=== PATIENT | female | born 1965 | race Caucasian/White ===

== ENCOUNTER 2023-12-14 13:49 | Emergency (ER) | payer MEDICARE, SELFPAY ==
[2023-12-14 14:01] VITALS: BP 150/98; PULSE 95; TEMP 36.7; O2SAT 98; BMI 22.5
--- NOTE | 2023-12-14 15:04 | ED.GENADUL1 ---
HPI HPI - General Adult General Chief complaint: Skin/Abscess/Foreign Body Stated complaint: BOIL IN VAGINAL AREA Time Seen by Provider: 12/14/23 14:06 Source: patient Mode of arrival: walk-in History of Present Illness HPI narrative: Patient is a 58-year-old female presents to the emergency department for 3-day history of right labial swelling and pain. She states yesterday the area opened and began draining. She has no history of diabetes. No fevers or vomiting. She states she was hoping she could be on an antibiotic. No medications taken prior to arrival. Related Data Previous Rx's ?Medication ?Instructions ?Recorded cephalexin 500 mg capsule 500 mg PO Q8H 10 days #30 caps 12/14/23 hydrocodone 5 mg-acetaminophen 325 1 tab PO Q6H PRN pain 3 days #12 12/14/23 mg tablet tabs ondansetron 4 mg disintegrating 4 mg PO Q6H PRN nausea and 12/14/23 tablet vomiting #12 tabs sulfamethoxazole 800 1 tab PO BID 10 days #20 tabs 12/14/23 mg-trimethoprim 160 mg tablet (Bactrim DS) Allergies Allergy/AdvReac Type Severity Reaction Status Date / Time No Known Drug Allergies Allergy Verified 12/14/23 14:06 Opioid HPI Opioid Management Most Recent Opioid Data: No Data to Display Review of Systems ROS Constitutional Denies: fever or chills Ears, nose, mouth, and throat Denies: throat pain or nasal congestion Respiratory Denies: shortness of breath Gastrointestinal Denies: abdominal pain, nausea or vomiting Integumentary/Breast Denies: rash Hematologic/Lymphatic Denies: easy bruising or easy bleeding Exam Narrative Exam Narrative: Gen.: Awake, alert, in no distress Head: Normocephalic, atraumatic ENT: Moist mucous membranes Respiratory: No respiratory distress : Right labia majora is edematous with a 1 cm open area, purulent drainage able to be expressed. No extension to the labia minora. No Bartholin cyst noted. Extremities: Moves extremities equally Psych: Normal mood and affect Neuro: No focal neuro deficit Skin: Warm, dry, intact Constitutional Vital Signs, click to edit/add: Last Vital Signs Temp 98.0 F 12/14/23 14:01 Pulse 95 H 12/14/23 14:01 Resp 18 12/14/23 14:01 BP 150/98 H 12/14/23 14:01 Pulse Ox 98 12/14/23 14:01 O2 Del Method Room Air 12/14/23 14:01 Course Vital Signs Vital signs: Vital Signs Temperature 98.0 F 12/14/23 14:01 Pulse Rate 95 H 12/14/23 14:01 Respiratory Rate 18 12/14/23 14:01 Blood Pressure 150/98 H 12/14/23 14:01 Pulse Oximetry 98 12/14/23 14:01 Oxygen Delivery Method Room Air 12/14/23 14:01 Temperature 98.0 F 12/14/23 14:01 Pulse Rate 95 H 12/14/23 14:01 Respiratory Rate 18 12/14/23 14:01 Blood Pressure 150/98 H 12/14/23 14:01 Pulse Oximetry 98 12/14/23 14:01 Oxygen Delivery Method Room Air 12/14/23 14:01 Medical Decision Making MDM Narrative Medical decision making narrative: Patient treated for labial abscess with Bactrim, Keflex, [place] and Zofran given for symptoms. Follow-up with PCP, gynecology and return to the ER if symptoms change or worsen. Warm compresses encouraged. SUPERVISED APC VISIT, PHYSICIAN ATTESTATION: Based on the medical record the care appears appropriate. ? Medical Records Medical records reviewed: Yes I reviewed the patient's medical records Discharge Plan Discharge Stand Alone Forms: Portal Instructions Chief Complaint: Skin/Abscess/Foreign Body Clinical Impression: Abscess of labia Patient Disposition: Home, Self-Care Time of Disposition Decision: 15:01 Condition: Good Prescriptions / Home Meds: New hydrocodone-acetaminophen 5-325 mg tablet 1 tab PO Q6H PRN (Reason: pain) 3 Days Qty: 12 0RF Rx Instructions: DX: L02.91 sulfamethoxazole-trimethoprim [Bactrim DS] 800-160 mg tablet 1 tab PO BID 10 Days Qty: 20 0RF cephalexin 500 mg capsule 500 mg PO Q8H 10 Days Qty: 30 0RF ondansetron 4 mg tablet,disintegrating 4 mg PO Q6H PRN (Reason: nausea and vomiting) Qty: 12 0RF Print Language: Macanese Instructions: Abscess (ED) Referrals: Physician,Non-Staff, MD [Primary Care Provider] - 1 week
== END 2023-12-14 15:10 | disposition home or self-care (01) ==
PROVIDERS: Emergency Provider Emergency Medicine Emergency Medical Services
DX: N76.4 Abscess of vulva (principal)
CPT/HCPCS: 99283

== ENCOUNTER 2024-01-04 08:59 | Emergency (ER) | payer MEDICARE, SELFPAY ==
[2024-01-04 09:03] VITALS: BP 113/92; PULSE 87; TEMP 36.6; O2SAT 100; BMI 22.7
--- NOTE | 2024-01-04 09:10 | PC.NURSE ---
pt states her anxiety has gotten worse over the last few days. denies any precipitating events leading to this. does not see a counselor and does not take any anti-anxiety meds at this time.
[2024-01-04 09:33] LABS: Basophils Absolute Auto 0.1 10^3/uL (0.0-0.1); Basophils Percent Auto 1.2 % (0.2-2.0); Eosinophils Absolute Auto 0.1 10^3/uL (0.0-0.7); Eosinophils Percent Auto 1.4 % (0.9-7.0); Hematocrit 41.6 % (36.0-48.0); Hemoglobin 13.7 g/dL (12.0-16.0); Immature Granulocytes Abs Auto 0.02 10^3/uL (0.00-0.03); Immature Granulocytes Pct Auto 0.2 % (0.0-0.5); Lymphocytes Absolute Auto 2.3 10^3/uL (1.2-3.8); Lymphocytes Percent Auto 24.8 % (20.5-60.0); Mean Corpuscular HGB Conc 32.9 g/dL (29.9-35.2); Mean Corpuscular Hemoglobin 31.4 pg (26.7-34.0); Mean Corpuscular Volume 95.2 fL (81.0-99.0); Mean Platelet Volume 9.8 fL (9.5-13.5); Monocytes Absolute Auto 0.7 10^3/uL (0.3-0.8); Monocytes Percent Auto 6.9 % (1.7-12.0); Neutrophils Absolute Auto 6.2 10^3/uL (1.4-6.5); Neutrophils Percent Auto 65.5 % (43.0-75.0); Platelet Count 448 10^3/uL (150-450); Red Blood Count 4.37 10^6/uL (4.20-5.40); Red Cell Distribution Width 13.4 % (11.0-15.0); White Blood Count 9.4 10^3/uL (4.0-11.0)
[2024-01-04 09:50] LABS: Alanine Aminotransferase 20 U/L (14-59); Albumin Globulin Ratio 0.9; Albumin Level 3.4 g/dL (3.4-5.0); Alkaline Phosphatase 96 U/L (46-116); Aspartate Amino Transferase 17 U/L (15-37); BUN Creatinine Ratio 13.7; Bilirubin Total 0.4 mg/dL (0.2-1.0); Carbon Dioxide 25.7 mmol/L (21.0-32.0); Chloride 102 mmol/L (98-107); Estimated GFR (African America >60 (>=60); Estimated GFR (Non-African Ame >60 (>=60); Ethanol <3 mg/dL; Globulin 3.8 g/dL; Glucose 84 mg/dL (74-106); Potassium 3.7 mmol/L (3.5-5.1); Sodium 137 mmol/L (136-145); Total Protein 7.2 g/dL (6.4-8.2)
[2024-01-04 10:16] LABS: Amphetamine Screen Urine NEGATIVE (NEGATIVE); Barbiturates Screen Urine NEGATIVE (NEGATIVE); Benzodiazepines Screen Urine NEGATIVE (NEGATIVE); Buprenorphine Screen Urine NEGATIVE (NEGATIVE); Cannabinoid Screen Urine NEGATIVE (NEGATIVE); Cocaine Screen Urine NEGATIVE (NEGATIVE); Methadone Screen Urine NEGATIVE (NEGATIVE); Methamphetamines Screen Urine NEGATIVE (NEGATIVE); Opiate Screen Urine NEGATIVE (NEGATIVE); Oxycodone Screen Urine NEGATIVE (NEGATIVE); Phencyclidine Screen Urine NEGATIVE (NEGATIVE); Tricyclic Antidepressant Urine NEGATIVE (NEGATIVE)
--- NOTE | 2024-01-04 10:23 | ED.ANXIETY1 ---
HPI - Anxiety General Chief Complaint: Anxiety Stated Complaint: ANXIETY COMPLAINTS Time Seen by Provider: 01/04/24 09:14 Source: patient and family Mode of arrival: walk-in Limitations: no limitations History of Present Illness HPI narrative: The patient presenting to us with a symptoms of an anxiety, that she was diagnosed with that more than 10 years ago but she has not been following up with her psychiatrist and she also is not taking any medication for, patient denies being suicidal or homicidal she also denies any organic symptoms of chest pain nausea vomiting or any other concern She has been having normal appetite although she mentioned that her sleeping is adequate but she still feels anxious most of the time when going to sleep Related Data Previous Rx's ?Medication ?Instructions ?Recorded hydroxyzine pamoate 25 mg capsule 25 mg PO Q8H PRN anxiety #20 caps 01/04/24 (Vistaril) Allergies Allergy/AdvReac Type Severity Reaction Status Date / Time No Known Drug Allergies Allergy Verified 01/04/24 09:06 Review of Systems ROS Status of ROS 10 or more systems reviewed and unremarkable except as noted in history and below Exam Narrative Exam Narrative: Nurses notes and vital signs reviewed and patient is not hypoxic. General: Well-appearing and in no apparent distress. Skin: Warm, dry, no pallor noted. No rash. Head: Normocephalic, atraumatic. Neck: Supple, non-tender. Eye: Pupils are equal, round and EOMI. No scleral icterus. Ears, Nose, Mouth, and Throat: TM are clear, no nasal mucosal hypertrophy. Oral mucosa is moist, no posterior oropharynx erythema, uvula is mid-line Cardiovascular: Regular Rate and Rhythm without murmur, gallop or rub. Respiratory: No accessory muscle use or respiratory distress. Lungs are clear to auscultation, no wheezing, rales or rhonchi Chest Wall: no tenderness Back: No midline thoracic or lumbar vertebral tenderness. No CVA tenderness Musculoskeletal: normal ROM, no calf or popliteal tenderness, no lower extremity edema/swelling GI: Abdomen is soft, non-distended. Normal bowel sounds. No masses appreciated. No tenderness to palpation. No rebound, guarding, or rigidity noted. Neurological: A&O x4. No cranial nerve dysfunction observed. No truncal ataxia. Moves all extremities. Sensation intact. Psychiatric: Cooperative and interactive. Normal mood and affect. Constitutional Vital Signs, click to edit/add: Last Vital Signs Temp 97.9 F 01/04/24 09:03 Pulse 87 01/04/24 09:03 Resp 18 01/04/24 09:03 BP 113/92 H 01/04/24 09:03 Pulse Ox 100 01/04/24 09:03 O2 Del Method Room Air 01/04/24 09:03 Course Vital Signs Vital signs: Vital Signs Temperature 97.9 F 01/04/24 09:03 Pulse Rate 87 01/04/24 09:03 Respiratory Rate 18 01/04/24 09:03 Blood Pressure 113/92 H 01/04/24 09:03 Pulse Oximetry 100 01/04/24 09:03 Oxygen Delivery Method Room Air 01/04/24 09:03 Temperature 97.9 F 01/04/24 09:03 Pulse Rate 87 01/04/24 09:03 Respiratory Rate 18 01/04/24 09:03 Blood Pressure 113/92 H 01/04/24 09:03 Pulse Oximetry 100 01/04/24 09:03 Oxygen Delivery Method Room Air 01/04/24 09:03 MDM - Anxiety MDM Narrative Medical decision making narrative: The patient CBC and chemistry chemistry showed no acute pathology Patient was treated in the ER with Temo Discharged home with Jabari after speaking with [facility]'s psychiatry service and providing the patient with outpatient treatment plan Patient referred to the psychiatrist as outpatient and she was instructed about the importance of coming back in case of any new symptoms The patient is to follow up with primary care physician in next 2-3 days or to return to the emergency department should any of the signs or symptoms worsen or new symptoms develop. The patient agrees with the following Diagnosis and Treatment plan and the patient will be discharged home. Lab Data Labs: Lab Results 01/04/24 01/04/24 Range/Units 09:25 09:55 WBC 9.4 (4.0-11.0) 10^3/uL RBC 4.37 (4.20-5.40) 10^6/uL Hgb 13.7 (12.0-16.0) g/dL Hct 41.6 (36.0-48.0) % MCV 95.2 (81.0-99.0) fL MCH 31.4 (26.7-34.0) pg MCHC 32.9 (29.9-35.2) g/dL RDW 13.4 (11.0-15.0) % Plt Count 448 (150-450) 10^3/uL MPV 9.8 (9.5-13.5) fL Neut % (Auto) 65.5 (43.0-75.0) % Lymph % (Auto) 24.8 (20.5-60.0) % [place] % (Auto) 6.9 (1.7-12.0) % Eos % (Auto) 1.4 (0.9-7.0) % Baso % (Auto) 1.2 (0.2-2.0) % Neut # (Auto) 6.2 (1.4-6.5) 10^3/uL Lymph # (Auto) 2.3 (1.2-3.8) 10^3/uL [place] # (Auto) 0.7 (0.3-0.8) 10^3/uL Eos # (Auto) 0.1 (0.0-0.7) 10^3/uL Baso # (Auto) 0.1 (0.0-0.1) 10^3/uL Abs Immat Gran (auto) 0.02 (0.00-0.03) 10^3/uL Imm/Tot Granulo (auto) 0.2 (0.0-0.5) % Sodium 137 (136-145) mmol/L Potassium 3.7 (3.5-5.1) mmol/L Chloride 102 (98-107) mmol/L Carbon Dioxide 25.7 (21.0-32.0) mmol/L Anion Gap 13.0 BUN 10.0 (7.0-18.0) mg/dL Creatinine 0.73 (0.55-1.02) mg/dL Est GFR ( Amer) >60 (>=60) Est GFR (Non-Af Amer) >60 (>=60) BUN/Creatinine Ratio 13.7 Glucose 84 (74-106) mg/dL Calcium 9.0 (8.5-10.1) mg/dL Total Bilirubin 0.4 (0.2-1.0) mg/dL AST 17 (15-37) U/L ALT 20 (14-59) U/L Alkaline Phosphatase 96 (46-116) U/L Total Protein 7.2 (6.4-8.2) g/dL Albumin 3.4 (3.4-5.0) g/dL Globulin 3.8 g/dL Albumin/Globulin Ratio 0.9 Urine Opiates Screen Negative (NEGATIVE) Ur Buprenorphine Scrn Negative (NEGATIVE) Ur Oxycodone Screen Negative (NEGATIVE) Urine Methadone Screen Negative (NEGATIVE) Ur Barbiturates Screen Negative (NEGATIVE) U Tricyclic Antidepress Negative (NEGATIVE) Ur Phencyclidine Scrn Negative (NEGATIVE) Ur Amphetamines Screen Negative (NEGATIVE) U Methamphetamines Scrn Negative (NEGATIVE) U Benzodiazepines Scrn Negative (NEGATIVE) Urine Cocaine Screen Negative (NEGATIVE) U Cannabinoids Screen Negative (NEGATIVE) Ethanol Quant <3 mg/dL Discharge Plan Discharge Stand Alone Forms: Portal Instructions Chief Complaint: Anxiety Clinical Impression: Anxiety Patient Disposition: Home, Self-Care Time of Disposition Decision: 10:22 Condition: Good Mode of Transportation: Private Vehicle Prescriptions / Home Meds: New hydroxyzine pamoate [Vistaril] 25 mg capsule 25 mg PO Q8H PRN (Reason: anxiety ) Qty: 20 0RF Print Language: Tajik Instructions: Anxiety (ED) Referrals: Physician,Non-Staff, MD [Primary Care Provider] - 1 week Discharge Date/Time: 01/04/24 10:36
[2024-01-04] MEDS: ALPRAZOLAM 0.5 MG TABLET PO (10:26)
== END 2024-01-04 10:36 | disposition home or self-care (01) ==
PROVIDERS: Emergency Provider Emergency Medicine
DX: F41.9 Anxiety disorder, unspecified (principal)
CPT/HCPCS: 36415; 80053; 80307; 80320; 85025; 99283

== ENCOUNTER 2024-01-05 09:42 | Emergency (ER) | payer MEDICARE, SELFPAY ==
[2024-01-05 09:45] VITALS: BP 131/80; PULSE 83; TEMP 36.7; O2SAT 99; BMI 22.7
--- NOTE | 2024-01-05 09:46 | ECG_ITS ---
[facility] Test Date: 2024-01-05 Pat Name: JUMA HU Department: Room: - Gender: Female [employer]: : 1965 Requested By: [id number] Order Number: [id number] Reading MD: VITO JIMENEZ Measurements Intervals [place] Rate: 78 P: 58 NE: 146 QRS: 61 QRSD: 74 T: 60 QT: 344 QTc: 378 Interpretive Statements 1100 Sinus rhythm 9110 normal ECG No previous ECG available for comparison Electronically Signed On 01-05-2024 22:50:30 EDT by VITO JIMENEZ
[2024-01-05 09:49] VITALS: PULSE 82; O2SAT 99
--- NOTE | 2024-01-05 09:50 | ED.GENADUL1 ---
HPI HPI - General Adult General Chief complaint: Anxiety Stated complaint: ANXIETY Time Seen by Provider: 01/05/24 09:44 Source: patient Mode of arrival: ambulance Limitations: no limitations History of Present Illness HPI narrative: Patient presents to ED after an overdose. She was seen here yesterday's for severe anxiety and sent home with some Vistaril. She was discharged with 20 tabs and 9 tabs are missing. The patient originally reported that she took these This morning over the course of about an hour. Then later she states she took them yesterday after she got home from [facility]. Her story is very unclear and continues to change. She also uses recreational Xanax she states this is not prescribed to her but she is unaware how she gets it. Xanax milligram is 0.5 mg she reports that she states she uses about 2-3 a day. Patient denies suicidal or homicidal ideation she just reports that she has severe anxiety and that is why she takes the medication. She also admits to marijuana use. No other obvious signs of trauma or self-harm. She does report that she has been to a psychiatric facility before she thinks she was at [facility] in the past. She has a history of bipolar but does not appear to be on any home medications. Related Data Previous Rx's ?Medication ?Instructions ?Recorded hydroxyzine pamoate 25 mg capsule 25 mg PO Q8H PRN anxiety #20 caps 01/04/24 (Vistaril) Allergies Allergy/AdvReac Type Severity Reaction Status Date / Time No Known Drug Allergies Allergy Verified 01/05/24 09:45 Opioid HPI Opioid Management Most Recent Opioid Data: Last Pain Scale 4 12/14/23 14:40 Ur Phencyclidine Scrn Negative (NEGATIVE) 01/05/24 09:50 Review of Systems ROS Status of ROS 10 or more systems reviewed and unremarkable except as noted in history and below Exam Narrative Exam Narrative: Time Seen: [] Vital Signs: [Per nurse's notes.] General: [Alert] Skin: [Warm, dry, no rash.] Head: [Normocephalic, atraumatic.] Neck: [Supple, trachea midline.] Eye: [Pupils are equal, round and reactive to light, extraocular movements are intact, normal conjunctiva.] Ears, nose, mouth and throat: oral mucosa moist. Cardiovascular: [Regular rate and rhythm, no murmur.] Respiratory: [Lungs are clear to auscultation, respirations are non-labored, breath sounds are equal.] Chest wall: [No tenderness, no deformity.] Gastrointestinal: [Soft, nontender, non distended, normal bowel sounds.] MSK: 5 out of 5 muscle strength x 4 extremities no calf pain or edema Lymphatics: [No lymphadenopathy.] Psychiatric: [Cooperative, Flat affect, anxiety Neurological: [Alert and oriented to person, place, time, and situation, no focal neurological deficit observed.] Constitutional Vital Signs, click to edit/add: Last Vital Signs Temp 98.1 F 01/05/24 09:45 Pulse 82 01/05/24 09:49 Resp 17 01/05/24 09:45 BP 113/67 01/05/24 12:39 Pulse Ox 99 01/05/24 09:49 O2 Del Method Room Air 01/05/24 09:45 Course Vital Signs Vital signs: Vital Signs Temperature 98.1 F 01/05/24 09:45 Pulse Rate 83 01/05/24 09:45 Respiratory Rate 17 01/05/24 09:45 Blood Pressure 131/80 01/05/24 09:45 Pulse Oximetry 99 01/05/24 09:45 Oxygen Delivery Method Room Air 01/05/24 09:45 Temperature 98.1 F 01/05/24 09:45 Pulse Rate 82 01/05/24 09:49 Respiratory Rate 17 01/05/24 09:45 Blood Pressure 113/67 01/05/24 12:39 Pulse Oximetry 99 01/05/24 09:49 Oxygen Delivery Method Room Air 01/05/24 09:45 Medical Decision Making MDM Narrative Medical decision making narrative: Poison center was called. They recommend a 4-hour observational period after the ingestion of this medication which is an unknown time. Patient is agreeable to psychiatric admission. Her labs are stable. She has been observed for the 4-hour window and has had no acute changes. Patient was positive for benzos and marijuana in the drug screen. Patient's not intoxicated. She is stable here in ED and is safe for transfer for further psychiatric care. Patient was accepted at [facility]. Differential Diagnosis Differential Diagnosis: Multidrug overdose, anxiety, suicidal ideation, depression Medical Records Medical records reviewed: Yes I reviewed the patient's medical records Lab Data Lab results reviewed: Yes I reviewed the patient's lab results Labs: Lab Results 01/05/24 01/05/24 Range/Units 09:50 10:00 WBC 11.5 H (4.0-11.0) 10^3/uL RBC 4.42 (4.20-5.40) 10^6/uL Hgb 14.1 (12.0-16.0) g/dL Hct 42.1 (36.0-48.0) % MCV 95.2 (81.0-99.0) fL MCH 31.9 (26.7-34.0) pg MCHC 33.5 (29.9-35.2) g/dL RDW 13.4 (11.0-15.0) % Plt Count 436 (150-450) 10^3/uL MPV 10.3 (9.5-13.5) fL Neut % (Auto) 81.3 H (43.0-75.0) % Lymph % (Auto) 11.3 L (20.5-60.0) % [place] % (Auto) 5.4 (1.7-12.0) % Eos % (Auto) 0.7 L (0.9-7.0) % Baso % (Auto) 1.0 (0.2-2.0) % Neut # (Auto) 9.3 H (1.4-6.5) 10^3/uL Lymph # (Auto) 1.3 (1.2-3.8) 10^3/uL [place] # (Auto) 0.6 (0.3-0.8) 10^3/uL Eos # (Auto) 0.1 (0.0-0.7) 10^3/uL Baso # (Auto) 0.1 (0.0-0.1) 10^3/uL Abs Immat Gran (auto) 0.03 (0.00-0.03) 10^3/uL Imm/Tot Granulo (auto) 0.3 (0.0-0.5) % Sodium 142 (136-145) mmol/L Potassium 4.1 (3.5-5.1) mmol/L Chloride 103 (98-107) mmol/L Carbon Dioxide 27.8 (21.0-32.0) mmol/L Anion Gap 15.3 BUN 16.0 (7.0-18.0) mg/dL Creatinine 0.89 (0.55-1.02) mg/dL Est GFR ( Amer) >60 (>=60) Est GFR (Non-Af Amer) >60 (>=60) BUN/Creatinine Ratio 18.0 Glucose 88 (74-106) mg/dL Calcium 9.4 (8.5-10.1) mg/dL Total Bilirubin 0.4 (0.2-1.0) mg/dL AST 16 (15-37) U/L ALT 20 (14-59) U/L Alkaline Phosphatase 96 (46-116) U/L Total Protein 7.7 (6.4-8.2) g/dL Albumin 3.5 (3.4-5.0) g/dL Globulin 4.2 g/dL Albumin/Globulin Ratio 0.8 Urine Color Lt. yellow (YELLOW) Urine Clarity Clear (CLEAR) Urine pH 6.5 (5.0-9.0) Ur Specific [place] 1.020 (1.005-1.025) Urine Protein Negative (NEG/TRACE) mg/dL Urine Glucose (UA) Negative (NEGATIVE) mg/dL Urine Ketones Negative (NEGATIVE) mg/dL Urine Occult Blood Trace-i (NEGATIVE) Urine Nitrite Negative (NEGATIVE) Urine Bilirubin Negative (NEGATIVE) Urine Urobilinogen 0.2 (0.2-1.0) EU/dL Ur Leukocyte Esterase Negative (NEGATIVE) Urine RBC 0-2 (0-2) #/HPF Urine WBC 0-2 A (NONE SEEN) #/HPF Ur Squamous Epith Cells Moderate A (NONE/RARE) #/LPF Urine Crystals None seen (None Seen) #/HPF Urine Bacteria Trace A (NONE SEEN) #/HPF Urine Casts None seen (NONE SEEN) #/LPF Urine Mucus None seen (NONE SEEN) Ur Culture Indicated? No Salicylates 4.8 (<=19.9) mg/dL Urine Opiates Screen Negative (NEGATIVE) Ur Buprenorphine Scrn Negative (NEGATIVE) Ur Oxycodone Screen Negative (NEGATIVE) Urine Methadone Screen Negative (NEGATIVE) Acetaminophen <2.0 L (10.0-30.0) ug/mL Ur Barbiturates Screen Negative (NEGATIVE) U Tricyclic Antidepress Negative (NEGATIVE) Ur Phencyclidine Scrn Negative (NEGATIVE) Ur Amphetamines Screen Negative (NEGATIVE) U Methamphetamines Scrn Negative (NEGATIVE) U Benzodiazepines Scrn Positive A (NEGATIVE) Urine Cocaine Screen Negative (NEGATIVE) U Cannabinoids Screen Positive A (NEGATIVE) Ethanol Quant <3 mg/dL ECG Data Attestation: I personally reviewed and interpreted this ECG as follows: Interpretation: EKG INTERPRETATION Time: []947 Rate: []78 Rhythm: _ []Normal sinus rhythm ST segments: _ []No acute ST elevation or depression T waves: _ [] Ectopy: _ [] P wave/IN interval: _ [] QRS interval: _ []Normal QT interval: _ []Normal Comparison: _ [] Comparison EKG date: [] Performed by: [self] Discharge Plan Discharge Chief Complaint: Anxiety Clinical Impression: Anxiety, Drug overdose Patient Disposition: [facility] Time of Disposition Decision: 12:42 Discharge Location: [facility] Discharge location: PSYCH Condition: Fair Mode of Transportation: EMS
--- NOTE | 2024-01-05 10:05 | PC.NURSE ---
patient arrives via ems for c/o anxiety with possible overdose of hydroxyzine. patient states that the uses recreational xanx and marijuana. patient states that she was prescribed hydroxyzine here yesterday and initially states she took 9 over an hour this morning but then states she took 9 over the course of last night and this morning. patient states last xanax yesterday. patient denies drinking alcohol but endorses smoking cigarettes and marijuana.
--- OUTSIDE RECORDS SUMMARY | 2024-01-05 10:06 | XMS_ITS | CCD ---
Author Organization [facility] Inform ion Partnership [facility] Care Team Providers Care Supervisor Title Name Role Phone DOROTHY Walker Primary Care Provider MD Fermin Renteria Admit Provider [phone] MD Fermin Renteria Attending Provider Farhat Kirby Attending Unavailable Trevin Renteria Admitting Unavailab Korina Garcia Primary Care Unavailable Trevin Renteria Attending Unavailab Trevin William Admitting Unavailab Korina Garcia Primary Care Unavailable Allergies Allergy Classification Reported Allergen(s) Allergy Type Date of Onset Reaction(s) Facility (2 sources) Calcium; Translations: [calcium] Drug Allergy 12-17-[address] [facility] (2 sources) Doxycycline; Translations: [doxycycline] Drug Allergy 12-17-2022 Unknown Reaction [facility] Medications Current Medications Medication Drug Class(es) Dates Sig (Normalized) Sig (Original) ergocalciferol 1.25 mg oral capsule (1 source) Provitamin D2 Compound Start: 12-28-2022 take 1250 ug by mouth every week Ergocalciferol (Vitamin D2) Active 1250 MCG PO every week 10 14December 28, 2022 12:00am escitalopram 20 mg oral tablet (1 source) Serotonin Reuptake Inhibitor Start: 12-28-2022 take 20 mg by mouth once daily in the morning Escitalopram Oxalate Active 20 MG PO Every morning December 28, 2022 12:00am hydrOXYzine pamoate 50 mg oral capsule (2 sources) Antihistamine Start: 12-28-2022 take 50 mg by mouth twice daily Hydroxyzine Pamoate Active 50 MG PO Twice daily 60 December 28, 2022 12:00am Start: 12-17-2022 End: 12-28-2022 take 50 mg by mouth once daily Hydroxyzine Hcl Discont inued 50 MG PO Daily December 17, 2022 12:00am December 28, 2022 10:23am lamoTRIgine 25 mg oral tablet (2 sources) Mood Stabilizer, Anti-epileptic Agent Start: 12-17-2022 End: 12-28-2022 take 25 mg by mouth once daily at bedtime Lamotrigine Active 25 MG PO Daily at bedtime 30 December 28, 2022 10:30am mirtazapine 30 mg oral tablet (1 source) Start: 12-28-2022 take 30 mg by mouth once daily at bedtime Mirtazapine Active 30 MG PO Daily at bedtime 30 December 28, 2022 12:00am 24 hr nicotine 0.875 mg/hr transdermal system (1 source) Cholinergic Nicotinic Agonist Start: 12-28-2022 Nicotine Active 1 EACH TRANSDERML Daily December 28, 2022 12:00am QUEtiapine 50 mg oral tablet (1 source) Atypical Antipsychotic Start: 12-28-2022 take 50 mg by mouth three times daily Quetiapine Active 50 MG PO Three times daily December 28, 2022 12:00am traZODone hydrochloride 100 mg oral tablet (1 source) Serotonin Reuptake Inhibitor Start: 12-28-2022 take 100 mg by mouth once daily at bedtime Trazodone Active 100 MG PO Daily at bedtime 30 December 28, 2022 12:00am Completed/Discontinued Medications Medication Drug Class(es) Dates Sig (Normalized) Sig (Original) risperiDONE 1 mg oral tablet (1 source) Atypical Antipsychotic Start: 12-17-2022 End: 12-28-2022 take 1 mg by mouth at bedtime Risperidone Discontinued 1 MG PO Bedtime December 17, 2022 12:00am December 28, 2022 10:23am sertraline 50 mg oral tablet (1 source) Serotonin Reuptake Inhibitor Start: 12-17-2022 End: 12-28-2022 take 50 mg by mouth once daily Sertraline Discontinued 50 MG PO Daily December 17, 2022 12:00am [place] 13th, 2023 10:23am Problems Problem Classification Problem Date Documented Da te Episodic/Chronic Alcohol-related disorders (3 sources) Alcoholism; Translations: [Alcohol dependence, uncomplicated] Onset: 12-17-2022 12-17-2022 Chronic Mood disorders (5 sources) Bipolar II disorder; Translations: [Bipolar II disorder] Onset: 12-17-2022 12-17-2022 Chronic Results Test Name Value Interpretation Reference Range Facility A1C with Estimated Average G shelby 12-18-2022 Glucose [Mass/Vol] 117 mg/dL Normal [facility] Comment on above: Result Comment: PERF ORMED BY: [place] [address] PATHOLOGIST FILAMENT WELDER JENNIFER GONSALES M.D. Performed By: #### A 1C [facility] eA #### [address] HbA1c (Bld) [Mass fraction] 5.7 % High 4.3-5.[address] [facility] Comment on above: Result Comment: Incr eased risk for diabetes: 5.7 - 6.4 diabetes: >6.4 glycemic control for adults with diabetes: <7.0 Performed By: #### A 1C [facility] eA #### [facility] [address] [place] [address] Alanine aminotransferase [En zymatic activity/volume] in Serum or PlasmaOrdered By: Trevin Renteria on 12-18-2022 ALT [Catalytic activity/Vol] 9 U/L 7-[address] [facility] Albumin [Mass/volume] in Ser um or Plasma by Bromocresol green (BCG) dye binding methoOrdered By: Trevin Renteria on 12-18-2022 Albumin BCG dye [Mass/Vol] 3.9 g/dL 3.5-5.[address] [facility] Alkaline phosphatase [Enzyma tic activity/volume] in Serum or PlasmaOrdered By: Trevin Renteria on 12-18-2022 ALP [Catalytic activity/Vol] 87 U/L 34-[address] [facility] Aspartate aminotransferase [ Enzymatic activity/volume] in Serum or PlasmaOrdered By: Trevin Renteria on 12-18-2022 AST [Catalytic activity/Vol] 12 U/L 13-[address] [facility] Basophils Auto (Bld) [#/Vol] Ordered By: Trevin Renteria on 12-18-2022 Basophils (Bld) [#/Vol] 0.1 10*3/uL 0.0-0.[address] [facility] Basophils/100 WBC Auto (Bld) Ordered By: Trevin Renteria on 12-18-2022 Basophils/100 WBC (Bld) 0.8 % . [facility] Bilirubin.total [Mass/volume ] in Serum or PlasmaOrdered By: Trevin Renteria on 12-18-2022 Bilirubin [Mass/Vol] 0.2 mg/dL 0.3-1.0 [facility] Calcium [Mass/volume] in Ser um or PlasmaOrdered By: Trevin Renteria on 12-18-2022 Calcium [Mass/Vol] 9.3 mg/dL 8.6-10.3 [facility] Carbon dioxide, total [Moles /volume] in Serum or PlasmaOrdered By: Trevin Renteria on 12-18-2022 CO2 [Moles/Vol] 26.8 mmol/L 21.0-31.0 [facility] Chloride [Moles/volume] in S yu or PlasmaOrdered By: Trevin Renteria on 12-18-2022 Chloride [Moles/Vol] 107 mmol/L 98-107 [facility] Complete Blood Count Auto Di ffon 12-18-2022 Basophils (Bld) [#/Vol] 0.1 10*3/uL Normal 0.0-0.[address] [facility] Comment on above: Result Comment: PERF ORMED BY: [facility] [address] [place] [address] PATHOLOGIST FILAMENT WELDER JENNIFER GONSALES M.D. Performed By: #### C BC #### [facility] [address] Basophils/100 WBC (Bld) 0.8 % Normal . [facility] Comment on above: Performed By: #### C BC #### [facility] [address] [place] [address] [place] Eosinophils (Bld) [#/Vol] 0.2 10*3/uL Normal 0.0-0.[address] [facility] Comment on above: Performed By: #### C BC #### [address] Eosinophils/100 WBC (Bld) 1.9 % Normal . [facility] Comment on above: Performed By: #### C BC #### [address] Erythrocyte distribution width (RBC) [Ratio] 14.8 % Normal 11.9-15.[address] [facility] Comment on above: Performed By: #### C BC #### [address] Hematocrit (Bld) [Volume fraction] 39.9 % Normal 34.0-46.[address] [facility] Comment on above: Performed By: #### C BC #### [address] Hemoglobin (Bld) [Mass/Vol] 13.3 g/dL Normal 11.8-15.[address] [facility] Comment on above: Performed By: #### C BC #### [address] Lymphocytes (Bld) [#/Vol] 1.6 10*3/uL Normal 1.00-4.[address] [facility] Comment on above: Performed By: #### C BC #### [address] Lymphocytes/100 WBC (Bld) 15.1 % Normal . [facility] Comment on above: Performed By: #### C BC #### [address] MCH (RBC) [Entitic mass] 31.3 pg Normal 24.7-34.[address] [facility] Comment on above: Performed By: #### C BC #### [place] [address] MCV (RBC) [Entitic vol] 94.4 fL Normal 80-100 [facility] Comment on above: Performed By: #### C BC #### [address] Mean Corpuscular HGB Conc 33.2 g/dL Normal 32.0-35.[address] [facility] Comment on above: Performed By: #### C BC #### [address] Monocytes (Bld) [#/Vol] 0.8 10*3/uL Normal 0.0-0.[address] [facility] Comment on above: Performed By: #### C BC #### [address] Monocytes/100 WBC (Bld) 7.7 % Normal . [facility] Comment on above: Performed By: #### C BC #### [address] Neutrophils (Bld) [#/Vol] 8.0 10*3/uL High 1.8-7.[address] [facility] Comment on above: Performed By: #### C BC #### [address] Neutrophils/100 WBC (Bld) 74.5 % Normal . [facility] Comment on above: Performed By: #### C BC #### [address] NRBC% 0.1 /100{WBC} Normal 0-0.[address] [facility] Comment on above: Performed By: #### C BC #### [address] Platelet mean volume (Bld) [Entitic vol] 8.7 fL Normal 6.3-10.[address] [facility] Comment on above: Performed By: #### C BC #### [address] Platelets (Bld) [#/Vol] 345 10*3/uL Normal 150-[address] [facility] Comment on above: Performed By: #### C BC #### [address] RBC (Bld) [#/Vol] 4.23 10*6/uL Normal 3.60-5.00 [facility] Comment on above: Performed By: #### C BC #### [address] WBC (Bld) [#/Vol] 10.8 10*3/uL Normal 3.8-11.6 [facility] Comment on above: Performed By: #### C BC #### [address] Comprehensive Metabolic Pane delgado 12-18-2022 Albumin [Mass/Vol] 3.9 g/dL Normal 3.5-5.7 [facility] Comment on above: Performed By: #### C MP #### [address] Albumin/Globulin [Mass ratio] 1.3 {ratio} Normal [facility] Comment on above: Performed By: #### C MP #### [address] ALP [Catalytic activity/Vol] 87 U/L Normal 34-[address] [facility] Comment on above: Performed By: #### C MP #### [address] ALT [Catalytic activity/Vol] 9 U/L Normal 7-[address] [facility] Comment on above: Performed By: #### C MP #### [address] Anion gap [Moles/Vol] 9.5 mmol/L Normal 6.0-15.0 [facility] Comment on above: Performed By: #### C MP #### [address] AST [Catalytic activity/Vol] 12 U/L Low 13-[address] [facility] Comment on above: Performed By: #### C MP #### [facility] [address] Bilirubin [Mass/Vol] 0.2 mg/dL Low 0.3-1.0 [facility] Comment on above: Performed By: #### C MP #### [facility] [address] Calcium [Mass/Vol] 9.3 mg/dL Normal 8.6-10.3 [facility] Comment on above: Performed By: #### C MP #### [facility] [address] Chloride [Moles/Vol] 107 mmol/L Normal 98-107 [facility] Comment on above: Performed By: #### C MP #### [address] CO2 [Moles/Vol] 26.8 mmol/L Normal 21.0-31.0 [facility] Comment on above: Performed By: #### C MP #### [address] Creatinine [Mass/Vol] 0.78 mg/dL Normal 0.60-1.20 [facility] Comment on above: Performed By: #### C MP #### [address] Creatinine Clr Calc Pharmacy 68.[address] [facility] Comment on above: Result Comment: PERF ORMED BY: [address] [place] [address] PATHOLOGIST FILAMENT WELDER JENNIFER GONSALES M.D. Performed By: #### C MP #### [place] [address] [place] GFR/1.73 sq M.predicted MDRD (S/P/Bld) [Vol rate/Area] mL/min/{1.73_m2} Normal [facility] Comment on above: Performed By: #### C MP #### [address] Globulin (S) [Mass/Vol] 2.9 g/dL Normal [facility] Comment on above: Performed By: #### C MP #### [facility] [address] Glucose [Mass/Vol] 98 mg/dL Normal 70-100 [facility] Comment on above: Result Comment: [place] Glucose Reference Range is dependent on time and content of last meal. Glucose of more than 200 mg/dL in a nonstressed, ambulatory subject supports the diagnosis of Diabetes Mellitus. ADA recommended reference range Performed By: #### C MP #### [facility] [address] Potassium [Moles/Vol] 4.3 mmol/L Normal 3.5-5.1 [facility] Comment on above: Performed By: #### C MP #### [address] Protein [Mass/Vol] 6.8 g/dL Normal 6.4-8.9 [facility] Comment on above: Performed By: #### C MP #### [address] Sodium [Moles/Vol] 139 mmol/L Normal 136-145 [facility] Comment on above: Performed By: #### C MP #### [address] Urea nitrogen [Mass/Vol] 16 mg/dL Normal 7-[address] [facility] Comment on above: Performed By: #### C MP #### [address] Creatinine [Mass/volume] in Serum or PlasmaOrdered By: Trevin Renteria on 12-18-2022 Creatinine [Mass/Vol] 0.78 mg/dL 0.60-1.20 [facility] Eosinophils Auto (Bld) [#/Vo l]Ordered By: Trevin Renteria on 12-18-2022 Eosinophils (Bld) [#/Vol] 0.2 10*3/uL 0.0-0.[address] [facility] Eosinophils/100 WBC Auto (Bl d)Ordered By: Trevin Renteria on 12-18-2022 Eosinophils/100 WBC (Bld) 1.9 % . [facility] Erythrocyte distribution wid th Auto (RBC) [Ratio]Ordered By: Trevin Renteria on 12-18-2022 Erythrocyte distribution width (RBC) [Ratio] 14.8 % 11.9-15.[address] [facility] Globulin Calc (S) [Mass/Vol] Ordered By: Trevin Renteria on 12-18-2022 Globulin (S) [Mass/Vol] 2.9 g/dL [facility] Glucose [Mass/volume] in Ser um or PlasmaOrdered By: Trevin Renteria on 12-18-2022 Glucose [Mass/Vol] 98 mg/dL 70-100 [facility] Comment on above: ADA recommended refe rence rangeRandom Glucose Reference Range is dependent on time and content of last meal. Glucose of more than 200 mg/dL in a nonstressed, ambulatory subject supports the diagnosis of Diabetes Mellitus. Glucose mean value [Mass/vol ume] in Blood Estimated from glycated hemoglobinOrdered By: Trevin Renteria on 12-18-2022 Average glucose Estimated from glycated hemoglobin (Bld) [Mass/Vol] 117 mg/dL [facility] Hematocrit Auto (Bld) [Volum e fraction]Ordered By: Trevin Renteria on 12-18-2022 Hematocrit (Bld) [Volume fraction] 39.9 % 34.0-46.[address] [facility] Hemoglobin A1c percentageOrd ered By: Trevin Renteria on 12-18-2022 HbA1c (Bld) [Mass fraction] 5.7 % 4.3-5.[address] [facility] Comment on above: Increased risk for d iabetes: 5.7 - 6.4diabetes: >6.4glycemic control for adults with diabetes: <7.0 Hemoglobin [Mass/volume] in BloodOrdered By: Trevin Renteria on 12-18-2022 Hemoglobin (Bld) [Mass/Vol] 13.3 g/dL 11.8-15.[address] [facility] Leukocytes [#/volume] correc shantell for nucleated erythrocytes in Blood by Automated counOrdered By: Trevin Renteria on 12-18-2022 WBC corrected for nucl RBC Auto (Bld) [#/Vol] 10.8 10*3/uL 3.8-11.[address] [facility] Lymphocytes Auto (Bld) [#/Vo l]Ordered By: Trevin Renteria on 12-18-2022 Lymphocytes (Bld) [#/Vol] 1.6 10*3/uL 1.00-4.[address] [facility] Lymphocytes/100 WBC Auto (Bl d)Ordered By: Trevin Renteria on 12-18-2022 Lymphocytes/100 WBC (Bld) 15.1 % . [facility] MCH Auto (RBC) [Entitic mass ]Ordered By: Trevin Renteria on 12-18-2022 MCH (RBC) [Entitic mass] 31.3 pg 24.7-34.[address] [facility] MCHC Auto (RBC) [Mass/Vol]Or dered By: Trevin Renteria on 12-18-2022 MCHC (RBC) [Mass/Vol] 33.2 g/dL 32.0-35.0 [facility] MCV Auto (RBC) [Entitic vol] Ordered By: Trevin Renteria on 12-18-2022 MCV (RBC) [Entitic vol] 94.4 fL 80-100 [facility] Monocytes Auto (Bld) [#/Vol] Ordered By: Trevin Renteria on 12-18-2022 Monocytes (Bld) [#/Vol] 0.8 10*3/uL 0.0-0.[address] [facility] Monocytes/100 WBC Auto (Bld) Ordered By: Trevin Renteria on 12-18-2022 Monocytes/100 WBC (Bld) 7.7 % . [facility] Neutrophils Auto (Bld) [#/Vo l]Ordered By: Trevin Renteria on 12-18-2022 Neutrophils (Bld) [#/Vol] 8.0 10*3/uL 1.8-7.[address] [facility] Neutrophils/100 WBC Auto (Bl d)Ordered By: Trevin Renteria on 12-18-2022 Neutrophils/100 WBC (Bld) 74.5 % . [facility] No Panel InformationOrdered By: Trevin Renteria on 12-18-2022 Estimated GFR (CKD-EPI) > 60.0 mL/Min [facility] Creatinine Clearance (Chem 68.[address] [facility] Nucleated erythrocytes [Pres ence] in Blood by Automated countOrdered By: Trevin Renteria on 12-18-2022 Nucleated RBC Auto Ql (Bld) 0.1 /100{WBC} 0-0.[address] [facility] Platelet mean volume Auto (B ld) [Entitic vol]Ordered By: Trevin Renteria on 12-18-2022 Platelet mean volume (Bld) [Entitic vol] 8.7 fL 6.3-10.[address] [facility] Platelets Auto (Bld) [#/Vol] Ordered By: Trevin Renteria on 12-18-2022 Platelets (Bld) [#/Vol] 345 10*3/uL 150-[address] [facility] Potassium [Moles/volume] in Serum or PlasmaOrdered By: Trevin Renteria on 12-18-2022 Potassium [Moles/Vol] 4.3 mmol/L 3.5-5.1 [facility] Protein [Mass/volume] in Ser um or PlasmaOrdered By: Trevin Renteria on 12-18-2022 Protein [Mass/Vol] 6.8 g/dL 6.4-8.9 [facility] RBC Auto (Bld) [#/Vol]Ordere d By: Trevin Renteria on 12-18-2022 RBC (Bld) [#/Vol] 4.23 10*6/uL 3.60-5.00 [facility] Serum or plasma albumin/glob ulin mass ratioOrdered By: Trevin Renteria on 12-18-2022 Albumin/Globulin [Mass ratio] 1.3 {ratio} [facility] Serum or plasma anion gap de terminationOrdered By: Trevin Renteria on 12-18-2022 Anion gap [Moles/Vol] 9.5 mmol/L 6.0-15.0 [facility] Sodium [Moles/volume] in Ser um or PlasmaOrdered By: Trevin Renteria on 12-18-2022 Sodium [Moles/Vol] 139 mmol/L 136-145 [facility] Urea nitrogen [Mass/volume] in Serum or PlasmaOrdered By: Trevin Renteria on 12-18-2022 Urea nitrogen [Mass/Vol] 16 mg/dL 7-[address] [facility] WBC Auto (Bld) [#/Vol]Ordere d By: Trevin Renteria on 12-18-2022 WBC (Bld) [#/Vol] 10.8 10*3/uL 3.8-11.6 [facility] Cholesterol [Mass/volume] in Serum or PlasmaOrdered By: Trevin Renteria on 12-17-2022 Cholesterol [Mass/Vol] 202 mg/dL 140-200 [facility] Comment on above: Chol less than 200 m g/dl low riskChol 201-239 mg/dl borderline riskChol 240 mg/dl and greater high risk Cholesterol in LDL Calc [Mas s/Vol]Ordered By: Trevin Renteria on 12-17-2022 Cholesterol in LDL [Mass/Vol] 123 mg/dL 0-[address] [facility] Comment on above: LDL ATP III CLASSIFI CATIONLDL less than 100 mg/dL OptimalLDL 100-129 mg/dL Near or above optimalLDL 130-159 mg/dL Borderline highLDL 160-189 mg/dL HighLDL greater than 189 mg/dL Very high Cholesterol in VLDL Calc [Ma ss/Vol]Ordered By: Trevin Renteria on 12-17-2022 Cholesterol in VLDL [Mass/Vol] 18 mg/dL [facility] ECG 12 lead ECGon 12-17-2022 ECG 12 lead ECG [facility] Main [address] [address] Electrocardiograph Report Signed Patient: Bridgette Wang MR#: [id number] 2 : 1965 Acct:[id number] Age/Sex: 57 / F ADM Date: 12/17/22 Loc: Room: [address] [place] [address] Type: ADM IN Attending Dr: Fermin Renteria MD Ordering Provider: Trevin Renteria MD Date of Service: 12/17/2207/10/499 ECG/ECG 12 lead ECG: baseline for psych meds Copies to: Test Reason : Blood Pressure : / mmHG Vent. Rate : 064 BPM Atrial Rate : 064 BPM P-R Int : 140 ms QRS Dur : 080 ms QT Int : 396 ms P-R-T Axes : 032 028 040 degrees QTc Int : 408 ms Normal sinus rhythm Normal ECG No previous ECGs available Confirmed by ELAINE GUZMAN DO ([id number]) on 12/19/2022 6:54:03 AM Referred By: Electronically Signed By:ELAINE GUZMAN DO Transcribed By: MUS Signed By Elaine Guzman DO 12/19 [address] [facility] Lipid Panelon 12-17-2022 Cholesterol [Mass/Vol] 202 mg/dL High 140-200 [facility] Comment on above: Result Comment: Chol less than 200 mg/dl low risk Chol 201-239 mg/dl borderline risk Chol 240 mg/dl and greater high risk Performed By: #### T SH3 wRFLX, LIPID, [id number] #### [facility] [address] [place] [id number] [place] Cholesterol in HDL [Mass/Vol] 61 mg/dL Normal 23-[address] [facility] Comment on above: Result Comment: HDL CHOL ATP-III CLASSIFICATION Cardiovascular Risk HDL > or equal to 60 mg/dL LOW HDL < 40 mg/dL HIGH Performed By: #### T SH3 wRFLX, LIPID, [id number] #### [facility] [address] [place] [address] [facility] Cholesterol.total/Choles terol in HDL [Mass ratio] 3.3 {ratio} Normal <5.[address] [facility] Comment on above: Performed By: #### T SH3 wRFLX, LIPID, [id number] #### [facility] [address] LDL Cholesterol,Calculated 123 mg/dL High 0-[address] [facility] Comment on above: Result Comment: LDL ATP III CLASSIFICATION LDL less than 100 mg/dL Optimal LDL 100-129 mg/dL Near or above optimal LDL 130-159 mg/dL Borderline high LDL 160-189 mg/dL High LDL greater than 189 mg/dL Very high Performed By: #### T SH3 wRFLX, LIPID, [id number] #### [facility] [address] Triglyceride w/Reflex 92 mg/dL Normal 0-149 [facility] Comment on above: Result Comment: TRIG ATP III CLASSIFICATION TRIG less than 150 mg/dL Normal TRIG 150-199 mg/dL Borderline high TRIG 200-500 mg/dL High TRIG greater than 500 mg/dL Very high Standard traceable to the Center for Disease Conrtrol and Prevention (CDC) test method. Performed By: #### T SH3 wRFLX, LIPID, [id number] #### [facility] [address] VLDL CHOLESTEROL 18 mg/dL Normal [facility] Comment on above: Performed By: #### T SH3 wRFLX, LIPID, [id number] #### [facility] [address] Serum or plasma high density lipoprotein (HDL) cholesterol measurementOrdered By: Trevin Renteria on 12-17-2022 Cholesterol in HDL [Mass/Vol] 61 mg/dL 23-[address] [facility] Comment on above: HDL CHOL ATP-III CLA SSIFICATION Cardiovascular RiskHDL > or equal to 60 mg/dL LOWHDL < 40 mg/dL HIGH Serum or plasma total choles terol/high density lipoprotein (HDL) cholesterol mass ratOrdered By: Trevin Renteria on 12-17-2022 Cholesterol.total/Choles terol in HDL [Mass ratio] 3.3 {ratio} <5.[address] [facility] Thyroid Stim Hormone w/Rflxo n 12-17-2022 Thyroid Stim Hormone w/Rflx 2.12 u[iU]/mL Normal 0.45-5.[address] [facility] Comment on above: Performed By: #### T SH3 wRFLX, LIPID, [id number] #### [facility] [address] Thyrotropin [Units/volume] i n Serum or PlasmaOrdered By: Trevin Renteria on 12-17-2022 TSH Qn 2.12 m[IU]/L 0.45-5.[address] [facility] Triglyceride [Mass/volume] i n Serum or PlasmaOrdered By: Trevin Renteria on 12-17-2022 Triglyceride [Mass/Vol] 92 mg/dL 0-149 [facility] Comment on above: TRIG ATP III CLASSIF ICATIONTRIG less than 150 mg/dL NormalTRIG 150-199 mg/dL Borderline highTRIG 200-500 mg/dL High TRIG greater than 500 mg/dL Very highStandard traceable to the Center for Disease Conrtrol and Prevention (CDC) test method. Vitamin D 25 Hydroxy Totalon 12-17-2022 Vitamin D 25 Hydroxy Total 16.5 ng/mL Low 30-[address] [facility] Comment on above: Result Comment: BELEN MIN D STATUS 25(OH)VITAMIN D RANGE (ng/mL) Deficient <20 Insufficient 20 to <30 Sufficient 30 to 100 Reference: [place] MF,Yamil NC, Mckenzie MAE, et al. Evaluation,treatment, and prevention of vitamin D deficiency; an Endocrine Society clinical practice guideline. JCEM. 2010; 96(7):1911-30. PERFORMED BY: [facility] [address] [place] [address] PATHOLOGIST FILAMENT WELDER JENNIFER GONSALES M.D. Performed By: #### T SH3 wRFLX, LIPID, [id number] #### [facility] [address] Vitamin D+Metabolites [Mass/ volume] in Serum or PlasmaOrdered By: Trevin Renteria on 12-17-2022 Vitamin D+Metabolites [Mass/Vol] 16.5 ng/mL 30-[address] [facility] Comment on above: VITAMIN D STATUS 25( [place])VITAMIN D RANGE (ng/mL) Deficient <20 Insufficient 20 to <30Sufficient 30 to 100Reference: [place] MF,Yamil LANGSTON, Mckenzie MAE, et al. Evaluation,treatment, and prevention of vitamin D deficiency; an Endocrine Society clinical practice guideline. JCEM. 2010; 96(7):1911-30. Vital Signs Date Time Vital Sign Value Performing Clinician Marlena rodriguez 12-28-2022 07:30-0400 Body temperature 98.9 [degF] DRUG ABUSE RESISTANCE EDUCATION OFFICER Korina [id number] Work Phone: [facility] 12-28-2022 07:30-0400 Diastolic blood pressure 95 mm[Hg] DRUG ABUSE RESISTANCE EDUCATION OFFICER Korina [id number] Work Phone: [facility] 12-28-2022 07:30-0400 Heart rate 90 /min DRUG ABUSE RESISTANCE EDUCATION OFFICER Korina [id number] Work Phone: [facility] 12-28-2022 07:30-0400 Respiratory rate 17 /min DRUG ABUSE RESISTANCE EDUCATION OFFICER Korina [id number] Work Phone: [facility] 12-28-2022 07:30-0400 SaO2% (BldA) [Mass fraction] 97 % DRUG ABUSE RESISTANCE EDUCATION OFFICERAlma Delia Hui [id number] Work Phone: [facility] 12-28-2022 07:30-0400 Systolic blood pressure 133 mm[Hg] DRUG ABUSE RESISTANCE EDUCATION OFFICER Korina [id number] Work Phone: [facility] 12-24-2022 09:18-0400 Body height 152.4 cm DRUG ABUSE RESISTANCE EDUCATION OFFICER Korina [id number] Work Phone: [facility] 12-22-2022 09:00-0400 Body weight 63.41 kg DRUG ABUSE RESISTANCE EDUCATION OFFICER Korina [id number] Work Phone: [facility] Encounters Encounter Date Encounter Type Care Provider Facility Start: 01-21-2023 ambulatory Trevin Kendrick acility:[facility] Start: 12-17-2022 End: 12-28-2022 Evaluation and management of inpatient Farhat Kofi Facility:[facility] Start: 12-17-2022 End: 12-28-2022 Evaluation and management of inpatient DOROTHY Walker Work Phone: [facility] Work Phone: Plan of Treatment Date Care Activity Detail Author Start: 12-28-[address] [facility] Start: 12-17-2022 Hospital admission [facility] Start: 12-17-[address] [facility] Patient Education Bipolar Disord er (DC) [facility] Behavioral Health DC Instructions [facility] Work Phone: Patient referral [facility] Work Phone: Payers Date Payer Category Payer Medicare [id number] 2022 Private Health Insurance [id number] 2022 Self-pay Unknown [id number] Unknown [id number] Social History Date Type Detail Facility Start: 12-17-2022 Tobacco smoking stat [facility] Current Heavy tobacco smoker [facility] Start: 1965 Sex Assigned At Female F [facility] Goals Date Patient Goal Desired Activity /State Functional Status Date Assessment Result Facility 12-28-2022 Functional status Patient at Baseline [facility] Work Phone: 12-17-2022 Functional status Functional Sta tus Comment Pt stated she feels confused all the time. [facility] Work Phone: Mental Status Date Assessment Result Facility 12-28-2022 Cognitive function Cognitive Sta tus Patient at Baseline [facility] Work Phone: Clinical Notes 12-17-2022 to 12-28-2022 Note Date & Type Note Facility 12-28-2022 Discharge summary Note Date/Time [facility] [address] [place], [place] [id number] Discharge Summary Signed Patient: Bridgette Wang MR#: [id number] : 1965 Acct:[id number] Age/Sex: 57 / F Adm Date: 3 Loc: 1S Room: 0T2625-[address]: Fermin Renteria MD Copies to: MD Farhat Whitten MD Laura Anglim, DRUG ABUSE RESISTANCE EDUCATION OFFICER, TRAVEL COUNSELOR~ Providers Date of Discharge: 12/28/22 Discharging Provider: Farhat Kirby Primary Care Provider: Korina Walker Discharge Diagnosis (1) Alcoholism: (2) Bipolar II disorder: Final Diagnosis Final Discharge Diagnosis: Bipolar 2 disorder Unspecified anxiety disorder Summary Hospital Course Hospital course: According to admission note: This is a 57-year-old female with reported history of bipolar disorder who presents for inpatient admission due to worsening of anxiety, confusion, disorientation, and confusion. Patient was personally seen by me on the day of the encounter.? I reviewed the history and performed the logan elements of the assessment.? I formulated the planof care and confirmed this with the medical student as noted below At the time of the interview Bridgette presented as anxious, depressed and in some distress. She said she feels sluggish and needs help.? She reports a longstanding history of bipolar disorder diagnosed years ago manifested as anxiety and sadness. She reports a? history of Bipolar II disorder and not had medication for a month or so. She has been following up with a FURNITURE DETAILER and is unsure if the meds are effective. She has been distracted and reported poor focusing. She has been in the ER multiple times over the past couple of days due to anxiety. Ex stated via prescreen report that pt has always had trouble with drinking and not caring for self. She reported previous DUIs and problems due to drinking. She does not endorse any current withdrawal symptoms. Last alcohol drink is about 10 days ago. Despite reporting a history of bipolar II, she only endorses some highs and lows associated with irritability. She denied multiple sexual partners or high libido but noted impulsive spending at times. Past psych history: Bipolar disorder diagnosed at an unknown time.? Reports previously following with a FURNITURE DETAILER but was noncompliant with care and therefore she was discontinued from practice Past hospitalizations: Patient denies Past suicide attempts: Patient describes 1 suicide attempt that took place in her 20s surrounding a threat from her who said that he would leave her Family psych history: Patient reports that her father was manic and hallucinated Previous medications: Reports being on a medication (unknown) for treatment of yeast infection Alcohol and drug use: Reports being an alcoholic.? Reports that she has been without alcohol for 5 days, but that when she uses alcohol she consumes it everyday and the amount of 5 tall boys .? She also reports occasionally smoking marijuana Living: Reports feeling uncomfortable with her living situation.? Says that it is not good , and scary for her to be alone. 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 Relationships: Reports living on her own, which has worsened her anxiety. Patient had gradual improvement of her symptoms of depression. Her symptoms of anxiety fluctuated throughout her hospitalization. She was initially on BuSpar to help manage her anxiety but this was later switched to Seroquel which she started to notice some improvement with. She still complained of some anxiety but objectively seems calmer. She was more visible on the unit and attended groups. When not being watched her anxiety seem to be under good control. She did not report any suicidality during the last few days of her hospitalization. She felt that the medications were overall helping her. She did not exhibit anysymptoms concerning for suicidality during her hospital course. She did not have any conflict with peers or staff. As her symptoms improved she attended groups and learn coping skills. On the day of discharge, she reported that she was feeling better. Her depression was under good control and she denied any suicidal thoughts. She did report some anxiety. She stated that she would continue medications and follow-up with outpatient services. We also discussed about day treatment. Time spent discussing smoking cessation with patient: 3 to 10 minutes Condition Condition at Discharge: Stable Status at Discharge Cognitive/behavioral status at discharge: Mental Status Exam: Appearance: grossly normal Mental Status: mental status grossly normal Mood: Anxious mood Affect: Normal affect Speech and Movement: speech and movement normal and speech clear Attitude: cooperative Thought Process: normal Thought Content: Denied hallucinations, no homicidality and no suicidality Insight: Good Judgment: Good Functional status at discharge: independent ambulation Overall status at discharge: patient is back to baseline Time Spent with Patient Time spent providing/coordinating discharge services (# min): 30 Exam Physical Exam Vital Signs: Temp Pulse Resp BP Pulse Ox O2 Del Method 98.9 F 90 17 133/95 97 Room Air 12/28/22 07:30 12/28/22 07:30 12/28/22 07:30 12/28/22 07:30 12/28/22 07:30 12/28/22 07:30 Discharge Plan Discharge Plan Patient Disposition: Home Activity: No Activity Restriction Diet: Regular Additional Instructions: Regular Diet No Activity Restrictions Instructions: Bipolar Disorder (DC), [facility] Behavioral Health DC Instructions Prescriptions: New mirtazapine 30 mg Tablet 30 mg PO QHS 30 Days Qty: 30 0RF nicotine 21 mg/24 hr Patch 24 Hour 1 ea transdermal DAILY Qty: 30 0RF escitalopram oxalate 20 mg Tablet 20 mg PO QAM 30 Days Qty: 30 0RF quetiapine 50 mg Tablet 50 mg PO TID 30 Days Qty: 90 0RF trazodone 100 mg tablet 100 mg PO QHS 30 Days Qty: 30 0RF hydroxyzine pamoate 50 mg capsule 50 mg PO BID PRN (Reason: anxiety) Qty: 60 0RF ergocalciferol (vitamin D2) 1,250 mcg (50,000 unit) capsule 1,250 mcg PO QWEEK 30 Days Qty: 5 0RF Changed lamotrigine 25 mg tablet 25 mg PO QHS 30 Days Qty: 30 0RF Discontinued hydroxyzine HCl 50 mg tablet 50 mg PO DAILY PRN (Reason: Anxiety) Patient Comments: TAKE 1 TABLET BY MOUTH DAILY NEEDED FOR ANXIETY sertraline 50 mg tablet 50 mg PO DAILY Patient Comments: TAKE 1 TABLET BY MOUTH EVERY DAY IN THE MORNING risperidone 1 mg tablet 1 mg PO HS Patient Comments: TAKE 1 TABLET BY MOUTH AT BEDTIME Follow Up: [facility] [Outside] [facility] [Outside] Korina Walker APRN, FURNITURE DETAILER-C [Primary Care Provider] - Documented By: Farhat Kirby MD 12/28/22 1014 Signed By: <Electronically signed by Farhat Kirby MD> 12/28/22 1024 [facility] Work Phone: 1(585) 442-943908-12-2023 Progress note Author Farhat Kirby [facility] [place] 12th, 2023 11:09am Note Date/Time December 27, 2022 11 :09am [facility] [address] [place] [address] Psychiatry Progress Note Signed Patient: Bridgette Wang MR#: [id number] : 1965 Acct:[id number] Age/Sex: 57 / F Adm Date: 3 Loc: Room: [address] [place] [address] Type : ADM IN Attending Dr: Fermin Renteria MD Copies to: ~ Date of Service: 12/27/2022 Subjective Subjective Narrative: Ms. Wang reported that she is having Superman anxiety. She reported that her heart is pounding. She stated that the Seroquel has been helping a little bit more than the BuSpar. She reported that she slept better and appetite has been stable. Appearance: dressed casually Mental Status: mental status grossly normal Mood: Anxious and dysphoric mood Affect: Anxious affect Speech and Movement: speech and movement normal and speech clear Attitude: cooperative Thought Process: normal Thought Content: Denied hallucinations, no homicidality and no suicidality Insight: fair Judgment: fair Impulse control: fair Exam Physical Exam Vital Signs: Temp Pulse Resp BP Pulse Ox O2 Del Method 97.6 F 81 17 152/76 H 96 Room Air 12/27/22 07:30 12/27/22 07:30 12/27/22 07:30 12/27/22 07:30 12/27/22 07:30 12/27/22 07:30 Assessment/Plan Assessment/Plan (1) Alcoholism: Code(s): F10.20 - Alcohol dependence, uncomplicated Status: Acute (2) Bipolar II disorder: Code(s): F31.81 - Bipolar II disorder Status: Acute Plan Patient primarily reporting anxiety. Will monitor overnight and anticipate discharge tomorrow Continue Lamictal 25 mg PO QHS for mood stabilization, trazodone to 100 mg PO QHS Continue Lexapro to 20 mg for depression and anxiety, increase Remeron 30 mg at bedtime to help with sleep and anxiety Continue Seroquel 50 mg 3 times a day for anxiety Continue to monitor mental status Encourage group participation and medication compliance Risk benefits alternatives explained Documented By: Farhat Kirby MD 12/27/22 1101 Signed By: <Electronically signed by Farhat Kirby MD> 12/27/[address] [facility] Work Phone: 1(799) 920-450308-11-2023 Progress note Author Farhat Kirby [facility] December 26, 2022 9:33am Note Date/Time December 26, 2022 9: 33am [facility] [address] [place] [address] Psychiatry Progress Note Signed Patient: Bridgette Wang MR#: [id number] : 1965 Acct:[id number] Age/Sex: 57 / F Adm Date: 3 Loc: Room: [address] [place] [address] Type : ADM IN Attending Dr: Fermin Renteria MD Copies to: ~ Date of Service: 12/26/2022 Subjective Subjective Narrative: Ms. Wang reported that she is not sure how she is doing. She reported that shefeels really nervous. She stated that the Seroquel has been more helpful than the BuSpar. She reported that the current dose does not make her feel sedated. She reported that she is still having some racing thoughts and feels like she does not feel normal. She slept roughly 6 hours last night. Appearance: dressed casually Mental Status: mental status grossly normal Mood: Anxious and dysphoric mood Affect: Anxious affect Speech and Movement: speech and movement normal and speech clear Attitude: cooperative Thought Process: normal Thought Content: Denied hallucinations, no homicidality and no suicidality Insight: fair Judgment: fair Impulse control: fair Exam Physical Exam Vital Signs: Temp Pulse Resp BP Pulse Ox O2 Del Method 98.2 F 82 17 132/84 94 L Room Air 12/26/22 07:30 12/26/22 07:30 12/26/22 07:30 12/26/22 07:30 12/26/22 07:30 12/26/22 09:00 Assessment/Plan Assessment/Plan (1) Alcoholism: Code(s): F10.20 - Alcohol dependence, uncomplicated Status: Acute (2) Bipolar II disorder: Code(s): F31.81 - Bipolar II disorder Status: Acute Plan Patient is reporting some depression and suicidal ideation Continue Lamictal 25 mg PO QHS for mood stabilization, trazodone to 100 mg PO QHS Continue Lexapro to 20 mg for depression and anxiety, Remeron 15 mg at bedtime to help with sleep and anxiety Increase Seroquel 50 mg 3 times a day for anxiety Continue to monitor mental status Encourage group participation and medication compliance Risk benefits alternatives explained Documented By: Farhat Kirby MD 12/26/22932 Signed By: <Electronically signed by Farhat Kirby MD> 12/26/22932 [facility] Work Phone: 1(736) 158-816808-10-2023 Progress note Author Farhat Kirby [facility] December 25, 2022 1:22pm Note Date/Time December 25, 2022 1: 21pm [facility] [address] [place] [address] Psychiatry Progress Note Signed Patient: Bridgette Wang MR#: [id number] : 1965 Acct:[id number] Age/Sex: 57 / F Adm Date: 3 Loc: Room: [address] [place] [address] Type : ADM IN Attending Dr: Fermin Renteria MD Copies to: ~ Date of Service: 12/25/2022 Subjective Subjective Narrative: Ms. Wang reported that she is not so good. She rates her anxiety and depression is 9 out of 10. She reported that she denied any current suicidalityat this time. She stated that in the past she had taken Seroquel and Klonopin which were more helpful for managing her anxiety. She reported that the BuSpar has only been helping minimally. Appearance: dressed casually Mental Status: mental status grossly normal Mood: Anxious and dysphoric mood Affect: Anxious affect Speech and Movement: speech and movement normal and speech clear Attitude: cooperative Thought Process: normal Thought Content: Denied hallucinations, no homicidality and no suicidality Insight: fair Judgment: fair Impulse control: fair Exam Physical Exam Vital Signs: Temp Pulse Resp BP Pulse Ox O2 Del Method 97.6 F 78 18 163/70 H 99 Room Air 12/25/22 07:30 12/25/22 07:30 12/25/22 07:30 12/25/22 07:30 12/25/22 07:30 12/25/22 09:00 Assessment/Plan Assessment/Plan (1) Alcoholism: Code(s): F10.20 - Alcohol dependence, uncomplicated Status: Acute (2) Bipolar II disorder: Code(s): F31.81 - Bipolar II disorder Status: Acute Plan Patient is reporting some depression and suicidal ideation Continue Lamictal 25 mg PO QHS for mood stabilization, trazodone to 100 mg PO QHS Continue Lexapro to 20 mg for depression and anxiety, Remeron 15 mg at bedtime to help with sleep and anxiety We will discontinue BuSpar use Seroquel 25 mg 3 times a day for anxiety Continue to monitor mental status Encourage group participation and medication compliance Risk benefits alternatives explained Documented By: Farhat Kirby MD 12/25/221319 Signed By: <Electronically signed by Farhat Kirby MD> 12/25/222 [facility] Work Phone: 1(812) 286-133008-09-2023 Progress note Author Farhat Kirby [facility] December 24, 2022 12:35pm Note Date/Time December 24, 2022 12: 35pm [facility] [address] [place] [address] Psychiatry Progress Note Signed Patient: Bridgette Wang MR#: [id number] : 1965 Acct:[id number] Age/Sex: 57 / F Adm Date: 3 Loc: Room: [address] [place] [address] Type : ADM IN Attending Dr: Fermin Renteria MD Copies to: ~ Date of Service: 12/24/2022 Subjective Subjective Narrative: Ms. Wang reported that she is feeling anxious. She reported that she toss and turn a lot overnight. She reported that her depression has been high and she has been worrying a lot. She stated that she does like her medications but feels like they are not strong enough. We discussed about increasing the medications at this time. Appearance: dressed casually Mental Status: mental status grossly normal Mood: Anxious and dysphoric mood Affect: Anxious affect Speech and Movement: speech and movement normal and speech clear Attitude: cooperative Thought Process: normal Thought Content: Denied hallucinations, no homicidality and no suicidality Insight: fair Judgment: fair Impulse control: fair Exam Physical Exam Vital Signs: Temp Pulse Resp BP Pulse Ox O2 Del Method 97.6 F 80 18 113/83 97 Room Air 12/24/22 07:30 12/24/22 07:30 12/24/22 07:30 12/24/22 07:30 12/24/22 07:30 12/24/22 07:30 Assessment/Plan Assessment/Plan (1) Alcoholism: Code(s): F10.20 - Alcohol dependence, uncomplicated Status: Acute (2) Bipolar II disorder: Code(s): F31.81 - Bipolar II disorder Status: Acute Plan Patient is reporting some depression and suicidal ideation Continue Lamictal 25 mg PO QHS for mood stabilization, trazodone to 100 mg PO QHS Continue Lexapro to 20 mg for depression and anxiety, BuSpar 15 mg 3 times a dayto help with anxiety as well Increase Remeron 15 mg at bedtime to help with sleep and anxiety Continue to monitor mental status Encourage group participation and medication compliance Risk benefits alternatives explained Documented By: Farhat Kirby MD 12/24/221232 Signed By: <Electronically signed by Farhat Kirby MD> 12/24/22 1235 [facility] Work Phone: 1(338) 373-532408-08-2023 Progress note Author Farhat Kirby [facility] December 23, 2022 1:51pm Note Date/Time December 23, 2022 1:5 1pm [facility] [address] [place] [address] Psychiatry Progress Note Signed Patient: Bridgette Wang MR#: [id number] : 1965 Acct:[id number] Age/Sex: 57 / F Adm Date: 3 Loc: Room: [address] [place] [address] Type : ADM IN Attending Dr: Fermin Renteria MD Copies to: ~ Date of Service: 12/23/2022 Subjective Subjective Narrative: Ms. Wang reported that she is not so good. She reported that her anxiety has been very problematic for her. She reported that she only got a few hours of sleep overnight and is concerned about it. She reported that her depression hasalso been worrisome for her. She did complain of some concern for some sweatingand shaking which she thinks may be due to the medication. Appearance: dressed casually Mental Status: mental status grossly normal Mood: Anxious mood Affect: Anxious affect Speech and Movement: speech and movement normal and speech clear Attitude: cooperative Thought Process: normal Thought Content: Denied hallucinations, no homicidality and no suicidality Insight: fair Judgment: fair Impulse control: fair Exam Physical Exam Vital Signs: Temp Pulse Resp BP Pulse Ox O2 Del Method 98.5 F 87 18 126/82 96 Room Air 12/23/22 06:59 12/23/22 06:59 12/23/22 06:59 12/23/22 06:59 12/23/22 06:59 12/23/22 06:59 Assessment/Plan Assessment/Plan (1) Alcoholism: Code(s): F10.20 - Alcohol dependence, uncomplicated Status: Acute (2) Bipolar II disorder: Code(s): F31.81 - Bipolar II disorder Status: Acute Plan Patient still reporting some increased anxiety Continue Lamictal 25 mg PO QHS for mood stabilization, trazodone to 100 mg PO QHS Continue Lexapro to 20 mg for depression and anxiety, BuSpar 15 mg 3 times a dayto help with anxiety as well continue Remeron 7.5 mg at bedtime to help with sleep and anxiety Continue to monitor mental status Encourage group participation and medication compliance Risk benefits alternatives explained Documented By: Farhat Kirby MD 12/23/228 Signed By: <Electronically signed by Farhat Kirby MD> 12/23/22 1351 [facility] Work Phone: 1(782) 938-889908-07-2023 Progress note Author Farhat Kirby [facility] December 22, 2022 1:06pm Note Date/Time December 22, 2022 1:0 5pm [facility] [address] [place] [address] Psychiatry Progress Note Signed Patient: Bridgette Wang MR#: [id number] : 1965 Acct:[id number] Age/Sex: 57 / F Adm Date: 3 Loc: Room: [address] [place] [address] Type : ADM IN Attending Dr: Fermin Renteria MD Copies to: ~ Date of Service: 12/22/2022 Subjective Subjective Narrative: Ms. Wang reported that she is not doing good. She reported that her anxiety has been out of control and she feels sick to her stomach. She reported that she has not been sleeping well. She stated that the BuSpar has not been helpingand feels like her anxiety has been increasing. She reported that she does not feel safe going home Appearance: dressed casually Mental Status: mental status grossly normal Mood: Anxious mood Affect: Anxious affect Speech and Movement: speech and movement normal and speech clear Attitude: cooperative Thought Process: normal Thought Content: Denied hallucinations, no homicidality and no suicidality Insight: fair Judgment: fair Impulse control: fair Exam Physical Exam Vital Signs: Temp Pulse Resp BP Pulse Ox O2 Del Method 97.9 F 69 16 121/69 96 Room Air 12/22/22 08:00 12/22/22 08:00 12/21/22 19:35 12/22/22 08:00 12/22/22 08:00 12/22/22 08:00 Assessment/Plan Assessment/Plan (1) Alcoholism: Code(s): F10.20 - Alcohol dependence, uncomplicated Status: Acute (2) Bipolar II disorder: Code(s): F31.81 - Bipolar II disorder Status: Acute Plan Patient still reporting some increased anxiety Continue Lamictal 25 mg PO QHS for mood stabilization, increase trazodone to 100mg PO QHS Continue Lexapro to 20 mg for depression and anxiety, will increase BuSpar 15 mg3 times a day to help with anxiety as well We will add Remeron 7.5 mg at bedtime to help with sleep and anxiety Continue to monitor mental status Encourage group participation and medication compliance Risk benefits alternatives explained Documented By: Farhat Kirby MD 12/22/22 1304 Signed By: <Electronically signed by Farhat Kirby MD> 12/22/[address] [facility] Work Phone: 1(737) 952-450808-06-2023 Progress note Author Farhat Kirby [facility] December 21, 2022 10:32am Note Date/Time December 21, 2022 10: 32am [facility] [address] [place] [address] Psychiatry Progress Note Signed Patient: Bridgette Wang MR#: [id number] : 1965 Acct:[id number] Age/Sex: 57 / F Adm Date: 3 Loc: 1S Room: [address] [place] [address] Type : ADM IN Attending Dr: Fermin Renteria MD Copies to: ~ Date of Service: 12/21/2022 Subjective Subjective Narrative: Ms. Wang reported that she is not feeling good today. She reported that she ishaving a lot of anxiety. She stated that it is hard to tolerate how she is feeling currently at this time. We discussed about past medication additions toadd with how she is feeling. She does report that her abdominal pain is improving. Nursing staff did report patient had a panic attack and needed to betalked down. Appearance: dressed casually Mental Status: mental status grossly normal Mood: Anxious mood Affect: Anxious affect Speech and Movement: speech and movement normal and speech clear Attitude: cooperative Thought Process: normal Thought Content: Denied hallucinations, no homicidality and no suicidality Insight: fair Judgment: fair Impulse control: fair Exam Physical Exam Vital Signs: Temp Pulse Resp BP Pulse Ox O2 Del Method 97.7 F 69 16 131/70 97 Room Air 12/21/22 07:30 12/21/22 07:30 12/21/22 07:30 12/21/22 07:30 12/21/22 07:30 12/21/22 09:00 Assessment/Plan Assessment/Plan (1) Alcoholism: Code(s): F10.20 - Alcohol dependence, uncomplicated Status: Acute (2) Bipolar II disorder: Code(s): F31.81 - Bipolar II disorder Status: Acute Plan Patient reported significant anxiety and had a panic attack. Feels like how sheis feeling is not tolerable Continue Lamictal 25 mg PO QHS for mood stabilization, Trazodone to 75 mg PO QHS Increase Lexapro to 20 mg for depression and anxiety, will add BuSpar 10 mg 3 times a day to help with anxiety as well Continue to monitor mental status Encourage group participation and medication compliance Risk benefits alternatives explained Documented By: Farhat Kirby MD 12/21/221030 Signed By: <Electronically signed by Farhat Kirby MD> 12/21/221031 [facility] Work Phone: 1(746) 969-450308-05-2023 Progress note Author Farhat Kirby [facility] December 20, 2022 11:34am Note Date/Time December 20, 2022 11: 34am [facility] [address] [place] [address] Psychiatry Progress Note Signed Patient: Bridgette Wang MR#: [id number] : 1965 Acct:[id number] Age/Sex: 57 / F Adm Date: 3 Loc: 1S Room: 5V3312-2 Type : ADM IN Attending Dr: Fermin Renteria MD Copies to: ~ Date of Service: 12/20/2022 Subjective Subjective Narrative: Ms. Wang reported that she does not feel good physically. She reported some abdominal pain but did take some nausea medication which helped a little bit. She reported that she is tolerating her current medication and denied any side effects at this time. She reported that she does not have any suicidal thoughtsat this time. Appearance: dressed casually Mental Status: mental status grossly normal Mood: Improving mood Affect: Normal affect Speech and Movement: speech and movement normal and speech clear Attitude: cooperative Thought Process: normal Thought Content: Denied hallucinations, no homicidality and no suicidality Insight: fair Judgment: fair Impulse control: fair Exam Physical Exam Vital Signs: Temp Pulse Resp BP Pulse Ox O2 Del Method 97.4 F L 72 18 133/69 97 Room Air 12/20/22 07:21 12/20/22 07:21 12/20/22 07:21 12/20/22 07:21 12/20/22 07:21 12/20/22 07:21 Assessment/Plan Assessment/Plan (1) Alcoholism: Code(s): F10.20 - Alcohol dependence, uncomplicated Status: Acute (2) Bipolar II disorder: Code(s): F31.81 - Bipolar II disorder Status: Acute Plan Patient did report some improvement with how she is feeling. Does have some abdominal pain. Will monitor overnight anticipate discharge tomorrow Continue Lamictal 25 mg PO QHS for mood stabilization, Lexapro to 10 mg for anxiety and depression and Trazodone to 75 mg PO QHS Continue to monitor mental status Encourage group participation and medication compliance Risk benefits alternatives explained Documented By: Farhat Kirby MD 12/20/221131 Signed By: <Electronically signed by Farhat Kirby MD> 12/20/22 1133 [facility] Work Phone: 1(951) 811-816008-04-2023 Progress note Author Trevin rodriguez [facility] December 19, 2022 7:10am Note Date/Time December 19, 2022 7:1 0am [facility] [address] [place] [address] Psychiatry Progress Note Signed Patient: Bridgette Wang MR#: [id number] : 1965 Acct:[id number] Age/Sex: 57 / F Adm Date: 3 Loc: Room: [address] [place] [address] Type : ADM IN Attending Dr: Fermin Renteria MD Copies to: ~ Date of Service: 12/19/2022 Subjective Subjective Narrative: Ms. Wang reports she is feeling anxious and depression has been high. Sleep has been interrupted. She feels that her medications might need to be adjusted. She denies SI/HI and verbalized the intent to notify staff if she has such thoughts. She continues to be compliant with prescribed medications and is visible within the unit milieu. She has been talking to her ex but admits to feeling lonely. She has limited social support. We have agreed to continue the current medications regimen and increase Lexapro to 10 mg PO Q daily.. Risks, benefits, and indications of medications were discussed. Appearance: dressed casually Mental Status: mental status grossly normal Mood: Anxious mood Affect: Normal affect Speech and Movement: speech and movement normal and speech clear Attitude: cooperative Thought Process: normal Thought Content: Denied hallucinations, no homicidality and no suicidality Insight: fair Judgment: fair Impulse control: fair Exam Physical Exam Vital Signs: Temp Pulse Resp BP Pulse Ox O2 Del Method 97.8 F 72 16 126/70 98 Room Air 12/18/22 22:00 12/18/22 22:00 12/18/22 22:00 12/18/22 22:00 12/18/22 22:00 12/18/22 22:00 Objective Labs Labs: Abnormal Labs 12/18/22 12/18/22 12/18/22 06:41 06:41 06:41 Neut # (Auto) 8.0 H Hemoglobin A1c 5.7 H Total Bilirubin 0.2 L AST 12 L Assessment/Plan Assessment/Plan (1) Alcoholism: Code(s): F10.20 - Alcohol dependence, uncomplicated Status: Acute (2) Bipolar II disorder: Code(s): F31.81 - Bipolar II disorder Status: Acute Plan Patient reports feeling anxious and depressed but denied SI/HI. Continue Lamictal 25 mg PO QHS for mood stabilization Increase Lexapro to 10 mg for anxiety and depression and Trazodone to 75 mg PO QHS Monitor suicidal behaviors for safety of self (15-minute face check). Recommend attending groups and psychoeducation for building coping skills. Risks, benefits and indications of medications were discussed with the patient. The patient verbalized understanding. No abnormal movements noted on exam. AIMS is Zero. Involve friends/family members to coordinate care and ensure appropriate outpatient appointments are scheduled prior to discharge. Documented By: Trevin Renteria MD [id number] Signed By: <Electronically signed by Trevin Renteria MD> 12/19/[address] [facility] Work Phone: 1([phone]) 751-527408-03-2023 Progress note Author Trevin rodriguez [facility] December 18, 2022 8:50am Note Date/Time December 18, 2022 8:5 0am [facility] [address] [place] [address] Psychiatry Progress Note Signed Patient: Bridgette Wang MR#: [id number] : 1965 Acct:[id number] Age/Sex: 57 / F Adm Date: 3 Loc: Room: [address] [place] [address] Type : ADM IN Attending Dr: Fermin Renteria MD Copies to: ~ Date of Service: 12/18/2022 Subjective Subjective Narrative: This is a 57-year-old female with reported history of bipolar disorder who presents for inpatient admission due to worsening of anxiety, confusion, disorientation, and confusion. Today, patient reports she is feeling better. Depression and anxiety are stabilizing gradually on the current medication regimen. Anxiety is mild in intensity with attempted utilization of coping skills. She requested PRN medication to help with anxiety. She said she is less distracted compared to yesterday. She denies SI/HI and verbalized the intent to notify staff if she hassuch thoughts. She continues to be compliant with prescribed medications and is visible within the unit milieu. She is working on placement options with case manager. We have agreed to continue the current medications regimen. Risks, benefits, and indications of medications were discussed. She denies recent hx of recent suicide attempts, and while admitted they were future oriented, participated in group activities, articulated needs appropriately, and displayed no self-harm behaviors. Imminent risk is low given factors noted above. Appearance: dressed casually Mental Status: mental status grossly normal Mood: Anxious mood Affect: Normal affect Speech and Movement: speech and movement normal and speech clear Attitude: cooperative Thought Process: normal Thought Content: Denied hallucinations, no homicidality and no suicidality Insight: fair Judgment: fair Impulse control: fair Exam Physical Exam Vital Signs: Temp Pulse Resp BP Pulse Ox O2 Del Method 97.3 F L 80 16 119/49 L 98 Room Air 12/17/22 20:30 12/17/22 20:30 12/17/22 20:30 12/17/22 20:30 12/17/22 20:30 12/17/22 20:30 Objective Labs Labs: Abnormal Labs 12/18/22 12/18/22 06:41 06:41 Neut # (Auto) 8.0 H Total Bilirubin 0.2 L AST 12 L Assessment/Plan Assessment/Plan (1) Alcoholism: Code(s): F10.20 - Alcohol dependence, uncomplicated Status: Acute (2) Bipolar II disorder: Code(s): F31.81 - Bipolar II disorder Status: Acute Plan Patient reports feeling better and denied SI/HI. Continue Lamictal 25 mg PO QHS for mood stabilization Continue Lexapro 5 mg for anxiety and depression Monitor suicidal behaviors for safety of self (15-minute face check). Recommend attending groups and psychoeducation for building coping skills. Risks, benefits and indications of medications were discussed with the patient. The patient verbalized understanding. No abnormal movements noted on exam. AIMS is Zero. Involve friends/family members to coordinate care and ensure appropriate outpatient appointments are scheduled prior to discharge. Documented By: Trevin Renteria MD 3 [id number] Signed By: <Electronically signed by Trevin Renteria MD> 12/18/22 0850 [facility] Work Phone: 1(833) 692-304008-02-2023 History and physical note Author Trevin rodriguez [facility] December 17, 2022 11:36am Note Date/Time December 17, 2022 11: 36am [facility] [address] [place] [address] Psychiatry H&P Signed Patient: Bridgette Wang MR#: [id number] : 1965 Acct:[id number] Age/Sex: 57 / F Adm Date: 3 Loc: 1S Room: [address] [place] [address] Type: ADM IN Attending Dr: Fermin Renteria MD Copies to: MD Korina Whitten, DRUG ABUSE RESISTANCE EDUCATION OFFICER, TRAVEL COUNSELOR~ Date of Service: 12/17/2022 HPI History of Present Illness History of present illness: This is a 57-year-old female with reported history of bipolar disorder who presents for inpatient admission due to worsening of anxiety, confusion, disorientation, and confusion. Patient was personally seen by me on the day of the encounter. I reviewed the history and performed the logan elements of the assessment. I formulated the planof care and confirmed this with the medical student as noted below At the time of the interview Bridgette presented as anxious, depressed and in some distress. She said she feels sluggish and needs help. She reports a longstanding history of bipolar disorder diagnosed years ago manifested as anxiety and sadness. She reports a history of Bipolar II disorder and not had medication for a month or so. She has been following up with a FURNITURE DETAILER and is unsure if the meds are effective. She has been distracted and reported poor focusing. She has been in the ER multiple times over the past couple of days due to anxiety. Ex stated via prescreen report that pt has always had trouble with drinking and not caring for self. She reported previous DUIs and problems due to drinking. She does not endorse any current withdrawal symptoms. Last alcohol drink is about 10 days ago. Despite reporting a history of bipolar II, she only endorses some highs and lows associated with irritability. She denid multiple sexual partners or high libido but noted impulsive spending at times. Past psych history: Bipolar disorder diagnosed at an unknown time. Reports previously following with a FURNITURE DETAILER but was noncompliant with care and therefore she was discontinued from practice Past hospitalizations: Patient denies Past suicide attempts: Patient describes 1 suicide attempt that took place in her 20s surrounding a threat from her who said that he would leave her Family psych history: Patient reports that her father was manic and hallucinated Previous medications: Reports being on a medication (unknown) for treatment of yeast infection Alcohol and drug use: Reports being an alcoholic. Reports that she has been without alcohol for 5 days, but that when she uses alcohol she consumes it everyday and the amount of 5 tall boys . She also reports occasionally smoking marijuana Living: Reports feeling uncomfortable with her living situation. Says that it is not good , and scary for her to be alone. 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 Relationships: Reports living on her own, which has worsened her anxiety. Mental status: Abnormal Mood: Anxious, upset Affect: Anxious Speech and movement: Speech clear, movements normal Attitude: Cooperative Thought process: Impoverished Thought content: Endorses SI but denied AVH or paranoid thoughts. Denied HI Insight: Fair Judgment: Fair Review of systems Constitutional: Denies fatigue, malaise. Neuro: Denies numbness/tingling in extremities HEENT: Denies vision/hearing changes. Pulmonary: Denies SOB, dyspnea, cough, wheezing. Cardiac: Admits chest pain/pressure and tightness. GI: Denies abdominal pain, heartburn, N/V, constipation and diarrhea : Denies dysuria, hematuria, polyuria. Physical exam General: Not in any acute distress Skin: Intact HEENT: Head atraumatic, face symmetrical. Pulm: Breathing normally without excessive effort Cardio: Regular rate and rhythm Neuro: Patient alert, oriented x3. CN III, IV, : EOM intact, no nystagmus. CN V: sensation intact to light touch. CN VII: raises eyebrows, smile/frown, puff out cheeks symmetrically. CN VIII: hearing intact bilaterally. CN IX, X: Voice normal, soft palate elevation normal, symmetrical. CN XI: Shoulder shrug strong, equal bilaterally. CN XII: Tongue protrusion midline Review of Systems Constitutional Constitutional: Denies fever(s), Denies malaise and Denies weight loss Eyes Eyes: Denies change in vision ENT Ears, Nose, Mouth, and Throat: Denies ear discharge and Denies otalgia Cardiovascular Cardiovascular: Reports chest pain Respiratory Respiratory: Denies cough, Denies dyspnea and Denies wheezing Gastrointestinal Gastrointestinal: Denies abdominal pain, Denies constipation and Denies vomiting Genitourinary Genitourinary: Denies urinary incontinence and Denies urinary hesitancy Musculoskeletal Musculoskeletal: Denies arthralgias, Denies muscle cramps and Denies myalgias Neurologic Neurologic: Denies paresthesias Psychiatric Psychiatric: Reports anxiety and Reports depression PMFSH Vaccinated for COVID-19?: No Medical History (Updated 12/17/22 @ 11:35 by Fermin Renteria MD) Alcoholism Bipolar 1 disorder Depression Hernia 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 Family History (Updated 12/17/22 @ 04:29 by Bita Toure RN) Other No significant family history Social History Smoking Status: Heavy tobacco smoker Tobacco Type: cigarettes Substance Use Type: Alcohol Substance Abuse Comment: used 10 days ago Social History Comments: Feels alone Meds Medications and Allergies Allergies calcium Allergy (Verified 12/17/22 03:55) Unknown Reaction doxycycline Allergy (Verified 12/17/22 03:55) Unknown Reaction Home Medications hydroxyzine HCl 50 mg tablet 50 mg PO DAILY PRN Anxiety 12/17/22 [History Confirmed 12/17/22] lamotrigine 25 mg tablet 25 mg PO DAILY 12/17/22 [History Confirmed 12/17/22] risperidone 1 mg tablet 1 mg PO HS 12/17/22 [History Confirmed 12/17/22] sertraline 50 mg tablet 50 mg PO DAILY 12/17/22 [History Confirmed 12/17/22] Exam Physical Exam Vital Signs: Temp Pulse Resp BP Pulse Ox O2 Del Method 97.6 F 66 16 115/62 98 Room Air 12/17/22 03:00 12/17/22 07:30 12/17/22 07:30 12/17/22 07:30 12/17/22 07:30 12/17/22 07:30 Const General: cooperative and anxious HEENT Head: normal to inspection Ears: hearing grossly normal bilaterally Resp Effort & Inspection: normal respiratory effort Auscultation: clear to auscultation bilaterally Cardio Rate: regular rate Rhythm: regular rhythm Skin General: no rashes or lesions noted Neuro General: patient alert, patient awake and patient oriented x3 Psych Appearance: disheveled Mood: anxious mood Affect: anxious affect Speech and Movement: speech and movement normal Attitude: cooperative Thought Process: normal Thought Content: normal Insight: fair Judgment: fair Assessment/Plan (1) Alcoholism: Code(s): F10.20 - Alcohol dependence, uncomplicated Status: Acute (2) Bipolar II disorder: Code(s): F31.81 - Bipolar II disorder Status: Acute Plan Admit to for management of depression and to ensure safety of self due to SI. Restart Lamictal 25 mg PO QHS for mood stabilization Start Lexapro 5 mg for anxiety and depression Monitor suicidal behaviors for safety of self (15-minute face check). Recommend attending groups and psychoeducation for building coping skills. Risks, benefits and indications of medications were discussed with the patient. The patient verbalized understanding. No abnormal movements noted on exam. AIMS is Zero. Involve friends/family members to coordinate care and ensure appropriate outpatient appointments are scheduled prior to discharge. Documented By: Trevin Renteria MD 3 [id number] Signed By: <Electronically signed by Trevin Renterai MD> 12/17/22 1136 [facility] Work Phone: Evaluation note* Diagnosis Onset Date Resolution Status Alcoholism acute Bipolar II disorder acute [facility] Work Phone: Hospital Discharge instructions Additional Instructions Regular Diet [facility] Work Phone: Chief Complaint and Reason for Visit Chief Complaint Bipolar Reason for Visit Alcoholism Bipolar II disorder Advance Directives No Advanced Directives Records Found Advance Directive Response Recorded Date/ Time Advance Directives No December 16 023 7:46pm Summary Purpose Family History No Family History Records Found Additional Source Comments Care Teams (unrecognized sec tion and content) Team Status: Active Member Role Status Dates Korina Walker APRN FURNITURE DETAILER-C Primary Care Provider Active Team Status: Inactive Member Role Status Dates Korina Walker APRN FURNITURE DETAILER-C Primary Care Provider Active Fermin Renteria MD Admit Provider, Attending Pr thor Active INFORMATION SOURCE (unrecogn ized section and content) DATE CREATED AUTHOR 05/23/2023 [facility] FOR RECORDS PERTAINING TO PATIENTS WHO ARE OR HAVE BEEN ENROLLED IN A CHEMICAL DEPENDENCY/SUBSTANCEABUSE PROGRAM, SOME INFORMATION MAY BE OMITTED. This clinical summary was aggregated from multiple sources. Caution should be exercised in using it in the provision of clinical care. This summary normalizes information from multiple sources, and as a consequence, information in this document may materially change the coding, format and clinical context of patient data. In addition, data may be omitted in some cases. CLINICAL DECISIONS SHOULD BE BASED ON THE PRIMARY CLINICAL RECORDS. [facility]. provides no warranty or guarantee of the accuracy or completeness of information in this document.
--- NOTE | 2024-01-05 10:13 | PC.NURSE ---
spoke with Ros[facility] regarding patient. fax sheet sent over
[2024-01-05 10:18] LABS: Basophils Absolute Auto 0.1 10^3/uL (0.0-0.1); Eosinophils Absolute Auto 0.1 10^3/uL (0.0-0.7); Eosinophils Percent Auto 0.7 % (0.9-7.0); Hematocrit 42.1 % (36.0-48.0); Hemoglobin 14.1 g/dL (12.0-16.0); Immature Granulocytes Abs Auto 0.03 10^3/uL (0.00-0.03); Immature Granulocytes Pct Auto 0.3 % (0.0-0.5); Lymphocytes Absolute Auto 1.3 10^3/uL (1.2-3.8); Lymphocytes Percent Auto 11.3 % (20.5-60.0); Mean Corpuscular HGB Conc 33.5 g/dL (29.9-35.2); Mean Corpuscular Hemoglobin 31.9 pg (26.7-34.0); Mean Corpuscular Volume 95.2 fL (81.0-99.0); Mean Platelet Volume 10.3 fL (9.5-13.5); Monocytes Absolute Auto 0.6 10^3/uL (0.3-0.8); Monocytes Percent Auto 5.4 % (1.7-12.0); Neutrophils Absolute Auto 9.3 10^3/uL (1.4-6.5); Neutrophils Percent Auto 81.3 % (43.0-75.0); Platelet Count 436 10^3/uL (150-450); Red Blood Count 4.42 10^6/uL (4.20-5.40); Red Cell Distribution Width 13.4 % (11.0-15.0); White Blood Count 11.5 10^3/uL (4.0-11.0)
[2024-01-05 10:20] LABS: Bilirubin Urine NEGATIVE (NEGATIVE); Blood Urine TRACE-I (NEGATIVE); Clarity Urine CLEAR (CLEAR); Color Urine LT. YELLOW (YELLOW); Glucose Urine UA NEGATIVE (NEGATIVE); Ketones Urine NEGATIVE (NEGATIVE); Leukocyte Esterase Urine NEGATIVE (NEGATIVE); Nitrite Urine NEGATIVE (NEGATIVE); Protein Urine NEGATIVE (NEG/TRACE); Urobilinogen Urine 0.2 EU/dL (0.2-1.0); pH Urine 6.5 (5.0-9.0)
[2024-01-05 10:21] LABS: Urine Microscopic Indicated YES
[2024-01-05 10:30] LABS: Amphetamine Screen Urine NEGATIVE (NEGATIVE); Bacteria Urine TRACE #/HPF (NONE SEEN); Barbiturates Screen Urine NEGATIVE (NEGATIVE); Benzodiazepines Screen Urine POSITIVE (NEGATIVE); Buprenorphine Screen Urine NEGATIVE (NEGATIVE); Cannabinoid Screen Urine POSITIVE (NEGATIVE); Cast Seen? NONE SEEN #/LPF (NONE SEEN); Cocaine Screen Urine NEGATIVE (NEGATIVE); Crystals Seen? None Seen #/HPF (None Seen); Methadone Screen Urine NEGATIVE (NEGATIVE); Methamphetamines Screen Urine NEGATIVE (NEGATIVE); Mucus Urine NONE SEEN (NONE SEEN); Opiate Screen Urine NEGATIVE (NEGATIVE); Oxycodone Screen Urine NEGATIVE (NEGATIVE); Phencyclidine Screen Urine NEGATIVE (NEGATIVE); RBC Urine 0-2 #/HPF (0-2); Squamous Epithelial Cell Urine MODERATE #/LPF (NONE/RARE); Tricyclic Antidepressant Urine NEGATIVE (NEGATIVE); Urine Culture Indicated NO; WBC Urine 0-2 #/HPF (NONE SEEN)
--- NOTE | 2024-01-05 10:43 | PC.NURSE ---
patient speaking with Riana from [facility] on ipad at this time. patient constant observer in place at bedside
[2024-01-05 11:30] LABS: Alanine Aminotransferase 20 U/L (14-59); Albumin Globulin Ratio 0.8; Albumin Level 3.5 g/dL (3.4-5.0); Alkaline Phosphatase 96 U/L (46-116); Anion Gap 15.3; Aspartate Amino Transferase 16 U/L (15-37); Bilirubin Total 0.4 mg/dL (0.2-1.0); Calcium 9.4 mg/dL (8.5-10.1); Carbon Dioxide 27.8 mmol/L (21.0-32.0); Chloride 103 mmol/L (98-107); Estimated GFR (African America >60 (>=60); Estimated GFR (Non-African Ame >60 (>=60); Ethanol <3 mg/dL; Globulin 4.2 g/dL; Glucose 88 mg/dL (74-106); Potassium 4.1 mmol/L (3.5-5.1); Salicylate 4.8 mg/dL (<=19.9); Sodium 142 mmol/L (136-145); Total Protein 7.7 g/dL (6.4-8.2)
--- NOTE | 2024-01-05 11:42 | PC.NURSE ---
Spoke to Riana from [facility]. patients story to Riana different from what patient told this nurse and physician. patient now stating that she is withdrawing from Klonopin. patient exhibiting no withdrawl symptoms but tells Riana she is shaky and sweating. No observations of such symptoms noted by this nurse. patient agreeing with Riana that she needs to be admitted, but Riana states if patient attempts to leave she needs to be pink slipped.
[2024-01-05 11:48] LABS: Acetaminophen <2.0 ug/mL (10.0-30.0)
--- NOTE | 2024-01-05 12:31 | PC.NURSE ---
patient accepted at [address] Kirby. Riana to set up transport for around 2pm when patient is medically cleared. Riana to call with room number and phone number to call for report
[2024-01-05 12:39] VITALS: BP 113/67
--- NOTE | 2024-01-05 12:41 | PC.NURSE ---
spoke to poison control and gave update and lab results on patient.
--- NOTE | 2024-01-05 14:55 | PC.NURSE ---
report given to [facility] staff.
--- NOTE | 2024-01-05 15:01 | PC.NURSE ---
report given to Saeed Boone at [address] [place] [address]
== END 2024-01-05 14:40 ==
PROVIDERS: Emergency Provider Emergency Medicine
DX: F31.9 Bipolar disorder, unspecified (principal); F41.9 Anxiety disorder, unspecified; T43.592A Poisoning by other antipsychotics and neuroleptics, intentional self-harm, initial encounter
CPT/HCPCS: 36415; 80053; 80179; 80307; 80320; 80329; 81001; 85025; 93005; 99285

== ENCOUNTER 2024-01-29 08:34 | Emergency (ER) | payer MEDICARE, SELFPAY ==
[2024-01-29 08:36] VITALS: BP 184/95; PULSE 80; TEMP 36.8; O2SAT 97; BMI 18.9
--- NOTE | 2024-01-29 08:47 | ECG_ITS ---
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
[2024-01-29] MEDS: 0.9 % SODIUM CHLORIDE 1,000 ML 500 ML IV (09:02)
[2024-01-29] MEDS: DIPHENHYDRAMINE HCL 50 MG/ML VIAL IV (09:02)
--- OUTSIDE RECORDS SUMMARY | 2024-01-29 09:07 | XMS_ITS | CCD ---
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 in her dad Previous medications: Remeron, Lexapro, Seroquel, lamotrigine The course of treatment: The patient was familiar with the mental health therapy services available whileon the unit and was encouraged to participate. Patient has been feeling anxious and said her meds needed to be adjusted. Psychotropic medications targeting mood and anxiety were started, and she was provided supportive and reality-oriented therapy. She has been feeling less anxious on current med regimen. Cymbalta was increased and Doxepin was titrated up. Remeron was added to help with sleep. She felt that her symptoms have improved on the current medication regimen, and she has been compliant with treatment and reported no side effects. Anxiety has been moderate and therefore Gabapentin was added. She wanted to add Benzos and we discussed middle or intermediate school principal for Benzos. Her sleep and appetite were okay. She has been attending groups and described them as helpful in building coping skills. The patient has denied any access to firearms or lethal weapons. She felt better than before coming to the hospital and feels hopeful regarding her future. She understands the importance of outpatient follow-up to ensure the stability of her symptoms. She denied suicidal or homicidal ideation and verbalized the intent to notify the staff if she has such thoughts. No suicidal or self-injurious behaviors occurred during inpatient treatment. She denied any symptoms that may pose a threat to herself or others. She described the unit as an excellent place to recover as she did not feel stigmatized. She expresses understanding and says she is better after learning coping skills and the medications prescribed in the inpatient unit. She said she will utilize outpatient resources if she has any SI/HI. The patient described her thoughts as positive and denied hopelessness. She is in good spirits and is at her baseline. She did not meet the criteria for involuntary psychiatric hospitalization. The patient benefited from attending inpatient treatment and was suitable for outpatient follow-up. I explained to the patient that her hospital discharge does not mean her medical care ends here. She needs consistent outpatient follow-up and cognitive behavioral therapyand should communicate from this point on with her outpatient team. Patient's illness, medication side effects, benefits and risks were reviewed with her prior to discharge. The patient voiced understanding of their diagnosis, the medications recommended along with the importance of medication compliance. The patient was counseled not to stop medications without the supervision of a psychiatrist. The patient was counseled that if there was an increase in mental health issues, depression, anxiety, medication side effects, self harm or thoughts of harm to others, the patient was not to harm them self or stop treatment, but to call [facility], 911 or come to the nearest emergency room. The patient also received information regarding advanced mental and medical health directives during this hospitalization to discuss with their outpatient provider. The plan was discussed with the patient, the nurses and thecase management department. The patient voiced agreement with the plan. Discharge disposition: Home with daughter. Coordinated via case management. Safe discharge Planning: With the cessation of all suicidal ideation, improvements in mood, and absence of any psychotic symptoms at the time of discharge, aftercare plans were solidified. She was able to formulate a believable Safety Plan. Discharge plans were discussed with the patient, her family, and the treatment team. All agreed with the discharge plan. On the day of discharge, she was evaluated and had no complaints. She denied any SI/HI. She agreed to follow up with outpatient treatment as arranged by case management. She had no complications during her stay. Factors to be considered are the chronicity and severity of the symptoms and signs, associated comorbidity, and differential diagnosis-motivation to get in treatment, response to treatment, adherence to treatment recommendations, and using skills. The patient's verbal consent was provided. Suicide risk assessment: A thorough review of risk and protective factors was conducted. I discussed with the patient the following recommendations that wouldhelp reduce suicide, which include limiting the number of medications to a 15-day supply with one refill at the time of discharge to avoid potential overdose,consistent outpatient follow-up, preferably within seven days of release, involving supportive family/friends in her care, and her desire to live. We also discussed the availability of outpatient DBT groups, which can be lifesaving. She reports good therapeutic alliance, good response to medication management and therapy, availability of local mental health services and willingness to follow up, lack of suicidal ideation, intent or plan, lack of impulsivity, agitation, or psychotic behavior. The patient is future-oriented and understands the importance of outpatient follow-up. Psychiatric experts agree that predicting suicide is impossible, but considering positive factors like family and get, lack of access to firearms, and desire to continue treatment makes her current suicide risk minimal. Given the chronicity of suicidality, we discussed measures to help her with long-term safety. The patient is not suicidal or psychotic now. To help decreaseher suicide risk, as best I can, I am referring her for outpatient treatment andCBT for long-term follow-up to have somewhere to go and someone to manage her assymptoms and stressors develop. This is the best way to keep her alive. So, we discussed a crisis plan for future suicidality: at the first sign of distress, she will call the hotline; if this is not sufficient, she will 911, then call family members or friends; ultimately, she will come to the ER. Violence Risk Assessment: Chronic: Gender: lower than males Modifiable: good response to treatment, good therapeutic alliance, availability of local mental health services and willingness to follow up, lack of homicidal ideation (intent or plan) on the day of discharge and during hospitalization, lack of substance abuse, future oriented. No history of recent violence reported. Furthermore, No access to lethal means as currently have no weapons. No aggressive behavior during hospitalization. She has been social with peers on the unit and has been attending groups. Current Violence Risk Assessment: Low acute risk given known chronic and modifiable risk factors. Patient did not meet criteria for probate and his behavior has been overall appropriate on the unit. She has denied homicidal thoughts and has not exhibitedany aggressive behavior. She is not an acute risk to himself or others evidenced by subjective and objective data during his hospitalization. She is compliant with meds which can improve impulse control and mood. Safety: The patient is not acutely psychotic and is safe to continue treatment on an outpatient basis. The patient was made aware of the 08/12 emergency services of the crisis center. She was advised to call 911 or go to the nearest ER in case of a crisis ( (including having thoughts of harming herself or others). Typical short- and long-term side effects of the proposed medication regimen, including contraindications and clinically significant interactions, were discussed with the patient. Side effects include but not limited to sedation, overdose, rash, movement disorders (TD, EPS), weight gain, and appetite changesand advised the patient not to drive or drink while taking these meds. Patient should reach out to medical provider if any of these side effects occur. Using drugs can increase risk of . We also discussed risk of overdose with this current med regimen. Patient understands that it is impossible to gurantee an outcome with medications. Patient indicates an understanding that benefits outweigh the risks. Continue supportive therapy with some CBT techniques. Psycho-education and compliance counseling were provided. She denies current and is aware to notify her psychiatrist if she becomes due to the risk of harm to the fetus. Avoid taking psychiatric medications with driving. MSE: Orientation: Alert and oriented to person, place, and time. Appearance/Behavior: Fair grooming and hygiene, calm, cooperative, engaged in the interview. Good eye contact. Normal psychomotor activity. Speech: normal rate, rhythm, volume, and tone. Non pressured. Knowledge: Appropriate for age and level of education Mood: okay Affect: reactive, mood-congruent Thought process: linear, logical, and goal-oriented Thought content: No SI/HI. No AVH. No delusions. Does not appear to be responding to internal stimuli. Concentration: Grossly intact based on track during the interview Associations: No loosening of associations Memory: Able to recall recent and remote historical information Insight: Fair, able to appreciate current symptoms and need for outpatient treatment Judgment: fair, agreed to follow treatment recommendations, socially appropriate with interviewer and staff. Time spent discussing smoking cessation with patient: more than 10 minutes Condition Condition at Discharge: Stable Status at Discharge Functional status at discharge: independent ambulation Time Spent with Patient Time spent providing/coordinating discharge services (# min): 82 Discharge Plan Discharge Plan Patient Disposition: Home Activity: No Activity Restriction Diet: Regular Additional Instructions: Important Contact Information You can call [facility] Inpatient [facility]al Health at [phone] any time day or night if you have emergent questions or question regarding discharge instructions. If at any time you are feeling an increase inyour psychiatric symptoms, call your physician or behavioral healthcare provider. If any time you have thoughts of harming yourself or others contact one of the following: Call (available 08/12) Crisis Text Line (available 08/12) text 4HOPE to [phone] [facility] Hope Line (available 8 a.m. Midnight) call [phone] ([phone]) Regular Diet No Activity Restrictions Instructions: Alcohol Use Disorder (DC), Bipolar Disorder (DC), [facility] [place] Instructions, Know your Meds Prescriptions: New cholecalciferol (vitamin D3) 25 mcg (1,000 unit) Tablet 50 mcg PO DAILY 30 Days Qty: 60 1RF doxepin 25 mg Capsule 25 mg PO QHS 15 Days Qty: 15 1RF olanzapine 5 mg Tablet 5 mg PO Q6H PRN (Reason: Agitation) 15 Days Qty: 30 2RF doxepin 10 mg Capsule 10 mg PO BID.9A.2P 15 Days Qty: 30 2RF mirtazapine 15 mg Tablet 15 mg PO QHS 15 Days Qty: 15 2RF gabapentin 100 mg Capsule 200 mg PO TID 15 Days Qty: 90 1RF duloxetine 30 mg Capsule,Delayed Release(Dr/Ec) 30 mg PO DAILY 15 Days Qty: 15 2RF duloxetine 60 mg Capsule,Delayed Release(Dr/Ec) 60 mg PO QHS 15 Days Qty: 15 1RF No Action hydroxyzine pamoate 25 mg capsule 25 mg PO Q8HR PRN (Reason: anxiety) Follow Up: [facility] [Outside] (Make IOP referral. ) Korina Walker, DOROTHY, [facility]ENGER-[facility] [Referring] - (Contact your PCP with medical needs. ) Exam Physical Exam Vital Signs: Temp Pulse Resp BP Pulse Ox O2 Del Method 97.6 F 94 16 117/79 98 Room Air 01/14/24 20:00 01/14/24 20:00 01/14/24 20:00 01/14/24 20:00 01/14/24 20:00 01/14/24 21:00 Documented By: Trevin Renteria MD [id number] Signed By: <Electronically signed by Trevin Renteria MD> 01/15/24 0739 [facility] Work Phone: 1(757) 835-318908-29-2024 Progress note Author Trevin rodriguez [facility] January 14, 2024 7:51am Note Date/Time January 14, 2024 7: 51am [facility] [address] [place] [address] Psychiatry Progress Note Signed Patient: Bridgette Wang MR#: [id number] : 1965 Acct:[id number] Age/Sex: 58 / F Adm Date: 4 Loc: Room: [address] [place] [address] Type : ADM IN Attending Dr: Farhat Kirby MD Copies to: ~ Date of Service: 01/14/2024 Subjective Subjective Narrative: Bridgette Wang reports her anxiety is moderate and is tolerating Gabapentin. She finds the hospital enviornment comfortable. She is open to increasing it to 200 mg PO TID. She said she lives with her BF. She is tolerating her medications without difficulty. She denied current SI/HI and verbalized the intent to notify staff if she has such thoughts. She denied any suicidal or self-injurious behaviors. I did talk with her about the importance of medication compliance as she believes that medications made a gooddifference. Sleep and appetite are ok. She is anxious about leaving the hospital but is open to attending outpatinet treatment. Recommend IOP. Patient has continued to attend individual and group therapy and found them useful to understand their clinical symptoms well and also developed coping skills that were individualized for them and patient feels comfortable applying them when they return home. Appearance: dressed casually Mental Status: mental status grossly normal Mood: Anxious mood Affect: Normal affect Speech and Movement: speech and movement normal and speech clear Attitude: cooperative Thought Process: normal Thought Content: Denied hallucinations, no homicidality and no suicidality Insight: fair Judgment: fair Impulse control: fair Exam Physical Exam Vital Signs: Temp Pulse Resp BP Pulse Ox O2 Del Method 97.8 F 71 18 104/62 97 Room Air 01/13/24 19:30 01/13/24 19:30 01/13/24 19:30 01/13/24 19:30 01/13/24 19:30 01/13/24 19:30 Assessment/Plan Assessment/Plan (1) MDD (major depressive disorder): Qualifiers: Major depression recurrence: unspecified whether recurrent Active/Remission status: currently active Major depression episode severity: severe Psychotic features: without psychotic features Qualified Code(s): F32.2- Major depressive disorder, single episode, severe without psychotic features Plan Patient reports anxiety is less after starting Gabapentin but is worried about her home environement. Currently on Cymbalta 30 mg PO Q daily and 60 mg PO HS Remeron was recently increased to 15 mg at bedtime Continue doxepin 10 mg twice daily and 25 mg nightly Increase Gabapentin to 200 mg PO TID. Monitor suicidal behaviors for safety of self (15-minute face check). Encourage group participation. Psychoeducation was provided. Typical short- and long-term side effects of the proposed medication regimen, including contraindications and clinically significant interactions, were discussed with the patient. I gave examples of side effects such as but not limited to sedation, QTC prolongation and arrhythmias, movement disorders (TD, EPS), weight gain, and appetite changes and advised the patient not to drive or drink while taking psychiatric meds. Patient is advised to take meds as prescribed. Targeted symptoms and signs, possible therapeutic benefit, side effect and risksdiscussed. No abnormal movements noted on exam. AIMS is Zero. Involve friends/family members if applicable to coordinate care and ensure appropriate outpatient appointments are scheduled prior to discharge. I have reviewed evaluations by other providers (ER notes, nurses and staff). Documented By: Trevin Renteria MD [id number] Signed By: <Electronically signed by Trevin Renteria MD> 01/14/24 0751 [facility] Work Phone: 1(983) 573-654608-28-2024 Progress note Author Trevin rodriguez [facility] January 13, 2024 8:21am Note Date/Time January 13, 2024 8: 14am [facility] [address] [place] [address] Psychiatry Progress Note Signed Patient: Bridgette Wang MR#: [id number] : 1965 Acct:[id number] Age/Sex: 58 / F Adm Date: 08/20/2 4 Loc: 1S Room: 0V0975-0 Type : ADM IN Attending Dr: Farhat Kirby MD Copies to: ~ Date of Service: 01/13/2024 Subjective Subjective Narrative: Bridgette Wang reports her anxiety remains intense and does not fel that current med regimen is working. She used to take Benzos and we discussed risks of Benzos. She denies any suicidal thoughts on today's examination. She reported ongoing depression and feels hopeless at times. She is still endorsing intermittent SI. She is open to adding Gabapentin to help with anxiety,. MSE Appearance: Disheveled, unkempt. Mental Status: Appears cognizant of circumstances Mood: Depressed and anxious Affect: mood-congruent affect Speech and Movement: Pressured speech with increased rate. Irregular quick movements. Attitude: cooperative Thought Process: Impoverished Thought Content: Thoughts which are provoking anxiety and depression. Intermittent suicidal ideation. Insight: Limited Judgment: Limited Exam Physical Exam Vital Signs: Temp Pulse Resp BP Pulse Ox O2 Del Method 98 F 91 18 119/57 L 98 Room Air 01/13/24 07:30 01/13/24 07:30 01/12/24 14:50 01/13/24 07:30 01/13/24 07:30 01/13/24 07:30 Assessment/Plan Assessment/Plan (1) MDD (major depressive disorder): Qualifiers: Active/Remission status: currently active Major depression episode severity: severe Major depression recurrence: unspecified whether recurrent Psychotic features: without psychotic features Qualified Code(s): F32.2 - Majordepressive disorder, single episode, severe without psychotic features Plan Patient ist still incredibly anxious and depressed. She endorses SI. Currently on Cymbalta 30 mg PO Q daily and 60 mg PO HS Remeron was recently increased to 15 mg at bedtime Continue doxepin 10 mg twice daily and 25 mg nightly Add Gapaentin 100 mg PO TID. Monitor suicidal behaviors for safety of self (15-minute face check). Encourage group participation. Psychoeducation was provided. Typical short- and long-term side effects of the proposed medication regimen, including contraindications and clinically significant interactions, were discussed with the patient. I gave examples of side effects such as but not limited to sedation, QTC prolongation and arrhythmias, movement disorders (TD, EPS), weight gain, and appetite changes and advised the patient not to drive or drink while taking psychiatric meds. Patient is advised to take meds as prescribed. Targeted symptoms and signs, possible therapeutic benefit, side effect and risksdiscussed. No abnormal movements noted on exam. AIMS is Zero. Involve friends/family members if applicable to coordinate care and ensure appropriate outpatient appointments are scheduled prior to discharge. I have reviewed evaluations by other providers (ER notes, nurses and staff). Documented By: Trevin Renteria MD 4 [id number] Signed By: <Electronically signed by Trevin Renteria MD> 01/13/24 0821 [facility] Work Phone: 1(658) 437-888108-27-2024 Progress note Author Trevin rodriguez [facility] January 12, 2024 9:25am Note Date/Time January 12, 2024 9: 24am [facility] [address] [place] [address] Psychiatry Progress Note Signed Patient: Bridgette Wang MR#: [id number] : 1965 Acct:[id number] Age/Sex: 58 / F Adm Date: 4 Loc: Room: [address] [place] [address] Type : ADM IN Attending Dr: Farhat Kirby MD Copies to: ~ Date of Service: 01/12/2024 Subjective Subjective Narrative: Bridgette Wang reports her anxiety remains moderate. She doesn't want to adjust themedications today because Remeron was just adjusted. I provided her information about increasing Cymbalta if we need to do. She denies any suicidal thoughts ontoday's examination. She reproted ongoing depression and feels hopeless at times. She is still endorsing intermittent SI. MSE Appearance: Disheveled, unkempt. Mental Status: Appears cognizant of circumstances Mood: Depressed and anxious Affect: mood-congruent affect Speech and Movement: Pressured speech with increased rate. Irregular quick movements. Attitude: Uncooperative Thought Process: Impovrished Thought Content: Thoughts which are provoking anxiety and depression. Intermittent suicidal ideation. Insight: Limited Judgment: Limited Exam Physical Exam Vital Signs: Temp Pulse Resp BP Pulse Ox O2 Del Method 98 F 79 18 117/66 98 Room Air 01/12/24 07:30 01/12/24 07:30 01/12/24 07:30 01/12/24 07:30 01/12/24 07:30 01/12/24 07:30 Assessment/Plan Assessment/Plan (1) MDD (major depressive disorder): Qualifiers: Major depression recurrence: unspecified whether recurrent Active/Remission status: currently active Major depression episode severity: severe Psychotic features: without psychotic features Qualified Code(s): F32.2- Major depressive disorder, single episode, severe without psychotic features Plan Patient is admitting improvement in suicidal ideation but still incredibly anxious and depressed. Currently on Cymbalta 30 mg PO Q daily and 60 mg PO HS Remeron was recently increased to 15 mg at bedtime Continue doxepin 10 mg twice daily and 25 mg nightly Monitor suicidal behaviors for safety of self (15-minute face check). Encourage group participation. Psychoeducation was provided. Typical short- and long-term side effects of the proposed medication regimen, including contraindications and clinically significant interactions, were discussed with the patient. I gave examples of side effects such as but not limited to sedation, QTC prolongation and arrhythmias, movement disorders (TD, EPS), weight gain, and appetite changes and advised the patient not to drive or drink while taking psychiatric meds. Patient is advised to take meds as prescribed. Targeted symptoms and signs, possible therapeutic benefit, side effect and risksdiscussed. No abnormal movements noted on exam. AIMS is Zero. Involve friends/family members if applicable to coordinate care and ensure appropriate outpatient appointments are scheduled prior to discharge. I have reviewed evaluations by other providers (ER notes, nurses and staff). Documented By: Trevin Renteria MD 4 05 Signed By: <Electronically signed by Trevin Renteria MD> 01/12/24924 [facility] Work Phone: 1(297) 628-880608-26-2024 Progress note Author Trevin rodriguez [facility] January 11, 2024 12:45pm Note Date/Time January 11, 2024 11 :29am [facility] [address] [place] [address] Psychiatry Progress Note Signed Patient: Bridgette Wang MR#: [id number] : 1965 Acct:[id number] Age/Sex: 58 / F Adm Date: 4 Loc: 1S Room: [address] [place] [address] Type : ADM IN Attending Dr: Farhat Kirby MD Copies to: ~ Date of Service: 01/11/2024 Subjective Subjective Narrative: Bridgette Wang is a 58-year-old female who presented on 01/05 with concerns for anxiety, depression, suicidal thoughts. Today she says she is not feeling too good, but overall she is feeling better than she was on admission. She denies any suicidal thoughts on today's examination. She reproted ongoing depression and feels hopeless at times. She is still endorsing intermittent SI. Patient was personally seen by me on the day of the encounter. I reviewed the history and performed the logan elements of the assessment. I formulated the planof care and confirmed this with the resident as noted below MSE Appearance: Disheveled, unkempt. Mental Status: Appears cognizant of circumstances Mood: Depressed and anxious Affect: mood-congruent affect Speech and Movement: Pressured speech with increased rate. Irregular quick movements. Attitude: Uncooperative Thought Process: Impovrished Thought Content: Thoughts which are provoking anxiety and depression. Intermittent suicidal ideation. Insight: Limited Judgment: Limited Exam Physical Exam Vital Signs: Temp Pulse Resp BP Pulse Ox O2 Del Method 98.2 F 81 18 129/84 98 Room Air 01/11/24 07:30 01/11/24 07:30 01/11/24 07:30 01/11/24 07:30 01/11/24 07:30 01/11/24 09:00 Assessment/Plan Assessment/Plan (1) MDD (major depressive disorder): Qualifiers: Active/Remission status: currently active Major depression episode severity: severe Major depression recurrence: unspecified whether recurrent Psychotic features: without psychotic features Qualified Code(s): F32.2 - Majordepressive disorder, single episode, severe without psychotic features Plan Patient is admitting improvement in suicidal ideation but still incredibly anxious and depressed. Currently on Cymbalta with a cumulative dose of 120 mg daily, will consider bringing this down to 60 mg. Continue Remeron 7.5 mg at bedtime Continue doxepin 10 mg twice daily and 25 mg nightly Will continue to reassess daily Documented By: Trevin Renteria MD 4 1122 Signed By: <Electronically signed by Trevin Renteria MD> 01/11/24 1245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
[2024-01-29 09:09] LABS: Basophils Absolute Auto 0.1 10^3/uL (0.0-0.1); Basophils Percent Auto 0.8 % (0.2-2.0); Eosinophils Absolute Auto 0.1 10^3/uL (0.0-0.7); Eosinophils Percent Auto 0.6 % (0.9-7.0); Hematocrit 41.3 % (36.0-48.0); Hemoglobin 13.3 g/dL (12.0-16.0); Immature Granulocytes Abs Auto 0.08 10^3/uL (0.00-0.03); Immature Granulocytes Pct Auto 0.7 % (0.0-0.5); Lymphocytes Absolute Auto 1.9 10^3/uL (1.2-3.8); Lymphocytes Percent Auto 15.4 % (20.5-60.0); Mean Corpuscular HGB Conc 32.2 g/dL (29.9-35.2); Mean Corpuscular Hemoglobin 31.5 pg (26.7-34.0); Mean Corpuscular Volume 97.9 fL (81.0-99.0); Mean Platelet Volume 9.7 fL (9.5-13.5); Monocytes Absolute Auto 0.8 10^3/uL (0.3-0.8); Monocytes Percent Auto 6.4 % (1.7-12.0); Neutrophils Absolute Auto 9.4 10^3/uL (1.4-6.5); Neutrophils Percent Auto 76.1 % (43.0-75.0); Platelet Count 475 10^3/uL (150-450); Red Blood Count 4.22 10^6/uL (4.20-5.40); Red Cell Distribution Width 13.9 % (11.0-15.0); White Blood Count 12.3 10^3/uL (4.0-11.0)
[2024-01-29 09:28] LABS: Alanine Aminotransferase 32 U/L (14-59); Albumin Globulin Ratio 0.9; Albumin Level 3.8 g/dL (3.4-5.0); Alkaline Phosphatase 164 U/L (46-116); Anion Gap 11.2; Aspartate Amino Transferase 17 U/L (15-37); BUN Creatinine Ratio 27.4; Bilirubin Total 0.2 mg/dL (0.2-1.0); Calcium 11.5 mg/dL (8.5-10.1); Carbon Dioxide 30.9 mmol/L (21.0-32.0); Chloride 101 mmol/L (98-107); Estimated GFR (African America >60 (>=60); Estimated GFR (Non-African Ame >60 (>=60); Glucose 105 mg/dL (74-106); Potassium 4.1 mmol/L (3.5-5.1); Sodium 139 mmol/L (136-145); Total Protein 7.8 g/dL (6.4-8.2)
[2024-01-29 09:31] LABS: Amphetamine Screen Urine NEGATIVE (NEGATIVE); Barbiturates Screen Urine NEGATIVE (NEGATIVE); Benzodiazepines Screen Urine POSITIVE (NEGATIVE); Buprenorphine Screen Urine NEGATIVE (NEGATIVE); Cannabinoid Screen Urine POSITIVE (NEGATIVE); Cocaine Screen Urine NEGATIVE (NEGATIVE); Methadone Screen Urine NEGATIVE (NEGATIVE); Methamphetamines Screen Urine NEGATIVE (NEGATIVE); Opiate Screen Urine NEGATIVE (NEGATIVE); Oxycodone Screen Urine NEGATIVE (NEGATIVE); Phencyclidine Screen Urine NEGATIVE (NEGATIVE); Tricyclic Antidepressant Urine NEGATIVE (NEGATIVE)
[2024-01-29 09:40] VITALS: PULSE 74
[2024-01-29 09:43] LABS: Ethanol <3 mg/dL
--- NOTE | 2024-01-29 09:43 | ED_ITS ---
HPI - Anxiety General Chief Complaint: Anxiety Stated Complaint: ANXIOUS Time Seen by Provider: 01/29/24 08:43 Source: patient Mode of arrival: ambulance Limitations: no limitations History of Present Illness HPI narrative: The patient have history of anxiety, she is coming to us by the EMS with concern of anxiety, she mentioned that she have no specific pain although she thinks she might have a urinary infection because she had frequency The patient was discharged from another facility almost 2 weeks ago when she was transferred from here to be admitted as inpatient. The patient mentioned that her medication are not working, although initially she mentioned that she is not taking the medication but after more clarification she mentioned that she does not think the medication are helping Related Data Previous Rx's ?Medication ?Instructions ?Recorded hydroxyzine pamoate 25 mg capsule 25 mg PO Q8H PRN anxiety #20 caps 01/04/24 (Vistaril) Allergies Allergy/AdvReac Type Severity Reaction Status Date / Time No Known Drug Allergies Allergy Verified 01/29/24 08:35 Review of Systems ROS Status of ROS 10 or more systems reviewed and unremark able except as noted in history and below PFSH PFS Social History Little interest or pleasure in doing things: not at all Feeling down, depressed, or hopeless: not at all Exam Narrative Exam Narrative: Nurses notes and vital signs reviewed and patient is not hypoxic. General: Well-appearing and in no apparent distress. Skin: Warm, dry, no pallor noted. No rash. Head: Normocephalic, atraumatic. Neck: Supple, non-tender. Eye: Pupils are equal, round and EOMI. No scleral icterus. Ears, Nose, Mouth, and Throat: TM are clear, no nasal mucosal hypertrophy. Oral mucosa is moist, no posterior oropharynx erythema, uvula is mid-line Cardiovascular: Regular Rate and Rhythm without murmur, gallop or rub. Respiratory: No accessory muscle use or respiratory distress. Lungs are clear to auscultation, no wheezing, rales or rhonchi Chest Wall: no tenderness Back: No midline thoracic or lumbar vertebral tenderness. No CVA tenderness Musculoskeletal: normal ROM, no calf or popliteal tenderness, no lower extremity edema/swelling GI: Abdomen is soft, non-distended. Normal bowel sounds. No masses appreciated. No tenderness to palpation. No rebound, guarding, or rigidity noted. Neurological: A&O x4. No cranial nerve dysfunction observed. No truncal ataxia. Moves all extremities. Sensation intact. Psychiatric: Anxious and impulsive keep moving in the bed and easily distracted Constitutional Vital Signs, click to edit/add: Last Vital Signs Temp 98.2 F 01/29/24 08:36 Pulse 79 01/29/24 12:33 Resp 18 01/29/24 12:33 BP 146/92 H 01/29/24 12:33 Pulse Ox 100 01/29/24 12:33 O2 Del Method Room Air 01/29/24 08:36 Course Vital Signs Vital signs: Vital Signs Temperature 98.2 F 01/29/24 08:36 Pulse Rate 80 01/29/24 08:36 Respiratory Rate 20 01/29/24 08:36 Blood Pressure 184/95 H 01/29/24 08:36 Pulse Oximetry 97 01/29/24 08:36 Oxygen Delivery Method Room Air 01/29/24 08:36 Temperature 98.2 F 01/29/24 08:36 Pulse Rate 79 01/29/24 12:33 Respiratory Rate 18 01/29/24 12:33 Blood Pressure 146/92 H 01/29/24 12:33 Pulse Oximetry 100 01/29/24 12:33 Oxygen Delivery Method Room Air 01/29/24 08:36 MDM - Anxiety MDM Narrative Medical decision making narrative: The patient CBC and chemistry showed no acute significant pathology as well as her urinalysis She have a talk screen positive for benzodiazepine although she is not having any prescription of benzo refilled The patient has no specific symptoms when I asked her although initially she mentioned that she is not taking her medication I called the pharmacy and she have her medication ready to be picked up, including olanzapine which is a benzodiazepine The patient was evaluated by [facility] psychiatry service and she was accepted by Dr. Hernandez in [address] facility Lab Data Labs: Lab Results 01/29/24 01/29/24 Range/Units 08:56 08:58 WBC 12.3 H (4.0-11.0) 10^3/uL RBC 4.22 (4.20-5.40) 10^6/uL Hgb 13.3 (12.0-16.0) g/dL Hct 41.3 (36.0-48.0) % MCV 97.9 (81.0-99.0) fL MCH 31.5 (26.7-34.0) pg MCHC 32.2 (29.9-35.2) g/dL RDW 13.9 (11.0-15.0) % Plt Count 475 H (150-450) 10^3/uL MPV 9.7 (9.5-13.5) fL Neut % (Auto) 76.1 H (43.0-75.0) % Lymph % (Auto) 15.4 L (20.5-60.0) % [place] % (Auto) 6.4 (1.7-12.0) % Eos % (Auto) 0.6 L (0.9-7.0) % Baso % (Auto) 0.8 (0.2-2.0) % Neut # (Auto) 9.4 H (1.4-6.5) 10^3/uL Lymph # (Auto) 1.9 (1.2-3.8) 10^3/uL [place] # (Auto) 0.8 (0.3-0.8) 10^3/uL Eos # (Auto) 0.1 (0.0-0.7) 10^3/uL Baso # (Auto) 0.1 (0.0-0.1) 10^3/uL Abs Immat Gran (auto) 0.08 H (0.00-0.03) 10^3/uL Imm/Tot Granulo (auto) 0.7 H (0.0-0.5) % Sodium 139 (136-145) mmol/L Potassium 4.1 (3.5-5.1) mmol/L Chloride 101 (98-107) mmol/L Carbon Dioxide 30.9 (21.0-32.0) mmol/L Anion Gap 11.2 BUN 20.0 H (7.0-18.0) mg/dL Creatinine 0.73 (0.55-1.02) mg/dL Est GFR ( Amer) >60 (>=60) Est GFR (Non-Af Amer) >60 (>=60) BUN/Creatinine Ratio 27.4 Glucose 105 (74-106) mg/dL Calcium 11.5 H (8.5-10.1) mg/dL Total Bilirubin 0.2 (0.2-1.0) mg/dL AST 17 (15-37) U/L ALT 32 (14-59) U/L Alkaline Phosphatase 164 H (46-116) U/L Total Protein 7.8 (6.4-8.2) g/dL Albumin 3.8 (3.4-5.0) g/dL Globulin 4.0 g/dL Albumin/Globulin Ratio 0.9 Urine Color Lt. yellow (YELLOW) Urine Clarity Cloudy A (CLEAR) Urine pH 8.5 (5.0-9.0) Ur Specific [place] 1.025 (1.005-1.025) Urine Protein Negative (NEG/TRACE) mg/dL Urine Glucose (UA) Negative (NEGATIVE) mg/dL Urine Ketones Negative (NEGATIVE) mg/dL Urine Occult Blood Negative (NEGATIVE) Urine Nitrite Negative (NEGATIVE) Urine Bilirubin Negative (NEGATIVE) Urine Urobilinogen 0.2 (0.2-1.0) EU/dL Ur Leukocyte Esterase Negative (NEGATIVE) Urine Opiates Screen Negative (NEGATIVE) Ur Buprenorphine Scrn Negative (NEGATIVE) Ur Oxycodone Screen Negative (NEGATIVE) Urine Methadone Screen Negative (NEGATIVE) Ur Barbiturates Screen Negative (NEGATIVE) U Tricyclic Antidepress Negative (NEGATIVE) Ur Phencyclidine Scrn Negative (NEGATIVE) Ur Amphetamines Screen Negative (NEGATIVE) U Methamphetamines Scrn Negative (NEGATIVE) U Benzodiazepines Scrn Positive A (NEGATIVE) Urine Cocaine Screen Negative (NEGATIVE) U Cannabinoids Screen Positive A (NEGATIVE) Ethanol Quant <3 mg/dL Discharge Plan Discharge Chief Complaint: Anxiety Clinical Impression: Acute anxiety, Bipolar 1 disorder Patient Disposition: [facility] Time of Disposition Decision: 12:33 Discharge location: [facility]
[2024-01-29 09:52] LABS: Bilirubin Urine NEGATIVE (NEGATIVE); Blood Urine NEGATIVE (NEGATIVE); Clarity Urine CLOUDY (CLEAR); Color Urine LT. YELLOW (YELLOW); Glucose Urine UA NEGATIVE (NEGATIVE); Ketones Urine NEGATIVE (NEGATIVE); Leukocyte Esterase Urine NEGATIVE (NEGATIVE); Nitrite Urine NEGATIVE (NEGATIVE); Protein Urine NEGATIVE (NEG/TRACE); Specific Gravity Urine 1.025 (1.005-1.025); Urobilinogen Urine 0.2 EU/dL (0.2-1.0); pH Urine 8.5 (5.0-9.0)
[2024-01-29 09:54] LABS: Urine Microscopic Indicated NO
[2024-01-29 12:33] VITALS: BP 146/92; PULSE 79; O2SAT 100
[2024-01-29 15:21] VITALS: BP 154/78; PULSE 74; O2SAT 100
== END 2024-01-29 15:22 ==
PROVIDERS: Emergency Provider Emergency Medicine
DX: F41.9 Anxiety disorder, unspecified (principal); F31.9 Bipolar disorder, unspecified; Z79.899 Other long term (current) drug therapy
CPT/HCPCS: 36415; 80053; 80307; 80320; 81003; 85025; 93005; 96374; 99285; J1200

== ENCOUNTER 2024-08-23 07:37 | Emergency (ER) | payer MEDICARE, SELFPAY ==
[2024-08-23 07:43] VITALS: BP 112/68; PULSE 96; TEMP 36.3; O2SAT 97; BMI 19.5
--- OUTSIDE RECORDS SUMMARY | 2024-08-23 07:55 | XMS_ITS | CCD ---
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 Role Phone DOROTHY Walker Primary Care Provider MD Fermin Renteria Admit Provider [phone] MD Fermin Renteria Attending Provider DOROTHY Walker Primary Care Provider MD Trevin Renteria Attending Provider MD Farhat Kirby Admit Provider [phone] MD Farhat Kirby Attending Provider [phone] NO FAMILY, PHYSICIAN Primary Care Provider Unava ilable MD Trevin Renteria Attending Provider DOROTHY Walker Primary Care Provider MD Trevin Renteria Admit Provider Tee GAYTAN, Juli Barillas Attending Unavailable Marianne Her Referring Unavailable Meghann Jacome PA-C Attending Unavailab Marianne Lockett Attending Unavailable NO FAMILY, PHYSICIAN Primary Care Unavailable Farhat Kirby Admitting Unavailable Trevin Renteria Attending Unavailab le NO FAMILY, PHYSICIAN Primary Care Unavailable Trevin Renteria Admitting Unavailab le Trevin Renteria Attending Unavailab le Korina Walker Primary Care Unavailable Trevin Renteria Admitting UnavailTrevin Lange Attending Shea hinson Allergies Allergy Classification Reported Allergen(s) Allergy Type Date of Onset Reaction(s) Facility (4 sources) Calcium; Translations: [calcium] Drug Allergy 12-17-2022 Unknown Reaction [facility] (4 sources) Doxycycline; Translations: [doxycycline] Drug Allergy 12-17-2022 Unknown Reaction [facility] Medications Current Medications Medication Drug Class(es) Dates Sig (Normalized) Sig (Original) busPIRone hydrochloride 15 mg oral tablet (1 source) Start: 02-08-2024 take 15 mg by mouth three times daily Buspirone Active 15 MG PO Three times daily February 08, 2024 12:00am cholecalciferol 0.025 mg oral tablet (3 sources) Vitamin D Start: 01-15-2024 End: 02-05-2024 take 50 ug by mouth once daily Cholecalciferol (Vitamin D3) Active 50 MCG PO Daily 60 February 05, 2024 2:01pm doxepin hydrochloride 50 mg oral capsule (6 sources) Tricyclic Antidepressant Start: 02-05-2024 take 50 mg by mouth once daily at bedtime Doxepin Active 50 MG PO Daily at bedtime February 05, 2024 12:00am Start: 01-15-2024 End: 02-05-2024 take 10 mg by mouth twice daily Doxepin Active 10 MG P O Twice Daily at 0900 and 1400 60 February 05, 2024 12:00am Start: 01-15-2024 End: 02-05-2024 take 25 mg by mouth once daily at bedtime Doxepin Discontinued 25 MG PO Daily at bedtime January 15, 2024 12:00am February 05, 2024 2:03pm gabapentin 400 mg oral capsule (3 sources) Anti-epileptic Agent Start: 02-05-2024 take 400 mg by mouth three times daily Gabapentin Active 400 MG PO Three times daily February 05, 2024 12:00am Start: 01-15-2024 End: 02-05-2024 take 200 mg by mouth three times daily Gabapentin Discontinued 200 MG PO Three times daily January 15, 2024 12:00am February 05, 2024 2:03pm hydrOXYzine pamoate 25 mg oral capsule (9 sources) Antihistamine Start: 01-05-2024 End: 02-05-2024 take 25 mg by mouth every eight hours Hydroxyzine Pamoate Active 25 MG PO Every 8 hours 60 February 05, 2024 2:01pm Start: 12-28-2022 End: 01-05-2024 take 50 mg by mouth twice daily Hydroxyzine Pamoate Discontinued 50 MG PO Twice daily 60 December 28, 2022 12:00am January 05, 2024 3:27pm Start: 12-17-2022 End: 12-28-2022 take 50 mg by mouth once daily Hydroxyzine Hcl Discont inued 50 MG PO Daily December 17, 2022 12:00am December 28, 2022 10:23am nicotine 2 mg chewing gum (4 sources) Cholinergic Nicotinic Agonist Start: 02-05-2024 Nicotine (Polacrilex ) Active 2 MG BUCCAL Q2H February 05, 2024 12:00am Start: 12-28-2022 End: 01-05-2024 Nicotine Discontinued 1 EACH TRANSDERML Daily December 28, 2022 12:00am January 05, 2024 3:28pm QUEtiapine 25 mg oral tablet (5 sources) Atypical Antipsychotic Start: 02-05-2024 take 25 mg by mouth once daily Quetiapine Active 25 MG PO Daily February 05, 2024 12:00am Start: 02-05-2024 take 50 mg by mouth at bedtime Quetiapine Active 50 MG PO Bedtime February 05, 2024 12:00am Start: 12-28-2022 End: 01-05-2024 take 50 mg by mouth three times daily Quetiapine Discontinued 50 MG PO Three times daily December 28, 2022 12:00am January 05, 2024 3:28pm traZODone hydrochloride 50 mg oral tablet (4 sources) Serotonin Reuptake Inhibitor Start: 02-05-2024 take 50 mg by mouth once daily at bedtime Trazodone Active 50 MG PO Daily at bedtime February 05, 2024 12:00am Start: 12-28-2022 End: 01-05-2024 take 100 mg by mouth once daily at bedtime Trazodone Discontinued 100 MG PO Daily at bedtime December 28, 2022 12:00am January 05, 2024 3:28pm 24 hr venlafaxine 150 mg extended release oral capsule (1 source) Serotonin and Norepinephrine Reuptake Inhibitor Start: 02-05-2024 take 150 mg by mouth once daily Venlafaxine Active 150 MG PO Daily February 05, 2024 12:00am Completed/Discontinued Medications Medication Drug Class(es) Dates Sig (Normalized) Sig (Original) DULoxetine 60 mg delayed release oral capsule (4 sources) Serotonin and Norepinephrine Reuptake Inhibitor Start: 01-15-2024 End: 02-05-2024 take 30 mg by mouth once daily Duloxetine Discontinued 30 MG PO Daily January 15, 2024 12:00am February 05, 2024 2:03pm Start: 01-15-2024 End: 02-05-2024 take 60 mg by mouth once daily at bedtime Duloxetine Discontinued 60 MG PO Daily at bedtime January 15, 2024 12:00am February 05, 2024 2:03pm ergocalciferol 1.25 mg oral capsule (3 sources) Provitamin D2 Compound Start: 12-28-2022 End: 01-05-2024 take 1250 ug by mouth every week Ergocalciferol (Vitamin D2) Discontinued 1250 MCG PO every week 10 14December 28, 2022 12:00am January 05, 2024 3:27pm escitalopram 20 mg oral tablet (3 sources) Serotonin Reuptake Inhibitor Start: 12-28-2022 End: 01-05-2024 take 20 mg by mouth once daily in the morning Escitalopram Oxalate Discontinued 20 MG PO Every morning December 28, 2022 12:00am January 05, 2024 3:27pm lamoTRIgine 25 mg oral tablet (6 sources) Mood Stabilizer, Anti-epileptic Agent Start: 12-17-2022 End: 01-05-2024 take 25 mg by mouth once daily at bedtime Lamotrigine Discontinued 25 MG PO Daily at bedtime December 28, 2022 10:30am January 05, 2024 3:28pm mirtazapine 15 mg oral tablet (5 sources) Start: 01-15-2024 End: 02-05-2024 take 15 mg by mouth once daily at bedtime Mirtazapine Discontinued 15 MG PO Daily at bedtime January 15, 2024 12:00am February 05, 2024 2:03pm Start: 12-28-2022 End: 01-05-2024 take 30 mg by mouth once daily at bedtime Mirtazapine Discontinued 30 MG PO Daily at bedtime December 28, 2022 12:00am January 05, 2024 3:28pm OLANZapine 5 mg oral tablet (2 sources) Atypical Antipsychotic Start: 01-15-2024 End: 02-05-2024 take 5 mg by mouth every six hours Olanzapine Discontinued 5 MG PO Q6H 30 January 15, 2024 12:00am February 05, 2024 2:03pm risperiDONE 1 mg oral tablet (3 sources) Atypical Antipsychotic Start: 12-17-2022 End: 12-28-2022 take 1 mg by mouth at bedtime Risperidone Discontinued 1 MG PO Bedtime December 17, 2022 12:00am December 28, 2022 10:23am sertraline 50 mg oral tablet (3 sources) Serotonin Reuptake Inhibitor Start: 12-17-2022 End: 12-28-2022 take 50 mg by mouth once daily Sertraline Discontinued 50 MG PO Daily December 17, 2022 12:00am December 28, 2022 10:23am Problems Problem Classification Problem Date Documented Da te Episodic/Chronic Alcohol-related disorders (4 sources) Alcoholism; Translations: [Alcohol dependence, uncomplicated] 12-17-2022 Chronic Anxiety disorders (3 sources) Anxiety; Translations: [Anxiety disorder, unspecified] Onset: 01-29-2024 01-30-2024 Chronic Mood disorders (15 sources) Bipolar II disorder; Translations: [Bipolar II disorder] Onset: 01-05-2024 12-17-2022 Chronic Results Test Name Value Interpretation Reference Range Facility ED Clinical Summaryon 2023 ED Clinical Summary [address] [address] ED Clinical Summary Person Information Name: Bridgette Wang Myah Jeniffer/[facility] Age: 59 Years : 1965 Sex: Female PCP: Marital Status: Single Phone: Race: White Ethnicity: Not or Language: Austrian Visit Reason: Weakness; covid Acuity: 4 Enc Type: Emergency Med Service: Emergency Medicine Arrival: 2024 21:19:34 Discharge: 02/14/2024 00:18:00 LOS: 000 02:59 Checkin: 2024 21:19:34 Checkout: 02/14/2024 00:18:00 Dispo Type: Home or Self Care Address: [address] [place] [address] [phone] Provider Notes: Diagnosis: 1:COVID Problems No Problems Documented Smoking Status: Smoking Status 5-9 cigarettes (between 1/4 to 1/2 pack)/day in last 30 days Functional Status: Sensory Deficits: History of Falls: Mobility Assistance Prior to Admission: ADLs: Current Level of Assistance for Self-Care/Mobility: Cognitive Status: Allergies No Known Allergies Laboratory or Other Results This Visit (last charted value for your 2024 visit) Hematology 2024 10:24 PM WBC: 6.4 x10 RBC: 3.32 x10 Neutro Auto: 76.1 % -- Normal range between ( 47.2 and 70.8 ) Lymph Auto: 11.0 % -- Normal range between ( 27.2 and 40.8 ) [place] Auto: 11.0 % -- Normal range between ( 3.7 and 11.9 ) Eos Auto: 1.0 % -- Normal range between ( 0.0 and 5.4 ) Basophil Auto: 0.9 % -- Normal range between ( 0.0 and 1.5 ) Baso Absolute: 0.1 x10 MCV: 96.4 fL -- Normal range between ( 80.0 and 100.0 ) MCHC: 34.3 % -- Normal range between ( 31.0 and 37.0 ) Lymph Absolute: 0.7 x10 Hct: 32.0 % -- Normal range between ( 36.0 and 46.0 ) [place] Absolute: 0.7 x10 MCH: 33.1 pg -- Normal range between ( 27.0 and 35.0 ) Neutro Absolute: 4.9 x10 Hgb: 11.0 g/dL -- Normal range between ( 12.0 and 16.0 ) Mean Platelet Volume: 8.2 fL -- Normal range between ( 6.7 and 10.6 ) Platelet: 257 x10 Eos Absolute: 0.1 x10 RDW: 14.2 % -- Normal range between ( 11.6 and 14.8 ) Urinalysis 2024 10:43 PM UA Color: Colorless UA Urobilinogen: Normal mg/dL UA Bili: Negative UA Ketones: Negative mg/dL UA Leukocyte Esterase: Negative UA Nitrite: Negative UA Glucose: Normal mg/dL UA Protein: Negative mg/dL UA Blood: Trace UA Spec Grav: 1.005 -- Normal range between ( 1.003 and 1.035 ) UA pH: 6.0 UA Clarity: Clear UA Source: Clean Catch UA WBC Quant: 0 /HPF -- Normal range between ( 0 and 5 ) UA RBC Quant: 0 /HPF -- Normal range between ( 0 and 5 ) UA Squepi Cells Quant: 2 /HPF -- Normal range between ( 0 and 29 ) Chemistry 2024 10:24 PM Creatinine Lvl: 0.76 mg/dL -- Normal range between ( 0.44 and 1.03 ) BUN: 18 mg/dL -- Normal range between ( 8 and 26 ) Glucose Lvl: 87 mg/dL -- Normal range between ( 70 and 99 ) Potassium Lvl: 3.9 mmol/L -- Normal range between ( 3.4 and 4.8 ) Troponin-I: <0.03 ng/mL -- Normal range between ( 0.00 and 0.03 ) Sodium Lvl: 133 mmol/L -- Normal range between ( 133 and 142 ) Calcium Lvl: 8.3 mg/dL -- Normal range between ( 8.5 and 10.3 ) Myoglobin: 33.4 Chloride: 103 mmol/L -- Normal range between ( 98 and 110 ) CO2: 22 mmol/L -- Normal range between ( 22 and 32 ) Anion Gap: 8 -- Normal range between ( 4 and 12 ) Estimated GFR: >60 mL/min/1.73m? BUN Crea Ratio: 23.7 -- Normal range between ( 10.0 and 20.0 ) Molecular 2024 10:24 PM SARS-CoV-2 RNA Detection: Positive Diagnostic Radiology 2024 10:06 PM XR Chest 1 View: XR Chest 1 View Measurements: Height: Weight: 55 kg Blood Pressure: /58 mmHg BMI: Procedures No Procedures Documented Immunizations No Immunizations Documented This Visit Final Med List: New Medications Printed Prescriptions benzonatate (Tessalon Perles 100 mg oral capsule) 1 Capsules Oral (given by mouth) 3 times a day as needed as needed for cough for 10 Days. Refills: 0. Last Dose: ____ Medications that have not changed Other Medications naproxen (naproxen 375 mg oral tablet) 1 Tabs Oral (given by mouth) 2 times a day for 7 Days. Refills: 0. Last Dose: ____ Printed Prescriptions benzonatate (Tessalon Perles 100 mg oral capsule) 1 Capsules Oral (given by mouth) 3 times a day as needed as needed for cough for 10 Days. Refills: 0. Other Medications naproxen (naproxen 375 mg oral tablet) 1 Tabs Oral (given by mouth) 2 times a day for 7 Days. Refills: 0. Care Team Members: Attending Physician: Marianne Her Consulting Physician: Referring Physician: Provider Role Assigned Unassigned Marianne Her ED MidLevel 2024 21:43:38 Shmuel Britt ED Nurse 2024 21:47:59 Follow up: With: Address: When: Primary care provider Comments: Follow-up with your primary care provider in 3 to 5 days for reevaluation of symptoms. You can take Ty (more content not included)... Normal [facility] .UA Microscp Aon 2024 UA RBC Quant 0 /HPF Normal 0-5 [facility] Comment on above: Performed By: #### . Urinalysis Microscopic Auto #### [address] [address] UA Squepi Cells Quant 2 /HPF Normal 0-29 [facility] Comment on above: Performed By: #### . Urinalysis Microscopic Auto #### [id number] [place] [address] UA WBC Quant 0 /HPF Normal 0-5 [facility] Comment on above: Performed By: #### . Urinalysis Microscopic Auto #### [address] [address] .eGFRon 2024 GFR/1.73 sq M.predicted MDRD (S/P/Bld) [Vol rate/Area] mL/min/{1.73_m2} Normal >=60 [facility] Comment on above: Result Comment: [facility] have implemented the eGFR calculation approach that does not have a coefficient for race and that conforms to the NKF-ASN Task Force Recommendations. Stages of Chronic Kidney Disease GFR Stage 3a Mild to moderate loss of kidney function 59 to 45 Stage 3b Moderate to severe loss of kidney function 44 to 33 Stage 4 Severe loss of kidney function 29 to 15 Stage 5 Kidney failure Less than 15 GFR calculated using the CKD-Epi Creatinine Equation (2020): eGFR = 142 X min(SCr/?, 1)? X max(SCr /?, 1)-1.200 X 0.9938Age X 1.012 [if female] Abbreviations/Units: eGFR (estimated glomerular filtration rate) = mL/min/1.73 m2 SCr (standardized serum creatinine) = mg/dL ? = 0.7 (females) or 0.9 (males) ? = -0.241 (females) or -0.302 (males) min = indicates the minimum of SCr/? or 1 max = indicates the maximum of SCr/? or 1 Age = years Performed By: #### E GFR #### [address] [address] Basic Metabolic Profileon Creatinine [Mass/Vol] 0.76 mg/dL Normal 0.44-1.03 [facility] Comment on above: Performed By: #### E GFR #### [address] [address] Urea nitrogen [Mass/Vol] 18 mg/dL Normal 8-26 [facility] Comment on above: Performed By: #### E GFR #### [address] [address] Urea nitrogen/Creatinine [Mass ratio] 23.7 mg/mg High 10.0-20.0 [facility] Comment on above: Performed By: #### E GFR #### [address] [address] Anion gap [Moles/Vol] 8 mmol/L Normal 4-12 [facility] Comment on above: Performed By: #### E GFR #### [address] [address] Calcium [Mass/Vol] 8.3 mg/dL Low 8.5-10.3 [facility] Comment on above: Performed By: #### E GFR #### [address] [address] Chloride [Moles/Vol] 103 mmol/L Normal 98-110 [facility] Comment on above: Performed By: #### E GFR #### [address] [address] CO2 [Moles/Vol] 22 mmol/L Normal 22-32 [facility] Comment on above: Performed By: #### E GFR #### [address] [address] Glucose [Mass/Vol] 87 mg/dL Normal 70-99 [facility] Comment on above: Performed By: #### E GFR #### [address] [address] Potassium [Moles/Vol] 3.9 mmol/L Normal 3.4-4.8 [facility] Comment on above: Performed By: #### E GFR #### [address] [address] Sodium [Moles/Vol] 133 mmol/L Normal 133-142 [facility] Comment on above: Performed By: #### E GFR #### [address] [address] CBC w/ Diffon 2024 Erythrocyte distribution width (RBC) [Ratio] 14.2 % Normal 11.6-14.8 [facility] Comment on above: Performed By: #### C BC #### [address] [address] Hematocrit (Bld) [Volume fraction] 32.0 % Low 36.0-46.0 [facility] Comment on above: Performed By: #### C BC #### [address] [address] Hemoglobin (Bld) [Mass/Vol] 11.0 g/dL Low 12.0-16.0 [facility] Comment on above: Performed By: #### C BC #### [address] [address] MCH (RBC) [Entitic mass] 33.1 pg Normal 27.0-35.0 [facility] Comment on above: Performed By: #### C BC #### [address] [address] MCHC 34.3 % Normal 31.0-37.0 [facility] Comment on above: Performed By: #### C BC #### [address] [address] MCV (RBC) [Entitic vol] 96.4 fL Normal 80.0-100.0 [facility] Comment on above: Performed By: #### C BC #### [address] [address] Platelet 257 x10*3/mcL Normal 150-450 [facility] Comment on above: Performed By: #### C BC #### [address] [address] Platelet mean volume (Bld) [Entitic vol] 8.2 fL Normal 6.7-10.6 [facility] Comment on above: Performed By: #### C BC #### [address] [address] RBC 3.32 x10*6/mcL Low 3.80-5.20 [facility] Comment on above: Performed By: #### C BC #### [address] [address] WBC 6.4 x10*3/mcL Normal 4.5-11.0 [facility] Comment on above: Performed By: #### C BC #### [address] [address] COV19 Rapidon 2024 LAB ONLY Result Called? Yes Critical ly abnormal [facility] Comment on above: Result Comment: Test completion time: 2024 22:34:02 EDT Called date and time: 2024 22:34:50 EDT Result called to and read back by: [facility] (First, Last, Title, Location) Performed By: #### C [id number] #### [place] [id number] Reason for Rapid Test COVID Exposure Normal [facility] Comment on above: Performed By: #### C [id number] #### [place] [address] SARS-CoV-2 (COVID-19) RNA VESNA+probe Ql (Unsp spec) Positive Abnormal Negative [facility] Comment on above: Result Comment: The 2019 novel coronavirus SARS-CoV-2 target nucleic acids are detected. This test is for the detection of SARS-CoV-2 RNA. Positive results are indicative of active infection with SARS-CoV-2. Positive results do not rule out bacterial infection or co-infection with other viruses. Negative results should be treated as presumptive and, if inconsistent with clinical signs and symptoms or necessary for patient management, should be tested with an alternative molecular assay.Negative results do not preclude SARS-CoV-2 infection and should not be used as the sole basis for treatment or other patient management decisions. Clinical correlation with patient history and other diagnostic information is necessary to determine patient infection status. ID NOW COVID-19 2.0 assay performed on the ID NOW Instrument is a rapid molecular in vitro diagnostic test utilizing an isothermal nucleic acid amplification technology (NAAT) intended for the qualitative detection of nucleic acid from SARS-CoV-2 in direct anterior nasal (nasal) or nasopharyngeal swab specimens from individuals with signs and symptoms of respiratory tract infection. Performed By: #### C [id number] #### [place] [id number] Diff Autoon 2024 Baso Absolute 0.1 x10*3/mcL Normal 0.0-0.2 [facility] Comment on above: Performed By: #### . Automated Diff #### [place] [id number] Basophils/100 WBC (Bld) 0.9 % Normal 0.0-1.5 [facility] Comment on above: Performed By: #### . Automated Diff #### [address] [address] Eos Absolute 0.1 x10*3/mcL Normal 0.0-0.4 [facility] Comment on above: Performed By: #### . Automated Diff #### [address] [address] Eosinophils/100 WBC (Bld) 1.0 % Normal 0.0-5.4 [facility] Comment on above: Performed By: #### . Automated Diff #### [address] [address] Lymph Absolute 0.7 x10*3/mcL Low 1.0-4.8 [facility] Comment on above: Performed By: #### . Automated Diff #### [address] [address] Lymphocytes/100 WBC (Bld) 11.0 % Low 27.2-40.8 [facility] Comment on above: Performed By: #### . Automated Diff #### [address] [address] [place] Absolute 0.7 x10*3/mcL Normal 0.1-1.1 [facility] Comment on above: Performed By: #### . Automated Diff #### [address] [address] Monocytes/100 WBC (Bld) 11.0 % Normal 3.7-11.9 [facility] Comment on above: Performed By: #### . Automated Diff #### [address] [address] Neutro Absolute 4.9 x10*3/mcL Normal 1.8-7.7 [facility] Comment on above: Performed By: #### . Automated Diff #### [address] [address] Neutro Auto 76.1 % High 47.2-70.8 [facility] Comment on above: Performed By: #### . Automated Diff #### [facility] [address] [place] [address] ED Clinical Summaryon 2023 ED Clinical Summary [facility] [address] [place] [address] [id number] ED Clinical Summary Person Information Name: Bridgette Wang/[facility] Age: 58 Years : 1965 Sex: Female PCP: Marital Status: Single Phone: Race: White Ethnicity: Not or Language: Austrian Visit Reason: Fall; Ankle pain-swelling; Ankle Pain Acuity: 4 Enc Type: Emergency Med Service: Emergency Medicine Arrival: 02/12/2024 22:43:15 Discharge: 2024 00:34:00 LOS: 000 01:51 Checkin: 02/12/2024 22:43:15 Checkout: 2024 00:34:00 Dispo Type: Home or Self Care Address: [address] [place] [phone] Provider Notes: History of Present Illness 88-year-old female presenting for concerns of an ankle injury. ?She slipped on ice earlier today and twisted her right ankle. Review of Systems As reviewed in the HPI. All other systems reviewed are negative or normal. Physical Exam CONSTITUTIONAL: [well appearing in no acute distress] SKIN: [Warm, dry, and intact without rash] EYES: [extraocular movements are grossly intact, clear conjunctiva] HENT: [Normocephalic, atraumatic, moist mucus membranes] NECK: [no obvious swelling, normal range of motion] PULMONARY: [normal chest rise and fall, no respiratory distress or stridor CARDIOVASCULAR: [regular rate, distal extremities are warm and well perfused] GASTROINSTESTINAL: [nondistended, non-tender] GENITOURINARY: [deferred] NEUROLOGIC: [normal speech, moves all extremities] MUSCULOSKELETAL: [Swelling and ecchymosis to?right lateral ankle?with tenderness, neurovasc intact] PSYCHIATRIC: [normal mood and affect] Reexamination/Reevalu ation Resting comfortably, vitals stable, neurovascularly intact, nontoxic Diagnosis: 1:Ankle sprain Problems No Problems Documented Smoking Status: Smoking Status 5-9 cigarettes (between 1/4 to 1/2 pack)/day in last 30 days Functional Status: Sensory Deficits: History of Falls: Mobility Assistance Prior to Admission: ADLs: Current Level of Assistance for Self-Care/Mobility: Cognitive Status: Allergies No Known Allergies Laboratory or Other Results This Visit (last charted value for your 02/12/2024 visit) Diagnostic Radiology 02/12/2024 11:04 PM XR Ankle 3 Views Right: XR Ankle 3 Views Right Measurements: Height: Weight: 50 kg Blood Pressure: /64 mmHg BMI: Procedures No Procedures Documented Immunizations No Immunizations Documented This Visit Final Med List: New Medications Printed Prescriptions naproxen (naproxen 375 mg oral tablet) 1 Tabs Oral (given by mouth) 2 times a day for 7 Days. Refills: 0. Last Dose: ____ Printed Prescriptions naproxen (naproxen 375 mg oral tablet) 1 Tabs Oral (given by mouth) 2 times a day for 7 Days. Refills: 0. Care Team Members: Attending Physician: Meghann Jacome PA-C Consulting Physician: Referring Physician: Provider Role Assigned Unassigned Meghann Jacome PA-C ED MidLevel 02/12/2024 22:47:19 Hayde Kiser ED Nurse 02/12/2024 22:55:31 Follow up: With: Address: When: Physician Referral Line Comments: Call [phone] to establish PCP. With: Address: When: Emergency Department Comments: Return to emergency department immediately for any new or worsening symptoms or if symptoms last longer than discussed. Discharge Orders: Discharge Patient 02/12/24 23:48:00 EDT, Discharge to Home, Self, Ankle sprain Patient Education Information: ANKLE SPRAIN (Adult) [facility] Poison Help line: . [facility] Hotline: [place] Tobacco Quit Line: [place], [place]) [address]: [phone] [place], [place]) [address]: [phone] [facility] [address] [place], [place]: [phone] [facility] ED Note-Nursingon 2024 ED Note-Nursing This RN spoke with Courtney from [facility] and informed facility that patient would be returning via cab. Electronically signed by Hayde Kiser 02/13/24 00:[address] [facility] ED Note-Physicianon 02-13-20 ED Note-Physician Chief Complaint tested positive for covid. having weakness, congestion, and body aches History of Present Illness Patient is an alert, oriented 59-year-old female presenting to the emergency department for evaluation of just generalized weakness, congestion, body aches. Patient is a resident at [facility]. She did test positive for COVID. With patient's complaints of weakness this and even some intermittent chest pain I do feel we need to deal a workup including labs, EKG, and chest x-ray. I also ordered for a urinalysis. Physical assessment reveals S1-S2 heart sounds. Lung sounds are clear throughout. Chest rise and fall is symmetrical. There is no increased work of breathing. Patient was initially refusing some of the labs and refusing urinalysis stating that she knows that is not why she is feeling this way, she states it is all because of the COVID. I did explain to her that I do need to rule these things out just to ensure that it is simply the COVID that is causing her symptoms. Patient did finally agree to have the workup completed. Review of Systems As reviewed in the HPI. All other systems reviewed are negative or normal. Physical Exam As dictated in HPI. Vitals & Measurements T: 36.7 ?C (Oral) HR: 110 (Peripheral) RR: 16 BP: 94/58 SpO2: 95% HT: 154 cm WT: 55 kg (Dosing) Additional Vitals No qualifying data available. Procedure No qualifying data available. ASA Documentation Medical Decision Making MEDICAL DECISION MAKING Number and Complexity of Problems Differential Diagnosis: _Including but not limited to COVID, weakness, AMI, UTI Treatment and Disposition ED Course: _ Patient is an alert, oriented 59-year-old female presenting to the emergency department for evaluation of just generalized weakness, congestion, body aches. Patient is a resident at [facility]. She did test positive for COVID. With patient's complaints of weakness this and even some intermittent chest pain I do feel we need to deal a workup including labs, EKG, and chest x-ray. I also ordered for a urinalysis. Physical assessment reveals S1-S2 heart sounds. Lung sounds are clear throughout. Chest rise and fall is symmetrical. There is no increased work of breathing. Patient was initially refusing some of the labs and refusing urinalysis stating that she knows that is not why she is feeling this way, she states it is all because of the COVID. I did explain to her that I do need to rule these things out just to ensure that it is simply the COVID that is causing her symptoms. Patient did finally agree to have the workup completed. Lab results were negative for acute findings with the exception of the COVID swab that did test positive. I did discuss all this with patient along with plan for discharge. Plan to discharge home with the following discharge instructions: Follow-up with your primary care provider in 3 to 5 days for reevaluation of symptoms. You can take Tylenol and/or ibuprofen as needed for any pain or discomfort. Take Tessalon Perles up to 3 times a day as needed for cough. You can take [id number] Mucinex for any wet cough as needed. Please return to the emergency department for any new or worsening symptoms. Patient verbalized understanding had no further questions or concerns. All were agreeable with this plan of care. Shared decision making: _The results of pertinent diagnostic studies and exam findings were discussed. The patient's provisional diagnosis and plan of care were discussed with the patient and present family. The patient and/or present family expressed understanding of the diagnosis and plan. The nurse was instructed to provide written instructions and appropriate follow-up information. The patient understands their need and responsibility to obtain additional follow-up as instructed. The risks of medications administered and prescribed were discussed with the patient and family present. Code status: _Full code Assessment/Plan 1. COVID Refresh vitals and sections below: Problem List/Past Medical History Ongoing No qualifying data Historical No qualifying data Medications Inpatient No active inpatient medications Home naproxen 375 mg oral tablet, 375 mg= 1 tabs, Oral, BID Allergies No Known Allergies Social History Tobacco 5-9 cigarettes (between 1/4 to 1/2 pack)/day in last 30 days Use:. Cigarettes Lab Results Automated Hematology LATEST RESULTS WBC 02/13/24 22:24 6.4 RBC 02/13/24 22:24 3.32 Low Hgb 02/13/24 22:24 11.0 Low Hct 02/13/24 22:24 32.0 Low MCV 02/13/24 22:24 96.4 MCH 02/13/24 22:24 33.1 MCHC 02/13/24 22:24 34.3 RDW 02/13/24 22:24 14.2 Platelet 02/13/24 22:24 257 Mean Platelet Volume 02/13/24 22:24 8.2 Neutro Auto 02/13/24 22:24 76.1 High Lymph Auto 02/13/24 22:24 11.0 Low [place] Auto 02/13/24 22:24 11.0 Eos Auto 02/13/24 22:24 1.0 Basophil Auto 02/13/24 22:24 0.9 Neutro Absolute 02/13/24 22:24 4.9 (more content not included)... Normal [facility] Myoglobinon 2024 Myoglobin [Mass/Vol] 33.4 ng/mL Normal [facility] Comment on above: Performed By: #### M YO #### [facility] [address] [place] [id number] Troponin-Ion 2024 Troponin I.cardiac [Mass/Vol] ng/mL Normal 0.00-0.03 [facility] Comment on above: Result Comment: An i ncreased Troponin-I value, in the absence of myocardial ischemia, may indicate other etiologies of cardiac damage. 99th Percentile Cutoff for Negative/Positive: Negative <= 0.03 Positive >= 0.04 Performed By: #### E GFR #### [facility] [address] [place] [id number] UA w Culture if Indon 2023 Color (U) Colorless Normal Yellow [facility] Comment on above: Performed By: #### U CI #### [facility] [address] [place] [address] Ketones Ql (U) Negative Normal Negative [facility] Comment on above: Performed By: #### U CI #### [facility] [address] [place] [address] UA Blood Trace Abnormal Negative [facility] Comment on above: Performed By: #### U CI #### [facility] [address] [place] [address], [place] [address] UA Clarity Clear Normal Clear [facility] Comment on above: Performed By: #### U CI #### [facility] [address] [place] [address], [place] [address] UA Glucose Normal Normal Negative [facility] Comment on above: Performed By: #### U CI #### [facility] [address] [place] [address], [place] [address] UA Leukocyte Esterase Negative Normal Negative [facility] Comment on above: Performed By: #### U CI #### [facility] [address] [place] [address], [place] [address] UA Nitrite Negative Normal Negative [facility] Comment on above: Performed By: #### U CI #### [facility] [address] [place] [address], [place] [address] UA pH 6.0 Normal 4.5 - 7.8 [facility] Comment on above: Performed By: #### U CI #### [facility] [address] [place] [address], [place] [address] UA Protein Negative Normal Negative [facility] Comment on above: Performed By: #### U CI #### [facility] [address] [place] [address], [place] [address] UA Source Clean Catch Normal [facility] Comment on above: Performed By: #### U CI #### [facility] [address] [place] [address], [place] [address] UA Spec Grav 1.005 Normal 1.003-1.035 [facility] Comment on above: Performed By: #### U CI #### [address] [place] [address] UA Urobilinogen Normal Normal 0.2 - 1.0 [facility] Comment on above: Performed By: #### U CI #### [facility] [address] [place] [address] Urobilinogen (U) [Mass/Vol] Negative Normal Negative [facility] Comment on above: Performed By: #### U CI #### [facility] [address] [place] [address] XR Chest 1 Viewon 2024 XR Chest 1 View EXAM: XR CHEST 1 VIE W HISTORY: Cough. COMPARISON: None. TECHNIQUE: A single AP portable upright view of the chest. FINDINGS: The lungs are clear of consolidations and no effusions are identified. The heart size is at the upper limits of normal. Mild to moderate degenerative changes of the spine, with mild curvature of the lower thoracic spine to the right. IMPRESSION: No acute pulmonary findings with plain film evaluation. Final Dictated by: Itz Kelley MD Dictated DT/TM: 2024 11:42 pm Signed by: Itz Kelley MD Signed (Electronic Signature): 2024 11:45 pm Transcribed DT/TM: 2024 11:45 (If Report Is Signed, Electronically Signed in Other Vendor System) Normal [facility] ED Note-Physicianon 02-12-20 ED Note-Physician Chief Complaint Patient reports she slipped on wet grass earlier this evening causing her to fall and strike R side of body. Patient reports R ankle pain. Patient from [facility] for psych. History of Present Illness 88-year-old female presenting for concerns of an ankle injury. She slipped on ice earlier today and twisted her right ankle. Review of Systems As reviewed in the HPI. All other systems reviewed are negative or normal. Physical Exam CONSTITUTIONAL: [well appearing in no acute distress] SKIN: [Warm, dry, and intact without rash] EYES: [extraocular movements are grossly intact, clear conjunctiva] HENT: [Normocephalic, atraumatic, moist mucus membranes] NECK: [no obvious swelling, normal range of motion] PULMONARY: [normal chest rise and fall, no respiratory distress or stridor CARDIOVASCULAR: [regular rate, distal extremities are warm and well perfused] GASTROINSTESTINAL: [nondistended, non-tender] GENITOURINARY: [deferred] NEUROLOGIC: [normal speech, moves all extremities] MUSCULOSKELETAL: [Swelling and ecchymosis to right lateral ankle with tenderness, neurovasc intact] PSYCHIATRIC: [normal mood and affect] Vitals & Measurements T: 36.9 ?C (Oral) HR: 94 (Peripheral) RR: 18 BP: 106/64 SpO2: 98% HT: 160 cm WT: 50 kg (Dosing) Additional Vitals No qualifying data available. Procedure No qualifying data available. ASA Documentation Medical Decision Making This report has been created using voice recognition software. It may contain minor errors which are inherent in voice recognition technology. 88-year-old female presenting for concerns of an ankle injury. She slipped on ice earlier today and twisted her right ankle. Swelling and ecchymosis to right lateral ankle with tenderness, neurovasc intact. X-rays negative for acute fracture or dislocation. Patient given crutches and Yuval wrap and educated on RICE protocols. Instructed to follow up with PCP. Strict return precautions discussed. Discharged home in stable condition and neurovascularly intact. Differential Diagnosis (including but not limited to): Sprain, fracture, dislocation Data and analysis: ? Patients chart reviewed historically as needed ED Course / Patient Re-evaluation: ? Time: Resting comfortably, vitals stable, neurovascularly intact, nontoxic ? Social determinants of health that impacts treatment or disposition Disposition ? Shared decision making The results of pertinent diagnostic studies and exam findings were discussed. The patient?s provisional diagnosis and plan of care were discussed with the patient and present family. The patient and/or present family expressed understanding of the diagnosis and plan. The nurse was instructed to provide written instructions and appropriate follow-up information. The patient understands their need and responsibility to obtain additional follow-up as instructed. The risks of medications administered and prescribed were discussed with the patient and family present. Reexamination/Reevalu ation Resting comfortably, vitals stable, neurovascularly intact, nontoxic Assessment/Plan 1. Ankle sprain Ordered: ibuprofen, 600 mg, Oral, Tab, Once, First Dose: 02/12/24 23:47:00 EDT, Stop Date: 02/12/24 23:47:00 EDT, STAT, Dispense From Location: [facility], 02/12/24 23:47:00 EDT naproxen, 1 tabs, Oral, BID, X 7 days, # 14 tabs, 0 Refill(s), 02/19/24 23:47:00 EDT Yuval Wrap Application Crutches Discharge Patient Refresh vitals and sections below: Problem List/Past Medical History Ongoing No qualifying data Historical No qualifying data Medications Inpatient ibuprofen, 600 mg, Oral, Once Home naproxen 375 mg oral tablet, 375 mg= 1 tabs, Oral, BID Allergies No Known Allergies Social History Tobacco 5-9 cigarettes (between 1/4 to 1/2 pack)/day in last 30 days Use:. Cigarettes Diagnostic Results XRay XR Ankle 3 Views Right 02/12/24 23:29:56 IMPRESSION: 1. There is no evidence of acute fracture or dislocation of the right ankle. Signed By: Lisa Sanches MD Electronically signed by Naa PAZ, Meghann Mcintosh 02/12/24 23:[address] [facility] XR Ankle 3 Views Righton XR Ankle 3 Views Right EXAMINATION: XR A nkle 3 Views Right, , 02/12/2024 10:50 PM EDT INDICATION: Injury, COMPARISON: None available. TECHNIQUE: 3 views of the right ankle were performed and are available for review. FINDINGS: There is no definite fracture or dislocation of the right ankle. The talar dome is intact. The right ankle mortise is symmetric and normally aligned. Bone mineralization is normal. There is a plantar calcaneal enthesophyte. There is a calcaneal enthesophyte at the Achilles insertion. The articular surfaces and joint spaces are well preserved. There are no osseous lesions. There are no soft tissue abnormalities of the right ankle. IMPRESSION: 1. There is no evidence of acute fracture or dislocation of the right ankle. Final Dictated by: Lisa Sanches MD Dictated DT/TM: 02/12/2024 11:28 pm Signed by: Lisa Sanches MD Signed (Electronic Signature): 02/12/2024 11:29 pm (If Report Is Signed, Electronically Signed in Other Vendor System) Normal [facility] ECG 12 lead ECGon 01-30-2024 ECG 12 lead ECG [facility] [address] [place] [address] Electrocardiograph Report Signed Patient: Bridgette Wang MR#: [id number] 2 : 1965 Acct:[id number] Age/Sex: 58 / F ADM Date: 01/29/24 Loc: Room: [address] [place] [address] Type: ADM IN Attending Dr: Trevin Renteria MD Ordering Provider: Trevin Renteria MD Date of Service: 01/30/24 ECG/ECG 12 lead ECG: baseline Copies to: Test Reason : Blood Pressure : */* mmHG Vent. Rate : 78 BPM Atrial Rate : 78 BPM P-R Int : 136 ms QRS Dur : 72 ms QT Int : 384 ms P-R-T Axes : 63 40 61 degrees QTcB Int : 437 ms Normal sinus rhythm Normal ECG Confirmed by Rosario Baker ([id number]) on 01/30/2024 11:10:30 PM Referred By: Electronically Signed By: Rosario Baker Transcribed By: MUS Signed By Rosario Baker MD 4 [id number] Normal [facility] Cholesterol [Mass/volume] in Serum or PlasmaOrdered By: Farhat Kirby on 01-06-2024 Cholesterol [Mass/Vol] 188 mg/dL Normal 140-200 [facility] Comment on above: Chol less than 200 m g/dl low riskChol 201-239 mg/dl borderline riskChol 240 mg/dl and greater high risk Result Comment: Chol less than 200 mg/dl low risk Chol 201-239 mg/dl borderline risk Chol 240 mg/dl and greater high risk Performed By: #### L IPID, [id number], TSH3 [id number] #### [facility] [address] Cholesterol in LDL Calc [Mas s/Vol]Ordered By: Farhat Kirby on 01-06-2024 Cholesterol in LDL [Mass/Vol] 121 mg/dL High 0-100 [facility] Comment on above: LDL ATP III CLASSIFI CATIONLDL less than 100 mg/dL OptimalLDL 100-129 mg/dL Near or above optimalLDL 130-159 mg/dL Borderline highLDL 160-189 mg/dL HighLDL greater than 189 mg/dL Very high Cholesterol in VLDL Calc [Ma ss/Vol]Ordered By: Farhat Kirby on 01-06-2024 Cholesterol in VLDL [Mass/Vol] 16 mg/dL [facility] Lipid Panelon 01-06-2024 LDL Cholesterol,Calculated 121 mg/dL High 0-100 [facility] Comment on above: Result Comment: LDL ATP III CLASSIFICATION LDL less than 100 mg/dL Optimal LDL 100-129 mg/dL Near or above optimal LDL 130-159 mg/dL Borderline high LDL 160-189 mg/dL High LDL greater than 189 mg/dL Very high Performed By: #### L IPID, [id number], TSH3 [id number] #### [facility] [address] Triglyceride w/Reflex 81 mg/dL Normal 0-149 [facility] Comment on above: Result Comment: TRIG ATP III CLASSIFICATION TRIG less than 150 mg/dL Normal TRIG 150-199 mg/dL Borderline high TRIG 200-500 mg/dL High TRIG greater than 500 mg/dL Very high Standard traceable to the Center for Disease Conrtrol and Prevention (CDC) test method. Performed By: #### L IPID, [id number], TSH3 wRFLX #### [facility] [address] VLDL CHOLESTEROL 16 mg/dL Normal [facility] Comment on above: Performed By: #### L IPID, [id number], TSH3 wRFLX #### [facility] [address] [place] [id number] [facility] Serum or plasma high density lipoprotein (HDL) cholesterol measurementOrdered By: Farhat Kirby on 01-06-2024 Cholesterol in HDL [Mass/Vol] 51 mg/dL Normal 23-92 [facility] Comment on above: HDL CHOL ATP-III CLA SSIFICATION Cardiovascular RiskHDL > or equal to 60 mg/dL LOWHDL < 40 mg/dL HIGH Result Comment: HDL CHOL ATP-III CLASSIFICATION Cardiovascular Risk HDL > or equal to 60 mg/dL LOW HDL < 40 mg/dL HIGH Performed By: #### L IPID, [id number], TSH3 wRFLX #### [facility] [address] [place] [address] Serum or plasma total choles terol/high density lipoprotein (HDL) cholesterol mass ratOrdered By: Farhat Kirby on 01-06-2024 Cholesterol.total/Melissa sterol in HDL [Mass ratio] 3.7 {ratio} Normal <5.0 [facility] Comment on above: Performed By: #### L IPID, [id number], TSH3 wRFLX #### [facility] [address] [place] [address] Thyroid Stim Hormone w/Rflxo n 01-06-2024 Thyroid Stim Hormone w/Rflx 1.55 u[iU]/mL Normal 0.45-5.33 [facility] Comment on above: Performed By: #### L IPID, [id number], TSH3 wRFLX #### [facility] [address] [place] [address] Thyrotropin [Units/volume] i n Serum or PlasmaOrdered By: Farhat Kirby on 01-06-2024 TSH Qn 1.55 m[IU]/L 0.45-5.33 [facility] Triglyceride [Mass/volume] i n Serum or PlasmaOrdered By: Farhat Kirby on 01-06-2024 Triglyceride [Mass/Vol] 81 mg/dL 0-149 [facility] Comment on above: TRIG ATP III CLASSIF ICATIONTRIG less than 150 mg/dL NormalTRIG 150-199 mg/dL Borderline highTRIG 200-500 mg/dL High TRIG greater than 500 mg/dL Very highStandard traceable to the Center for Disease Conrtrol and Prevention (CDC) test method. Vitamin D 25 Hydroxy Totalon 01-06-2024 Vitamin D 25 Hydroxy Total 26.3 ng/mL Low 30-100 [facility] Comment on above: Result Comment: BELEN MIN D STATUS 25(OH)VITAMIN D RANGE (ng/mL) Deficient <20 Insufficient 20 to <30 Sufficient 30 to 100 Reference: Yamil Garcias, Mckenzie MAE, et al. Evaluation,treatment, and prevention of vitamin D deficiency; an Endocrine Society clinical practice guideline. JCEM. 2010; 96(7):1911-30. PERFORMED BY: [facility] [address] [place] [address] PATHOLOGIST MEASUREMENT SPECIALIST JENNIFER GONSALES M.D. Performed By: #### L IPID, [id number], TSH3 wRFLX #### [address] Vitamin D+Metabolites [Mass/ volume] in Serum or PlasmaOrdered By: Farhat Kirby on 01-06-2024 Vitamin D+Metabolites [Mass/Vol] 26.3 ng/mL Low 30-100 [facility] Comment on above: VITAMIN D STATUS 25( [place])VITAMIN D RANGE (ng/mL) Deficient <20 Insufficient 20 to <30Sufficient 30 to 100Reference: Yamil Garcias, Mckenzie MAE, et al. Evaluation,treatment, and prevention of vitamin D deficiency; an Endocrine Society clinical practice guideline. JCEM. 2010; 96(7):1911-30. Alanine aminotransferase [En zymatic activity/volume] in Serum or PlasmaOrdered By: Trevin Renteria on 12-18-2022 ALT [Catalytic activity/Vol] 9 U/L 7-52 [facility] Albumin [Mass/volume] in Ser um or Plasma by Bromocresol green (BCG) dye binding methoOrdered By: Trevin Renteria on 12-18-2022 Albumin BCG dye [Mass/Vol] 3.9 g/dL 3.5-5.7 [facility] Alkaline phosphatase [Enzyma tic activity/volume] in Serum or PlasmaOrdered By: Trevin Renteria on 12-18-2022 ALP [Catalytic activity/Vol] 87 U/L 34-104 [facility] Aspartate aminotransferase [ Enzymatic activity/volume] in Serum or PlasmaOrdered By: Trevin Renteria on 12-18-2022 AST [Catalytic activity/Vol] 12 U/L 13-39 [facility] Basophils Auto (Bld) [#/Vol] Ordered By: Trevin Renteria on 12-18-2022 Basophils (Bld) [#/Vol] 0.1 10*3/uL 0.0-0.2 [facility] Basophils/100 WBC Auto (Bld) Ordered By: Trevin Renteria on 12-18-2022 Basophils/100 WBC (Bld) 0.8 % . [facility] Bilirubin.total [Mass/volume ] in Serum or PlasmaOrdered By: Trevin Renteria on 12-18-2022 Bilirubin [Mass/Vol] 0.2 mg/dL 0.3-1.0 [facility] Calcium [Mass/volume] in Ser um or PlasmaOrdered By: Trevin Renteria on 12-18-2022 Calcium [Mass/Vol] 9.3 mg/dL 8.6-10.3 [facility] Carbon dioxide, total [Moles /volume] in Serum or PlasmaOrdered By: Trevin Renteria on 12-18-2022 CO2 [Moles/Vol] 26.8 mmol/L 21.0-31.0 [facility] Chloride [Moles/volume] in S yu or PlasmaOrdered By: Trevin Renteria on 12-18-2022 Chloride [Moles/Vol] 107 mmol/L 98-107 [facility] Creatinine [Mass/volume] in Serum or PlasmaOrdered By: Trevin Renteria on 12-18-2022 Creatinine [Mass/Vol] 0.78 mg/dL 0.60-1.[address] [facility] Eosinophils Auto (Bld) [#/Vo l]Ordered By: Trevin Renteria on 12-18-2022 Eosinophils (Bld) [#/Vol] 0.2 10*3/uL 0.0-0.45 [facility] Eosinophils/100 WBC Auto (Bl d)Ordered By: Trevin Renteria on 12-18-2022 Eosinophils/100 WBC (Bld) 1.9 % . [facility] Erythrocyte distribution wid th Auto (RBC) [Ratio]Ordered By: Trevin Renteria on 12-18-2022 Erythrocyte distribution width (RBC) [Ratio] 14.8 % 11.9-15.3 [facility] Globulin Calc (S) [Mass/Vol] Ordered By: Trevin Renteria on 12-18-2022 Globulin (S) [Mass/Vol] 2.9 g/dL [facility] Glucose [Mass/volume] in Ser um or PlasmaOrdered By: Trevin Renteria on 12-18-2022 Glucose [Mass/Vol] 98 mg/dL 70-100 [facility] Comment on above: ADA recommended refe rence rangeRandom Glucose Reference Range is dependent on time and content of last meal. Glucose of more than 200 mg/dL in a nonstressed, ambulatory subject supports the diagnosis of Diabetes Mellitus. Glucose mean value [Mass/vol ume] in Blood Estimated from glycated hemoglobinOrdered By: Trevin Renteria on 12-18-2022 Average glucose Estimated from glycated hemoglobin (Bld) [Mass/Vol] 117 mg/dL [facility] Hematocrit Auto (Bld) [Volum e fraction]Ordered By: Trevin Renteria on 12-18-2022 Hematocrit (Bld) [Volume fraction] 39.9 % 34.0-46.4 [facility] Hemoglobin A1c percentageOrd ered By: Trevin Renteria on 12-18-2022 HbA1c (Bld) [Mass fraction] 5.7 % 4.3-5.6 [facility] Comment on above: Increased risk for d iabetes: 5.7 - 6.4diabetes: >6.4glycemic control for adults with diabetes: <7.0 Hemoglobin [Mass/volume] in BloodOrdered By: Trevin Renteira on 12-18-2022 Hemoglobin (Bld) [Mass/Vol] 13.3 g/dL 11.8-15.4 [facility] Leukocytes [#/volume] correc shantell for nucleated erythrocytes in Blood by Automated counOrdered By: Trevin Renteria on 12-18-2022 WBC corrected for nucl RBC Auto (Bld) [#/Vol] 10.8 10*3/uL 3.8-11.6 [facility] Lymphocytes Auto (Bld) [#/Vo l]Ordered By: Trevin Renteria on 12-18-2022 Lymphocytes (Bld) [#/Vol] 1.6 10*3/uL 1.00-4.8 [facility] Lymphocytes/100 WBC Auto (Bl d)Ordered By: Trevin Renteria on 12-18-2022 Lymphocytes/100 WBC (Bld) 15.1 % . [facility] MCH Auto (RBC) [Entitic mass ]Ordered By: Trevin Renteria on 12-18-2022 MCH (RBC) [Entitic mass] 31.3 pg 24.7-34.3 [facility] MCHC Auto (RBC) [Mass/Vol]Or dered By: Trevin Renteria on 12-18-2022 MCHC (RBC) [Mass/Vol] 33.2 g/dL 32.0-35.[address] [facility] MCV Auto (RBC) [Entitic vol] Ordered By: Trevin Renteria on 12-18-2022 MCV (RBC) [Entitic vol] 94.4 fL 80-100 [facility] Monocytes Auto (Bld) [#/Vol] Ordered By: Trevin Renteria on 12-18-2022 Monocytes (Bld) [#/Vol] 0.8 10*3/uL 0.0-0.8 [facility] Monocytes/100 WBC Auto (Bld) Ordered By: Trevin Renteria on 12-18-2022 Monocytes/100 WBC (Bld) 7.7 % . [facility] Neutrophils Auto (Bld) [#/Vo l]Ordered By: Trevin Renteria on 12-18-2022 Neutrophils (Bld) [#/Vol] 8.0 10*3/uL 1.8-7.7 [facility] Neutrophils/100 WBC Auto (Bl d)Ordered By: Trevin Renteria on 12-18-2022 Neutrophils/100 WBC (Bld) 74.5 % . [facility] No Panel InformationOrdered By: Trevin Renteria on 12-18-2022 Estimated GFR (CKD-EPI) > 60.0 mL/Min [facility] Creatinine Clearance (Chem 68.13 [facility] Nucleated erythrocytes [Pres ence] in Blood by Automated countOrdered By: Trevin Renteria on 12-18-2022 Nucleated RBC Auto Ql (Bld) 0.1 /100{WBC} 0-0.5 [facility] Platelet mean volume Auto (B ld) [Entitic vol]Ordered By: Trevin Renteria on 12-18-2022 Platelet mean volume (Bld) [Entitic vol] 8.7 fL 6.3-10.7 [facility] Platelets Auto (Bld) [#/Vol] Ordered By: Trevin Renteria on 12-18-2022 Platelets (Bld) [#/Vol] 345 10*3/uL 150-450 [facility] Potassium [Moles/volume] in Serum or PlasmaOrdered By: Trevin Renteria on 12-18-2022 Potassium [Moles/Vol] 4.3 mmol/L 3.5-5.[address] [facility] Protein [Mass/volume] in Ser um or PlasmaOrdered By: Trevin Renteria on 12-18-2022 Protein [Mass/Vol] 6.8 g/dL 6.4-8.9 [facility] RBC Auto (Bld) [#/Vol]Ordere d By: Trevin Renteria on 12-18-2022 RBC (Bld) [#/Vol] 4.23 10*6/uL 3.60-5.00 [facility] Serum or plasma albumin/glob ulin mass ratioOrdered By: Trevin Renteria on 12-18-2022 Albumin/Globulin [Mass ratio] 1.3 {ratio} [facility] Serum or plasma anion gap de terminationOrdered By: Trevin Renteria on 12-18-2022 Anion gap [Moles/Vol] 9.5 mmol/L 6.0-15.[address] [facility] Sodium [Moles/volume] in Ser um or PlasmaOrdered By: Trevin Renteria on 12-18-2022 Sodium [Moles/Vol] 139 mmol/L 136-145 [facility] Urea nitrogen [Mass/volume] in Serum or PlasmaOrdered By: Trevin Renteria on 12-18-2022 Urea nitrogen [Mass/Vol] 16 mg/dL 7- [facility] WBC Auto (Bld) [#/Vol]Ordere d By: Trevin Renteria on 12-18-2022 WBC (Bld) [#/Vol] 10.8 10*3/uL 3.8-11.6 [facility] Cholesterol [Mass/volume] in Serum or PlasmaOrdered By: Trevin Renteria on 12-17-2022 Cholesterol [Mass/Vol] 202 mg/dL 140-200 [facility] Comment on above: Chol less than 200 m g/dl low riskChol 201-239 mg/dl borderline riskChol 240 mg/dl and greater high risk Cholesterol in LDL Calc [Mas s/Vol]Ordered By: Trevin Renteria on 12-17-2022 Cholesterol in LDL [Mass/Vol] 123 mg/dL 0-100 [facility] Comment on above: LDL ATP III CLASSIFI CATIONLDL less than 100 mg/dL OptimalLDL 100-129 mg/dL Near or above optimalLDL 130-159 mg/dL Borderline highLDL 160-189 mg/dL HighLDL greater than 189 mg/dL Very high Cholesterol in VLDL Calc [Ma ss/Vol]Ordered By: Trevin Renteria on 12-17-2022 Cholesterol in VLDL [Mass/Vol] 18 mg/dL [facility] Serum or plasma high density lipoprotein (HDL) cholesterol measurementOrdered By: Trevin Renteria on 12-17-2022 Cholesterol in HDL [Mass/Vol] 61 mg/dL 23- [facility] Comment on above: HDL CHOL ATP-III CLA SSIFICATION Cardiovascular RiskHDL > or equal to 60 mg/dL LOWHDL < 40 mg/dL HIGH Serum or plasma total choles terol/high density lipoprotein (HDL) cholesterol mass ratOrdered By: Trevin Renteria on 12-17-2022 Cholesterol.total/Melissa sterol in HDL [Mass ratio] 3.3 {ratio} <5.0 [facility] Thyrotropin [Units/volume] i n Serum or PlasmaOrdered By: Trevin Renteria on 12-17-2022 TSH Qn 2.12 m[IU]/L 0.45-5.33 [facility] Triglyceride [Mass/volume] i n Serum or PlasmaOrdered By: Trevin Renteria on 12-17-2022 Triglyceride [Mass/Vol] 92 mg/dL 0-149 [facility] Comment on above: TRIG ATP III CLASSIF ICATIONTRIG less than 150 mg/dL NormalTRIG 150-199 mg/dL Borderline highTRIG 200-500 mg/dL High TRIG greater than 500 mg/dL Very highStandard traceable to the Center for Disease Conrtrol and Prevention (CDC) test method. Vitamin D+Metabolites [Mass/ volume] in Serum or PlasmaOrdered By: Trevin Renteria on 12-17-2022 Vitamin D+Metabolites [Mass/Vol] 16.5 ng/mL 30-100 [facility] Comment on above: VITAMIN D STATUS 25( [place])VITAMIN D RANGE (ng/mL) Deficient <20 Insufficient 20 to <30Sufficient 30 to 100Reference: America MF,Yamil NC, Mckenzie MAE, et al. Evaluation,treatment, and prevention of vitamin D deficiency; an Endocrine Society clinical practice guideline. JCEM. 2010; 96(7):1911-30. Vital Signs Date Time Vital Sign Value Performing Clinician Marlena rodriguez 02-08-2024 07:30-0400 Body temperature 98 [degF] MD Fahrat Kirby Work Phone: [facility] 02-08-2024 07:30-0400 Diastolic blood pressure 63 mm[Hg] MD Farhat Kirby Work Phone: [facility] 02-08-2024 07:30-0400 Heart rate 76 /min MD Farhat Kirby Work Phone: [facility] 02-08-2024 07:30-0400 Respiratory rate 14 /min MD Farhat Kirby Work Phone: [facility] 02-08-2024 07:30-0400 SaO2% (BldA) [Mass fraction] 98 % MD Farhat Kirby Work Phone: [facility] 02-08-2024 07:30-0400 Systolic blood pressure 115 mm[Hg] MD Farhat Kirby Work Phone: [facility] 02-04-2024 14:40-0400 Body height 157.48 cm MD Farhat Kirby Work Phone: [facility] 02-01-2024 07:27-0400 Body weight 52.2 kg MD Farhat Kirby Work Phone: [facility] 01-15-2024 15:30-0400 Body temperature 98.2 [degF] ODROTHY Mitchelllim Work Phone: [facility] 01-15-2024 15:30-0400 Diastolic blood pressure 81 mm[Hg] DOROTHY Brewera Anglim Work Phone: [facility] 01-15-2024 15:30-0400 Heart rate 85 /min SUBSTANCE ABUSE NURSEAlma Delia Brewera Anglim Work Phone: [facility] 01-15-2024 15:30-0400 Respiratory rate 18 /min SUBSTANCE ABUSE NURSEAlma Delia Brewera Anglim Work Phone: [facility] 01-15-2024 15:30-0400 SaO2% (BldA) [Mass fraction] 99 % DOROTHY Brewera Anglim Work Phone: [facility] 01-15-2024 15:30-0400 Systolic blood pressure 137 mm[Hg] SUBSTANCE ABUSE NURSEAlma Delia Brewera Anglim Work Phone: [facility] 01-13-2024 14:16-0400 Body height 152.4 cm SUBSTANCE ABUSE NURSEAlma Delia Walker Work Phone: [facility] 01-11-2024 09:00-0400 Body weight 46.62 kg SUBSTANCE ABUSE NURSEAlma Delia Walker Work Phone: [facility] 12-28-2022 07:30-0400 Body temperature 98.9 [degF] SUBSTANCE ABUSE NURSE Korina Walker Work Phone: [facility] 12-28-2022 07:30-0400 Diastolic blood pressure 95 mm[Hg] SUBSTANCE ABUSE NURSE Korina Walker Work Phone: [facility] 12-28-2022 07:30-0400 Heart rate 90 /min SUBSTANCE ABUSE NURSEAlma Delia Walker Work Phone: [facility] 12-28-2022 07:30-0400 Respiratory rate 17 /min SUBSTANCE ABUSE NURSEAlma Delia Walker Work Phone: [facility] 12-28-2022 07:30-0400 SaO2% (BldA) [Mass fraction] 97 % SUBSTANCE ABUSE NURSEAlma Delia Walker Work Phone: [facility] 12-28-2022 07:30-0400 Systolic blood pressure 133 mm[Hg] SUBSTANCE ABUSE NURSEAlma Delia Walker Work Phone: [facility] 12-24-2022 09:18-0400 Body height 152.4 cm SUBSTANCE ABUSE NURSE Korina Walker Work Phone: [facility] 12-22-2022 09:00-0400 Body weight 63.41 kg SUBSTANCE ABUSE NURSEAlma Delia Walker Work Phone: [facility] Encounters Encounter Date Encounter Type Care Provider Facility Start: 02-15-2024 End: 02-15-2024 ambulatory Juli Oliveira MD Facility:[facility] Start: 2024 End: 02-14-2024 Emergency department patient visit Marianne Llanes SUBSTANCE ABUSE NURSE-SPRAYER LEATHER Facility:[facility] Start: 02-12-2024 End: 2024 Emergency department patient visit Meghann Jacome PA-C Facility:[facility] Start: 02-06-2024 Non-patient / Non-visit MD Stacy Kirby Work Phone: [facility] Work Phone: Start: 01-30-2024 Non-patient / Non-visit MD Stacy Kirby Work Phone: [facility] Work Phone: Start: 01-29-2024 End: 02-08-2024 Evaluation and management of inpatient MD Farhat Kirby Work Phone: [facility] [place] [address] Work Phone: Start: 01-29-2024 ambulatory Korina Walker Facility:[facility] Start: 01-29-2024 Registered Recurring MD Aby Kirby Work Phone: [facility] Start: 01-13-2024 Non-patient / Non-visit DOROTHY Mitchelllim Work Phone: [facility] Work Phone: Start: 01-06-2024 Non-patient / Non-visit DOROTHY Walker Work Phone: [facility] Work Phone: Start: 01-05-2024 Non-patient / Non-visit MD Stacy Kirby Work Phone: [facility] Work Phone: Start: 01-05-2024 End: 01-15-2024 Evaluation and management of inpatient DOROTHY Walker Work Phone: [facility] [place] [address] Work Phone: Start: 01-05-2024 Registered Recurring DOROTHY Walker Work Phone: [facility] Start: 12-17-2022 End: 12-28-2022 Evaluation and management of inpatient DOROTHY Walker Work Phone: [facility] Work Phone: Plan of Treatment Date Care Activity Detail Author Start: 02-08-2024 [facility] Start: 01-30-2024 [facility] Start: 01-29-2024 Referral to Production Recovery Operator [facility] Start: 01-29-2024 Hospital admission [facility] Start: 01-15-2024 [facility] Start: 01-05-2024 Hospital admission [facility] Start: 12-28-2022 [facility] Start: 12-17-2022 Hospital admission [facility] Start: 12-17-2022 [facility] Calculated LDL melissa sterol level [facility] Cholesterol.total/Ch olesterol in HDL [Mass Ratio] in Serum or Plasma [facility] Patient Education [facility] Work Phone: Patient referral [facility] Work Phone: VLDL cholesterol measurement [facility] Payers Date Payer Category Payer Medicare [id number] 2024 Private Health Insurance [id number] 2023 Private Health Insurance 2022 Self-pay 1965 Unknown [id number] 1965 Unknown [id number] 1965 Unknown [id number] Private Health Insurance [employer] [facility] PFFS 1 [id number] Unknown [id number] Unknown [id number] Unknown [id number] Social History Date Type Detail Facility Start: 12-17-2022 End: 01-06-2024 Tobacco smoking status [facility] Current Heavy tobacco smoker [facility] Start: 1965 Sex Assigned At Female [facility] Start: 01-30-2024 Tobacco smoking stat us COIS Smoker (finding) [facility] Goals Date Patient Goal Desired Activity /State Functional Status Date Assessment Result Facility 02-08-2024 Functional status Patient at [facility] Work Phone: 01-15-2024 Functional status Patient at Baseline [facility] Work Phone: 12-28-2022 Functional status Patient at Baseline [facility] Work Phone: 12-17-2022 Functional status Functional Sta tus Comment Pt stated she feels confused all the time. [facility] Work Phone: Mental Status Date Assessment Result Facility 02-08-2024 Cognitive function Cognitive Sta tus Patient at Baseline [facility] Work Phone: 01-15-2024 Cognitive function Cognitive Sta tus Patient at Baseline [facility] Work Phone: 12-28-2022 Cognitive function Cognitive Sta tus Patient at Baseline [facility] Work Phone: Clinical Notes 12-17-2022 to 02-08-2024 Note Date & Type Note Facility 02-08-2024 Progress note Note Date/Time February 08, 2024 6:39am [facility] [address] [place] [id number] Psychiatry Progress Note Signed Patient: Bridgette Wang MR#: [id number] : 1965 Acct:[id number] Age/Sex: 58 / F Adm Date: 4 Loc: 1S Room: [address] [place] [address] Type : ADM IN Attending Dr: Trevin Renteria MD Copies to: ~ Date of Service: 02/08/2024 Subjective Subjective Narrative: Ms. Wang reported that she is feeling anxious and inquired about increasing Buspar to help further She feels like the BuSpar has been helping manage her anxiety little bit. Sleep has been interrupted. She wants to [facility]. Mental Status Exam: Appearance: grossly normal Mental Status: mental status grossly normal Mood: Anxious Affect: Mood congruent affect Speech and Movement: speech normal, movement normal Attitude: cooperative Thought Process: Linear and logical Thought Content: Denied hallucinations, no homicidality, improving suicidality Insight: fair Judgment: fair Exam Physical Exam Vital Signs: Temp Pulse Resp BP Pulse Ox O2 Del Method 98 F 82 16 128/72 97 Room Air 02/07/24 20:04 02/07/24 20:04 02/07/24 20:04 02/07/24 20:04 02/07/24 20:04 02/07/24 20:04 Assessment/Plan Assessment/Plan (1) Bipolar 1 disorder: (2) Anxiety: Plan Patient reported that anxiety is slightly improved but wants to increase her anxiety Awaiting acceptance with [facility] Continue Doxepin 10 mg p.o. twice daily at 9 AM and 2 PM and 25 mg nightly Continue Effexor 150 mg daily, Remeron 30 mg at bedtime Continue gabapentin 400 mg p.o. 3 times daily, 25 mg in the morning and 50 mg atbedtime Seroquel 25 mg p.o. in the morning and 50 mg at bedtime We will increase BuSpar to 15 mg 3 times a day for anxiety This patient should be encouraged to participate in group and individual therapeutic activities Risks, benefits, indications of medication have been discussed with the patient Documented By: Trevin Renteria MD 4 0638 Signed By: <Electronically signed by Trevin Renteria MD> 02/08/24 0639 [facility] Work Phone: 1(338) 790-983509-22-2024 Progress note Author Farhat Kirby [facility] February 07, 2024 10:26am Note Date/Time February 07, 2024 10:26am [facility] [address] [place], [place] [id number] Psychiatry Progress Note Signed Patient: Bridgette Wang MR#: [id number] : 1965 Acct:[id number] Age/Sex: 58 / F Adm Date: 4 Loc: Room: [address] [place] [address] Type : ADM IN Attending Dr: Trevin Renteria MD Copies to: ~ Date of Service: 02/07/2024 Subjective Subjective Narrative: Ms. Wang reported that she is feeling anxious. She complained of some sweatingovernight which she thinks may be due to some medication. She feels like the BuSpar has been helping manage her anxiety little bit. Mental Status Exam: Appearance: grossly normal Mental Status: mental status grossly normal Mood: Anxious Affect: Mood congruent affect Speech and Movement: speech normal, movement normal Attitude: cooperative Thought Process: Linear and logical Thought Content: Denied hallucinations, no homicidality, improving suicidality Insight: fair Judgment: fair Exam Physical Exam Vital Signs: Temp Pulse Resp BP Pulse Ox O2 Del Method 98.2 F 86 19 119/88 99 Room Air 02/07/24 07:30 02/07/24 07:30 02/07/24 07:30 02/07/24 07:30 02/07/24 07:30 02/07/24 07:30 Assessment/Plan Assessment/Plan (1) Bipolar 1 disorder: (2) Anxiety: Plan Patient reported that anxiety is slightly improved Awaiting acceptance with [facility] Continue Doxepin 10 mg p.o. twice daily at 9 AM and 2 PM and 25 mg nightly Continue Effexor 150 mg daily, Remeron 30 mg at bedtime Continue gabapentin 400 mg p.o. 3 times daily, 25 mg in the morning and 50 mg atbedtime Seroquel 25 mg p.o. in the morning and 50 mg at bedtime We will add BuSpar 10 mg 3 times a day for anxiety This patient should be encouraged to participate in group and individual therapeutic activities Risks, benefits, indications of medication have been discussed with the patient Documented By: Farhat Kirby MD 02/07/24 1025 Signed By: <Electronically signed by Farhat Kirby MD> 02/07/24 1026 [facility] Work Phone: 1(724) 614-930609-21-2024 Progress note Author Farhat Kirby [facility] February 06, 2024 11:00am Note Date/Time February 06, 2024 11:00am [facility] [address] [place] [address] Psychiatry Progress Note Signed Patient: Bridgette Wang MR#: [id number] : 1965 Acct:[id number] Age/Sex: 58 / F Adm Date: 4 Loc: Room: [address] [place] [address] Type : ADM IN Attending Dr: Trevin Renteria MD Copies to: ~ Date of Service: 02/06/2024 Subjective Subjective Narrative: Ms. Wang reported that she is feeling very anxious. She stated that she is having hot flashes all over her body. She stated that she does not feel well and stated that she wants to go to bed and not wake up. Mental Status Exam: Appearance: grossly normal Mental Status: mental status grossly normal Mood: Anxious Affect: Mood congruent affect Speech and Movement: speech normal, movement normal Attitude: cooperative Thought Process: Linear and logical Thought Content: Denied hallucinations, no homicidality, reported passive suicidality Insight: fair Judgment: fair Exam Physical Exam Vital Signs: Temp Pulse Resp BP Pulse Ox O2 Del Method 97.9 F 78 16 125/67 97 Room Air 02/06/24 07:30 02/06/24 07:30 02/06/24 07:30 02/06/24 07:30 02/06/24 07:30 02/06/24 09:00 Assessment/Plan Assessment/Plan (1) Bipolar 1 disorder: (2) Anxiety: Plan Reported passive suicidality today [facility]waiting acceptance with [facility] Continue Doxepin 10 mg p.o. twice daily at 9 AM and 2 PM and 25 mg nightly Continue Effexor 150 mg daily, Remeron 30 mg at bedtime Continue gabapentin 400 mg p.o. 3 times daily, 25 mg in the morning and 50 mg atbedtime Seroquel 25 mg p.o. in the morning and 50 mg at bedtime We will add BuSpar 10 mg 3 times a day for anxiety This patient should be encouraged to participate in group and individual therapeutic activities Risks, benefits, indications of medication have been discussed with the patient Documented By: Farhat Kirby MD 02/06/24 1058 Signed By: <Electronically signed by Farhat Kirby MD> 02/06/24 1100 [facility] Work Phone: 1(676) 504-107209-20-2024 Progress note Author Farhat Kirby [facility] February 05, 2024 12:16pm Note Date/Time February 05, 2024 12:15pm [facility] [address] [place] [address] Psychiatry Progress Note Signed Patient: Bridgette Wang MR#: [id number] : 1965 Acct:[id number] Age/Sex: 58 / F Adm Date: 4 Loc: Room: [address] [place] [address] Type : ADM IN Attending Dr: Trevin Renteria MD Copies to: ~ Date of Service: 02/05/2024 Subjective Subjective Narrative: Ms. Wang reported that she is doing okay. She stated that she had some anxietyovernight and she woke up in sweats. She stated that that has never happened toher before and is concerned about it. Mental Status Exam: Appearance: grossly normal Mental Status: mental status grossly normal Mood: Anxious Affect: Mood congruent affect Speech and Movement: speech normal, movement normal Attitude: cooperative Thought Process: Linear and logical Thought Content: Denied hallucinations, no homicidality, denies current suicidality. Insight: fair Judgment: fair Exam Physical Exam Vital Signs: Temp Pulse Resp BP Pulse Ox O2 Del Method 98.0 F 70 18 124/77 96 Room Air 02/05/24 07:30 02/05/24 07:30 02/05/24 07:30 02/05/24 07:30 02/05/24 07:30 02/05/24 07:30 Assessment/Plan Assessment/Plan (1) Bipolar 1 disorder: (2) Anxiety: Plan Patient continues to report anxiety Awaiting interview with [facility] Continue Doxepin 10 mg p.o. twice daily at 9 AM and 2 PM and 25 mg nightly Continue Effexor 150 mg daily, Remeron 30 mg at bedtime Continue gabapentin 400 mg p.o. 3 times daily, 25 mg in the morning and 50 mg atbedtime Seroquel 25 mg p.o. in the morning and 50 mg at bedtime This patient should be encouraged to participate in group and individual therapeutic activities Risks, benefits, indications of medication have been discussed with the patient Documented By: Farhat Kirby MD 02/05/241213 Signed By: <Electronically signed by Farhat Kirby MD> 02/05/24 1216 [facility] Work Phone: 1(552) 985-967809-19-2024 Progress note Author Farhat Kirby [facility] February 04, 2024 2:51pm Note Date/Time February 02, 2024 2:19pm [facility] [address] [place] [address] Psychiatry Progress Note Signed with Rick Patient: Bridgette Wang MR#: [id number] : 1965 Acct:[id number] Age/Sex: 58 / F Adm Date: 4 Loc: Room: [address] [place] [address] Type : ADM IN Attending Dr: Trevin Renteria MD Copies to: ~ ADDENDUM1 note in error Addendum Documented By: Farhat Kirby MD 02/04/24 145 Addendum Signed By: <Electronically signed by Farhat Kirby MD> 02/04/24 145 Date of Service: 02/02/2024 Subjective Subjective Narrative: Ms. Wang reported that she still feels very anxious. She reported that she didnot sleep well last night. She stated that the Cymbalta does not seem to be working effectively for her. She denied any suicidal thoughts but rated her depression as 8 or 9 out of 10. Mental Status Exam: Appearance: grossly normal Mental Status: mental status grossly normal Mood: Anxious Affect: Mood congruent affect Speech and Movement: speech normal, movement normal Attitude: cooperative Thought Process: Linear and logical Thought Content: Denied hallucinations, no homicidality, denies current suicidality. Fixated on being relieved of her anxiety. Insight: fair Judgment: fair Exam Physical Exam Vital Signs: Temp Pulse Resp BP Pulse Ox O2 Del Method 98.3 F 79 16 106/67 99 Room Air 02/02/24 07:30 02/02/24 07:30 02/02/24 07:30 02/02/24 07:30 02/02/24 07:30 02/02/24 09:00 Assessment/Plan Assessment/Plan (1) Bipolar 1 disorder: (2) Anxiety: Plan Patient continues to report anxiety and depression Continue Doxepin 10 mg p.o. twice daily at 9 AM and 2 PM and 25 mg nightly Will taper Cymbalta and start Effexor 75 mg daily tomorrow Continue gabapentin 400 mg p.o. 3 times daily, 25 mg in the morning and 50 mg atbedtime Seroquel 25 mg p.o. twice daily Increase remeron to 30 QHS This patient should be encouraged to participate in group and individual therapeutic activities Risks, benefits, indications of medication have been discussed with the patient Documented By: Farhat Kirby MD 02/02/24 1104 Signed By: <Electronically signed by Farhat Kirby MD> 02/04/24 1450 <Electronically signed by DO BEATRIZ Manning> 02/02/24 1419 [facility] Work Phone: 1(256) 973-702409-19-2024 Progress note Author Farhat Kirby [facility] February 04, 2024 2:10pm Note Date/Time February 04, 2024 11:02am [facility] [address] [place] [address] Psychiatry Progress Note Signed Patient: Bridgette Wang MR#: [id number] : 1965 Acct:[id number] Age/Sex: 58 / F Adm Date: 4 Loc: Room: 7E4147-5 Type : ADM IN Attending Dr: Trevin Renteria MD Copies to: ~ Date of Service: 02/04/2024 Subjective Subjective Narrative: Ms. Wang is a 58 year old female who presents for persistence of severe anxiety. Today, Bridgette states that her anxiety is still significantly high. She rates her anxiety as a 9/10 with 10 being the worst today, which is a slight subjective improvement over past examinations. Today I asked her if there was anything that happened this past year to make her anxiety significantly worse than it used to be. She proceeds to ask me if our discussion is confidential anddivulges that she had been using methamphetamine daily for about six months thisyear and stopped cold turkey about two months ago. Since stopping usage of methamphetamine her anxiety has been severe. She has been afraid to share this information until now due to a fear of potential legal repercussions that might occur to her. Mental Status Exam: Appearance: grossly normal Mental Status: mental status grossly normal Mood: Anxious Affect: Mood congruent affect Speech and Movement: speech normal, movement normal Attitude: cooperative Thought Process: Linear and logical Thought Content: Denied hallucinations, no homicidality, denies current suicidality. Fixated on being relieved of her anxiety. Insight: fair Judgment: fair Patient was personally seen by me on the day of the encounter. I reviewed the history and performed the logan elements of the physical examination. I formulated the plan of care and confirmed this with the resident as noted below. Exam Physical Exam Vital Signs: Temp Pulse Resp BP Pulse Ox O2 Del Method 97.9 F 72 18 114/68 97 Room Air 02/04/24 07:30 02/04/24 07:30 02/04/24 07:30 02/04/24 07:30 02/04/24 07:30 02/04/24 07:30 Assessment/Plan Assessment/Plan (1) Bipolar 1 disorder: (2) Anxiety: Plan This patient presents due to persistent anxiety. The patient believes that the cymbalta has not been working for her and the decision to taper off and begin effexor was made. Referral for stepdown unit steady path Discontinue Cymbalta and increase Effexor 150 mg daily Doxepin 10 mg p.o. twice daily at 9 AM and 2 PM and 50 mg nightly Gabapentin 400 mg p.o. 3 times daily Seroquel 50 mg po hs and 25 mg po QD This patient should be encouraged to participate in group and individual therapeutic activities Risks, benefits, indications of medication have been discussed with the patient Documented By: Farhat Kirby MD 02/04/24 1056 Signed By: <Electronically signed by Farhat Kirby MD> 02/04/24 1410 <Electronically signed by DO BEATRIZ Manning> 02/04/24 1109 [facility] Work Phone: 1(903) 152-747209-18-2024 Progress note Author Farhat Kirby [facility] February 03, 2024 1:05pm Note Date/Time February 03, 2024 1:05pm [facility] [address] [place] [address] Psychiatry Progress Note Signed Patient: Bridgette Wang MR#: [id number] : 1965 Acct:[id number] Age/Sex: 58 / F Adm Date: 4 Loc: Room: [address] [place] [address] Type : ADM IN Attending Dr: Trevin Renteria MD Copies to: ~ Date of Service: 02/03/2024 Subjective Subjective Narrative: Ms. Wang reported that she still feels very anxious. She reported that she didnot sleep well last night. She stated that the Cymbalta does not seem to be working effectively for her. She denied any suicidal thoughts but rated her depression as 8 or 9 out of 10. Mental Status Exam: Appearance: grossly normal Mental Status: mental status grossly normal Mood: Anxious Affect: Mood congruent affect Speech and Movement: speech normal, movement normal Attitude: cooperative Thought Process: Linear and logical Thought Content: Denied hallucinations, no homicidality, denies current suicidality. Fixated on being relieved of her anxiety. Insight: fair Judgment: fair Exam Physical Exam Vital Signs: Temp Pulse Resp BP Pulse Ox O2 Del Method 98.2 F 76 20 102/68 97 Room Air 02/03/24 07:30 02/03/24 07:30 02/03/24 07:30 02/03/24 07:30 02/03/24 07:30 02/03/24 07:30 Assessment/Plan Assessment/Plan (1) Bipolar 1 disorder: (2) Anxiety: Plan Patient continues to report anxiety and depression Will taper off Cymbalta and start Effexor 75 mg daily Continue gabapentin 400 mg p.o. 3 times daily, Seroquel 25 mg daily and 50 mg atbedtime doxepin 10 mg twice a day and 50 mg at bedtime We will taper off Remeron to decrease polypharmacy Continue to monitor mental status Encourage group participation and medication compliance Risk benefits alternatives explained Documented By: Farhat Kirby MD 02/03/24 1304 Signed By: <Electronically signed by Farhat Kirby MD> 02/03/24 1305 [facility] Work Phone: 1(576) 583-276609-17-2024 Progress note Author Farhat Kirby [facility] February 02, 2024 1:54pm Note Date/Time February 02, 2024 1:53pm [facility] [address] [place], [place] [id number] Psychiatry Progress Note Signed Patient: Bridgette Wang MR#: [id number] : 1965 Acct:[id number] Age/Sex: 58 / F Adm Date: 4 Loc: Room: [address] [place] [address] Type : ADM IN Attending Dr: Trevin Renteria MD Copies to: ~ Date of Service: 02/02/2024 Subjective Subjective Narrative: Ms. Wang reported that she still feels anxious. She feels like she had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 2024 End: January 15, 2024 PHYSICIAN NO FAMILY Primary Care Provider Active Start: January 05, 2024 End: January 15, 2024 Trevin Renteria MD Attending Provider Active Start: January 05, 2024 End: January 15, 2024 Team Status: Active Member Role Status Dates PHYSICIAN NO FAMILY Primary Care Provider Active Start: January 05, 2024 Bebeto Almazan DO Attending Provider Active Sta rt: January 05, 2024 Team Status: Active Member Role Status [...] Attending Provider Active Start: January 13, 2024 Team Status: Active Member Role Status Dates Korina Walker APRN MORTGAGE ADVISOR-C Primary Care Provider Active Start: January 29, 2024 Trevin Renteria MD Attending Provider Active Start: January 29, 2024 Team Status: Inactive Member Role Status Dates PHYSICIAN NO FAMILY Primary Care Provider Active Start: January 29, 2024 End: February 08, 2024 Trevin Renteria MD Admit Provide r, Attending Provider Active Start: January 29, 2024 End: February 08, 2024 Team Status: Active Member Role Status Dates PHYSICIAN NO FAMILY Primary Care Provider Active Start: January 30, 2024 Trevin Renteria MD Admit Provide r, Attending Provider, Other Provider Active Start: January 30, 2024 Team Status: Active Member Role Status Dates PHYSICIAN NO FAMILY Primary Care Provider Active Start: February 06, 2024 Trevin Renteria MD Admit Provide r, Other Provider Active Start: February 06, 2024 Farhat Kirby MD Attending Provider Active St art: February 06, 2024 Team Status: Active Member Role Status Dates Korina Walker APRN MORTGAGE ADVISOR-C Primary Care Provider Active Team Status: Inactive Member Role Status Dates Korina Walker APRN MORTGAGE ADVISOR-C Primary Care Provider Active Fermin Renteria MD Admit Provider, Attending Pr ovider Active Team Status: Active Member Role Status Dates Korina Walker APRN MORTGAGE ADVISOR-C Primary Care Provider Active Start: January 05, 2024 Trevin Renteria MD Attending Provider Active Start: January 05, 2024 Team Status: Inactive Member Role Status Dates Farhat Kirby MD Admit Provider, Jak saldana Provider Active Start: January 05, 2024 End: January 15, 2024 PHYSICIAN NO FAMILY Primary Care Provider Active Start: January 05, 2024 End: January 15, 2024 INFORMATION SOURCE (unrecogn ized section and content) DATE CREATED AUTHOR 02/21/2024 [facility] DATE CREATED AUTHOR AUTHOR'S ORGANIZ ATION 05/09/2024 [facility] FOR RECORDS PERTAINING TO PATIENTS [...] BE BASED ON THE PRIMARY CLINICAL RECORDS. [facility] [employer] provides no warranty or guarantee of the accuracy or completeness of information in this document.
--- NOTE | 2024-08-23 08:04 | ECG_ITS ---
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 Measurements Intervals [place] Rate: 93 P: 70 NH: 142 QRS: 72 QRSD: 76 T: 59 QT: 336 QTc: 387 Interpretive Statements 1100 Sinus rhythm 9110 normal ECG Compared to ECG 01/29/2024 09:30:02 Sinus arrhythmia no longer present Electronically Signed On 08-23-2024 19:59:16 EDT by LOUIS RODGERS M.D.
--- NOTE | 2024-08-23 08:15 | ED.GENADUL1 ---
HPI HPI - General Adult General Chief complaint: Anxiety Stated complaint: DEPRESSION Time Seen by Provider: 08/23/24 07:41 Source: patient and family Mode of arrival: walk-in History of Present Illness HPI narrative: 59-year-old female presents for anxiety. She states she has been feeling this way for the last week. She is not suicidal. She states she was on some medicine for it and names BuSpar and Klonopin. She states she ran out 2 weeks ago and she does not know who prescribed it. Her prescription history reveals no prescribed Klonopin in the last 6 to 8 months. She has no physical complaints. Related Data Allergies Allergy/AdvReac Type Severity Reaction Status Date / Time No Known Drug Allergies Allergy Verified 01/29/24 08:35 Opioid HPI Opioid Management Most Recent Opioid Data: Last Pain Scale 4 12/14/23 14:40 12/14/23 Ur Phencyclidine Scrn Negative (NEGATIVE) 08/23/24 08:22 08/23/24 Review of Systems ROS Narrative A ten point review of systems is negative except as noted above. PFSH PFSH Social History Little interest or pleasure in doing things: more than half the days Feeling down, depressed, or hopeless: more than half the days Exam Narrative Exam Narrative: Nurses note and vital signs reviewed and patient is not hypoxic. General: The patient appears well and in no apparent distress. Patient is resting comfortably on cart. Skin: Warm, dry, no pallor noted. There is no rash noted. Head: Normocephalic, atraumatic Eye: Normal conjunctiva, no drainage Ears, Nose, Mouth, and Throat: oral mucosa is moist. Nares patent. Cardiovascular: Regular Rate and Rhythm Respiratory: Patient is in no distress, no accessory muscle use, lungs are clear to auscultation, no wheezing, rales or rhonchi Back: non-tender GI: Soft and nontender Musculoskeletal: The patient has no evidence of calf tenderness, no pitting edema, symmetrical pulses noted bilaterally Neurological: A&O x4, normal speech Psychiatric: Cooperative Constitutional Vital Signs, click to edit/add: Last Vital Signs Temp 97.4 F L 08/23/24 07:43 Pulse 96 H 08/23/24 07:43 Resp 16 08/23/24 07:43 BP 112/68 08/23/24 07:43 Pulse Ox 97 08/23/24 07:43 O2 Del Method Room Air 08/23/24 07:43 Course Vital Signs Vital signs: Vital Signs Temperature 97.4 F L 08/23/24 07:43 Pulse Rate 96 H 08/23/24 07:43 Respiratory Rate 16 08/23/24 07:43 Blood Pressure 112/68 08/23/24 07:43 Pulse Oximetry 97 08/23/24 07:43 Oxygen Delivery Method Room Air 08/23/24 07:43 Temperature 97.4 F L 08/23/24 07:43 Pulse Rate 96 H 08/23/24 07:43 Respiratory Rate 16 08/23/24 07:43 Blood Pressure 112/68 08/23/24 07:43 Pulse Oximetry 97 08/23/24 07:43 Oxygen Delivery Method Room Air 08/23/24 07:43 Medical Decision Making MDM Narrative Medical decision making narrative: The patient has been interviewed by mental health services and she is going to be admitted at [address] at [facility]. She is medically cleared for transfer and is agreeable for transfer. Differential Diagnosis Differential Diagnosis: Depression, anxiety Lab Data Lab results reviewed: Yes I reviewed the patient's lab results Labs: Lab Results 08/23/24 08/23/24 Range/Units 08:20 08:22 WBC 11.3 H (4.0-11.0) 10^3/uL RBC 4.43 (4.20-5.40) 10^6/uL Hgb 14.1 (12.0-16.0) g/dL Hct 41.7 (36.0-48.0) % MCV 94.1 (81.0-99.0) fL MCH 31.8 (26.7-34.0) pg MCHC 33.8 (29.9-35.2) g/dL RDW 14.2 (11.0-15.0) % Plt Count 433 (150-450) 10^3/uL MPV 10.2 (9.5-13.5) fL Neut % (Auto) 78.2 H (43.0-75.0) % Lymph % (Auto) 15.1 L (20.5-60.0) % [place] % (Auto) 4.9 (1.7-12.0) % Eos % (Auto) 0.6 L (0.9-7.0) % Baso % (Auto) 0.8 (0.2-2.0) % Neut # (Auto) 8.9 H (1.4-6.5) 10^3/uL Lymph # (Auto) 1.7 (1.2-3.8) 10^3/uL [place] # (Auto) 0.6 (0.3-0.8) 10^3/uL Eos # (Auto) 0.1 (0.0-0.7) 10^3/uL Baso # (Auto) 0.1 (0.0-0.1) 10^3/uL Abs Immat Gran (auto) 0.04 H (0.00-0.03) 10^3/uL Imm/Tot Granulo (auto) 0.4 (0.0-0.5) % Sodium 135 L (136-145) mmol/L Potassium 4.1 (3.5-5.1) mmol/L Chloride 101 (98-107) mmol/L Carbon Dioxide 25.3 (21.0-32.0) mmol/L Anion Gap 12.8 BUN 13.0 (7.0-18.0) mg/dL Creatinine 0.74 (0.55-1.02) mg/dL Est GFR ( Amer) >60 (>=60 mL/min/1.73m^2) Est GFR (Non-Af Amer) >60 (>=60 mL/min/1.73m^2) BUN/Creatinine Ratio 17.6 Glucose 105 (74-106) mg/dL Calcium 9.4 (8.5-10.1) mg/dL Urine Color Lt. yellow (YELLOW) Urine Clarity Clear (CLEAR) Urine pH 6.0 (5.0-9.0) Ur Specific [place] <=1.005 A (1.005-1.025) Urine Protein Negative (NEG/TRACE) mg/dL Urine Glucose (UA) Negative (NEGATIVE) mg/dL Urine Ketones Negative (NEGATIVE) mg/dL Urine Occult Blood Small A (NEGATIVE) Urine Nitrite Negative (NEGATIVE) Urine Bilirubin Negative (NEGATIVE) Urine Urobilinogen 0.2 (0.2-1.0) EU/dL Ur Leukocyte Esterase Negative (NEGATIVE) Urine RBC 0-2 (0-2) #/HPF Urine WBC 0-2 A (NONE SEEN) #/HPF Ur Squamous Epith Cells Rare (NONE/RARE) #/LPF Urine Crystals None seen (None Seen) #/HPF Urine Bacteria Trace A (NONE SEEN) #/HPF Urine Casts None seen (NONE SEEN) #/LPF Urine Mucus None seen (NONE SEEN) Ur Culture Indicated? No Salicylates 5.8 (<=19.9) mg/dL Urine Opiates Screen Negative (NEGATIVE) Ur Buprenorphine Scrn Negative (NEGATIVE) Ur Oxycodone Screen Negative (NEGATIVE) Urine Methadone Screen Negative (NEGATIVE) Acetaminophen <2.0 L (10.0-30.0) ug/mL Ur Barbiturates Screen Negative (NEGATIVE) U Tricyclic Antidepress Negative (NEGATIVE) Ur Phencyclidine Scrn Negative (NEGATIVE) Ur Amphetamines Screen Negative (NEGATIVE) U Methamphetamines Scrn Negative (NEGATIVE) U Benzodiazepines Scrn Negative (NEGATIVE) Urine Cocaine Screen Negative (NEGATIVE) U Cannabinoids Screen Negative (NEGATIVE) Ethanol Quant <3 mg/dL ECG Data Attestation: I personally reviewed and interpreted this ECG as follows: (EKG on my interpretation shows sinus rhythm with a rate of 93 and no acute) Discharge Plan Discharge Chief Complaint: Anxiety Clinical Impression: Anxiety Patient Disposition: [facility] Time of Disposition Decision: 13:03 Discharge Location: [facility] Condition: Fair Mode of Transportation: EMS
[2024-08-23 08:35] LABS: Basophils Absolute Auto 0.1 10^3/uL (0.0-0.1); Basophils Percent Auto 0.8 % (0.2-2.0); Eosinophils Absolute Auto 0.1 10^3/uL (0.0-0.7); Eosinophils Percent Auto 0.6 % (0.9-7.0); Hematocrit 41.7 % (36.0-48.0); Hemoglobin 14.1 g/dL (12.0-16.0); Immature Granulocytes Abs Auto 0.04 10^3/uL (0.00-0.03); Immature Granulocytes Pct Auto 0.4 % (0.0-0.5); Lymphocytes Absolute Auto 1.7 10^3/uL (1.2-3.8); Lymphocytes Percent Auto 15.1 % (20.5-60.0); Mean Corpuscular HGB Conc 33.8 g/dL (29.9-35.2); Mean Corpuscular Hemoglobin 31.8 pg (26.7-34.0); Mean Corpuscular Volume 94.1 fL (81.0-99.0); Mean Platelet Volume 10.2 fL (9.5-13.5); Monocytes Absolute Auto 0.6 10^3/uL (0.3-0.8); Monocytes Percent Auto 4.9 % (1.7-12.0); Neutrophils Absolute Auto 8.9 10^3/uL (1.4-6.5); Neutrophils Percent Auto 78.2 % (43.0-75.0); Platelet Count 433 10^3/uL (150-450); Red Blood Count 4.43 10^6/uL (4.20-5.40); Red Cell Distribution Width 14.2 % (11.0-15.0); White Blood Count 11.3 10^3/uL (4.0-11.0)
[2024-08-23 08:37] LABS: Bilirubin Urine NEGATIVE (NEGATIVE); Blood Urine SMALL (NEGATIVE); Clarity Urine CLEAR (CLEAR); Color Urine LT. YELLOW (YELLOW); Glucose Urine UA NEGATIVE (NEGATIVE); Ketones Urine NEGATIVE (NEGATIVE); Leukocyte Esterase Urine NEGATIVE (NEGATIVE); Nitrite Urine NEGATIVE (NEGATIVE); Protein Urine NEGATIVE (NEG/TRACE); Specific Gravity Urine <=1.005 (1.005-1.025); Urobilinogen Urine 0.2 EU/dL (0.2-1.0)
[2024-08-23 08:48] LABS: Bacteria Urine TRACE #/HPF (NONE SEEN); Cast Seen? NONE SEEN #/LPF (NONE SEEN); Crystals Seen? None Seen #/HPF (None Seen); Mucus Urine NONE SEEN (NONE SEEN); RBC Urine 0-2 #/HPF (0-2); Squamous Epithelial Cell Urine RARE #/LPF (NONE/RARE); WBC Urine 0-2 #/HPF (NONE SEEN)
[2024-08-23 08:49] LABS: Urine Culture Indicated NO
[2024-08-23 08:50] LABS: Amphetamine Screen Urine NEGATIVE (NEGATIVE); Barbiturates Screen Urine NEGATIVE (NEGATIVE); Benzodiazepines Screen Urine NEGATIVE (NEGATIVE); Buprenorphine Screen Urine NEGATIVE (NEGATIVE); Cannabinoid Screen Urine NEGATIVE (NEGATIVE); Cocaine Screen Urine NEGATIVE (NEGATIVE); Methadone Screen Urine NEGATIVE (NEGATIVE); Methamphetamines Screen Urine NEGATIVE (NEGATIVE); Opiate Screen Urine NEGATIVE (NEGATIVE); Oxycodone Screen Urine NEGATIVE (NEGATIVE); Phencyclidine Screen Urine NEGATIVE (NEGATIVE); Tricyclic Antidepressant Urine NEGATIVE (NEGATIVE)
[2024-08-23 09:06] LABS: Anion Gap 12.8; BUN Creatinine Ratio 17.6; Calcium 9.4 mg/dL (8.5-10.1); Carbon Dioxide 25.3 mmol/L (21.0-32.0); Chloride 101 mmol/L (98-107); Estimated GFR (African America >60 (>=60 mL/min/1.73m^2); Estimated GFR (Non-African Ame >60 (>=60 mL/min/1.73m^2); Glucose 105 mg/dL (74-106); Potassium 4.1 mmol/L (3.5-5.1); Sodium 135 mmol/L (136-145)
[2024-08-23 09:25] LABS: Salicylate 5.8 mg/dL (<=19.9)
[2024-08-23 09:26] LABS: Acetaminophen <2.0 ug/mL (10.0-30.0)
[2024-08-23 09:27] LABS: Ethanol <3 mg/dL
[2024-08-23] MEDS: LORAZEPAM 1 MG TABLET PO (13:07)
== END 2024-08-23 13:39 ==
PROVIDERS: Emergency Provider Emergency Medicine
DX: F41.9 Anxiety disorder, unspecified (principal)
CPT/HCPCS: 36415; 80048; 80179; 80307; 80320; 80329; 81001; 85025; 93005; 99285

== ENCOUNTER 2024-10-10 09:15 | Emergency (ER) | payer MEDICARE, SELFPAY ==
--- OUTSIDE RECORDS SUMMARY | 2024-08-23 14:29 | XMS_ITS ---
Author Name Auto Generated Organization OHIP Care Team Providers [employer] Handicapper Name Role Phone NO FAMILY, PHYSICIAN Primary Care Unavailable Trevin Renteria Attending Unavailab le Erlinda Kirbymi Admitting Unavailable Myra Trevin Admitting Unavailab le Myra, Trevin Attending Unavailab le NO FAMILY, PHYSICIAN Primary Care Unavailable Aaron, Korina Primary Care Unavailable Myra, Trevin Admitting Unavailab le MyraSherlyTrevin Attending Unavailab le Kofi Farhat Attending Unavailable Myra, Trevin Admitting Unavailab le NO FAMILY, PHYSICIAN Primary Care Unavailable Juli Oliveira MD Attending Unavailable Mario Alberto MCGRAW, Marianne Corral Referring Unavailable Meghann Jacome PA-C Attending Unavailab joya MCGRAW, Marianne Corral Attending Unavailable PROBLEMS DATE TYPE CONDITION / CODE ATTENDING STATUS [facility] 01/29/2024 Unknown Bipolar disorder , unspecified / F31.9(ICD-10) Trevin Renteria [facility] 01/29/2024 Unknown Anxiety disorder , unspecified / F41.9(ICD-10) [facility] 01/05/2024 Unknown Major depressive disorder, single episode, unspecified / F32.9(ICD-10) [facility] 01/05/2024 Unknown Major depressive disorder, single episode, severe without psychotic features / F32.2(ICD-10) [facility] PROCEDURES No Procedure Records Found RESULTS ED CLINICAL SUMMARY Observed: 02/14/2024 12:52 AM Status: CANCELED Source: [facility] (Inserted Image. Unable to d isplay) [address] [address] ED Clinical Summary Person Information Name: Bridgette Wang Jeniffer/[facility] Age: 59 Years : 1965 Sex: Female PCP: Marital Status: Single Phone: Race: White Ethnicity: Not or Language: Welsh Visit Reason: Weakness; covid Acuity: 4 Enc Type: Emergency Med Service: Emergency Medicine Arrival: 2024 21:19:34 Discharge: 02/14/2024 00:18:00 LOS: 000 02:59 Checkin: 2024 21:19:34 Checkout: 02/14/2024 00:18:00 Dispo Type: Home or Self Care Address: [address] [place] [phone] Provider Notes: Diagnosis: 1:COVID Problems No Problems [...] range between ( 27.2 and 40.8 ) [place] Auto: 11.0 % -- Normal range between [...] range between ( 36.0 and 46.0 ) [place] Absolute: 0.7 x10 MCH: 33.1 pg -- [...] for 10 Days. Refills: 0. Last Dose: Medications that have not changed Other Medications naproxen (naproxen 375 mg oral tablet) 1 Tabs Oral (given by mouth) 2 times a day for 7 Days. Refills: 0. Last Dose: Printed Prescriptions benzonatate (Tessalon Perles 100 mg [...] as needed for cough. You can take tljz-uzn-tusukjr Mucinex for any wet cough as needed. Please return to the emergency department for any new or worsening symptoms. Discharge Orders: Discharge Patient 02/14/24 0:00:00 EDT, Discharge to Home, Self Patient Education Information: Coronavirus Disease 2019 (COVID-19): Prevention; Coronavirus Disease 2019 (COVID-19) - Overview [facility] Poison Help line: . [facility] Hotline: [place] Tobacco Quit Line: [place], [place]) [address]: [phone] [place], [place]) [address]: [phone] [facility] [address] [place], [place]: [phone] UA W CULTURE IF IND Collected: 2024 10:43 PM S tatus: F Source: [facility] TYPE CODE TESTS RESULT OUT OF RANGE REFERENCE UNITS LAB Z08818(LOINC) UA Source Clean Catch LAB F83307(LOINC) UA Color Colorless Yellow LAB B51710(LOINC) UA Clarity Clear Clear LAB Z92290(LOINC) UA Spec Grav 1.005 1.003-1.035 LAB B70543(LOINC) UA pH 6.0 4.5 - 7.8 LAB V90136(LOINC) UA Protein Negative Negative mg/dL LAB B32695(LOINC) UA Glucose Normal Negative mg/dL LAB X50386(LOINC) UA Bili Negative Negative LAB M98069(LOINC) UA Urobilinogen Normal 0.2 - 1.0 mg/dL LAB J18350(LOINC) UA Nitrite Negative Negative LAB I88867(LOINC) UA Leukocyte Esterase Negative Negative LAB N14305(LOINC) UA Ketones Negative Negative mg/dL LAB P94579(LOINC) UA Blood Trace Abnormal Negative Performed By: #### UCI #### [address] [address] .UA MICROSCP A Collected: 4 10:43 PM Status: F Source: [facility] TYPE CODE TESTS RESULT OUT OF RANGE REFERENCE UNITS LAB C40104(LOINC) UA WBC Quant 0 0-5 /HPF LAB E65322(LOINC) UA RBC Quant 0 0-5 /HPF LAB M57422(LOINC) UA Squepi Cells Quant 2 0-29 /HPF Performed By: #### .Urinalys is Microscopic Auto #### [address] [address] COV19 RAPID Collected: 4 10:24 PM Status: F Source: [facility] TYPE CODE TESTS RESULT OUT OF RANGE REFERENCE UNITS LAB CD:[id number]( [facility]) SARS-CoV-2 RNA Detection Positive Abnormal Negative Result Comment: The 2018 coronavirus SARS-CoV-2 target nucleic acids are detected. [...] signs and symptoms of respiratory tract infection. LAB CD:[id number]( [facility]) LAB ONLY Result Called? Yes Abnormal Alert Result Comment: Test complet ion time: 2024 22:34:02 EDT Called date and time: 2024 22:34:50 EDT Result called to and read back by: [facility] (First, Last, Title, Location) LAB CD:[id number]( LOINC) Reason for Rapid Test COVID Exposure Performed By: #### CD:[id number] 189 #### [address] [address] .EGFR Collected: 4 10:24 PM Status: F Source: [facility] TYPE CODE TESTS RESULT OUT OF RANGE REFERENCE UNITS LAB U53665(LOINC) Estimated GFR >60 >=60 mL/m in/1. 73m? Result Comment: [facility] the [facility]GFR calculation approach that [...] 1 Age = years Performed By: #### EGFR #### [address] [address] CBC W/ DIFF Collected: 4 10:24 PM Status: F Source: [facility] TYPE CODE TESTS RESULT OUT OF RANGE REFERENCE UNITS LAB N36414(LOINC) WBC 6.4 4.5-11.0 x10*3/mcL LAB B13632(LOINC) RBC 3.32 Low 3.80-5.20 x10*6/mc L LAB G84410([facility]) Hgb 11.0 Low 12.0-16.0 g/dL LAB U04212(LOINC) Hct 32.0 Low 36.0-46.0 % LAB C95597(LOINC) MCV 96.4 80.0-100.0 fL LAB R72612([facility]) MCH 33.1 27.0-35.0 pg LAB J14462([facility]) MCHC 34.3 31.0-37.0 % LAB Y18983([facility]) Platelet 257 150-450 x10*3/mcL LAB C01139([facility]) RDW 14.2 11.6-14.8 % LAB U75302([facility]) Mean Platelet Volume 8.2 6.7-10.6 fL Performed By: #### CBC #### [place] [id number] MYOGLOBIN Collected: 4 10:24 PM Status: F Source: [facility] TYPE CODE TESTS RESULT OUT OF RANGE REFERENCE UNITS LAB TABITHA([facility]) Myoglobin 33.4 Performed By: #### TABITHA #### [place] [address] DIFF AUTO Collected: 4 10:24 PM Status: F Source: [facility] TYPE CODE TESTS RESULT OUT OF RANGE REFERENCE UNITS LAB D64651([facility]) Neutro Auto 76.1 High 47.2-70.8 % LAB M04253([facility]) Lymph Auto 11.0 Low 27.2-40.8 % LAB A66219([facility]) [place] Auto 11.0 3.7-11.9 % LAB H65011([facility]) Eos Auto 1.0 0.0-5.4 % LAB R09962([facility]) Basophil Auto 0.9 0.0-1.5 % LAB X28722(LOINC) Neutro Absolute 4.9 1.8-7.7 x10*3/mcL LAB K03820(LOINC) Lymph Absolute 0.7 Low 1.0-4.8 x10*3/mcL LAB L20340(LOINC) [place] Absolute 0.7 0.1-1.1 x10* 3/mcL LAB W21037(LOINC) Eos Absolute 0.1 0.0-0.4 x10*3 /mcL LAB V23760(LOINC) Baso Absolute 0.1 0.0-0.2 x10* 3/mcL Performed By: #### .Automate d Diff #### [address] [address] TROPONIN-I Collected: 10:24 PM Status: F Source: [facility] TYPE CODE TESTS RESULT OUT OF RANGE REFERENCE UNITS LAB TROP([facility]) Troponin-I <0.03 0.00-0.03 ng/mL Result Comment: An increased Troponin-I value, in the absence of myocardial ischemia, may indicate other etiologies of cardiac damage. 99th Percentile Cutoff for Negative/Positive: Negative <= 0.03 Positive >= 0.04 Performed By: #### TROP #### [address] [address] BASIC METABOLIC PROFILE Collected: 2024 10:24 P M Status: F Source: [facility] TYPE CODE TESTS RESULT OUT OF RANGE REFERENCE UNITS LAB Z94959(LOINC) Sodium Lvl 133 133-142 mmol/L LAB D74428(LOINC) Potassium Lvl 3.9 3.4-4.8 mmol /L LAB O00436(LOINC) Chloride 103 98-110 mmol/L LAB B37623(LOINC) CO2 22 22-32 mmol/L LAB U65339(LOINC) Anion Gap 8 4-12 LAB V52262(LOINC) Glucose Lvl 87 70-99 mg/dL LAB BUN(LOINC) BUN 18 8-26 mg/dL LAB A560(LOINC) Creatinine Lvl 0.76 0.44-1.03 mg/ dL LAB P98006(LOINC) BUN Crea Ratio 23.7 High 10.0-20.0 LAB Z54230(LOINC) Calcium Lvl 8.3 Low 8.5-10.3 mg/dL Performed By: #### CD:[id number] 347 #### [address] [address] XR CHEST 1 VIEW Observed: 2024 9:57 PM Status: F Source: [facility] EXAM: XR CHEST 1 VIEW HISTORY: Cough. COMPARISON: None. TECHNIQUE: A single [...] Signed, Electronically Signed in Other Vendor System) ED NOTE-PHYSICIAN Observed: 2024 9:56 PM Status: F Source: [facility] Chief Complaint tested positive for covid. having weakness, congestion, and body aches History of Present Illness Patient is an alert, oriented 59-year-old female presenting to the emergency department for evaluation of just generalized weakness, congestion, body aches. Patient is a resident at [facility]. She did test positive for COVID. With [...] body aches. Patient is a resident at [facility]. She did test positive for COVID. With [...] as needed for cough. You can take zwbr-lzt-hyiwxnc Mucinex for any wet cough as needed. [...] discussed with the patient and family present. [place] status: _Full code Assessment/Plan 1. COVID Refresh [...] High Lymph Auto 02/13/24 22:24 11.0 Low [place] Auto 02/13/24 22:24 11.0 Eos Auto 02/13/24 22:24 1.0 Basophil Auto 02/13/24 22:24 0.9 Neutro Absolute 02/13/24 22:24 4.9 Lymph Absolute 02/13/24 22:24 0.7 Low [place] Absolute 02/13/24 22:24 0.7 Eos Absolute 02/13/24 22:24 0.1 Baso Absolute 02/13/24 22:24 0.1 Routine Chemistry LATEST RESULTS Sodium Lvl 02/13/24 22:24 133 Potassium Lvl 02/13/24 22:24 3.9 Chloride 02/13/24 22:24 103 CO2 02/13/24 22:24 22 Anion Gap 02/13/24 22:24 8 Glucose Lvl 02/13/24 22:24 87 BUN 02/13/24 22:24 18 Creatinine Lvl 02/13/24 22:24 0.76 Estimated GFR 02/13/24 22:24 >60 BUN Crea Ratio 02/13/24 22:24 23.7 High Calcium Lvl 02/13/24 22:24 8.3 Low Cardiac Isoenzymes LATEST RESULTS Myoglobin 02/13/24 22:24 33.4 Troponin-I 02/13/24 22:24 <0.03 UA Macroscopic LATEST RESULTS UA Source 02/13/24 22:43 Clean Catch UA Color 02/13/24 22:43 Colorless UA Clarity 02/13/24 22:43 Clear UA Spec Grav 02/13/24 22:43 1.005 UA pH 02/13/24 22:43 6.0 UA Protein 02/13/24 22:43 Negative UA Glucose 02/13/24 22:43 Normal UA Bili 02/13/24 22:43 Negative UA Urobilinogen 02/13/24 22:43 Normal UA Leukocyte Esterase 02/13/24 22:43 Negative UA Nitrite 02/13/24 22:43 Negative UA Ketones 02/13/24 22:43 Negative UA Blood 02/13/24 22:43 Trace Abnormal UA Microscopic LATEST RESULTS UA RBC Quant 02/13/24 22:43 0 UA WBC Quant 02/13/24 22:43 0 UA Squepi Cells Quant 02/13/24 22:43 2 Molecular LATEST RESULTS SARS-CoV-2 RNA Detection 02/13/24 22:24 Positive Abnormal Diagnostic Results Electronically signed by Mario Alberto MCGRAW Marianne Shayna 02/19/24 03:19 EDT ED CLINICAL SUMMARY Observed: 2024 12:35 AM Status: CANCELED Source: [facility] (Inserted Image. Unable to d isplay) [address] [address] ED Clinical Summary Person Information Name: Bridgette Wang Myah [facility] Age: 58 Years : 1965 Sex: Female PCP: Marital Status: Single Phone: Race: White Ethnicity: Not or Language: Welsh Visit Reason: Fall; Ankle pain-swelling; Ankle Pain Acuity: 4 Enc Type: Emergency Med Service: Emergency Medicine Arrival: 02/12/2024 22:43:15 Discharge: 2024 00:34:00 LOS: 000 01:51 Checkin: 02/12/2024 22:43:15 Checkout: 2024 00:34:00 Dispo Type: Home or Self Care Address: [address] [place] [phone] Provider Notes: History of Present Illness 88-year-old [...] neurovasc intact] PSYCHIATRIC: [normal mood and affect] Reexamination/Reevaluation Resting comfortably, vitals stable, neurovascularly intact, nontoxic [...] for 7 Days. Refills: 0. Last Dose: Printed Prescriptions naproxen (naproxen 375 mg oral tablet) 1 Tabs Oral (given by mouth) 2 times a day for 7 Days. Refills: 0. Care Team Members: Attending Physician: Meghann Jacome PA-C Consulting Physician: Referring Physician: Provider Role Assigned Unassigned Meghann Jacome PA-C ED MidLevel 02/12/2024 22:47:19 Hayde Kiser ED Nurse 02/12/2024 22:55:31 Follow up: With: Address: When: Physician Referral Line Comments: Call [phone] to establish PCP. With: Address: When: Emergency Department Comments: Return to emergency department immediately for any new or worsening symptoms or if symptoms last longer than discussed. Discharge Orders: Discharge Patient 02/12/24 23:48:00 EDT, Discharge to Home, Self, Ankle sprain Patient Education Information: ANKLE SPRAIN (Adult) [facility] Poison Help line: . [facility] Hotline: [place] Tobacco Quit Line: [place], [place]) [address]: [phone] [place], [place]) [address]: [phone] [facility] [address], [place]: [phone] ED NOTE-NURSING Observed: 2024 12:18 AM Status: F Source: [facility] This RN spoke with Courtney Downs and informed facility that patient would be returning via cab. Electronically signed by Hayde Kiser 02/13/24 00:20 EDT ED NOTE-PHYSICIAN Observed: 02/12/2024 11:51 PM Status: F Source: [facility] Chief Complaint Patient reports she slipped on wet grass earlier this evening causing her to fall and strike R side of body. Patient reports R ankle pain. Patient from [facility] for psych. History of Present Illness 88-year-old [...] discussed with the patient and family present. Reexamination/Reevaluation Resting comfortably, vitals stable, neurovascularly intact, nontoxic Assessment/Plan 1. Ankle sprain Ordered: ibuprofen, 600 mg, Oral, Tab, Once, First Dose: 02/12/24 23:47:00 EDT, Stop Date: 02/12/24 23:47:00 EDT, STAT, Dispense From Location: [facility], 02/12/24 23:47:00 EDT naproxen, 1 tabs, Oral, [...] dislocation of the right ankle. Signed By: Verónica GAYTAN, Lisa Gonzalez Electronically signed by Meghann Jacome PA-C 02/12/24 23:56 EDT XR ANKLE 3 VIEWS RIGHT Observed: 024 10:50 PM Status: F Source: [facility] EXAMINATION: XR Ankle 3 View s Right, , 02/12/2024 10:50 PM EDT INDICATION: [...] Signed, Electronically Signed in Other Vendor System) ECG 12 LEAD ECG Observed: 01/30/2024 3:09 PM Status: COMPLETED Source: [facility] [place] [address] Electrocardiograph Report Signed Patient: Bridgette Wang MR#: [id number] 2 : 1965 Acct:[id number] Age/Sex: 58 / F ADM Date: 01/29/24 Loc: Room: [address] [place] [address] Type: ADM IN Attending Dr: Trevin Renteria [...] rhythm Normal ECG Confirmed by Rosario Baker ([id number]) on 01/30/2024 11:10:30 PM Referred By: Electronically Signed By: Rosario Baker Transcribed By: MUS Signed By Rosario Baker MD 4 0600 LIPID PANEL Collected: 01/06/2024 6:15 AM Status: F Source: [facility] TYPE CODE TESTS RESULT OUT OF RANGE REFERENCE UNITS LAB CHOL Cholesterol 188 Normal 140-200 mg/dL Result Comment: Chol less th an 200 mg/dl low risk Chol 201-239 mg/dl borderline risk Chol 240 mg/dl and greater high risk LAB HDL HDL Cholesterol 51 Normal 23-92 mg/dL Result Comment: HDL CHOL ATP -III CLASSIFICATION Cardiovascular Risk HDL > or equal to 60 mg/dL LOW HDL < 40 mg/dL HIGH LAB TRIG W REF Triglyceride w/Reflex 81 Normal 0-149 mg/dL Result Comment: TRIG ATP III CLASSIFICATION TRIG less than 150 mg/dL Normal TRIG 150-199 mg/dL Borderline high TRIG 200-500 mg/dL High TRIG greater than 500 mg/dL Very high Standard traceable to the Center for Disease Conrtrol and Prevention (CDC) test method. LAB LDLC LDL Cholesterol,Calc ulated 121 High 0-100 mg/dL Result Comment: LDL ATP III CLASSIFICATION LDL less than 100 mg/dL Optimal LDL 100-129 mg/dL Near or above optimal LDL 130-159 mg/dL Borderline high LDL 160-189 mg/dL High LDL greater than 189 mg/dL Very high LAB VLDL VLDL CHOLESTEROL 16 mg/dL LAB CHLHDL Chol/HDL Ratio 3.7 <5.0 Performed By: #### LIPID, TD25OH, TSH3 wRFLX #### [facility] [address] THYROID STIM HORMONE W/RFLX Collected: 01/06/2024 6:15 AM Status: F Source: [facility] TYPE CODE TESTS RESULT OUT OF RANGE REFERENCE UNITS LAB TSH3 wRFLX Thyroid Stim Hormone w/Rflx 1.55 Normal 0.45-5.33 u[iU]/mL Performed By: #### LIPID, TD25OH, TSH3 wRFLX #### [facility] [address] VITAMIN D 25 HYDROXY TOTAL Collected: 01/06/2024 6:15 AM Status: F Source: [facility] TYPE CODE TESTS RESULT OUT OF RANGE REFERENCE UNITS LAB [id number] Vitamin D 25 Hydroxy Total 26.3 Low 30-100 ng/mL Result Comment: VITAMIN D ST ATUS 25(OH)VITAMIN D RANGE (ng/mL) Deficient <20 Insufficient 20 to <30 Sufficient 30 to 100 Reference: America MF,Yamil NC, Mckenzie MAE, et al. Evaluation,treatment, and prevention of vitamin D deficiency; an Endocrine Society clinical practice guideline. JCEM. 2010; 96(7):1911-30. PERFORMED BY: [facility] [address] [place] [address] PATHOLOGIST DIGITAL PRINTER OPERATOR JENNIFER GONSALES M.D. Performed By: #### LIPID, TD25OH, TSH3 wRFLX #### [facility] [address] [place] [id number] [facility] ALLERGIES DATE TYPE / CODE NAME / CODE REACTION SEVERITY SOURCE 12/17/2022 Drug Allergy/09449 8002(SNOMED CT) calcium/[id number] (RXNORM) Unknown Reaction Unknown [facility] 12/17/2022 Drug Allergy/50213 8002(SNOMED CT) doxycycline/S56652 2748(RXNORM) Unknown Reaction Unknown [facility] DRUG/30967435 3(SNOMED CT) No Known Allergies [facility] ENCOUNTERS ADMIT/DISCHARGE ACCOUNT NUMBER ADMITTING ENCOUNTER CLASS LOCATION SOURCE 08/23/2024/08/31/19 [id number] Trevin Rent[facility]: [id number]: [address] [facility] 08/23/2024 [id number] Trevin Rent[facility] 02/15/2024/02/15/20 24 [id number] [facility] 02/13/2024/02/14/20 24 [id number] [facility] EDRoom: [id number]: [facility] 02/12/2024/02/13/20 24 [id number] [facility] EDRoom: [id number]: [facility] 01/29/2024/02/08/20 24 [id number] Trevin Renteria [facility]: [id number]: [address] [facility] 01/05/2024/01/15/20 [id number] Farhat Kirby [facility]: [id number]: [address] [facility] PAYERS ENCOUNTER GUARANTOR PAYER SUBSCRIBER SOURCE 08/23/2024 Bridgette Cosby [address] [address]Qpj: () Primary Insurance:Humana MCR PFFSPolicy Number: [id number] Date:7976-96-30MZ [address] [place] [phone]: Bridgettesonja CarreraB: [id number] [address] [address]Fzv: () [facility] 08/23/2024 Secondary Insurance:MedicareP olicy Number: [id number] e Date:2024-08-23 Bridgette Harjeet CarreraB: [id number] [address] [address]Vmn: () [facility] 08/23/2024 Tertiary Insurance:Self PayPolicy Number: Effective Date:2024-08-23 [facility]24 Bridgette Harjeet [place] [phone]: () Primary Insurance:Self PayPolicy Number: Effective Date:2022-09-01 [facility]/15/2024 Bridgettesonja CarreraB: [address] [address] Primary Insurance:HumanaPol icy Number: Effective Date:9827-01-65Qvid Name:COMP O Mely [address] [place] [address]DN: Bridgette WangDOB: [id number] [place] [phone] [facility] 2024 Bridgette WangDOB: [id number] [place] [address] Primary Insurance:HumanaPol icy Number: Effective Date:1016-95-62Umyq Name:[address] [address]JK: Bridgette WangDOB: [id number] [address] [address] [facility] 02/12/2024 Bridgette WangDOB: [id number] [place], [place] [address] Primary Insurance:HumanaPol icy Number: Effective Date:5414-62-64Rdqp Name:[address] [address]PC: Bridgette WangDOB: [id number] [place], [place] [address] [place] [address] 01/29/2024 Bridgette Cosby [place] [phone]: () Primary Insurance:Humana MCR PFFSPolicy Number: [id number] Date:9831-79-12[address] [address]QE: Bridgette CarreraB: [id number] [phone]: () [facility] 01/29/2024 Secondary Insurance:MedicareP olicy Number: [id number] e Date:2024-01-29 Bridgette CarreraB: [id number] [place] [address]Tai: () [facility] 01/29/2024 Tertiary Insurance:Self PayPolicy Number: Effective Date:2024-01-29 NOT GIVENUNK [facility] 01/05/2024 Bridgette Cosby [address] [address]Jrk: () Primary Insurance:Humana MCR PFFSPolicy Number: [id number] Date:4478-85-96AA [address] [place] [address]OQ: Bridgette CarreraB: [id number] [address]Xry: () [facility] 01/05/2024 Secondary Insurance:MedicareP olicy Number: [id number] e Date:2024-01-05 Bridgette CarreraB: [id number] [address]Ctg: () [facility] 01/05/2024 Tertiary Insurance:Self PayPolicy Number: Effective Date:2024-01-05 [facility]
[2024-10-10 09:24] VITALS: BP 148/93; PULSE 103; O2SAT 100; BMI 17.6
--- NOTE | 2024-10-10 09:27 | ED.GENADUL1 ---
HPI HPI - General Adult General Chief complaint: Anxiety Stated complaint: BIPOLAR, ANXIETY, DEPRESSION Time Seen by Provider: 10/10/24 09:20 History of Present Illness HPI narrative: 59-year-old female presents because she is feeling depressed. She is not suicidal and has not had any thoughts of harming herself and has not done anything to harm herself. She stopped taking her medications for bipolar disorder a few weeks ago because she did not think she needed them. She has no physical complaints. Related Data Home Medications ?Medication ?Instructions ?Recorded ?Confirmed buspirone 10 mg tablet 10 mg PO TID 10/10/24 10/10/24 doxepin 50 mg capsule 50 mg PO .QHS 10/10/24 10/10/24 gabapentin 100 mg capsule 200 mg PO TID 10/10/24 10/10/24 hydroxyzine pamoate 50 mg capsule 50 mg PO BID PRN anxiety 10/10/24 10/10/24 lamotrigine 25 mg tablet 50 mg PO DAILY 10/10/24 10/10/24 quetiapine 25 mg tablet 25 mg PO TID 10/10/24 10/10/24 trazodone 50 mg tablet 50 mg PO DAILY 10/10/24 10/10/24 venlafaxine 75 mg capsule,extended 75 mg PO DAILY 10/10/24 10/10/24 release 24 hr Allergies Allergy/AdvReac Type Severity Reaction Status Date / Time fibramycin Allergy Unknown Unknown Uncoded 10/10/24 09:18 Opioid HPI Opioid Management Most Recent Opioid Data: Last Pain Scale 4 12/14/23, 14:40 Ur Phencyclidine Scrn, (NEGATIVE) Negative Today, 09:40 Review of Systems ROS Narrative A ten point review of systems is negative except as noted above. PFSH PFSH Social History Little interest or pleasure in doing things: nearly every day Feeling down, depressed, or hopeless: nearly every day Exam Narrative Exam Narrative: Nurses note and vital signs reviewed and patient is not hypoxic. General: The patient appears well and in no apparent distress. Patient is resting comfortably on cart. Skin: Warm, dry, no pallor noted. There is no rash noted. Head: Normocephalic, atraumatic Eye: Normal conjunctiva, no drainage Ears, Nose, Mouth, and Throat: oral mucosa is moist. Nares patent. Cardiovascular: Regular Rate and Rhythm Respiratory: Patient is in no distress, no accessory muscle use, lungs are clear to auscultation, no wheezing, rales or rhonchi Back: non-tender GI: Soft and nontender Musculoskeletal: The patient has no evidence of calf tenderness, no pitting edema, symmetrical pulses noted bilaterally Neurological: A&O, normal speech Psychiatric: Cooperative Constitutional Vital Signs, click to edit/add: Last Vital Signs Pulse 103 H 10/10/24 09:24 Resp 20 10/10/24 09:24 BP 148/93 H 10/10/24 09:24 Pulse Ox 100 10/10/24 09:24 O2 Del Method Room Air 10/10/24 09:24 Course Vital Signs Vital signs: Vital Signs Pulse Rate 103 H 10/10/24 09:24 Respiratory Rate 20 10/10/24 09:24 Blood Pressure 148/93 H 10/10/24 09:24 Pulse Oximetry 100 10/10/24 09:24 Oxygen Delivery Method Room Air 10/10/24 09:24 Pulse Rate 103 H 10/10/24 09:24 Respiratory Rate 20 10/10/24 09:24 Blood Pressure 148/93 H 10/10/24 09:24 Pulse Oximetry 100 10/10/24 09:24 Oxygen Delivery Method Room Air 10/10/24 09:24 Medical Decision Making MDM Narrative Medical decision making narrative: The patient is medically cleared. She has been interviewed by mental health services and she is voluntarily being admitted to 1 S. at [facility]. She is agreeable and stable for transfer. Differential Diagnosis Differential Diagnosis: Depression, bipolar disorder, noncompliant Lab Data Lab results reviewed: Yes I reviewed the patient's lab results Labs: Lab Results 10/10/24 10/10/24 Range/Units 09:40 09:44 WBC 11.8 H (4.0-11.0) 10^3/uL RBC 4.91 (4.20-5.40) 10^6/uL Hgb 15.7 (12.0-16.0) g/dL Hct 45.3 (36.0-48.0) % MCV 92.3 (81.0-99.0) fL MCH 32.0 (26.7-34.0) pg MCHC 34.7 (29.9-35.2) g/dL RDW 13.3 (11.0-15.0) % Plt Count 575 H (150-450) 10^3/uL MPV 9.6 (9.5-13.5) fL Neut % (Auto) 73.4 (43.0-75.0) % Lymph % (Auto) 19.2 L (20.5-60.0) % [place] % (Auto) 6.0 (1.7-12.0) % Eos % (Auto) 0.4 L (0.9-7.0) % Baso % (Auto) 0.7 (0.2-2.0) % Neut # (Auto) 8.7 H (1.4-6.5) 10^3/uL Lymph # (Auto) 2.3 (1.2-3.8) 10^3/uL [place] # (Auto) 0.7 (0.3-0.8) 10^3/uL Eos # (Auto) 0.1 (0.0-0.7) 10^3/uL Baso # (Auto) 0.1 (0.0-0.1) 10^3/uL Abs Immat Gran (auto) 0.04 H (0.00-0.03) 10^3/uL Imm/Tot Granulo (auto) 0.3 (0.0-0.5) % Sodium 134 L (136-145) mmol/L Potassium 4.5 (3.5-5.1) mmol/L Chloride 97 L (98-107) mmol/L Carbon Dioxide 27.7 (21.0-32.0) mmol/L Anion Gap 13.8 BUN 10.0 (7.0-18.0) mg/dL Creatinine 0.59 (0.55-1.02) mg/dL Est GFR ( Amer) >60 (>=60 mL/min/1.73m^2) Est GFR (Non-Af Amer) >60 (>=60 mL/min/1.73m^2) BUN/Creatinine Ratio 16.9 Glucose 109 H (74-106) mg/dL Calcium 9.7 (8.5-10.1) mg/dL Urine Color Lt. yellow (YELLOW) Urine Clarity Clear (CLEAR) Urine pH 6.0 (5.0-9.0) Ur Specific [place] <=1.005 A (1.005-1.025) Urine Protein Negative (NEG/TRACE) mg/dL Urine Glucose (UA) Negative (NEGATIVE) mg/dL Urine Ketones Negative (NEGATIVE) mg/dL Urine Occult Blood Small A (NEGATIVE) Urine Nitrite Negative (NEGATIVE) Urine Bilirubin Negative (NEGATIVE) Urine Urobilinogen 0.2 (0.2-1.0) EU/dL Ur Leukocyte Esterase Negative (NEGATIVE) Urine RBC 2-5 A (0-2) #/HPF Urine WBC 0-2 A (NONE SEEN) #/HPF Ur Squamous Epith Cells None seen (NONE/RARE) #/LPF Urine Crystals None seen (None Seen) #/HPF Urine Bacteria None seen (NONE SEEN) #/HPF Urine Casts None seen (NONE SEEN) #/LPF Urine Mucus None seen (NONE SEEN) Salicylates 3.3 (<=19.9) mg/dL Urine Opiates Screen Negative (NEGATIVE) Ur Buprenorphine Scrn Negative (NEGATIVE) Ur Oxycodone Screen Negative (NEGATIVE) Urine Methadone Screen Negative (NEGATIVE) Acetaminophen <2.0 L (10.0-30.0) ug/mL Ur Barbiturates Screen Negative (NEGATIVE) U Tricyclic Antidepress Positive A (NEGATIVE) Ur Phencyclidine Scrn Negative (NEGATIVE) Ur Amphetamines Screen Negative (NEGATIVE) U Methamphetamines Scrn Negative (NEGATIVE) U Benzodiazepines Scrn Negative (NEGATIVE) Urine Cocaine Screen Negative (NEGATIVE) U Cannabinoids Screen Positive A (NEGATIVE) Ethanol Quant <3 mg/dL Discharge Plan Discharge Chief Complaint: Anxiety Clinical Impression: Bipolar disorder, Noncompliance with medication regimen Patient Disposition: [facility] Time of Disposition Decision: 11:43 Discharge Location: [facility] Condition: Fair Mode of Transportation: EMS
[2024-10-10 09:55] LABS: Basophils Absolute Auto 0.1 10^3/uL (0.0-0.1); Basophils Percent Auto 0.7 % (0.2-2.0); Eosinophils Absolute Auto 0.1 10^3/uL (0.0-0.7); Eosinophils Percent Auto 0.4 % (0.9-7.0); Hematocrit 45.3 % (36.0-48.0); Hemoglobin 15.7 g/dL (12.0-16.0); Immature Granulocytes Abs Auto 0.04 10^3/uL (0.00-0.03); Immature Granulocytes Pct Auto 0.3 % (0.0-0.5); Lymphocytes Absolute Auto 2.3 10^3/uL (1.2-3.8); Lymphocytes Percent Auto 19.2 % (20.5-60.0); Mean Corpuscular HGB Conc 34.7 g/dL (29.9-35.2); Mean Corpuscular Volume 92.3 fL (81.0-99.0); Mean Platelet Volume 9.6 fL (9.5-13.5); Monocytes Absolute Auto 0.7 10^3/uL (0.3-0.8); Neutrophils Absolute Auto 8.7 10^3/uL (1.4-6.5); Neutrophils Percent Auto 73.4 % (43.0-75.0); Platelet Count 575 10^3/uL (150-450); Red Blood Count 4.91 10^6/uL (4.20-5.40); Red Cell Distribution Width 13.3 % (11.0-15.0); White Blood Count 11.8 10^3/uL (4.0-11.0)
[2024-10-10 10:00] LABS: Bilirubin Urine NEGATIVE (NEGATIVE); Blood Urine SMALL (NEGATIVE); Clarity Urine CLEAR (CLEAR); Color Urine LT. YELLOW (YELLOW); Glucose Urine UA NEGATIVE (NEGATIVE); Ketones Urine NEGATIVE (NEGATIVE); Leukocyte Esterase Urine NEGATIVE (NEGATIVE); Nitrite Urine NEGATIVE (NEGATIVE); Protein Urine NEGATIVE (NEG/TRACE); Specific Gravity Urine <=1.005 (1.005-1.025); Urobilinogen Urine 0.2 EU/dL (0.2-1.0)
[2024-10-10 10:07] LABS: Bacteria Urine NONE SEEN #/HPF (NONE SEEN); Crystals Seen? None Seen #/HPF (None Seen); Mucus Urine NONE SEEN (NONE SEEN); Squamous Epithelial Cell Urine NONE SEEN #/LPF (NONE/RARE); WBC Urine 0-2 #/HPF (NONE SEEN)
[2024-10-10 10:08] LABS: Cast Seen? NONE SEEN #/LPF (NONE SEEN)
[2024-10-10 10:12] LABS: Amphetamine Screen Urine NEGATIVE (NEGATIVE); Barbiturates Screen Urine NEGATIVE (NEGATIVE); Benzodiazepines Screen Urine NEGATIVE (NEGATIVE); Buprenorphine Screen Urine NEGATIVE (NEGATIVE); Cannabinoid Screen Urine POSITIVE (NEGATIVE); Cocaine Screen Urine NEGATIVE (NEGATIVE); Methadone Screen Urine NEGATIVE (NEGATIVE); Methamphetamines Screen Urine NEGATIVE (NEGATIVE); Opiate Screen Urine NEGATIVE (NEGATIVE); Oxycodone Screen Urine NEGATIVE (NEGATIVE); Phencyclidine Screen Urine NEGATIVE (NEGATIVE); Tricyclic Antidepressant Urine POSITIVE (NEGATIVE)
[2024-10-10 10:13] LABS: Anion Gap 13.8; BUN Creatinine Ratio 16.9; Calcium 9.7 mg/dL (8.5-10.1); Carbon Dioxide 27.7 mmol/L (21.0-32.0); Chloride 97 mmol/L (98-107); Estimated GFR (African America >60 (>=60 mL/min/1.73m^2); Estimated GFR (Non-African Ame >60 (>=60 mL/min/1.73m^2); Glucose 109 mg/dL (74-106); Potassium 4.5 mmol/L (3.5-5.1); Salicylate 3.3 mg/dL (<=19.9); Sodium 134 mmol/L (136-145)
[2024-10-10 10:24] LABS: Acetaminophen <2.0 ug/mL (10.0-30.0); Ethanol <3 mg/dL
[2024-10-10 12:06] VITALS: BP 131/105; PULSE 98; TEMP 36.4; O2SAT 100
[2024-10-10] MEDS: LORAZEPAM 1 MG TABLET PO (12:12)
== END 2024-10-10 12:26 ==
PROVIDERS: Emergency Provider Emergency Medicine
DX: F31.9 Bipolar disorder, unspecified (principal); T50.996A Underdosing of other drugs, medicaments and biological substances, initial encounter; Z91.128 Patient's intentional underdosing of medication regimen for other reason; Z79.899 Other long term (current) drug therapy
CPT/HCPCS: 36415; 80048; 80179; 80307; 80320; 80329; 81001; 85025; 99285

== ENCOUNTER 2025-01-26 11:38 | Emergency (ER) | payer MEDICARE, SELFPAY ==
[2025-01-26 11:42] VITALS: BP 171/95; PULSE 102; TEMP 36.3; O2SAT 100; BMI 19.5
--- NOTE | 2025-01-26 12:04 | ECG_ITS ---
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
--- NOTE | 2025-01-26 12:09 | ED.ANXIETY1 ---
HPI - Anxiety General Chief Complaint: Anxiety Stated Complaint: ANXIETY Time Seen by Provider: 01/26/25 11:57 Source: patient and family Mode of arrival: walk-in History of Present Illness HPI narrative: The patient is a 59-year-old female who has been evaluated here in our ER multiple times for psychiatric illness and anxiety, the patient presented to us today brought to us by the significant other after he has not been able to control his symptoms at home, according to her the patient stopped taking her medication almost 3 weeks ago after she was feeling better, patient at the bedside is restless moving from 1 side to another saying that she is not able to breathe and she is not feeling right. Patient admits that she did not take her medication and mentioned that she was feeling better although she ended up denying that as well The patient is anxious looking and not providing any history but just keep repeating that she is not feeling right Related Data Home Medications ?Medication ?Instructions ?Recorded ?Confirmed buspirone 10 mg tablet 10 mg PO TID 10/10/24 10/10/24 doxepin 50 mg capsule 50 mg PO .QHS 10/10/24 10/10/24 gabapentin 100 mg capsule 200 mg PO TID 10/10/24 10/10/24 hydroxyzine pamoate 50 mg capsule 50 mg PO BID PRN anxiety 10/10/24 10/10/24 lamotrigine 25 mg tablet 50 mg PO DAILY 10/10/24 10/10/24 quetiapine 25 mg tablet 25 mg PO TID 10/10/24 10/10/24 trazodone 50 mg tablet 50 mg PO DAILY 10/10/24 10/10/24 venlafaxine 75 mg capsule,extended 75 mg PO DAILY 10/10/24 10/10/24 release 24 hr Allergies Allergy/AdvReac Type Severity Reaction Status Date / Time fibramycin Allergy Unknown Unknown Uncoded 01/26/25 11:41 Review of Systems ROS Status of ROS 10 or more systems reviewed and unremarkable except as noted in history and below PFSH PFS Social History Little interest or pleasure in doing things: not at all Feeling down, depressed, or hopeless: more than half the days Exam Narrative Exam Narrative: Nurses notes and vital signs reviewed and patient is not hypoxic. General: Restless and moving in the bed Skin: Warm, dry, no pallor noted. No rash. Head: Normocephalic, atraumatic. Neck: Supple, non-tender. Eye: Pupils are equal, round and EOMI. No scleral icterus. Ears, Nose, Mouth, and Throat: Oral mucosa is moist, no posterior oropharynx erythema, uvula is mid-line Cardiovascular: Regular Rate and Rhythm without murmur, gallop or rub. Respiratory: No accessory muscle use or respiratory distress. Lungs are clear to auscultation, no wheezing, rales or rhonchi Chest Wall: no tenderness Back: No midline thoracic or lumbar vertebral tenderness. No CVA tenderness Musculoskeletal: normal ROM, no calf or popliteal tenderness, no lower extremity edema/swelling GI: Abdomen is soft, non-distended. Normal bowel sounds. No masses appreciated. No tenderness to palpation. No rebound, guarding, or rigidity noted. Neurological: A&O x4. No cranial nerve dysfunction observed. No truncal ataxia. Moves all extremities. Sensation intact. Psychiatric: Patient is restless and anxious looking, keep repeating the same sentence(I am not feeling right) Constitutional Vital Signs, click to edit/add: Last Vital Signs Temp 97.4 F L 01/26/25 11:42 Pulse 102 H 01/26/25 11:42 Resp 18 01/26/25 11:42 BP 171/95 H 01/26/25 11:42 Pulse Ox 100 01/26/25 11:42 O2 Del Method Room Air 01/26/25 11:42 Course Vital Signs Vital signs: Vital Signs Temperature 97.4 F L 01/26/25 11:42 Pulse Rate 102 H 01/26/25 11:42 Respiratory Rate 01/26/25 11:42 Blood Pressure 171/95 H 01/26/25 11:42 Pulse Oximetry 100 01/26/25 11:42 Oxygen Delivery Method Room Air 01/26/25 11:42 Temperature 97.4 F L 01/26/25 11:42 Pulse Rate 102 H 01/26/25 11:42 Respiratory Rate 18 01/26/25 11:42 Blood Pressure 171/95 H 01/26/25 11:42 Pulse Oximetry 100 01/26/25 11:42 Oxygen Delivery Method Room Air 01/26/25 11:42 MDM - Anxiety MDM Narrative Medical decision making narrative: The patient presented to us with a panic like attack a possible anxiety attack as well Right now she was initially provided with the diazepam 5 mg IM CBC and chemistry showed some hypoglycemia of her blood sugar of 68 Patient is not diabetic and she was provided with a meal here in the ER as well as she was eating her own chocolate The patient was evaluated by [facility] psychiatry intake and the patient will be admitted under Dr. Hernandez for bipolar disorder management of inpatient Patient will be admitted to [facility] Lab Data Labs: Lab Results 01/26/25 01/26/25 Range/Units 12:15 12:30 WBC 9.6 (4.0-11.0) 10^3/uL RBC 4.73 (4.20-5.40) 10^6/uL Hgb 15.0 (12.0-16.0) g/dL Hct 43.5 (36.0-48.0) % MCV 92.0 (81.0-99.0) fL MCH 31.7 (26.7-34.0) pg MCHC 34.5 (29.9-35.2) g/dL RDW 12.7 (11.0-15.0) % Plt Count 472 H (150-450) 10^3/uL MPV 10.1 (9.5-13.5) fL Neut % (Auto) 69.0 (43.0-75.0) % Lymph % (Auto) 22.9 (20.5-60.0) % [place] % (Auto) 6.3 (1.7-12.0) % Eos % (Auto) 0.6 L (0.9-7.0) % Baso % (Auto) 0.8 (0.2-2.0) % Neut # (Auto) 6.6 H (1.4-6.5) 10^3/uL Lymph # (Auto) 2.2 (1.2-3.8) 10^3/uL [place] # (Auto) 0.6 (0.3-0.8) 10^3/uL Eos # (Auto) 0.1 (0.0-0.7) 10^3/uL Baso # (Auto) 0.1 (0.0-0.1) 10^3/uL Abs Immat Gran (auto) 0.04 H (0.00-0.03) 10^3/uL Imm/Tot Granulo (auto) 0.4 (0.0-0.5) % Sodium 138 (136-145) mmol/L Potassium 3.9 (3.5-5.1) mmol/L Chloride 103 (98-107) mmol/L Carbon Dioxide 25.7 (21.0-32.0) mmol/L Anion Gap 13.2 BUN 14.0 (7.0-18.0) mg/dL Creatinine 0.76 (0.55-1.02) mg/dL Est GFR ( Amer) >60 (>=60 mL/min/1.73m^2) Est GFR (Non-Af Amer) >60 (>=60 mL/min/1.73m^2) BUN/Creatinine Ratio 18.4 Glucose 68 L (74-106) mg/dL Calcium 9.7 (8.5-10.1) mg/dL Total Bilirubin 0.3 (0.2-1.0) mg/dL AST 20 (15-37) U/L ALT 22 (14-59) U/L Alkaline Phosphatase 109 (46-116) U/L Total Protein 8.9 H (6.4-8.2) g/dL Albumin 3.9 (3.4-5.0) g/dL Globulin 5.0 g/dL Albumin/Globulin Ratio 0.8 Urine Opiates Screen Negative (NEGATIVE) Ur Buprenorphine Scrn Negative (NEGATIVE) Ur Oxycodone Screen Negative (NEGATIVE) Urine Methadone Screen Negative (NEGATIVE) Ur Barbiturates Screen Negative (NEGATIVE) U Tricyclic Antidepress Negative (NEGATIVE) Ur Phencyclidine Scrn Negative (NEGATIVE) Ur Amphetamines Screen Negative (NEGATIVE) U Methamphetamines Scrn Negative (NEGATIVE) U Benzodiazepines Scrn Positive A (NEGATIVE) Urine Cocaine Screen Negative (NEGATIVE) U Cannabinoids Screen Negative (NEGATIVE) Ethanol Quant <3 mg/dL Discharge Plan Discharge Chief Complaint: Anxiety Clinical Impression: Bipolar 1 disorder, Anxiety Patient Disposition: [facility] Time of Disposition Decision: 15:43 Discharge location: [facility] ( Dr Hernandez
[2025-01-26] MEDS: DIAZEPAM 10 MG/2 ML SYRINGE 5 MG IM (12:22)
[2025-01-26 12:35] LABS: Cannabinoid Screen Urine NEGATIVE (NEGATIVE); Methamphetamines Screen Urine NEGATIVE (NEGATIVE); Tricyclic Antidepressant Urine NEGATIVE (NEGATIVE)
[2025-01-26 12:40] LABS: Hematocrit 43.5 % (36.0-48.0); Hemoglobin 15.0 g/dL (12.0-16.0); Immature Granulocytes Abs Auto 0.04 10^3/uL (0.00-0.03); Immature Granulocytes Pct Auto 0.4 % (0.0-0.5); Lymphocytes Absolute Auto 2.2 10^3/uL (1.2-3.8); Mean Corpuscular HGB Conc 34.5 g/dL (29.9-35.2); Mean Corpuscular Hemoglobin 31.7 pg (26.7-34.0); Mean Corpuscular Volume 92.0 fL (81.0-99.0); Platelet Count 472 10^3/uL (150-450); Red Blood Count 4.73 10^6/uL (4.20-5.40); White Blood Count 9.6 10^3/uL (4.0-11.0)
[2025-01-26 12:52] LABS: Alanine Aminotransferase 22 U/L (14-59); Albumin Globulin Ratio 0.8; Albumin Level 3.9 g/dL (3.4-5.0); Alkaline Phosphatase 109 U/L (46-116); Anion Gap 13.2; Aspartate Amino Transferase 20 U/L (15-37); Blood Urea Nitrogen 14.0 mg/dL (7.0-18.0); Calcium 9.7 mg/dL (8.5-10.1); Carbon Dioxide 25.7 mmol/L (21.0-32.0); Chloride 103 mmol/L (98-107); Estimated GFR (African America >60 (>=60 mL/min/1.73m^2); Estimated GFR (Non-African Ame >60 (>=60 mL/min/1.73m^2); Globulin 5.0 g/dL; Glucose 68 mg/dL (74-106); Potassium 3.9 mmol/L (3.5-5.1); Sodium 138 mmol/L (136-145); Total Protein 8.9 g/dL (6.4-8.2)
[2025-01-26] MEDS: HYDROXYZINE HCL 25 MG TABLET 50 MG PO (15:40)
== END 2025-01-26 17:30 ==
PROVIDERS: Emergency Provider Emergency Medicine
DX: F31.9 Bipolar disorder, unspecified (principal); F41.9 Anxiety disorder, unspecified; Z79.899 Other long term (current) drug therapy
CPT/HCPCS: 36415; 80053; 80307; 80320; 85025; 93005; 96372; 99285; J3360

== ENCOUNTER 2025-04-16 09:45 | Emergency (ER) | payer MEDICARE, SELFPAY ==
--- OUTSIDE RECORDS SUMMARY | 2024-04-20 04:45 | XMS_ITS ---
Author Organization [facility] vices Address [address] [place] [id number] Care Team Providers Care Field Consultant Name Role Phone Shreya Yeimy Unavailable [phone] REASON FOR VISIT Establish Care, Wellness/Chronic Pain Social History Sex Assigned At : Social History Observation Description Sex Assigned At Female Encounters Encounter Location Date Provider Diagnosis Main [address] [place] [id number] 04/20/2024 Yeimy Cash Plan Of Treatment No Information Progress Notes * Bridgette WANGDOB:1965 ( 60 yo F)Acc No.[id number]:04/20/2024 Medical Note Patient: Bridgette Oden :?Yeimy CashDOB:1965???Age:59 Y???Sex: FemaleDate:4Phone:[phone]:[address] [place] [address], [address], [place], [id number] Subjective: * Chief Complaints: * E stablish Care, Wellness/Chronic Pain Billing Information: * Procedure Codes: * Electronic signature of MARIO Zimmer on 04/16/2025 at 10:42 AM ESTSign off status: Pending * Provider: Harjeet Cash Date: 1 06/21/2023 Generated for Printing/Faxing/eTransmitting on:?04/16/2025 10:42 AM EST
[2025-04-16 09:46] VITALS: BP 164/98; PULSE 114; TEMP 37.1; O2SAT 98; BMI 24.6
--- NOTE | 2025-04-16 10:01 | ECG_ITS ---
[facility] Test Date: 2025-04-16 Pat Name: JUMA HU Department: Room: - Gender: Female Open Claims Representative: : 1965 Requested By: 1030 Order Number: [id number] Reading MD: LOUIS RODGERS M.D. Measurements Intervals [place] Rate: 100 P: 54 VT: 140 QRS: 47 QRSD: 68 T: 57 QT: 302 QTc: 359 Interpretive Statements 1120 Sinus tachycardia 8305 Short QTc interval 9150 abnormal ECG Compared to ECG 01/26/2025 12:10:31 No significant changes Electronically Signed On 04-16-2025 10:44:25 EST by LOUIS RODGERS M.D.
--- NOTE | 2025-04-16 10:01 | ED.GENADUL1 ---
HPI HPI - General Adult General Chief complaint: Anxiety Stated complaint: ANXIETY Time Seen by Provider: 04/16/25 09:52 Source: patient Mode of arrival: ambulance History of Present Illness HPI narrative: 60-year-old female presents for anxiety. She has a history of bipolar disorder and stopped taking her medications a few weeks ago. She is not suicidal and has not done anything to harm herself. Other than feeling anxious she does not seem to have any physical complaints. She does not know why she stopped taking her medications. Related Data Home Medications ?Medication ?Instructions ?Recorded ?Confirmed buspirone 10 mg tablet 10 mg PO TID 10/10/24 10/10/24 doxepin 50 mg capsule 50 mg PO .QHS 10/10/24 10/10/24 gabapentin 100 mg capsule 200 mg PO TID 10/10/24 10/10/24 hydroxyzine pamoate 50 mg capsule 50 mg PO BID PRN anxiety 10/10/24 10/10/24 lamotrigine 25 mg tablet 50 mg PO DAILY 10/10/24 10/10/24 quetiapine 25 mg tablet 25 mg PO TID 10/10/24 10/10/24 trazodone 50 mg tablet 50 mg PO DAILY 10/10/24 10/10/24 venlafaxine 75 mg capsule,extended 75 mg PO DAILY 10/10/24 10/10/24 release 24 hr paroxetine HCl 20 mg tablet mg PO 04/16/25 Allergies Allergy/AdvReac Type Severity Reaction Status Date / Time fibramycin Allergy Unknown Unknown Uncoded 01/26/25 11:41 Opioid HPI Opioid Management Most Recent Opioid Data: Last Pain Scale 4 12/14/23, 14:40 Ur Phencyclidine Scrn, (NEGATIVE) Negative Today, 09:55 Review of Systems ROS Narrative A ten point review of systems is negative except as noted above. PFSH PFSH Social History Little interest or pleasure in doing things: several days Feeling down, depressed, or hopeless: several days Exam Narrative Exam Narrative: Nurses note and vital signs reviewed General:The patient appears anxious and is pacing around the room. Skin:Warm, dry, no pallor noted.There is no rash noted. Head:Normocephalic, atraumatic Eye: Normal conjunctiva, no drainage Ears, Nose, Mouth, and Throat: oral mucosa is moist. Nares patent. Mouth without vesicles. Ear canals patent. Tm?s without Erythema Cardiovascular:Regular Rate and Rhythm Respiratory:Patient is in no distress, no accessory muscle use, lungs are clear to auscultation, no wheezing, rales or rhonchi Back:non-tender GI: Soft and nontender Musculoskeletal: The patient has no evidence of calf tenderness, no pitting edema, symmetrical pulses noted bilaterally Neurological:A&O x4, normal speech, mildly tremorous Psychiatric:Cooperative Constitutional Vital Signs, click to edit/add: Last Vital Signs Temp 98.7 F 04/16/25 09:46 Pulse 114 H 04/16/25 09:46 Resp 20 04/16/25 09:46 BP 164/98 H 04/16/25 09:46 Pulse Ox 98 04/16/25 09:46 O2 Del Method Room Air 04/16/25 09:46 Course Vital Signs Vital signs: Vital Signs Temperature 98.7 F 04/16/25 09:46 Pulse Rate 114 H 04/16/25 09:46 Respiratory Rate 20 04/16/25 09:46 Blood Pressure 164/98 H 04/16/25 09:46 Pulse Oximetry 98 04/16/25 09:46 Oxygen Delivery Method Room Air 04/16/25 09:46 Temperature 98.7 F 04/16/25 09:46 Pulse Rate 114 H 04/16/25 09:46 Respiratory Rate 20 04/16/25 09:46 Blood Pressure 164/98 H 04/16/25 09:46 Pulse Oximetry 98 04/16/25 09:46 Oxygen Delivery Method Room Air 04/16/25 09:46 Medical Decision Making MDM Narrative Medical decision making narrative: The patient was evaluated by mental health services and they have ultimately decided that the patient will be admitted at [address]. at [facility]. She is agreeable and stable for transfer. The patient is medically cleared. Differential Diagnosis Differential Diagnosis: Bipolar disorder, anxiety Lab Data Lab results reviewed: Yes I reviewed the patient's lab results Labs: Lab Results 04/16/25 04/16/25 Range/Units 09:55 10:13 WBC 10.8 (4.0-11.0) 10^3/uL RBC 4.81 (4.20-5.40) 10^6/uL Hgb 15.0 (12.0-16.0) g/dL Hct 45.2 (36.0-48.0) % MCV 94.0 (81.0-99.0) fL MCH 31.2 (26.7-34.0) pg MCHC 33.2 (29.9-35.2) g/dL RDW 13.5 (11.0-15.0) % Plt Count 493 H (150-450) 10^3/uL MPV 10.2 (9.5-13.5) fL Neut % (Auto) 65.9 (43.0-75.0) % Lymph % (Auto) 20.6 (20.5-60.0) % [place] % (Auto) 10.7 (1.7-12.0) % Eos % (Auto) 1.1 (0.9-7.0) % Baso % (Auto) 1.1 (0.2-2.0) % Neut # (Auto) 7.2 H (1.4-6.5) 10^3/uL Lymph # (Auto) 2.2 (1.2-3.8) 10^3/uL [place] # (Auto) 1.2 H (0.3-0.8) 10^3/uL Eos # (Auto) 0.1 (0.0-0.7) 10^3/uL Baso # (Auto) 0.1 (0.0-0.1) 10^3/uL Abs Immat Gran (auto) 0.06 H (0.00-0.03) 10^3/uL Imm/Tot Granulo (auto) 0.6 H (0.0-0.5) % Sodium 140 (136-145) mmol/L Potassium 3.9 (3.5-5.1) mmol/L Chloride 101 (98-107) mmol/L Carbon Dioxide 28.2 (21.0-32.0) mmol/L Anion Gap 14.7 BUN 24.0 H (7.0-18.0) mg/dL Creatinine 0.69 (0.55-1.02) mg/dL Est GFR ( Amer) >60 (>=60 mL/min/1.73m^2) Est GFR (Non-Af Amer) >60 (>=60 mL/min/1.73m^2) BUN/Creatinine Ratio 34.8 Glucose 69 L (74-106) mg/dL Calcium 10.1 (8.5-10.1) mg/dL Urine Color Lt. yellow (YELLOW) Urine Clarity Clear (CLEAR) Urine pH 6.0 (5.0-9.0) Ur Specific [place] 1.020 (1.005-1.025) Urine Protein Negative (NEG/TRACE) mg/dL Urine Glucose (UA) Negative (NEGATIVE) mg/dL Urine Ketones Negative (NEGATIVE) mg/dL Urine Occult Blood Small A (NEGATIVE) Urine Nitrite Negative (NEGATIVE) Urine Bilirubin Negative (NEGATIVE) Urine Urobilinogen 0.2 (0.2-1.0) EU/dL Ur Leukocyte Esterase Negative (NEGATIVE) Urine RBC 0-2 (0-2) #/HPF Urine WBC None seen (NONE SEEN) #/HPF Ur Squamous Epith Cells Rare (NONE/RARE) #/LPF Urine Crystals None seen (None Seen) #/HPF Urine Bacteria Trace A (NONE SEEN) #/HPF Urine Casts None seen (NONE SEEN) #/LPF Urine Mucus None seen (NONE SEEN) Salicylates 5.0 (<=19.9) mg/dL Urine Opiates Screen Negative (NEGATIVE) Ur Buprenorphine Scrn Negative (NEGATIVE) Ur Oxycodone Screen Negative (NEGATIVE) Urine Methadone Screen Negative (NEGATIVE) Acetaminophen <2.0 L (10.0-30.0) ug/mL Ur Barbiturates Screen Negative (NEGATIVE) U Tricyclic Antidepress Negative (NEGATIVE) Ur Phencyclidine Scrn Negative (NEGATIVE) Ur Amphetamines Screen Negative (NEGATIVE) U Methamphetamines Scrn Negative (NEGATIVE) U Benzodiazepines Scrn Negative (NEGATIVE) Urine Cocaine Screen Negative (NEGATIVE) U Cannabinoids Screen Positive A (NEGATIVE) Ethanol Quant <3 mg/dL ECG Data Attestation: I personally reviewed and interpreted this ECG as follows: (EKG on my interpretation shows sinus rhythm with a rate of 100.) Discharge Plan Discharge Chief Complaint: Anxiety Clinical Impression: Bipolar disorder Patient Disposition: [facility] Time of Disposition Decision: 14:38 Discharge Location: [facility] Condition: Fair Mode of Transportation: EMS
[2025-04-16] MEDS: DIAZEPAM 10 MG/2 ML SYRINGE 5 MG IM (10:31)
--- OUTSIDE RECORDS SUMMARY | 2025-04-16 10:44 | XMS_ITS | CCD ---
Author Organization [facility] Informat ion [facility] Care Team Providers Care Director Of Community Services Name Role Phone DOROTHY Walker Primary Care Provider MD Fermin Renteria Admit Provider [phone] MD Fermin Renteria Attending Provider [phone] DOROTHY Walker Primary Care Provider MD Trevin Renteria Attending Provider MD Farhat Kirby Admit Provider [phone] MD Farhat Kirby Attending Provider NO FAMILY, PHYSICIAN Primary Care Provider Unava ilable MD Trevin Renteria Attending Provider DOROTHY Walker Primary Care Provider MD Tervin Renteria Admit Provider Juli Oliveira MD Attending Unavailable Mario Alberto MCGRAW, Marianne Corral Referring Unavailable Meghann Jacome PA-C Attending Unavailab joya MCGRAW, Marianne Corral Attending Unavailable Korina Walker APRN Primary Care Provider Trevin Renteria MD Attending Provider NO FAMILY, PHYSICIAN Primary Care Provider Unava ilTrevin Luis MD Admit Provider Farhat Kirby MD Attending Provider Korina Walker APRN Primary Care Provider Myra GAYTAN, Trevin Attending Provider Kofi GAYTAN, Farhat Admit Provider Korina Walker APRN Primary Care Provider Myra GAYTAN, Trevin Attending Provider NO FAMILY, PHYSICIAN Primary Care Provider Unava ilable Myra GAYTAN, Trevin Admit Provider Trevin Renteria MD Other Provider Farhat Kirby MD Attending Provider Farhat Kirby Attending Unavailable Farhat Kirby Admitting Unavailable NO FAMILY, PHYSICIAN Primary Care Unavailable Farhat Kirby Attending Unavailable Trevin Renteria Admitting Unavailab le NO FAMILY, PHYSICIAN Primary Care Unavailable Korina Walker Primary Care Unavailable Trevin Renteria Attending Unavailab le Homero Renteriahman Admitting Unavailab le Trevin Renteria Attending Unavailab le Rhys Renteriarahman Admitting Unavailab le NO FAMILY, PHYSICIAN Primary Care Unavailable Allergies Allergy ClassificationReported Allergen(s)Allergy TypeDate of OnsetReaction(s) Facility (7 sources)Calcium; Translations: [calcium]Drug Nlzmbar05-65-1086Aevspxr ReactionOhiohealth Arthur G.[facility]. Bing, Md, Cancer Center (7 sources)Doxycycline; Translations: [doxycycline]Drug Khmoggr19-97-8008RmhkftqGalion [facility] Medications Current Medications MedicationDrug Class(es)DatesSig (Normalized)Sig (Original)doxepin hydrochloride 50 mg oral capsule (12 sources)Tricyclic AntidepressantStart: 98-16-4879vfma 50 mg by mouth once daily at bedtimeDoxepin Active 50 MG PO Daily at bedtime February 05, 2024 12:00amStart: 01-15-2024 End: 69-21-7055lxna 1 capsule by mouth twice dailyDoxepin 10 mg Capsule Discontinued 10 MG PO Twice Daily at 0900 and 1400 30 January 15, 2024 12: 00am February 05, 2024 2:03pmStart: 01-15-2024 End: 11-96-0312lbwk 1 capsule by mouth once daily at bedtimeDoxepin 25 mg Capsule Discontinued 25 MG PO Daily at bedtime January 15, 2024 12:00am February 05, 2024 2:03pmgabapentin 300 mg oral capsule (12 sources)Anti-epileptic AgentStart: 60-13-2855nfnq 1 capsule by mouth three times dailyStart: 10-26-2024 End: 66-71-4537xgbo 1 capsule by mouth three times dailyGabapentin 400 mg Capsule Discontinued 400 MG PO Three times daily October 26, 2024 12:00am February 07, 2025 12:47pmStart: 08-30-2024 End: 41-22-7332cxhe 2 capsules by mouth three times dailyGabapentin 100 mg Capsule Discontinued 200 MG PO Three times daily August 30, 2024 12:00am October 26, 2024 12:34pmStart: 60-54-3947wgqj 400 mg by mouth three times daily Gabapentin Active 400 MG PO Three times daily February 05, 2024 12:00am Start: 01-15-2024 End: 87-74-5082kdhq 2 capsules by mouth three times dailyGabapentin 100 mg Capsule Discontinued 200 MG PO Three times daily January 15, 2024 12:00am February 05, 2024 2:03pmStart: 01-15-2024 End: 76-64-9281qhln 200 mg by mouth three times dailyGabapentin Discontinued 200 MG PO Three times daily January 15, 2024 12:00am January 2:03pm24 hr nicotine 0.875 mg/hr transdermal system (11 sources)Cholinergic Nicotinic AgonistStart: 59-88-7365imcbt 1 dose transdermal route every twenty-four hoursStart: 08-30-2024 End: 80-18-0139hrqoh 1 dose transdermal route every twenty-four hoursNicotine 21 mg/24 hr Patch 24 Hour Discontinued 21 MG TRANSDERML Daily August 30, 2024 12:00am October 10, 2024 1:17pmStart: 48-51-9997Qyjvkfal (Polacrilex) Active 2 MG BUCCAL Q2H February 05, 2024 12:00amStart: 12-28-2022 End: 32-56-3165uprvx 1 dose transdermal route every twenty-four hoursNicotine 21 mg/24 hr Patch 24 Hour Discontinued 1 EACH TRANSDERML Daily December 28, 2022 12:00am January 05, 2024 3:28pmStart: 12-28-2022 End: 54-45-0273Hbexzgij Discontinued 1 EACH TRANSDERML Daily December 28, 2022 12:00am January 05, 2024 3:28pmPARoxetine hydrochloride 20 mg oral tablet (1 source)Serotonin Reuptake InhibitorStart: 69-97-9094nyly 1 tablet by mouth once daily in the morningQUEtiapine 25 mg oral tablet (15 sources)Atypical AntipsychoticStart: 27-36-2139iunx 1 tablet by mouth twice dailyStart: 44-48-9493nbcy 1 tablet by mouth once daily at bedtimeStart: 08-30-2024 End: 47-38-0157iqxo 1 tablet by mouth three times dailyQuetiapine 25 mg Tablet Discontinued 25 MG PO Three times daily August 30, 2024 12:00am 2024 11:52amStart: 65-72-0045axnw 25 mg by mouth once dailyQuetiapine Active 25 MG PO Daily February 05, 2024 12:00amStart: 21-16-5959rkmr 50 mg by mouth at bedtimeQuetiapine Active 50 MG PO Bedtime February 05, 2024 12:00am Start: 12-28-2022 End: 0718ujmx 1 tablet by mouth three times dailyQuetiapine 50 mg Tablet Discontinued 50 MG PO Three times daily December 28, 2022 12:00am January 05, 2024 3:28pmtraZODone hydrochloride 50 mg oral tablet (9 sources)Serotonin Reuptake InhibitorStart: 84-32-2895qqrk 1 tablet by mouth once daily at bedtime as neededStart: 33-24-2409hlnq 50 mg by mouth once daily at bedtimeTrazodone Active 50 MG PO Daily at bedtime February 05, 2024 12:00amStart: 12-28-2022 End: 54-95-7679zoio 1 tablet by mouth once daily at bedtimeTrazodone 100 mg tablet Discontinued 100 MG PO Daily at bedtime December 28, 2022 12:00am January 05, 2024 3:28pm Completed/Discontinued Medications MedicationDrug Class(es)DatesSig (Normalized)Sig (Original)busPIRone hydrochloride 10 mg oral tablet (6 sources)Start: 10-26-2024 End: 85-89-3375kzaf 2 tablets by mouth three times dailyBuspirone 10 mg Tablet Discontinued 20 MG PO Three times daily 180 October 26, 2024 12:00am February 07, 2025 12:47pmStart: 08-30-2024 End: 72-32-8544gpbv 1 tablet by mouth three times dailyBuspirone 10 mg Tablet Discontinued 10 MG PO Three times daily August 30, 2024 12:00am October 162024 12:34pmStart: 27-89-2607lshr 15 mg by mouth three times dailyBuspirone Active 15 MG PO Three times daily February 08, 2024 12:00amcholecalciferol 0.025 mg oral tablet (6 sources)Vitamin DStart: 01-15-2024 End: 57-25-5414hcbm 1 tablet by mouth once dailyCholecalciferol (Vitamin D3) 25 mcg (1,000 unit) Tablet Discontinued 50 MCG PO Daily 60 January 15, 2024 12:00am February 05, 2024 2:02pmDULoxetine 30 mg delayed release oral capsule (10 sources)Serotonin and Norepinephrine Reuptake InhibitorStart: 01-15-2024 End: 24-04-0912yxic 1 capsule by mouth once dailyDuloxetine 30 mg Capsule,Delayed Release(Dr/Ec) Discontinued 30 MG PO Daily January 142:00am February 05, 2024 2:03pmStart: 01-15-2024 End: 66-33-8897ssmr 1 capsule by mouth once daily at bedtimeDuloxetine 60 mg Capsule,Delayed Release(Dr/Ec) Discontinued 60 MG PO Daily at bedtime 2023 12:00February 05, 2024 2:03pmergocalciferol 1.25 mg oral capsule (6 sources)Provitamin D2 CompoundStart: 12-28-2022 End: 74-87-7599fhxw 1 capsule by mouth every weekErgocalciferol (Vitamin D2) 1,250 mcg (50,000 unit) capsule Discontinued 1250 MCG PO every week 10 14December 28, 2022 12:00am January 05, 2024 3:27pmescitalopram 20 mg oral tablet (6 sources)Serotonin Reuptake InhibitorStart: 12-28-2022 End: 90-56-0644nnwl 1 tablet by mouth once daily in the morningEscitalopram Oxalate 20 mg Tablet Discontinued 20 MG PO Every morning December 28, 2022 12:00am January 05, 2024 3:27pmhydrOXYzine pamoate 25 mg oral capsule (18 sources)AntihistamineStart: 01-05-2024 End: 64-24-6290tgan 1 capsule by mouth every eight hours as needed for anxiety Hydroxyzine Pamoate 25 mg capsule Discontinued 25 MG PO Every 8 hours as needed for anxiety January 05, 2024 12:00am February 05, 2024 2:02pmStart: 12-28-2022 End: 20-71-1401mdlr 1 capsule by mouth twice daily as needed for anxiety Hydroxyzine Pamoate 50 mg capsule Discontinued 50 MG PO Twice daily as needed for anxiety 60 2022 12:00am January 05, 2024 3:27pmStart: 12-17-2022 End: 56-66-1755hfok 1 tablet by mouth once daily as needed for anxiety Hydroxyzine Hcl 50 mg tablet Discontinued 50 MG PO Daily as needed for Anxiety December 17, 2022 12:00am December 28, 2022 10:23amlamoTRIgine 25 mg oral tablet (12 sources)Mood Stabilizer, Anti-epileptic AgentStart: 12-17-2022 End: 97-31-1917chly 1 tablet by mouth once daily at bedtimeLamotrigine 25 mg tablet Discontinued 25 MG PO Daily at bedtime December 28, 2022 10:30am January 05, 2024 3:28pmmirtazapine 15 mg oral tablet (11 sources)Start: 01-15-2024 End: 43-39-5684cntf 1 tablet by mouth once daily at bedtimeMirtazapine 15 mg Tablet Discontinued 15 MG PO Daily at bedtime January 15, 2024 12:00am February 05, 2024 2:03pmStart: 12-28-2022 End: 55-00-4837hnyt 1 tablet by mouth once daily at bedtimeMirtazapine 30 mg Tablet Discontinued 30 MG PO Daily at bedtime December 28, 2022 12:00am January 05, 2024 3:28pmOLANZapine 5 mg oral tablet (5 sources)Atypical AntipsychoticStart: 01-15-2024 End: 25-18-4017lhdh 1 tablet by mouth every six hours as neededOlanzapine 5 mg Tablet Discontinued 5 MG PO Q6H as needed for Agitation January 15, 2024 12:00am February 05, 2024 2:03pmpropranolol hydrochloride 10 mg oral tablet (2 sources)beta-Adrenergic BlockerStart: 10-26-2024 End: 62-40-6328bike 1 tablet by mouth twice dailyPropranolol 10 mg Tablet Discontinued 10 MG PO Twice daily 60 October 26, 2024 12:00am February 07, 2025 12:47pmrisperiDONE 1 mg oral tablet (6 sources)Atypical AntipsychoticStart: 12-17-2022 End: 20-59-8117rzjm 1 tablet by mouth at bedtimeRisperidone 1 mg tablet Discontinued 1 MG PO Bedtime December 17, 2022 12:00am December 28, 2022 10:23am sertraline 50 mg oral tablet (6 sources)Serotonin Reuptake InhibitorStart: 12-17-2022 End: 78-46-2713invu 1 tablet by mouth once dailySertraline 50 mg tablet Discontinued 50 MG PO Daily December 17, 2022 12:00am December 28, 2022 10:23am24 hr venlafaxine 150 mg extended release oral capsule (8 sources)Serotonin and Norepinephrine Reuptake InhibitorStart: 10-26-2024 End: 23-22-3378vxvg 1 capsule by mouth once dailyVenlafaxine (Effexor Xr) 150 mg capsule,extended release 24hr Discontinued 150 MG PO Daily October 26, 2024 12:00am February 07, 2025 12:47pmStart: 10-26-2024 End: 65-17-8092bdje 1 capsule by mouth once dailyVenlafaxine 37.5 mg Capsule,Extended Release 24hr Discontinued 37.5 MG PO Daily October 26 12:00am February 07, 2025 12:47pmStart: 08-30-2024 End: 89-34-4941esuv 1 capsule by mouth once dailyVenlafaxine 75 mg Capsule,Extended Release 24hr Discontinued 75 MG PO Daily August 30, 2024 12:00am February 07, 2025 12:47pmStart: 20-07-1447ysxm 150 mg by mouth once dailyVenlafaxine Active 150 MG PO Daily February 05, 2024 12:00am Problems Active Problems Problem ClassificationProblemDateDocumented DateEpisodic/ChronicAlcohol-related disorders (9 sources)Alcoholism; Translations: [Alcohol dependence, uncomplicated]Onset: 643975-65-5373NbdofyoSynsofd disorders (10 sources)Anxiety; Translations: [Anxiety disorder, unspecified]Onset: 088801-10-1256CbnkyypUmkr disorders (20 sources)Bipolar II disorder; Translations: [Bipolar II disorder]Onset: 501784-55-7231GcxxkugEyuvctsrqvcl (2 sources)Call for an appointment if you have any medical concerns.Unclassified (1 source)business office manager will call you on the next between 8am & 5pm. If you miss this call please call back as soon as possible. Past or Other Problems Problem ClassificationProblemDateDocumented DateEpisodic/ChronicSuicide and intentional self-inflicted injury (4 sources)Suicidal thoughts; Translations: [Suicidal ideations]Onset: 850444-81-5384Ykaljyct Results Test NameValueInterpretationReference RangeFacilityCholesterol [Mass/volume] in Serum or PlasmaOrdered By: Farhat Kirby on 50-53-9593Wdvhkdcojnw [Mass/Vol] Cholesterol [Mass/volume] in Serum or Qlbbul504-324WrzdkfjvuOhiohealth Arthur G.H. Bing, Md, Cancer CenterComment on above:Chol less than 200 mg/dl low riskChol 201-239 mg/dl borderline riskChol 240 mg/dl and greater high riskCholesterol in HDL [Mass/volume] in Serum or PlasmaOrdered By: Farhat Kirby on 10-11-2024 Cholesterol in HDL [Mass/Vol]Serum or plasma high density lipoprotein (HDL) cholesterol nbotauqosoa43-69RxvpnzutdOhiohealth Arthur G.H. Bing, Md, Cancer CenterComment on above: HDL CHOL ATP-III CLASSIFICATION Cardiovascular RiskHDL > or equal to 60 mg/dL LOWHDL < 40 mg/dL HIGHCholesterol in LDL Calc [Mass/Vol]Ordered By: Farhat Kirby on 72-06-6259Uqvoliqckjn in LDL [Mass/Vol]Cholesterol in LDL [Mass/volume] in Serum or Plasma by calculationHigh0-100Ohio[facility]. [facility], Md, Cancer CenterComment on above:LDL ATP III CLASSIFICATIONLDL less than 100 mg/dL OptimalLDL 100-129 mg/dL Near or above mfbjxzpZHG927-249 mg/dL Borderline highLDL 160-189 mg/dL HighLDL greater than 189 mg/dL Very highCholesterol in VLDL Calc [Mass/Vol]Ordered By: Farhat Kirby on 26-03-1142Ksdelmryjuh in VLDL [Mass/Vol]Cholesterol in VLDL [Mass/volume] in Serum or Plasma by calculation [facility] Md, Cancer CenterLipid Panelon 93-71-3953Hnwxawotkqf [Mass/Vol] 197 mg/sSJppdqy796-165Njc [facility] Physician GroupComment on above:Result Comment: Chol less than 200 mg/dl low risk Chol 201-239 mg/dl borderline risk Chol 240 mg/dl and greater high riskPerformed By: #### TSH3 wRFLX, LIPID, [id number] #### [facility] [address] [place] [address] USACholesterol in HDL [Mass/Vol]57 mg/pZUuuiok24-07Jkn [facility] Physician GroupComment on above:Result Comment: HDL CHOL ATP-III CLASSIFICATION Cardiovascular Risk HDL > or equal to 60 mg/dL LOW HDL < 40 mg/dL HIGHPerformed By: #### TSH3 wRFLX, LIPID, [id number] #### [facility] [address] [place] [address] USACholesterol.total/Cholesterol in HDL [Mass ratio]3.5 {ratio}Normal<5.0The [facility] Physician GroupComment on above:Performed By: #### TSH3 wRFLX, LIPID, [id number] #### [facility] [address] [place] [address] [place]ALDL Cholesterol,Ztqgueiphi154 mg/dLHigh0-100The [facility] Physician GroupComment on above:Result Comment: LDL ATP III CLASSIFICATION LDL less than 100 mg/dL Optimal LDL 100-129 mg/dL Near or above optimal LDL 130-159 mg/dL Borderline high LDL 160-189 mg/dL High LDL greater than 189 mg/dL Very highPerformed By: #### TSH3 wRFLX, LIPID, [id number] #### [facility] [address] [place] [address] USATriglyceride w/Mjholh86 mg/dLNormal0-149The [facility] Physician GroupComment on above:Result Comment: TRIG ATP III CLASSIFICATION TRIG less than 150 mg/dL Normal TRIG 150-199 mg/dL Borderline high TRIG 200-500 mg/dL High TRIG greater than 500 mg/dL Very high Standard traceable to the Center for Disease Conrtrol and Prevention (CDC) test method.Performed By: #### TSH3 wRFLX, LIPID, [id number] #### [facility] [address] [place] [id number] USAVLDL UKQNJVFICSZ01 mg/dLNormalThe [facility] Physician GroupComment on above:Performed By: #### TSH3 wRFLX, LIPID, [id number] #### [address] [address] USASerum or plasma total cholesterol/high density lipoprotein (HDL) cholesterol mass ratOrdered By: Farhat Kirby on 10-11-2024 Cholesterol.total/Cholesterol in HDL [Mass ratio]Serum or plasma total cholesterol/high density lipoprotein (HDL) cholesterol mass rat<5.0Ohio[facility], Md, Cancer CenterThyroid Stim Hormone w/Rflxon 30-41-8187Pwtfzoz Stim Hormone w/Rflx2.70 u[iU]/mLNormal0.45-5.33The [facility] Physician GroupComment on above:Performed By: #### TSH3 wRFLX, LIPID, [id number] #### [place] [id number] USAThyrotropin [Units/volume] in Serum or PlasmaOrdered By: Farhat Kirby on 24-63-3553OXE QnThyrotropin [Units/volume] in Serum or Plasma 0.45-5.33Ohio[facility], Md, Cancer CenterTriglyceride [Mass/volume] in Serum or PlasmaOrdered By: Farhat Kirby on 22-50-4829Rtksllmqehir [Mass/Vol] Triglyceride [Mass/volume] in Serum or Plasma0-149Ohio[facility] Md, Cancer CenterComment on above:TRIG ATP III CLASSIFICATIONTRIG less than 150 mg/dL NormalTRIG 150-199 mg/dL Borderline highTRIG 200-500 mg/dL High TRIG greater than 500 mg/dL Very highStandard traceable to the Center for Disease Conrtrol and Prevention (CDC) test method.Vitamin D 25 Hydroxy Totalon 62-26-3033Heykfob D 25 Hydroxy Total20.5 ng/tLQej73-026Qts [facility] Physician GroupComment on above:Result Comment: VITAMIN D STATUS 25(OH)VITAMIN D RANGE (ng/mL) Deficient <20 Insufficient 20 to <30 Sufficient 30 to 100 Reference: Yamil Garcias, Mckenzie MAE, et al. Evaluation,treatment, and prevention of vitamin D deficiency; an Endocrine Society clinical practice guideline. JCEM. 2010; 96(7):1911-30. PERFORMED BY: [place] [address] PATHOLOGIST BLENDING MACHINE OPERATOR PAVAN FLORES M.D.Performed By: #### TSH3 wRFLX, LIPID, [id number] #### [place] [address] USAVitamin D+Metabolites [Mass/volume] in Serum or Plasma Ordered By: Farhatleanne Spragueus on 01-22-5094Hmqxxfe D+Metabolites [Mass/Vol]Vitamin D+Metabolites [Mass/volume] in Serum or ObrzitFvl41-905UdakhtwavOhiohealth Arthur G.H. Bing, Md, Cancer CenterComment on above:VITAMIN D STATUS 25(OH)VITAMIN D RANGE (ng/mL) Deficient <20 Insufficient 20 to <12Sswnukwimc50 to 100Reference: Yamil Garcias, Mckenzie MAE, et al. Evaluation,treatment, and prevention of vitamin D deficiency; an Endocrine Society clinical practice guideline. JCEM. 2010; 96(7):1911-30.ECG 12 lead ECGon 70-36-8404AZG 12 lead [facility] Main [address] [address] Electrocardiograph Report Signed Patient: Bridgette Wang MR#: [id number] 2 : 1965 Acct:[id number] Age/Sex: 59 / F ADM Date: 10/10/24 Loc: Room: [address] [place] [address] Type: ADM IN Attending Dr: Farhat Kirby MD Ordering Provider: Farhat Kirby MD Date of Service: 10/10/24 ECG/ECG 12 lead ECG: New admit Copies to: Test Reason : Blood Pressure : */* mmHG Vent. Rate : 78 BPM Atrial Rate : 78 BPM P-R Int : 150 ms QRS Dur : 74 ms QT Int : 360 ms P-R-T Axes : 61 35 53 degrees QTcB Int : 410 ms Normal sinus rhythm Normal ECG When compared with ECG of 30-Jan-2024 15:09, No significant change was found Confirmed by FRANNIE GOMEZ MD ([id number]) on 10/11/2024 5:32:27 AM Referred By: Electronically Signed By: FRANNIE GOMEZ MD Transcribed By: MUS Signed By Frannie Gomez MD 0 10/11/[address] [place] [address] Physician GroupED Clinical Summaryon 02-14-2024 ED Clinical Summary [address] [address] ED Clinical Summary Person Information Name: Bridgette Wang Jeniffer/[facility] Age: 59 Years : 1965 Sex: Female PCP: Marital Status: Single Phone: Race: White Ethnicity: Not or Language: Dominican Visit Reason: Weakness; covid Acuity: 4 Enc Type: Emergency Med Service: Emergency Medicine Arrival: 2024 21:19:34 Discharge: 02/14/2024 00:18:00 LOS: 000 02:59 Checkin: 2024 21:19:34 Checkout: 02/14/2024 00:18:00 Dispo Type: Home or Self Care Address: [address] [place] [phone] Provider Notes: Diagnosis: 1:COVID Problems No Problems [...] range between ( 27.2 and 40.8 ) Mcmullen Auto: 11.0 % -- Normal range between [...] range between ( 36.0 and 46.0 ) Mcmullen Absolute: 0.7 x10 MCH: 33.1 pg -- [...] (given by mouth) 3 times a day asneeded as needed for cough for 10 Days. Refills: 0. Last Dose: Medications that have not changed Other Medications naproxen (naproxen 375 mg oral tablet) 1 Tabs Oral (given by mouth) 2 times a day for 7 Days. Refills: 0. Last Dose: Printed Prescriptions benzonatate (Tessalon Perles 100 mg oral capsule) 1 Capsules Oral (given by mouth) 3 times a day asneeded as needed for cough for 10 Days. [...] days for reevaluation of symptoms. You can takeTy (more content not included)...[facility].UA Microscp Aon 43-07-3222UK RBC Quant0 /HPFNormal0-5BMagruder HospitalComment on above:Performed By: #### .Urinalysis Microscopic Auto #### [address] [address]PQ Squepi Cells Quant2 /HPFNormal0-29The [facility] HospitalComment on above:Performed By: #### .Urinalysis Microscopic Auto #### [address] [address]HY WBC Quant0 /HPFNormal0-5BMagruder Hospital Comment on above:Performed By: #### .Urinalysis Microscopic Auto #### [address] [address].eGFRon 83-24-8030NDQ/1.73 sq M.predicted MDRD (S/P/Bld) [Vol rate/Area]mL/min/{1.73_m2}Normal>=60The [facility] HospitalComment on above:Result Comment: [facility] have implemented the eGFR calculation approach that does not havea coefficient for race and that conforms to the NKF- ASN Task Force Recommendations. Stages of Chronic Kidney [...] maximum of SCr/? or 1 Age = yearsPerformed By: #### EGFR #### [address] [address]Caurm Metabolic Profileon 90-37-9118Zpkblxeodg [Mass/Vol]0.76 mg/dLNormal0.44-1.03The [facility] HospitalComment on above:Performed By: #### EGFR #### [address] [address]Rcqe nitrogen [Mass/Vol]18 mg/dLNormal8-26The [facility] HospitalComment on above:Performed By: #### EGFR #### [address] [address]Dpsb nitrogen/Creatinine [Mass ratio]23.7 mg/rnIzcz22.0-20.0 The [facility] HospitalComment on above:Performed By: #### EGFR #### [address] [address]Yheuv gap [Moles/Vol]8 mmol/LNormal4-12The [facility] HospitalComment on above:Performed By: #### EGFR #### [address] [address]Atbyqow [Mass/Vol]8.3 mg/dLLow8.5-10.3BMagruder HospitalComment on above:Performed By: #### EGFR #### [address] [address]Qaiejuhr [Moles/Vol]103 mmol/ZOmwvun27-813GhlwytxopThe Bellevue HospitalComment on above:Performed By: #### EGFR #### [address] [address]EW5 [Moles/Vol]22 mmol/EXkkxpp43-75YbyevlsqkThe Bellevue HospitalComment on above:Performed By: #### EGFR #### [address] [address]Twwntkz [Mass/Vol]87 mg/tUOiaqez35-54AjxgyvniqThe Bellevue HospitalComment on above:Performed By: #### EGFR #### [address] [address]Ztbscgtpu [Moles/Vol]3.9 mmol/LNormal3.4-4.8BMagruder HospitalComment on above:Performed By: #### EGFR #### [address] [address]Msfoes [Moles/Vol]133 mmol/ZKwydos576-728QyibgzayjThe Bellevue HospitalComment on above:Performed By: #### EGFR #### [address] [address]ZJX w/ Diffon 36-37-0259Sktfpopjsbc distribution width (RBC) [Ratio]14.2 %Qqmbdy65.6-14.8BMagruder HospitalComment on above: Performed By: #### CBC #### [address] [address]Vycakibaqm (Bld) [Volume fraction]32.0 %Low36.0-46.0The [facility] HospitalComment on above:Performed By: #### CBC #### [address] [address]Xfxgllpcdv (Bld) [Mass/Vol]11.0 g/dLLow12.0-16.0The [facility] HospitalComment on above:Performed By: #### CBC #### [address] [address]JKA (RBC) [Entitic mass]33.1 bqPsautz35.0-35.0The [facility] HospitalComment on above:Performed By: #### CBC #### [address] [address]PIOL15.3 %Gploxi73.0-37.0The [facility] HospitalComment on above:Performed By: #### CBC #### [address] [address]JIT (RBC) [Entitic vol]96.4 vYKdsvhh37.0-100.0The [facility] HospitalComment on above:Performed By: #### CBC #### [address] [address]Srceiwtm067 x10*3/hjNAadphn832-842WjtqoojxyThe Bellevue HospitalComment on above:Performed By: #### CBC #### [address] [address]Fbfdivyo mean volume (Bld) [Entitic vol]8.2 fLNormal6.7-10.6 The [facility] HospitalComment on above:Performed By: #### CBC #### [address] [address]OTB7.32 x10*6/mcLLow3.80-5.20[facility] Comment on above:Performed By: #### CBC #### [address] [address]WLF9.4 x10*3/mcLNormal4.5-11.0[facility] Comment on above:Performed By: #### CBC #### [address], [place] [id number] Rapidon [id number] ONLY Result Called?YesCritically abnormalThe Bellevue HospitalComment on above:Result Comment: Test completion time: 2024 22:34:02 EDT Called date and time: 2024 22:34:50 EDT Result called to and read back by: ANDRES ED (First, Last, Title, Location)Performed By: #### [id number] #### [address] [address]Oorjfl for Rapid TestCOVID ExposureNormalThe Bellevue HospitalComment on above:Performed By: #### [id number] #### [address] [address]ZJMP-FlQ-9 (COVID-19) RNA VESNA+probe Ql (Unsp spec)Positive AbnormalNegativeThe Bellevue HospitalComment on above:Result Comment: The 2019 novel coronavirus SARS-CoV-2 target [...] with signs and symptoms of respiratory tract infection.Performed By: #### [id number] #### [address] [address]Gsnf Autoon 86-22-7149Ielm Absolute0.1 x10*3/mcLNormal0.0-0.2 [facility] SystemComment on above:Performed By: #### .Automated Diff #### [address] [address]Tjnuffvyi/100 WBC (Bld)0.9 %Normal0.0-1.5BHenry County Hospital SystemComment on above:Performed By: #### .Automated Diff #### [address] [address]Gsv Absolute0.1 x10*3/mcLNormal0.0-0.4BHenry County Hospital SystemComment on above:Performed By: #### .Automated Diff #### [address] [address]Zgeuxyddsdi/100 WBC (Bld)1.0 %Normal0.0-5.4BHenry County Hospital SystemComment on above:Performed By: #### .Automated Diff #### [address] [address]Xikzx Absolute0.7 x10*3/mcLLow1.0-4.8BHenry County Hospital SystemComment on above:Performed By: #### .Automated Diff #### [address] [address]Fnuwfpwcpvf/100 WBC (Bld)11.0 %Low27.2-40.8BHenry County Hospital SystemComment on above:Performed By: #### .Automated Diff #### [address] [address]Vika Absolute0.7 x10*3/mcLNormal0.1-1.1BHenry County Hospital SystemComment on above:Performed By: #### .Automated Diff #### [address] [address]Ghcrrgrnu/100 WBC (Bld)11.0 %Normal3.7-11.9BHenry County Hospital SystemComment on above:Performed By: #### .Automated Diff #### [address] [address]Ywnsbk Absolute4.9 x10*3/mcLNormal1.8-7.7BMagruder HospitalComment on above:Performed By: #### .Automated Diff #### [address] [address]Irpmth Auto76.1 %High47.2-70.8BMagruder Hospital Comment on above:Performed By: #### .Automated Diff #### [address] [address]LV Clinical Summaryon [id number] Clinical Summary [address] [address] ED Clinical Summary Person Information Name: Bridgette Wang Jeniffer/[facility] Age: 58 Years : 1965 Sex: Female PCP: Marital Status: Single Phone: Race: White Ethnicity: Not or Language: Dominican Visit Reason: Fall; Ankle pain-swelling; Ankle Pain Acuity: 4 Enc Type: Emergency Med Service: Emergency Medicine Arrival: 02/12/2024 22:43:15 Discharge: 2024 00:34:00 LOS: 000 01:51 Checkin: 02/12/2024 22:43:15 Checkout: 2024 00:34:00 Dispo Type: Home or Self Care Address: [address] [place] [phone] Provider Notes: History of Present Illness 88-year-old [...] Address: When: Physician Referral Line Comments: Call [phone] to establish PCP. With: Address: When: Emergency Department Comments: Return to emergency department immediately for any new or worsening symptoms or if symptoms last longer than discussed. Discharge Orders: Discharge Patient 02/12/24 23:48:00 EDT, Discharge to Home, Self, Ankle sprain Patient Education Information: ANKLE SPRAIN (Adult) [facility] Poison Help line: . [facility] Hotline: [place] Tobacco Quit Line: [facility] ([place], [place]) [address]: [phone] [facility] ([place], [place]) [address]: [phone] [facility] [address], [place]: [phone] Berger HospitalED Note-Nursingon [id number] Note-NursingThijacob RN spoke with Courtney from [facility] and informed facility that patient would be returning viacab. Electronically signed by SkagitHayde de leon Osvaldo 02/13/24 00:20 EDTNormAvita Health System Galion HospitalED Note-Physicianon [id number] Note-PhysicianChief Complaint tested positive for covid. having weakness, congestion, and body aches History of Present Illness Patient is an alert, oriented 59-year-old female presenting to the emergency department for evaluation of just generalized weakness, congestion, body aches. Patient is a resident at [facility]. She did test positive for COVID. With patient's complaints of weakness this and even some intermittentchest pain I do feel we need to [...] body aches. Patient is a resident at [facility]. She did test positive for COVID. With patient's complaints of weakness this and even someintermittent chest pain I do feel we need to deal a workup including labs, EKG, and chest x- ray. I also ordered for a urinalysis. Physical assessment reveals S1-S2 heart sounds. Lung sounds are clearthroughout. Chest rise and fall is symmetrical. There is no increased work of breathing. Patient was initially refusing some of the labs and refusing urinalysis stating that she knows that is not whyshe is feeling this way, she states it [...] as needed for cough. You can take alrs-mbl-cbkqlvo Mucinex for any wet cough as needed. Please return to the emergency departmentfor any new or worsening symptoms. Patient verbalized understanding had no further questions or concerns. All were agreeable with thisplan of care. Shared decision making: _The results of pertinent diagnostic studies and exam findings were discussed. The patient's provisional diagnosis and plan of care were discussed with the patient and presentfamily. The patient and/or present family expressed understanding [...] High Lymph Auto 02/13/24 22:24 11.0 Low Mcmullen Auto 02/13/24 22:24 11.0 Eos Auto 02/13/24 22:24 1.0 Basophil Auto 02/13/24 22:24 0.9 Neutro Absolute 02/13/24 22:24 4.9 (more content not included)...NormalThe Bellevue HospitalMyoglobinon 38-46-9179Qxbaalgwp [Mass/Vol]33.4 ng/mLNormalThe Bellevue Hospital Comment on above:Performed By: #### TABITHA #### [facility] [address] [place] [address]Wdbjlpub-Jwd 44-47-0262Khothjan I.cardiac [Mass/Vol]ng/mLNormal 0.00-0.03The Bellevue HospitalComment on above:Result Comment: An increased Troponin-I value, in the absence of myocardial ischemia, may indicate other etiologies of cardiac damage. 99th Percentile Cutoff for Negative/Positive: Negative <= 0.03 Positive >= 0.04Performed By: #### EGFR #### [address], [place] [address]TW w Culture if Indon 24-44-2914Ejgei (U)ColorlessNormalYellow The Bellevue HospitalComment on above:Performed By: #### UCI #### [address], [place] [address]Xoefdzc Ql (U)NegativeNormalNegativeThe Bellevue HospitalComment on above:Performed By: #### UCI #### [address], [place] [address]XH BloodTraceAbnormalNegKettering Health Washington Township Comment on above:Performed By: #### UCI #### [address], [place] [address]ZI ClarityClearNormalClearThe Bellevue HospitalComment on above:Performed By: #### UCI #### [address], [place] [address]SU GlucoseNormalNormalNegativeThe Bellevue Hospital Comment on above:Performed By: #### UCI #### [address], [place] [address]DW Leukocyte EsteraseNegativeNormalNegKettering Health Washington TownshipComment on above:Performed By: #### UCI #### [address], [place] [address]KG NitriteNegativeNormalNegativeThe Bellevue Hospital Comment on above:Performed By: #### UCI #### [address], [place] [address]GZ pH6.7Clhxuu7.5 - 7.8BlanSt. Elizabeth HospitalComment on above:Performed By: #### UCI #### [address], [place] [address]GW ProteinNegativeNormalNegativeThe Bellevue Hospital Comment on above:Performed By: #### UCI #### [address] [address]MZ SourceClean CatchNormalThe Bellevue HospitalComment on above:Performed By: #### UCI #### [address] [address]JH Spec Grav1.318Tkxwst4.003-1.035The Bellevue HospitalComment on above:Performed By: #### UCI #### [address] [address]XU UrobilinogenNormalNormal0.2 - 1.0The Bellevue HospitalComment on above:Performed By: #### UCI #### [address] [address]Hwpizihdiybz (U) [Mass/Vol]NegativeNormalNegativeThe Bellevue HospitalComment on above:Performed By: #### UCI #### [address] [address]CR Chest 1 Viewon [id number] Chest 1 ViewEXAM: XR CHEST 1 VIEW HISTORY: Cough. COMPARISON: [...] Is Signed, Electronically Signed in Other Vendor System)Normal The Bellevue HospitalED Note-Physicianon [id number] Note-Physician Chief Complaint Patient reports she slipped on wet grass earlier this evening causing her to fall and strike R sideof body. Patient reports R ankle pain. Patient from [facility] for psych. History of Present Illness 88-year-old female presenting for concerns of an ankle injury. She slipped on ice earlier today andtwisted her right ankle. Review of Systems As [...] injury. She slipped on ice earlier today andtwisted her right ankle. Swelling and ecchymosis to [...] Dose: 02/12/24 23:47:00 EDT, Stop Date: 02/12/24 23:47:00EDT, STAT, Dispense From Location: [facility] [place], 02/12/24 23:47:00 EDT naproxen, 1 tabs, Oral, [...] signed by Meghann Jacome PA-C 02/12/24 23:56 EDTNoRegency Hospital Cleveland WestXR Ankle 3 Views Righton [id number] Ankle 3 Views RightEXAMINATION: XR Ankle 3 Views Right, , 02/12/2024 10:50 PM EDT INDICATION: Injury, COMPARISON: None available. TECHNIQUE: 3 views of the right ankle were performed and are available for review. FINDINGS: There is no definite fracture or dislocation of the right ankle. The talar dome is intact. The right ankle mortise is symmetric and normally aligned. Bone mineralization is normal. There is a plantarcalcaneal enthesophyte. There is a calcaneal enthesophyte at [...] Is Signed, Electronically Signed in Other Vendor System)Normal The Bellevue HospitalCholesterol [Mass/volume] in Serum or Plasma Ordered By: Farhat Kirby on 23-51-7017Krsqnkoptxz [Mass/Vol]188 mg/iV160-666 [facility], Cancer CenterComment on above:Chol less than 200 mg/dl low riskChol 201-239 mg/dl borderline riskChol 240 mg/dl and greater high risk Cholesterol in LDL Calc [Mass/Vol]Ordered By: Farhat Kirby on 01-06-2024 Cholesterol in LDL [Mass/Vol]121 mg/dLHigh0-100[facility] Comment on above:LDL ATP III CLASSIFICATIONLDL less than 100 mg/dL OptimalLDL 100-129 mg/dL Near or above ntwhsgxVCI659-044 mg/dL Borderline highLDL 160-189 mg/dL HighLDL greater than 189 mg/dL Very highCholesterol in VLDL Calc [Mass/Vol]Ordered By: Farhat Kirby on 05-80-7721Ynzmbvmvgre in VLDL [Mass/Vol] 16 mg/dLKing's Daughters Medical Center Ohioerum or plasma high density lipoprotein (HDL) cholesterol measurementOrdered By: Farhat Kirby on 05-97-4917Fudbmuctenr in HDL [Mass/Vol]51 mg/hD20-64NneheaizcOhiohealth Arthur G.H. Bing, Md, Cancer CenterComment on above:HDL CHOL ATP-III CLASSIFICATION Cardiovascular RiskHDL > or equal to 60 mg/dL LOWHDL < 40 mg/dL HIGHSerum or plasma total cholesterol/high density lipoprotein (HDL) cholesterol mass ratOrdered By: Farhat Kirby on 86-45-6141Kktoueuagty.total/Cholesterol in HDL [Mass ratio]3.7 {ratio}<5.0Ohio[facility] Md, Cancer CenterThyrotropin [Units/volume] in Serum or PlasmaOrdered By: Farhat Kirby on 98-20-7722CXD Qn1.55 m[IU]/L0.45-5.33 [facility], Cancer CenterTriglyceride [Mass/volume] in Serum or Plasma Ordered By: Farhat Kirby on 79-13-3641Bgcfsjrmftps [Mass/Vol]81 mg/dL0-149 [facility] Md, Cancer CenterComment on above:TRIG ATP III CLASSIFICATIONTRIG less than 150 mg/dL NormalTRIG 150-199 mg/dL Borderline highTRIG 200-500 mg/dL High TRIG greater than 500 mg/dL Very highStandard traceable to the Center for Disease Conrtrol and Prevention (CDC) test method. Vitamin D+Metabolites [Mass/volume] in Serum or PlasmaOrdered By: Farhat Kirby on 86-81-4759Pewbijv D+Metabolites [Mass/Vol]26.3 ng/cHIqe78-953LsflhskpzOhiohealth Arthur G.H. Bing, Md, Cancer CenterComment on above:VITAMIN D STATUS 25(OH)VITAMIN D RANGE (ng/mL) Deficient <20 Insufficient 20 to <06Tkzwarscch71 to 100Reference: America MF,Yamil LANGSTON, Mckenzie MAE, et al. Evaluation,treatment, and prevention of vitamin D deficiency; an Endocrine Society clinical practice guideline. JCEM. 2010; 96(7):1911-30.Alanine aminotransferase [Enzymatic activity/volume] in Serum or PlasmaOrdered By: Trevin Renteria on 17-18-1238QKG [Catalytic activity/Vol]9 U/L7-52[facility] Albumin [Mass/volume] in Serum or Plasma by Bromocresol green (BCG) dye binding methoOrdered By: Trevin Renteria on 97-51-3386Ebstxss BCG dye [Mass/Vol] 3.9 g/dL3.5-5.7FKeenan Private HospitalAlkaline phosphatase [Enzymatic activity/volume] in Serum or PlasmaOrdered By: Trevin Renteria on 58-22-4342GPW [Catalytic activity/Vol]87 U/A43-226VuceibnnmOhiohealth Arthur G.H. Bing, Md, Cancer CenterAspartate aminotransferase [Enzymatic activity/volume] in Serum or Plasma Ordered By: Trevin Renteria on 63-48-6252UIZ [Catalytic activity/Vol]12 U/F18-71BiqpapkafOhiohealth Arthur G.H. Bing, Md, Cancer CenterBasophils Auto (Bld) [#/Vol]Ordered By: Trevin Renteria on 52-51-6782Sdjkmkuuf (Bld) [#/Vol]0.1 10*3/uL0.0-0.2 [facility], Cancer CenterBasophils/100 WBC Auto (Bld)Ordered By: Trevin Renteria on 83-57-6650Vodjixpru/100 WBC (Bld)0.8 %.[facility] Md, Cancer CenterBilirubin.total [Mass/volume] in Serum or PlasmaOrdered By: Trevin Renteria on 48-21-5203Nvctralhh [Mass/Vol]0.2 mg/dL0.3-1.0 [facility], Cancer CenterCalcium [Mass/volume] in Serum or PlasmaOrdered By: Trevin Renteria on 08-19-4809Nivgymm [Mass/Vol]9.3 mg/dL8.6-10.3 [facility], Cancer CenterCarbon dioxide, total [Moles/volume] in Serum or PlasmaOrdered By: Trevin Renteria on 51-53-3532LK4 [Moles/Vol]26.8 mmol/L21.0-31.0[facility], Cancer CenterChloride [Moles/volume] in Serum or PlasmaOrdered By: Trevin Renteria on 06-04-1477Rouytsot [Moles/Vol]107 mmol/A23-797QrybtpjtaOhiohealth Arthur G.H. Bing, Md, Cancer CenterCreatinine [Mass/volume] in Serum or PlasmaOrdered By: Trevin Renteria on 43-18-4167Uicymwrkwq [Mass/Vol] 0.78 mg/dL0.60-1.20[facility] Md, Cancer CenterEosinophils Auto (Bld) [#/Vol]Ordered By: Trevin Renteria on 68-13-7040Amqceqfchiv (Bld) [#/Vol] 0.2 10*3/uL0.0-0.45[facility] Md, Cancer CenterEosinophils/100 WBC Auto (Bld)Ordered By: Trevin Renteria on 46-71-3552Zeclzvladpd/100 WBC (Bld)1.9 %.[facility] Md, Cancer CenterErythrocyte distribution width Auto (RBC) [Ratio]Ordered By: Trevin Renteria on 23-25-5173Nryzlcwasrt distribution width (RBC) [Ratio]14.8 %11.9-15.3FKeenan Private HospitalGlobulin Calc (S) [Mass/Vol]Ordered By: Trevin Renteria on 64-47-2999Sdtygdhm (S) [Mass/Vol]2.9 g/dLOhiohealth Arthur G.H. Bing, Md, Cancer CenterGlucose [Mass/volume] in Serum or PlasmaOrdered By: Trevin Renteria on 21-80-2788Frjnbhm [Mass/Vol] 98 mg/mG05-019CujkoytcdOhiohealth Arthur G.H. Bing, Md, Cancer CenterComment on above:ADA recommended reference rangeRandom Glucose Reference Range is dependent on time and content of last meal. Glucose of more than 200 mg/dL in a nonstressed, ambulatory subject supports the diagnosisof Diabetes Mellitus.Glucose mean value [Mass/volume] in Blood Estimated from glycated hemoglobinOrdered By: Trevin Renteria on 82-74-8759Stqfuvn glucose Estimated from glycated hemoglobin (Bld) [Mass/Vol]117 mg/dLOhiohealth Arthur G.H. Bing, Md, Cancer CenterHematocrit Auto (Bld) [Volume fraction]Ordered By: Trevin Renteria on 40-64-4226Nxmejqempj (Bld) [Volume fraction]39.9 %34.0-46.4FKeenan Private HospitalHemoglobin A1c percentageOrdered By: Trevin Renteria on 36-37-1442AsX7x (Bld) [Mass fraction]5.7 %4.3-5.6FKeenan Private HospitalComment on above:Increased risk for diabetes: 5.7 - 6.4diabetes: >6.4glycemic control for adults with diabetes: <7.0Hemoglobin [Mass/volume] in BloodOrdered By: Trevin Renteria on 48-98-9478Skainijnns (Bld) [Mass/Vol]13.3 g/dL11.8-15.4FKeenan Private HospitalLeukocytes [#/volume] corrected for nucleated erythrocytes in Blood by Automated counOrdered By: Trevin Renteria on 91-76-3660SGN corrected for nucl RBC Auto (Bld) [#/Vol]10.8 10*3/uL3.8-11.6 [facility], Cancer CenterLymphocytes Auto (Bld) [#/Vol]Ordered By: Trevin Renteria on 26-13-0311Xocnlsgxddv (Bld) [#/Vol]1.6 10*3/uL1.00-4.8 [facility], Cancer CenterLymphocytes/100 WBC Auto (Bld)Ordered By: Trevin Renteria on 41-29-4067Epnejzfyopc/100 WBC (Bld)15.1 %.[facility] Auto (RBC) [Entitic mass]Ordered By: Trevin Renteria on 61-98-0135VEZ (RBC) [Entitic mass]31.3 pg24.7-34.3FKeenan Private HospitalMCHC Auto (RBC) [Mass/Vol]Ordered By: Trevin Renteria on 18-72-0202AYJJ (RBC) [Mass/Vol]33.2 g/dL32.0-35.0[facility], Cancer CenterMCV Auto (RBC) [Entitic vol]Ordered By: Trevin Renteria on 20-15-4636NJF (RBC) [Entitic vol]94.4 qC04-781PllbfwxjfOhiohealth Arthur G.H. Bing, Md, Cancer Center Monocytes Auto (Bld) [#/Vol]Ordered By: Trevin Renteria on 12-18-2022 Monocytes (Bld) [#/Vol]0.8 10*3/uL0.0-0.8[facility] Monocytes/100 WBC Auto (Bld)Ordered By: Trevin Renteria on 12-18-2022 Monocytes/100 WBC (Bld)7.7 %.[facility], Cancer CenterNeutrophils Auto (Bld) [#/Vol]Ordered By: Trevin Renteria on 07-30-3802Rtwapsymevh (Bld) [#/Vol]8.0 10*3/uL1.8-7.7FKeenan Private HospitalNeutrophils/100 WBC Auto (Bld)Ordered By: Trevin Renteria on 37-28-2417Hmyksgeeftt/100 WBC (Bld)74.5 %.[facility], Cancer CenterNo Panel InformationOrdered By: Trevin Renteria on 00-53-0891Cmrfzrlmv GFR (CKD-EPI)> 60.0 mL/MinOhiohealth Arthur G.H. Bing, Md, Cancer CenterPharmacy Creatinine Clearance (Chem68.13[facility] Md, Cancer CenterNucleated erythrocytes [Presence] in Blood by Automated countOrdered By: Trevin Renteria on 05-71-6689Smhqcywzh RBC Auto Ql (Bld) 0.1 /100{WBC}0-0.5FKeenan Private HospitalPlatelet mean volume Auto (Bld) [Entitic vol]Ordered By: Trevin Renteria on 87-53-7551Wxqpatlo mean volume (Bld) [Entitic vol]8.7 fL6.3-10.7FKeenan Private Hospital Platelets Auto (Bld) [#/Vol]Ordered By: Trevin Renteria on 12-18-2022 Platelets (Bld) [#/Vol]345 10*3/tW393-401FvxmqfklyOhiohealth Arthur G.H. Bing, Md, Cancer Center Potassium [Moles/volume] in Serum or PlasmaOrdered By: Trevin Renteria on 17-59-1864Ldlomerqc [Moles/Vol]4.3 mmol/L3.5-5.1FKeenan Private HospitalProtein [Mass/volume] in Serum or PlasmaOrdered By: Trevin Renteria on 87-45-5819Kotlpbn [Mass/Vol]6.8 g/dL6.4-8.9[facility] RBC Auto (Bld) [#/Vol]Ordered By: Trevin Renteria on 31-97-3487BSG (Bld) [#/Vol]4.23 10*6/uL3.60-5.00[facility] Ohioerum or plasma albumin/globulin mass ratioOrdered By: Trevin Renteria on 12-18-2022 Albumin/Globulin [Mass ratio]1.3 {ratio}[facility] Ohioerum or plasma anion gap determinationOrdered By: Trevin Renteria on 12-18-2022 Anion gap [Moles/Vol]9.5 mmol/L6.0-15.0[facility] Ohioodium [Moles/volume] in Serum or PlasmaOrdered By: Trevin Renteria on 12-18-2022 Sodium [Moles/Vol]139 mmol/Q238-461SyfnulpmiOhiohealth Arthur G.H. Bing, Md, Cancer CenterUrea nitrogen [Mass/volume] in Serum or PlasmaOrdered By: Trevin Renteria on 87-02-3273Vdvj nitrogen [Mass/Vol]16 mg/dL7-25[facility] WBC Auto (Bld) [#/Vol]Ordered By: Trevin Renteria on 29-36-6138BNY (Bld) [#/Vol]10.8 10*3/uL3.8-11.6FKeenan Private HospitalCholesterol [Mass/volume] in Serum or PlasmaOrdered By: Trevin Renteria on 12-17-2022 Cholesterol [Mass/Vol]202 mg/bA415-639MpsuhldfbOhiohealth Arthur G.H. Bing, Md, Cancer CenterComment on above:Chol less than 200 mg/dl low riskChol 201-239 mg/dl borderline riskChol 240 mg/dl and greater high riskCholesterol in LDL Calc [Mass/Vol]Ordered By: Trevin Renteria on 41-94-7502Adyglhafupg in LDL [Mass/Vol]123 mg/dL0-100 [facility] Md, Cancer CenterComment on above:LDL ATP III CLASSIFICATIONLDL less than 100 mg/dL OptimalLDL 100-129 mg/dL Near or above rbktmpeDGD289-369 mg/dL Borderline highLDL 160-189 mg/dL HighLDL greater than 189 mg/dL Very high Cholesterol in VLDL Calc [Mass/Vol]Ordered By: Trevin Renteria on 75-08-1281Vepprthupyi in VLDL [Mass/Vol]18 mg/dLKing's Daughters Medical Center Ohioerum or plasma high density lipoprotein (HDL) cholesterol measurement Ordered By: Trevin Renteria on 81-50-0421Pftordhanua in HDL [Mass/Vol]61 mg/uB56-25SzmgrzholOhiohealth Arthur G.H. Bing, Md, Cancer CenterComment on above:HDL CHOL ATP-III CLASSIFICATION Cardiovascular RiskHDL > or equal to 60 mg/dL LOWHDL < 40 mg/dL HIGHSerum or plasma total cholesterol/high density lipoprotein (HDL) cholesterol mass ratOrdered By: Trevin Renteria on 12-17-2022 Cholesterol.total/Cholesterol in HDL [Mass ratio]3.3 {ratio}<5.0[facility] Md, Cancer CenterThyrotropin [Units/volume] in Serum or PlasmaOrdered By: Trevin Renteria on 00-87-7239VPN Qn2.12 m[IU]/L0.45-5.33[facility] Md, Cancer CenterTriglyceride [Mass/volume] in Serum or PlasmaOrdered By: Trevin Renteria on 52-28-9699Cgbjjvhjqfys [Mass/Vol]92 mg/dL0-149[facility], Md, Cancer CenterComment on above:TRIG ATP III CLASSIFICATIONTRIG less than 150 mg/dL NormalTRIG 150-199 mg/dL Borderline highTRIG 200-500 mg/dL High TRIG greater than 500 mg/dL Very highStandard traceable to the Center for Disease Conrtrol and Prevention (CDC) test method.Vitamin D+Metabolites [Mass/volume] in Serum or PlasmaOrdered By: Trevin Renteria on 12-17-2022 Vitamin D+Metabolites [Mass/Vol]16.5 ng/oG17-756RdvtvomrvOhiohealth Arthur G.H. Bing, Md, Cancer CenterComment on above:VITAMIN D STATUS 25(OH)VITAMIN D RANGE (ng/mL) Deficient <20 Insufficient 20 to <02Jewbemhcky23 to 100Reference: America MF,Yamil LANGSTON, Mckenzie MAE, et al. Evaluation,treatment, and prevention of vitamin D deficiency; an Endocrine Society clinical practice guideline. JCEM. 2010; 96 (7):1911-30. Vital Signs Date TimeVital SignValuePerforming AletitsxyPmcatpom42-94-9010 07:30-0400Body xixdwlydyup07.3 [degF]Korina Walker [employer] Work Phone: [phone] [place], [place] 6677209-23-2025 07:30-0400 Diastolic blood lsaguafu18 mm[Hg]Korina Walker [employer] C[employer] Work Phone: [phone] [place], [place] 6677209-23-2025 07:30-0400 Heart rate79 /minKorina Walker SOLE CUTTER Work Phone: [phone] [place], [place] 6677209-23-2025 07:30-0400 Respiratory rate16 /minKorina Mtichellchelita SOLE CUTTER Work Phone: [phone] [place], [place] 6677209-23-2025 07:30-0400 SaO2% (BldA) [Mass fraction]95 %Korina Walker [employer] Work Phone: [phone] [place], [place] 6677209-23-2025 07:30-0400 Systolic blood asfefygd138 mm[Hg]Korina Walker [employer] Work Phone: [phone] [place], [place] 6677209-22-2025 14:57-0400 Body ukfdvn032.94 cmLjolly Walker [employer]LE C[employer]TER Work Phone: [phone] [place], [place] 6677209-22-2025 09:00-0400 Body qoxcua58.76 kgKorina Walker SOLE CUTTER Work Phone: [phone] [place], [place] 6677206-11-2025 07:30-0400 Body ckxpbjjejpg32 [degF]PHYSICIAN [facility] 10-26-2024 07:30-0400Diastolic blood fuabsgem34 mm[Hg]PHYSICIAN [facility]06-11-2025 07:30-0400Heart rate76 /minPHYSICIAN [facility]06-11-2025 07:30-0400Respiratory rate 16 /minPHYSICIAN [facility]06-11-2025 07:30-0400 SaO2% (BldA) [Mass fraction]98 %PHYSICIAN [facility]06-11-2025 07:30-0400Systolic blood qzvnhuiz952 mm[Hg]PHYSICIAN NO [facility]06-10-2025 14:22-0400Body .94 cm PHYSICIAN [facility]06-09-2025 09:00-0400Body uvzmqv79.92 kgPHYSICIAN [facility]04-15-2025 07:30-0400Body ckowsqgfsyn98 [degF]Korina Anglim [employer] C[employer]TER Work Phone: [phone] [place], [place] 3151804-15-2025 07:30-0400 Diastolic blood uqsiipcn53 mm[Hg]Korina Anglim [employer] C[employer]TER Work Phone: [phone] [place], [place] 3151804-15-2025 07:30-0400 Heart rate79 /minLaura Anglim SO[employer] CUTTER Work Phone: [phone] [address] [place], [place] 3151804-15-2025 07:30-0400 Respiratory rate16 /minLaura Anglim SOLE CUTTER Work Phone: 1(240)[address] [place], [place] 3151804-15-2025 07:30-0400 SaO2% (BldA) [Mass fraction]99 %Korina Anglim SOLE CUTTER Work Phone: 1(260)[address] [place], [place] 3151804-15-2025 07:30-0400 Systolic blood xovkezzn806 mm[Hg]Korina Anglim SOLE CUTTER Work Phone: 1(997)[address] [place], [place] 3151804-14-2025 09:00-0400 Body czxywj72.24 kgLaura Anglim SOLE CUTTER Work Phone: 1(743)[address] [place], [place] 3151804-09-2025 11:40-0400 Body iacmpi683.4 cmLaura Anglim SOLE CUTTER Work Phone: 1(786)[address] [place], [place] 3151809-23-2024 07:30-0400 Body qpaxfmffhpv72 [degF]MD Farhat Kirby Work Phone: 1(003)171[facility]71[facility]09-23-2024 07:30-0400 Diastolic blood jfkbvywf50 mm[Hg]MD Farhat Kirby Work Phone: 1(294)[address]09-23-2024 07:30-0400 Heart rate76 /minMD Farhat Kirby Work Phone: 1(779)[address]09-23-2024 07:30-0400 Respiratory rate14 /minMD Farhat Kirby Work Phone: 1(854)[address]09-23-2024 07:30-0400 SaO2% (BldA) [Mass fraction]98 %MD Farhat Kirby Work Phone: 1(997)[address]09-23-2024 07:30-0400 Systolic blood tyqvblok956 mm[Hg]MD Farhat Kirby Work Phone: 1(684)[address]09-19-2024 14:40-0400 Body nzemfe996.48 cmMD Farhat Kirby Work Phone: 1(165)[address]09-16-2024 07:27-0400 Body anvlpg88.2 kgMD Farhat Kirby Work Phone: 1(152)[address]08-30-2024 15:30-0400 Body axaebenyhcq66.2 [degF]DOROTHY Hui Anglim Work Phone: 1(226)131-[address] [place], [place] 6893308-30-2024 15:30-0400 Diastolic blood ygfetzum62 mm[Hg]DOROTHY Brewera Anglim Work Phone: 1(660)075-[address] [place], [place] 6893308-30-2024 15:30-0400 Heart rate85 /minAPRAlma Delia Brewera Anglim Work Phone: 1(264)988-[address] [place], [place] 6893308-30-2024 15:30-0400 Respiratory rate18 /minAPRAlma Delia Hui Anglim Work Phone: 1(198)741-[address] [place], [place] 6893308-30-2024 15:30-0400 SaO2% (BldA) [Mass fraction]99 %SOLE CUTTERAlma Delia Brewera Anglim Work Phone: 1(762)[address]08-30-2024 15:30-0400 Systolic blood wjpdrfcu129 mm[Hg]SOLE CUTTER Korina Anglim Work Phone: 1(447)[address] [place], [place] 3151808-28-2024 14:16-0400 Body .4 cmAPRN Korina Anglim Work Phone: 1(752)[address] [place], [place] 3151808-26-2024 09:00-0400 Body cfuipp43.62 kgAPRAlma Delia Brewera Anglim Work Phone: 1(254)[address] [place], [place] 3151808-13-2023 07:30-0400 Body kcphdgibuxl47.9 [degF]SOLE CUTTERAlma Delia Brewera Anglim Work Phone: 1(761)[address] [place], [place] 3151808-13-2023 07:30-0400 Diastolic blood nbhvggje25 mm[Hg]SOLE CUTTER Korina Anglim Work Phone: 1(816)[address] [place], [place] 3151808-13-2023 07:30-0400 Heart rate90 /minAPRAlma Delia Hui Anglim Work Phone: 1(551)[address] [place], [place] 3151808-13-2023 07:30-0400 Respiratory rate17 /minAPRAlma Delia Hui Anglim Work Phone: 1(500)[address] [place], [place] 3151808-13-2023 07:30-0400 SaO2% (BldA) [Mass fraction]97 %DOROTHY Brewera Anglim Work Phone: 1(590)[address]08-13-2023 07:30-0400 Systolic blood lkuwdgtl259 mm[Hg]SOLE CUTTER Korina Anglim Work Phone: 1(611)[address] [place], [place] 3151808-09-2023 09:18-0400 Body dqubcr840.4 cmAPRAlma Delia Brewera Anglim Work Phone: 1(067)[address] [place], [place] 3151808-07-2023 09:00-0400 Body bscond97.41 kgAPRN Korina Anglim Work Phone: [facility] Encounters Encounter DateEncounter TypeCare ProviderFacilityStart: 19-45-4889Otk-patient / Non-visitAdeyemi Kofi GAYTAN-[facility] Work Phone: Start: 72-16-9154Kya-patient / Non-visitTrevin Renteria MD-[facility] Work Phone: Start: 01-26-2025 End: 05-37-3290Sezqdslglq and management of inpatientTrevin Renteria Facility:[facility] [place]: 18-14-3541mguhzomosvFgyfi AnglimFacility:[facility] [place]: 53-88-0156Bjuggieknc RecurringTrevin Renteria MDDO[facility]ORS [facility] CredibleStart: 16-89-3910Ltf-patient / Non-visitPHYSICIAN NO [facility] Work Phone: Start: 06-36-0862Kmh-patient / Non-visitPHYSICIAN NO [facility] Work Phone: Start: 99-97-3913Jqj-patient / Non-visitPHYSICIAN NO [facility] Work Phone: Start: 10-10-2024 End: 12-14-3047Ppxlsilnfv and management of inpatientPHYSICIAN NO [facility] Work Phone: Start: 08-42-0270Ecfgjzgdcq RecurringPHYSICIAN NO [facility]- CredibleStart: 13-77-8132Yik-patient / Non-visitLaura Anglim SOLE CUTTER Work Phone: [facility] Work Phone: Start: 08-23-2024 End: 67-69-2184Alnmtllmqu and management of inpatientLaura Anglim SOLE CUTTER Work Phone: [facility] [place] [address] Work Phone: Start: 32-00-9862Tfbpcsnuij RecurringLaura Anglim SOLE CUTTER Work Phone: [facility]- CredibleStart: 02-15-2024 End: 74-66-6948qcxkucawqhMbidlq Sue Reed MDFacility:[facility]layStart: 2024 End: 98-63-7425Nbrnjngek department patient visitStepjoyce Sanchezfavio Llanes SOLE CUTTER-[employer] [facility]-12-2024 End: 47-01-0678Vdzxfflzl department patient visitMeghann Jacome PAIsabel [facility]: 61-37-3337Yfy-patient / Non-visitMD Farhat Kofi Work Phone: [facility] Work Phone: Start: 76-00-3142Icg-patient / Non-visitMD Farhat Kofi Work Phone: [facility] Work Phone: Start: 01-29-2024 End: 53-21-4731Lehcjqvbya and management of inpatientMD Farhat Kofi Work Phone: [facility] [place] [address] Work Phone: Start: 25-63-0384Iavvwjwnto RecurringMD Farhat Kofi Work Phone: [facility] CredibleStart: 42-72-9813Xvn-patient / Non-visitAPRN Korina Anglim Work Phone: [facility] Work Phone: Start: 33-38-0868Mxt-patient / Non-visitAPRN Korina Anglim [facility] Phone: [facility] Work Phone: Start: 50-29-5630Eit-patient / Non-visitMD Farhat Kirby Work Phone: [facility] Work Phone: Start: 01-05-2024 End: 30-48-9481Vrhjdozlml and management of inpatientAPRN Korina Anglim Work Phone: [facility] Work Phone: Start: 78-80-4648Jehtlkfnzn RecurringAPRN Korina Anglim Work Phone: [facility]- CredibleStart: 12-17-2022 End: 52-41-8713Utcupviqsd and management of inpatientAPRAlma Delia Hui Anglim Work Phone: [facility] Work Phone: Plan of Treatment DateCare ActivityDetailAuthorStart: 42-76-8927AvvegwbxwOhiohealth [facility] Start: 16-88-6827Izwfcpin to [facility] ServicesOhio[facility] Start: 24-63-2103Jdpmgavz admissionKing's Daughters Medical Center [place]iotart: 61-22-2431OnkzvagyvKing's Daughters Medical Center [place]art: 04-81-7774Scxhmvss admission [facility] CenterStart: 78-10-8790VbjoncmrdMemorial Health System CenterStart: 65-35-5403JtoqgaotcMemorial Health System CenterStart: 08-24-2024 [facility] CenterStart: 95-54-3422Pvgvwmck admissionMemorial Health System CenterStart: 97-46-0390MykqqrghuMemorial Health System CenterStart: 97-61-0985NtjdifipoMemorial Health System CenterStart: 31-38-6631ZdeoiyfifMemorial Health System CenterStart: 16-63-8232Agqqwntl to Social ServicesKing's Daughters Medical Center [place]art: 08-83-0384Xhhixqpi admissionMemorial Health System CenterStart: 65-31-8265VicauesbvKing's Daughters Medical Center [place]iotart: 01-05-2024 Hospital admissionKing's Daughters Medical Center [place]: 57-14-0376VpvxlybfyKing's Daughters Medical Center [place]art: 76-89-8241Sgcizpbm admissionKing's Daughters Medical Center [place]iotart: 18-53-7766TvcbglfneOhiohealth Arthur G.[facility]. [facility], Md, Cancer CenterCalculated LDL cholesterol levelOhiohealth Arthur G.H. [facility], Md, Cancer CenterCalculated LDL cholesterol levelOhiohealth Arthur G.H. [facility], Md, Cancer CenterCholesterol.total/Cholesterol in HDL [Mass Ratio] in Serum or PlasmaOhiohealth Arthur G.[facility]. [facility], [facility], [facility] Center Cholesterol.total/Cholesterol in HDL [Mass Ratio] in Serum or PlasmaOhiohealth Arthur G.H. Bing, Md, Cancer CenterPatient EducationMemorial Health System Ctr Work Phone: Patient referralMemorial Health System Ctr Work Phone: VLDL cholesterol measurementOhiohealth Arthur G.H. Bing, Md, Cancer CenterVLDL cholesterol measurementBeraja Medical Institute Payers DatePayer CategoryPayerPolicy [id number] Health [id number] Health Skvsnajbt95-50-9814 Fugj-[id number]. [id number] .[id number] [id number] Health InsuranceCalifornia Hospital Medical Center [id number] 2..[id number] [id number] 2..[id number] Social History DateTypeDetailFacilityStart: 12-17-2022 End: 94-65-3921Yfqtjmo smoking status NHISCurrent Heavy tobacco smokerKing's Daughters Medical Center Ohiotart: 12-44-6148Kin Assigned At BirthFerochester regional healtheFOhioHealth Riverside Methodist Hospitaltart: 01-30-2024 End: 81-23-9176Watzdhf smoking status NHISSmoker (finding)[facility] [place]: 08-30-2024 End: 77-76-0230SydUkvttt (finding)[facility] [place]: 18-34-0147Msfkutl smoking status NHISSmokes tobacco daily (finding)[facility] Goals DatePatient GoalDesired Activity/State Functional Status PuoeRskdqmtkbuUzpobnFpcmbmbu61-60-3784Hdqfrwjzby statusPatient at Baseline [facility] Work Phone: [phone]ozbz statusPatient at Baseline [facility] Work Phone: [phone]icv statusPatient at Baseline [facility] Work Phone: [phone]bvpxvte statusPatient at Baseline [facility] Work Phone: [phone]zpxjlc statusPatient at Baseline [facility] Work Phone: [phone]iolu statusFunctional Status Comment Pt stated she feels confused all the time.[facility] Work Phone: Mental Status HvorZcgwzkwqhtYubjksRvlktyvo33-27-7862Jzgtrnikn functionCognitive Status Patient at BaselineC[facility] Work Phone: [phone] functionCognitive Status Patient at [facility] [facility] Work Phone: [phone] functionCognitive Status Patient at [place] [facility] Work Phone: [phone] functionCognitive Status Patient at [facility] Work Phone: [phone] functionCognitive Status Patient at [facility] Work Phone: Clinical Notes 12-17-2022 to 01-26-2025 Note Date & LailMjayIxpakcby47-44-7137 Evaluation note* Diagnosis Onset Date Resolution Status Admit Date Anxiety acuteSeptember 2024 5:54pmBipolar 1 disorderacuteSeptember 2024 5:54pmMDD (major depressive disorder)acuteSeptember 2024 5:54pm [facility] Work Phone: 1(130) 379-636106-10-2025 Progress note Author Farhat Kirby [facility] CenterNote Date/TimeJune 2024 2:00pm[place] [address] Psychiatry Progress Note Signed Patient: Bridgette Wang MR#: [id number] : 1965 Acct:[id number] Age/Sex: 59 / F Adm Date: 5 Loc: Room: [address] [place] [address] Type : ADM IN Attending Dr: Farhat Kirby MD Copies to: ~ Date of Service: 10/25/2024 Subjective Subjective Narrative: Patient reported that she does not think that she can function. She stated thatshe still is dealingwith some depression and a lot of anxiety. 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 Provided her with numbers to contact regarding sober living. Mental status exam ATTITUDE: anxious SPEECH: Regular rate, steady rhythm, normal volume, and soft tone MOOD: Anxious AFFECT: mood congruent THOUGHT PROCESS: Linear, logical, goal oriented THOUGHT CONTENT: auditory or visual hallucinations, or delusion content. Patient is not responding to internal stimuli. Reports active SI ORIENTATION: Patient is oriented to person, place, time, and situation MEMORY: Patient's memory is grossly intact JUDGMENT: Fair INSIGHT INTO PROBLEM: Fair Exam Physical Exam Vital Signs: Temp Pulse Resp BP Pulse Ox O2 Del Method 97.8 F 74 18 148/75 H 98 Room Air 10/25/24 07:30 10/25/24 07:30 10/25/24 07:30 10/25/24 07:30 10/25/24 07:30 10/25/24 07:30 Assessment/Plan Assessment/Plan (1) Suicidal ideation: (2) Anxiety: (3) MDD (major depressive disorder): Qualifiers: Major depression recurrence: unspecified whether recurrent Active/Remission status: currently active Major depression episode severity: severe Psychotic features: without psychotic features QualifiedCode(s): F32.2- Major depressive disorder, single episode, severe without psychotic features (4) Bipolar II disorder: (5) Alcoholism: Plan Patient still reporting issues with anxiety and reported suicidal thoughts Provided information on sober living options Continue propranolol 10 mg PO BID. She denied any contraindications to this treatment. Increase BuSpar 20 mg 3 times a day Continue gabapentin 400mg PO TID (Risks, benefits, and indications are discussed) Continue Effexor 150 mg daily Continue Seroquel 75 mg po qhs and Seroquel 50 mg three times a day Continue to monitor mental status Encourage group participation and medication compliance Risk benefits alternatives explained Documented By: Farhat Kirby MD 10/25/24 0447 Signed By: <Electronically signed by Farhat Kirby MD> 10/25/[address] [place] [address] Work Phone: 1(768) 495-401906-10-2025 [place] [address] Psychiatry Progress Note Signed Patient: Bridgette Wang MR#: [id number] : 1965 Acct:[id number] Age/Sex: 59 / F Adm Date: 5 Loc: Room: [address] [place] [address] Type : ADM IN Attending Dr: Farhat Kirby MD Copies to: ~ Date of Service: 10/25/2024 Subjective Subjective Narrative: Patient reported that she does not think that she can function. She stated thatshe still is dealingwith some depression and a lot of anxiety. 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 Provided her with numbers to contact regarding sober living. Mental status exam ATTITUDE: anxious SPEECH: Regular rate, steady rhythm, normal volume, and soft tone MOOD: Anxious AFFECT: mood congruent THOUGHT PROCESS: Linear, logical, goal oriented THOUGHT CONTENT: auditory or visual hallucinations, or delusion content. Patient is not responding to internal stimuli. Reports active SI ORIENTATION: Patient is oriented to person, place, time, and situation MEMORY: Patient's memory is grossly intact JUDGMENT: Fair INSIGHT INTO PROBLEM: Fair Exam Physical Exam Vital Signs: Temp Pulse Resp BP Pulse Ox O2 Del Method 97.8 F 74 18 148/75 H 98 Room Air 10/25/24 07:30 10/25/24 07:30 10/25/24 07:30 10/25/24 07:30 10/25/24 07:30 10/25/24 07:30 Assessment/Plan Assessment/Plan (1) Suicidal ideation: (2) Anxiety: (3) MDD (major depressive disorder): Qualifiers: Major depression recurrence: unspecified whether recurrent Active/Remission status: currently active Major depression episode severity: severe Psychotic features: without psychotic features QualifiedCode(s): F32.2- Major depressive disorder, single episode, severe without psychotic features (4) Bipolar II disorder: (5) Alcoholism: Plan Patient still reporting issues with anxiety and reported suicidal thoughts Provided information on sober living options Continue propranolol 10 mg PO BID. She denied any contraindications to this treatment. Increase BuSpar 20 mg 3 times a day Continue gabapentin 400mg PO TID (Risks, benefits, and indications are discussed) Continue Effexor 150 mg daily Continue Seroquel 75 mg po qhs and Seroquel 50 mg three times a day Continue to monitor mental status Encourage group participation and medication compliance Risk benefits alternatives explained Documented By: Farhat Kirby MD 10/25/24 1358 Signed By: 10/25/[address] [place], [place] 0[address]2606-09-2025 Progress note Author Farhat Kirby [facility] CenterNote Date/TimeJune 2024 2:42pm[place] [address] Psychiatry Progress Note Signed Patient: Bridgette Wang MR#: [id number] : 1965 Acct:[id number] Age/Sex: 59 / F Adm Date: 5 Loc: Room: [address] [place] [address] Type : ADM IN Attending Dr: Farhat Kirby MD Copies to: ~ Date of Service: 10/24/2024 Subjective Subjective Narrative: Patient reported that she has been taking the new medication and does not find any improvement as of yet. She still reported some anxiety, we discussed about managing some of this outpatient. Mental status exam ATTITUDE: anxious SPEECH: Regular rate, steady rhythm, normal volume, and soft tone MOOD: Anxious AFFECT: mood congruent THOUGHT PROCESS: Linear, logical, goal oriented THOUGHT CONTENT: , auditory or visual hallucinations, or delusion content. Patient is not responding to internal stimuli. Reports active SI ORIENTATION: Patient is oriented to person, place, time, and situation MEMORY: Patient's memory is grossly intact JUDGMENT: Fair INSIGHT INTO PROBLEM: Fair Exam Physical Exam Vital Signs: Temp Pulse Resp BP Pulse Ox O2 Del Method 98.1 F 78 16 98/56 L 98 Room Air 10/24/24 07:30 10/24/24 07:30 10/24/24 07:30 10/24/24 07:30 10/24/24 07:30 10/24/24 09:00 Assessment/Plan Assessment/Plan (1) Suicidal ideation: (2) Anxiety: (3) MDD (major depressive disorder): Qualifiers: Major depression recurrence: unspecified whether recurrent Active/Remission status: currently active Major depression episode severity: severe Psychotic features: without psychotic features QualifiedCode(s): F32.2- Major depressive disorder, single episode, severe without psychotic features (4) Bipolar II disorder: (5) Alcoholism: Plan Reporting some issues with anxiety Discussed with patient about low level of care and hopeful for discharge over the next day or 2 Continue propranolol 10 mg PO BID. She denied any contraindications to this treatment. Continue BuSpar 15 mg 3 times a day, gabapentin 400mg PO TID (Risks, benefits, and indications are discussed) Continue Effexor 150 mg daily Continue Seroquel 75 mg po qhs and Seroquel 50 mg three times a day Continue to monitor mental status Encourage group participation and medication compliance Risk benefits alternatives explained Documented By: Farhat Kirby MD 10/24/24 5182 Signed By: <Electronically signed by Farhat Kirby MD> 10/24/24 1442 [facility] Work Phone: 1(964) 964-421506-09-2025 [place] [address] Psychiatry Progress Note Signed Patient: Bridgette Wang MR#: [id number] : 1965 Acct:[id number] Age/Sex: 59 / F Adm Date: 5 Loc: Room: [address] [place] [address] Type : ADM IN Attending Dr: Farhat Kirby MD Copies to: ~ Date of Service: 10/24/2024 Subjective Subjective Narrative: Patient reported that she has been taking the new medication and does not find any improvement as of yet. She still reported some anxiety, we discussed about managing some of this outpatient. Mental status exam ATTITUDE: anxious SPEECH: Regular rate, steady rhythm, normal volume, and soft tone MOOD: Anxious AFFECT: mood congruent THOUGHT PROCESS: Linear, logical, goal oriented THOUGHT CONTENT: , auditory or visual hallucinations, or delusion content. Patient is not responding to internal stimuli. Reports active SI ORIENTATION: Patient is oriented to person, place, time, and situation MEMORY: Patient's memory is grossly intact JUDGMENT: Fair INSIGHT INTO PROBLEM: Fair Exam Physical Exam Vital Signs: Temp Pulse Resp BP Pulse Ox O2 Del Method 98.1 F 78 16 98/56 L 98 Room Air 10/24/24 07:30 10/24/24 07:30 10/24/24 07:30 10/24/24 07:30 10/24/24 07:30 10/24/24 09:00 Assessment/Plan Assessment/Plan (1) Suicidal ideation: (2) Anxiety: (3) MDD (major depressive disorder): Qualifiers: Major depression recurrence: unspecified whether recurrent Active/Remission status: currently active Major depression episode severity: severe Psychotic features: without psychotic features QualifiedCode(s): F32.2- Major depressive disorder, single episode, severe without psychotic features (4) Bipolar II disorder: (5) Alcoholism: Plan Reporting some issues with anxiety Discussed with patient about low level of care and hopeful for discharge over the next day or 2 Continue propranolol 10 mg PO BID. She denied any contraindications to this treatment. Continue BuSpar 15 mg 3 times a day, gabapentin 400mg PO TID (Risks, benefits, and indications are discussed) Continue Effexor 150 mg daily Continue Seroquel 75 mg po qhs and Seroquel 50 mg three times a day Continue to monitor mental status Encourage group participation and medication compliance Risk benefits alternatives explained Documented By: Farhat Kirby MD 10/24/241439 Signed By: 10/24/24 1442 [facility]06-08-2025 Progress note Author Trevin rodriguez [facility] CenterNote Date/TimeJune 2024 6:43[place] [address] Psychiatry Progress Note Signed Patient: Bridgette Wang MR#: [id number] : 1965 Acct:[id number] Age/Sex: 59 / F Adm Date: 5 Loc: Room: [address] [place] [address] Type : ADM IN Attending Dr: Farhat Kirby MD Copies to: ~ Date of Service: 10/23/2024 Subjective Subjective Narrative: Bridgette reported that she has been feeling suicidal and has a plan to OD if she goes home. She is still not ready to being discharged. Anxiety remains high. Reports sweating due to taking Effexor. She inquired about taking Ativan but reports a prior history of alcohol use disorder Mental status exam ATTITUDE: anxious SPEECH: Regular rate, steady rhythm, normal volume, and soft tone MOOD: Anxious AFFECT: mood congruent THOUGHT PROCESS: Linear, logical, goal oriented THOUGHT CONTENT: , auditory or visual hallucinations, or delusion content. Patient is not responding to internal stimuli. Reports active SI ORIENTATION: Patient is oriented to person, place, time, and situation MEMORY: Patient's memory is grossly intact JUDGMENT: Fair INSIGHT INTO PROBLEM: Fair Exam Physical Exam Vital Signs: Temp Pulse Resp BP Pulse Ox O2 Del Method 98.1 F 92 20 129/79 97 Room Air 10/22/24 20:18 10/22/24 20:18 10/22/24 20:18 10/22/24 20:18 10/22/24 20:18 10/22/24 20:23 Assessment/Plan Assessment/Plan (1) Suicidal ideation: (2) Anxiety: (3) MDD (major depressive disorder): Qualifiers: Major depression recurrence: unspecified whether recurrent Active/Remission status: currently active Major depression episode severity: severe Psychotic features: without psychotic features QualifiedCode(s): F32.2- Major depressive disorder, single episode, severe without psychotic features (4) Bipolar II disorder: (5) Alcoholism: Plan Patient reported still dealing with a lot of anxiety and reports active SI Add Propranolol 10 mg PO BID. She denied any contraindications to this treatment. Continue BuSpar 15 mg 3 times a day, increase gabapentin 400mg PO TID (Risks, benefits, and indications are discussed) Continue Effexor 150 mg daily Continue Seroquel 75 mg po qhs and Seroquel 50 mg three times a day Continue to monitor mental status Encourage group participation and medication compliance Risk benefits alternatives explained Documented By: Trevin Renteria MD [id number] Signed By: <Electronically signed by Trevin Renteria MD> 10/23/24 0643 [facility] Work Phone: 1(648) 851-124306-08-2025 [place] [address] Psychiatry Progress Note Signed Patient: Bridgette Wang MR#: [id number] : 1965 Acct:[id number] Age/Sex: 59 / F Adm Date: 5 Loc: Room: [address] [place] [address] Type : ADM IN Attending Dr: Farhat Kirby MD Copies to: ~ Date of Service: 10/23/2024 Subjective Subjective Narrative: Bridgette reported that she has been feeling suicidal and has a plan to OD if she goes home. She is still not ready to being discharged. Anxiety remains high. Reports sweating due to taking Effexor. She inquired about taking Ativan but reports a prior history of alcohol use disorder Mental status exam ATTITUDE: anxious SPEECH: Regular rate, steady rhythm, normal volume, and soft tone MOOD: Anxious AFFECT: mood congruent THOUGHT PROCESS: Linear, logical, goal oriented THOUGHT CONTENT: , auditory or visual hallucinations, or delusion content. Patient is not responding to internal stimuli. Reports active SI ORIENTATION: Patient is oriented to person, place, time, and situation MEMORY: Patient's memory is grossly intact JUDGMENT: Fair INSIGHT INTO PROBLEM: Fair Exam Physical Exam Vital Signs: Temp Pulse Resp BP Pulse Ox O2 Del Method 98.1 F 92 20 129/79 97 Room Air 10/22/24 20:18 10/22/24 20:18 10/22/24 20:18 10/22/24 20:18 10/22/24 20:18 10/22/24 20:23 Assessment/Plan Assessment/Plan (1) Suicidal ideation: (2) Anxiety: (3) MDD (major depressive disorder): Qualifiers: Major depression recurrence: unspecified whether recurrent Active/Remission status: currently active Major depression episode severity: severe Psychotic features: without psychotic features QualifiedCode(s): F32.2- Major depressive disorder, single episode, severe without psychotic features (4) Bipolar II disorder: (5) Alcoholism: Plan Patient reported still dealing with a lot of anxiety and reports active SI Add Propranolol 10 mg PO BID. She denied any contraindications to this treatment. Continue BuSpar 15 mg 3 times a day, increase gabapentin 400mg PO TID (Risks, benefits, and indications are discussed) Continue Effexor 150 mg daily Continue Seroquel 75 mg po qhs and Seroquel 50 mg three times a day Continue to monitor mental status Encourage group participation and medication compliance Risk benefits alternatives explained Documented By: Trevin Renteria MD [id number] Signed By: 10/23/24 0643 [facility]06-07-2025 Progress note Author Trevin rodriguez [facility] CenterNote Date/TimeJune 2024 6:38[place] [address] Psychiatry Progress Note Signed Patient: Bridgette Wang MR#: [id number] : 1965 Acct:[id number] Age/Sex: 59 / F Adm Date: 5 Loc: Room: [address] [place] [address] Type : ADM IN Attending Dr: Farhat Kirby MD Copies to: ~ Date of Service: 10/22/2024 Subjective Subjective Narrative: Bridgette reported that she still feels anxious and feels that meds need to be adjusted. Depression is less and denied active SI. She reports sweating last night due to her anxiety. She attends some groups and we discussed importance ofoutpatient CBT. Mental status exam ATTITUDE: anxious SPEECH: Regular rate, steady rhythm, normal volume, and soft tone MOOD: Anxious AFFECT: mood congruent THOUGHT PROCESS: Linear, logical, goal oriented THOUGHT CONTENT: , auditory or visual hallucinations, or delusion content. Patient is not responding to internal stimuli. Denied active SI ORIENTATION: Patient is oriented to person, place, time, and situation MEMORY: Patient's memory is grossly intact JUDGMENT: Fair INSIGHT INTO PROBLEM: Fair Exam Physical Exam Vital Signs: Temp Pulse Resp BP Pulse Ox O2 Del Method 97.5 F L 80 18 109/64 98 Room Air 10/21/24 21:54 10/21/24 21:54 10/21/24 21:54 10/21/24 21:54 10/21/24 21:54 10/21/24 21:54 Assessment/Plan Assessment/Plan (1) Suicidal ideation: (2) Anxiety: (3) MDD (major depressive disorder): Qualifiers: Major depression recurrence: unspecified whether recurrent Active/Remission status: currently active Major depression episode severity: severe Psychotic features: without psychotic features QualifiedCode(s): F32.2- Major depressive disorder, single episode, severe without psychotic features (4) Bipolar II disorder: (5) Alcoholism: Plan Patient reported still dealing with a lot of anxiety but denied active SI/HI. Continue BuSpar 15 mg 3 times a day, increase gabapentin 400mg PO TID (Risks, benefits, and indications are discussed) Continue Effexor 150 mg daily Continue Seroquel 75 mg po qhs and Seroquel 50 mg three times a day Continue to monitor mental status Encourage group participation and medication compliance Risk benefits alternatives explained Documented By: Trevin Renteria MD [id number] Signed By: <Electronically signed by Trevin Renteria MD> 10/22/24 0638 [facility] Work Phone: 1(254) 798-915706-07-2025 [place] [address] Psychiatry Progress Note Signed Patient: Bridgette Wang MR#: [id number] : 1965 Acct:[id number] Age/Sex: 59 / F Adm Date: 5 Loc: 1S Room: [address] [place] [address] Type : ADM IN Attending Dr: Farhat Kirby MD Copies to: ~ Date of Service: 10/22/2024 Subjective Subjective Narrative: Bridgette reported that she still feels anxious and feels that meds need to be adjusted. Depression is less and denied active SI. She reports sweating last night due to her anxiety. She attends some groups and we discussed importance ofoutpatient CBT. Mental status exam ATTITUDE: anxious SPEECH: Regular rate, steady rhythm, normal volume, and soft tone MOOD: Anxious AFFECT: mood congruent THOUGHT PROCESS: Linear, logical, goal oriented THOUGHT CONTENT: , auditory or visual hallucinations, or delusion content. Patient is not responding to internal stimuli. Denied active SI ORIENTATION: Patient is oriented to person, place, time, and situation MEMORY: Patient's memory is grossly intact JUDGMENT: Fair INSIGHT INTO PROBLEM: Fair Exam Physical Exam Vital Signs: Temp Pulse Resp BP Pulse Ox O2 Del Method 97.5 F L 80 18 109/64 98 Room Air 10/21/24 21:54 10/21/24 21:54 10/21/24 21:54 10/21/24 21:54 10/21/24 21:54 10/21/24 21:54 Assessment/Plan Assessment/Plan (1) Suicidal ideation: (2) Anxiety: (3) MDD (major depressive disorder): Qualifiers: Major depression recurrence: unspecified whether recurrent Active/Remission status: currently active Major depression episode severity: severe Psychotic features: without psychotic features QualifiedCode(s): F32.2- Major depressive disorder, single episode, severe without psychotic features (4) Bipolar II disorder: (5) Alcoholism: Plan Patient reported still dealing with a lot of anxiety but denied active SI/HI. Continue BuSpar 15 mg 3 times a day, increase gabapentin 400mg PO TID (Risks, benefits, and indications are discussed) Continue Effexor 150 mg daily Continue Seroquel 75 mg po qhs and Seroquel 50 mg three times a day Continue to monitor mental status Encourage group participation and medication compliance Risk benefits alternatives explained Documented By: Trevin Renteria MD [id number] Signed By: 10/22/24 0638 [facility]06-06-2025 Progress note Author Trevin rodriguez [facility] CenterNote Date/TimeJune 2024 7:07[place] [id number] Psychiatry Progress Note Signed Patient: Bridgette Wang MR#: [id number] : 1965 Acct:[id number] Age/Sex: 59 / F Adm Date: 5 Loc: 1S Room: [address] [place] [address] Type : ADM IN Attending Dr: Farhat Kirby MD Copies to: ~ Date of Service: 10/21/2024 Subjective Subjective Narrative: Bridgette reported that she still feels very anxious 01/25. She reports intense panic attacks. She also reports depression 01/25. She denied active SI but said her anxiety remain an issue. Mental status exam ATTITUDE: anxious SPEECH: Regular rate, steady rhythm, normal volume, and soft tone MOOD: Anxious AFFECT: mood congruent THOUGHT PROCESS: Linear, logical, goal oriented THOUGHT CONTENT: , auditory or visual hallucinations, or delusion content. Patient is not responding to internal stimuli. Deneid active SI ORIENTATION: Patient is oriented to person, place, time, and situation MEMORY: Patient's memory is grossly intact JUDGMENT: Fair INSIGHT INTO PROBLEM: Fair Exam Physical Exam Vital Signs: Temp Pulse Resp BP Pulse Ox O2 Del Method 97.4 F L 82 15 120/75 97 Room Air 10/20/24 19:38 10/20/24 19:38 10/20/24 19:38 10/20/24 19:38 10/20/24 19:38 10/20/24 19:38 Assessment/Plan Assessment/Plan (1) Suicidal ideation: (2) Anxiety: (3) MDD (major depressive disorder): Qualifiers: Major depression recurrence: unspecified whether recurrent Active/Remission status: currently active Major depression episode severity: severe Psychotic features: without psychotic features QualifiedCode(s): F32.2- Major depressive disorder, single episode, severe without psychotic features (4) Bipolar II disorder: (5) Alcoholism: Plan Patient reported still dealing with a lot of anxiety Continue BuSpar 15 mg 3 times a day, gabapentin 300mg PO TID (Risks, benefits, and indications are discussed) Continue Effexor 150 mg daily Continue Seroquel 75 mg po qhs and increase Seroquel 50 mg three times a day Continue to monitor mental status Encourage group participation and medication compliance Risk benefits alternatives explained Documented By: Trevin Renteria MD [id number] Signed By: <Electronically signed by Trevin Renteria MD> 10/21/24 0707 [facility] Work Phone: 1(537) 241-793406-06-2025 [place] [id number] Psychiatry Progress Note Signed Patient: Bridgette Wang MR#: [id number] : 1965 Acct:[id number] Age/Sex: 59 / F Adm Date: 5 Loc: Room: [address] [place] [address] Type : ADM IN Attending Dr: Farhat Kirby MD Copies to: ~ Date of Service: 10/21/2024 Subjective Subjective Narrative: Bridgette reported that she still feels very anxious 01/25. She reports intense panic attacks. She also reports depression 01/25. She denied active SI but said her anxiety remain an issue. Mental status exam ATTITUDE: anxious SPEECH: Regular rate, steady rhythm, normal volume, and soft tone MOOD: Anxious AFFECT: mood congruent THOUGHT PROCESS: Linear, logical, goal oriented THOUGHT CONTENT: , auditory or visual hallucinations, or delusion content. Patient is not responding to internal stimuli. Deneid active SI ORIENTATION: Patient is oriented to person, place, time, and situation MEMORY: Patient's memory is grossly intact JUDGMENT: Fair INSIGHT INTO PROBLEM: Fair Exam Physical Exam Vital Signs: Temp Pulse Resp BP Pulse Ox O2 Del Method 97.4 F L 82 15 120/75 97 Room Air 10/20/24 19:38 10/20/24 19:38 10/20/24 19:38 10/20/24 19:38 10/20/24 19:38 10/20/24 19:38 Assessment/Plan Assessment/Plan (1) Suicidal ideation: (2) Anxiety: (3) MDD (major depressive disorder): Qualifiers: Major depression recurrence: unspecified whether recurrent Active/Remission status: currently active Major depression episode severity: severe Psychotic features: without psychotic features QualifiedCode(s): F32.2- Major depressive disorder, single episode, severe without psychotic features (4) Bipolar II disorder: (5) Alcoholism: Plan Patient reported still dealing with a lot of anxiety Continue BuSpar 15 mg 3 times a day, gabapentin 300mg PO TID (Risks, benefits, and indications are discussed) Continue Effexor 150 mg daily Continue Seroquel 75 mg po qhs and increase Seroquel 50 mg three times a day Continue to monitor mental status Encourage group participation and medication compliance Risk benefits alternatives explained Documented By: Trevin Renteria MD [id number] Signed By: 10/21/24 0707 [facility]06-05-2025 Progress note Author Trevin rodriguez [facility] CenterNote Date/TimeJune 2024 6:36[place] [address] Psychiatry Progress Note Signed Patient: Bridgette Wang MR#: [id number] : 1965 Acct:[id number] Age/Sex: 59 / F Adm Date: 5 Loc: 1S Room: [address] [place] [address] Type : ADM IN Attending Dr: Farhat Kirby MD Copies to: ~ Date of Service: 10/20/2024 Subjective Subjective Narrative: Bridgette reported that she still feels very anxious 10. She reports intense panic attacks. She also reports depression 9/10. She has not been sleeping due to recent thoughts. She reports feeling depressed, admits to ongoing racing thoughts and has ongoing SI. Mental status exam ATTITUDE: anxious SPEECH: Regular rate, steady rhythm, normal volume, and soft tone MOOD: Anxious AFFECT: mood congruent THOUGHT PROCESS: Linear, logical, goal oriented THOUGHT CONTENT: , auditory or visual hallucinations, or delusion content. Patient is not responding to internal stimuli. Reports intermittent SI ORIENTATION: Patient is oriented to person, place, time, and situation MEMORY: Patient's memory is grossly intact JUDGMENT: Fair INSIGHT INTO PROBLEM: Fair Exam Physical Exam Vital Signs: Temp Pulse Resp BP Pulse Ox O2 Del Method 97.5 F L 80 16 116/81 98 Room Air 10/19/24 20:45 10/19/24 20:45 10/19/24 20:45 10/19/24 20:45 10/19/24 20:45 10/19/24 21:00 Assessment/Plan Assessment/Plan (1) Suicidal ideation: (2) Anxiety: (3) MDD (major depressive disorder): Qualifiers: Major depression recurrence: unspecified whether recurrent Active/Remission status: currently active Major depression episode severity: severe Psychotic features: without psychotic features QualifiedCode(s): F32.2- Major depressive disorder, single episode, severe without psychotic features (4) Bipolar II disorder: (5) Alcoholism: Plan Patient reported still dealing with a lot of anxiety Continue BuSpar 15 mg 3 times a day, gabapentin 300mg PO TID (Risks, benefits, and indications are discussed) Continue Effexor 150 mg daily Continue Seroquel 75 mg po qhs and increase Seroquel 50 mg three times a day Continue to monitor mental status Encourage group participation and medication compliance Risk benefits alternatives explained Documented By: Trevin Renteria MD [id number] Signed By: <Electronically signed by Trevin Renteria MD> 10/20/24 0636 [facility] Work Phone: 1(464) 391-262606-05-2025 [place] [address] Psychiatry Progress Note Signed Patient: Bridgette Wang MR#: [id number] : 1965 Acct:[id number] Age/Sex: 59 / F Adm Date: 5 Loc: Room: [address] [place] [address] Type : ADM IN Attending Dr: Farhat Kirby MD Copies to: ~ Date of Service: 10/20/2024 Subjective Subjective Narrative: Bridgette reported that she still feels very anxious 10. She reports intense panic attacks. She also reports depression /10. She has not been sleeping due to recent thoughts. She reports feeling depressed, admits to ongoing racing thoughts and has ongoing SI. Mental status exam ATTITUDE: anxious SPEECH: Regular rate, steady rhythm, normal volume, and soft tone MOOD: Anxious AFFECT: mood congruent THOUGHT PROCESS: Linear, logical, goal oriented THOUGHT CONTENT: , auditory or visual hallucinations, or delusion content. Patient is not responding to internal stimuli. Reports intermittent SI ORIENTATION: Patient is oriented to person, place, time, and situation MEMORY: Patient's memory is grossly intact JUDGMENT: Fair INSIGHT INTO PROBLEM: Fair Exam Physical Exam Vital Signs: Temp Pulse Resp BP Pulse Ox O2 Del Method 97.5 F L 80 16 116/81 98 Room Air 10/19/24 20:45 10/19/24 20:45 10/19/24 20:45 10/19/24 20:45 10/19/24 20:45 10/19/24 21:00 Assessment/Plan Assessment/Plan (1) Suicidal ideation: (2) Anxiety: (3) MDD (major depressive disorder): Qualifiers: Major depression recurrence: unspecified whether recurrent Active/Remission status: currently active Major depression episode severity: severe Psychotic features: without psychotic features QualifiedCode(s): F32.2- Major depressive disorder, single episode, severe without psychotic features (4) Bipolar II disorder: (5) Alcoholism: Plan Patient reported still dealing with a lot of anxiety Continue BuSpar 15 mg 3 times a day, gabapentin 300mg PO TID (Risks, benefits, and indications are discussed) Continue Effexor 150 mg daily Continue Seroquel 75 mg po qhs and increase Seroquel 50 mg three times a day Continue to monitor mental status Encourage group participation and medication compliance Risk benefits alternatives explained Documented By: Trevin Renteria MD [id number] Signed By: 10/20/24 0636 [facility]06-04-2025 Progress note Author Trevin rodriguez [facility] CenterNote Date/TimeJune 2024 6:43[place] [address] Psychiatry Progress Note Signed Patient: Bridgette Wang MR#: [id number] : 1965 Acct:[id number] Age/Sex: 59 / F Adm Date: 5 Loc: Room: [address] [place] [address] Type : ADM IN Attending Dr: Farhat Kriby MD Copies to: ~ Date of Service: 10/19/2024 Subjective Subjective Narrative: Bridgette reported that she still feels very anxious 01/25. She also reports depression 01/25. She has not been sleeping due to recent thoughts. She reports feeling depressed, admits to ongoing racing thoughts and has ongoing SI. Mental status exam ATTITUDE: anxious SPEECH: Regular rate, steady rhythm, normal volume, and soft tone MOOD: Anxious AFFECT: mood congruent THOUGHT PROCESS: Linear, logical, goal oriented THOUGHT CONTENT: , auditory or visual hallucinations, or delusion content. Patient is not responding to internal stimuli. Reports intermittent SI ORIENTATION: Patient is oriented to person, place, time, and situation MEMORY: Patient's memory is grossly intact JUDGMENT: Fair INSIGHT INTO PROBLEM: Fair Exam Physical Exam Vital Signs: Temp Pulse Resp BP Pulse Ox O2 Del Method 98.1 F 86 18 108/72 96 Room Air 10/18/24 20:05 10/18/24 20:05 10/18/24 20:05 10/18/24 20:05 10/18/24 20:05 10/18/24 21:00 Assessment/Plan Assessment/Plan (1) Suicidal ideation: (2) Anxiety: (3) MDD (major depressive disorder): Qualifiers: Major depression recurrence: unspecified whether recurrent Active/Remission status: currently active Major depression episode severity: severe Psychotic features: without psychotic features QualifiedCode(s): F32.2- Major depressive disorder, single episode, severe without psychotic features (4) Bipolar II disorder: (5) Alcoholism: Plan Patient reported still dealing with a lot of anxiety Continue BuSpar 15 mg 3 times a day, gabapentin 300mg PO TID (Risks, benefits, and indications are discussed) Continue Effexor 150 mg daily Continue Seroquel 75 mg po qhs and increase Seroquel 25 mg three times a day Continue to monitor mental status Encourage group participation and medication compliance Risk benefits alternatives explained Documented By: Trevin Renteria MD [id number] Signed By: <Electronically signed by Trevin Renteria MD> 10/19/24 0643 [facility] Work Phone: 1(628) 863-380806-04-2025 [place] [address] Psychiatry Progress Note Signed Patient: Bridgette Wang MR#: [id number] : 1965 Acct:[id number] Age/Sex: 59 / F Adm Date: 5 Loc: Room: [address] [place] [address] Type : ADM IN Attending Dr: Farhat Kirby MD Copies to: ~ Date of Service: 10/19/2024 Subjective Subjective Narrative: Bridgette reported that she still feels very anxious 01/25. She also reports depression /. She has not been sleeping due to recent thoughts. She reports feeling depressed, admits to ongoing racing thoughts and has ongoing SI. Mental status exam ATTITUDE: anxious SPEECH: Regular rate, steady rhythm, normal volume, and soft tone MOOD: Anxious AFFECT: mood congruent THOUGHT PROCESS: Linear, logical, goal oriented THOUGHT CONTENT: , auditory or visual hallucinations, or delusion content. Patient is not responding to internal stimuli. Reports intermittent SI ORIENTATION: Patient is oriented to person, place, time, and situation MEMORY: Patient's memory is grossly intact JUDGMENT: Fair INSIGHT INTO PROBLEM: Fair Exam Physical Exam Vital Signs: Temp Pulse Resp BP Pulse Ox O2 Del Method 98.1 F 86 18 108/72 96 Room Air 10/18/24 20:05 10/18/24 20:05 10/18/24 20:10/18/24 20:10/18/24 20:10/18/24 21:00 Assessment/Plan Assessment/Plan (1) Suicidal ideation: (2) Anxiety: (3) MDD (major depressive disorder): Qualifiers: Major depression recurrence: unspecified whether recurrent Active/Remission status: currently active Major depression episode severity: severe Psychotic features: without psychotic features QualifiedCode(s): F32.2- Major depressive disorder, single episode, severe without psychotic features (4) Bipolar II disorder: (5) Alcoholism: Plan Patient reported still dealing with a lot of anxiety Continue BuSpar 15 mg 3 times a day, gabapentin 300mg PO TID (Risks, benefits, and indications are discussed) Continue Effexor 150 mg daily Continue Seroquel 75 mg po qhs and increase Seroquel 25 mg three times a day Continue to monitor mental status Encourage group participation and medication compliance Risk benefits alternatives explained Documented By: Trevin Renteria MD [id number] Signed By: 10/19/24 0643 [facility]06-03-2025 Progress note Author Trevin rodriguez [facility] CenterNote Date/TimeJune 2024 9:09[place] [id number] Psychiatry Progress Note Signed Patient: Bridgette Wang MR#: [id number] : 1965 Acct:[id number] Age/Sex: 59 / F Adm Date: 5 Loc: Room: 2J9341-4 Type : ADM IN Attending Dr: Farhat Kirby MD Copies to: ~ Date of Service: 10/18/2024 Subjective Subjective Narrative: Narrative: Bridgette reported that she still feels very anxious 01/25. She also reports depression 01/25. She has not been sleeping due to recent thoughts. Patient was personally seen by me on the day of the encounter. I reviewed the history and performedthe logan elements of the assessment. I formulated the planof care and confirmed this with the medical student as noted below She denies any side effect with the medications. Patient is well-known to our service and describesher anxiety as severe. She reports ongoing racing thoughts and we discussed increasing gabapentin to 300 mg p.o. 3 times daily. She still has intermittent SI. She states she has not saw improvement since entering the [facility]. Mental status exam ATTITUDE: anxious SPEECH: Regular rate, steady rhythm, normal volume, and soft tone MOOD: Anxious AFFECT: mood congruent THOUGHT PROCESS: Linear, logical, goal oriented THOUGHT CONTENT: , auditory or visual hallucinations, or delusion content. Patient is not responding to internal stimuli. Reports intermittent SI ORIENTATION: Patient is oriented to person, place, time, and situation MEMORY: Patient's memory is grossly intact JUDGMENT: Fair INSIGHT INTO PROBLEM: Fair Exam Physical Exam Vital Signs: Temp Pulse Resp BP Pulse Ox O2 Del Method 97.8 F 77 16 121/76 97 Room Air 10/17/24 21:03 10/17/24 21:03 10/17/24 21:03 10/17/24 21:03 10/17/24 21:03 10/17/24 21:03 Assessment/Plan Assessment/Plan (1) Suicidal ideation: (2) Anxiety: (3) MDD (major depressive disorder): Qualifiers: Major depression recurrence: unspecified whether recurrent Active/Remission status: currently active Major depression episode severity: severe Psychotic features: without psychotic features QualifiedCode(s): F32.2- Major depressive disorder, single episode, severe without psychotic features (4) Bipolar II disorder: (5) Alcoholism: Plan Patient reported still dealing with a lot of anxiety Continue BuSpar 15 mg 3 times a day, gabapentin 300mg PO TID (Risks, benefits, and indications are discussed) Continue Effexor 150 mg daily Increase nighttime dose to 75 mg continue Seroquel 25 mg twice a day Continue to monitor mental status Encourage group participation and medication compliance Risk benefits alternatives explained Documented By: Trevin Renteria MD [id number] Signed By: <Electronically signed by Trevin Renteria MD> 10/18/24 0909 [facility] Work Phone: [phone] 708-971806-03-2025 [place] [address] Psychiatry Progress Note Signed Patient: Bridgette Wang MR#: [id number] : 1965 Acct:[id number] Age/Sex: 59 / F Adm Date: 5 Loc: Room: [address] [place] [address] Type : ADM IN Attending Dr: Farhat Kirby MD Copies to: ~ Date of Service: 10/18/2024 Subjective Subjective Narrative: Narrative: Bridgette reported that she still feels very anxious 01/25. She also reports depression 01/25. She has not been sleeping due to recent thoughts. Patient was personally seen by me on the day of the encounter. I reviewed the history and performedthe logan elements of the assessment. I formulated the planof care and confirmed this with the medical student as noted below She denies any side effect with the medications. Patient is well-known to our service and describesher anxiety as severe. She reports ongoing racing thoughts and we discussed increasing gabapentin to 300 mg p.o. 3 times daily. She still has intermittent SI. She states she has not saw improvement since entering the [facility]. Mental status exam ATTITUDE: anxious SPEECH: Regular rate, steady rhythm, normal volume, and soft tone MOOD: Anxious AFFECT: mood congruent THOUGHT PROCESS: Linear, logical, goal oriented THOUGHT CONTENT: , auditory or visual hallucinations, or delusion content. Patient is not responding to internal stimuli. Reports intermittent SI ORIENTATION: Patient is oriented to person, place, time, and situation MEMORY: Patient's memory is grossly intact JUDGMENT: Fair INSIGHT INTO PROBLEM: Fair Exam Physical Exam Vital Signs: Temp Pulse Resp BP Pulse Ox O2 Del Method 97.8 F 77 16 121/76 97 Room Air 10/17/24 21:10/17/24 21:10/17/24 21:10/17/24 21:03 10/17/24 21:10/17/24 21:03 Assessment/Plan Assessment/Plan (1) Suicidal ideation: (2) Anxiety: (3) MDD (major depressive disorder): Qualifiers: Major depression recurrence: unspecified whether recurrent Active/Remission status: currently active Major depression episode severity: severe Psychotic features: without psychotic features QualifiedCode(s): F32.2- Major depressive disorder, single episode, severe without psychotic features (4) Bipolar II disorder: (5) Alcoholism: Plan Patient reported still dealing with a lot of anxiety Continue BuSpar 15 mg 3 times a day, gabapentin 300mg PO TID (Risks, benefits, and indications are discussed) Continue Effexor 150 mg daily Increase nighttime dose to 75 mg continue Seroquel 25 mg twice a day Continue to monitor mental status Encourage group participation and medication compliance Risk benefits alternatives explained Documented By: Trevin Renteria MD 5 0702 Signed By: 10/18/24 0909 [facility]06-02-2025 Progress note Author Trevin rodriguez [facility] CenterNote Date/TimeJune 2024 6:57[place] [address] Psychiatry Progress Note Signed Patient: Bridgette Wang MR#: [id number] : 1965 Acct:[id number] Age/Sex: 59 / F Adm Date: 5 Loc: Room: [address] [place] [address] Type : ADM IN Attending Dr: Farhat Kirby MD Copies to: ~ Date of Service: 10/17/2024 Subjective Subjective Narrative: Bridgette reported that she still feels very anxious. She reports feeling overwhelmed due to ongoing stressors I can not think right as I am always scared. She denies any side effect with the medications. She needs inpatient psychiatric care to ensure stability of clinical condition as she continuesto reprot SI. Mental status exam ATTITUDE: Cooperative with interview SPEECH: Regular rate, steady rhythm, normal volume, and soft tone MOOD: Anxious AFFECT: mood congruent THOUGHT PROCESS: Linear, logical, goal oriented THOUGHT CONTENT: Patient does express thoughts of or indicate behaviors contingent with suicidal ideation, denied homicidal ideation, auditory or visualhallucinations, or delusion content. Patient isnot responding to internal stimuli. ORIENTATION: Patient is oriented to person, place, time, and situation MEMORY: Patient's memory is grossly intact JUDGMENT: Fair INSIGHT INTO PROBLEM: Fair Exam Physical Exam Vital Signs: Temp Pulse Resp BP Pulse Ox O2 Del Method 98 F 84 16 129/74 98 Room Air 10/16/24 19:54 10/16/24 19:54 10/16/24 19:54 10/16/24 19:54 10/16/24 19:54 10/16/24 19:54 Assessment/Plan Assessment/Plan (1) Suicidal ideation: (2) Anxiety: (3) MDD (major depressive disorder): Qualifiers: Major depression recurrence: unspecified whether recurrent Active/Remission status: currently active Major depression episode severity: severe Psychotic features: without psychotic features QualifiedCode(s): F32.2- Major depressive disorder, single episode, severe without psychotic features (4) Bipolar II disorder: (5) Alcoholism: Plan Patient reported still dealing with a lot of anxiety Continue BuSpar 15 mg 3 times a day, gabapentin 200mg PO TID (Risks, benefits, and indications are discussed) Continue Effexor 150 mg daily Increase nighttime dose to 75 mg continue Seroquel 25 mg twice a day Continue to monitor mental status Encourage group participation and medication compliance Risk benefits alternatives explained Documented By: Trevin Renteria MD 5 0655 Signed By: <Electronically signed by Trevin Renteria MD> 10/17/24 0657 [facility] Work Phone: 1(455) 149-999206-02-2025 [place] [address] Psychiatry Progress Note Signed Patient: Bridgette Wang MR#: [id number] : 1965 Acct:[id number] Age/Sex: 59 / F Adm Date: 5 Loc: Room: [address] [place] [address] Type : ADM IN Attending Dr: Farhat Kirby MD Copies to: ~ Date of Service: 10/17/2024 Subjective Subjective Narrative: Bridgette reported that she still feels very anxious. She reports feeling overwhelmed due to ongoing stressors I can not think right as I am always scared. She denies any side effect with the medications. She needs inpatient psychiatric care to ensure stability of clinical condition as she continuesto reprot SI. Mental status exam ATTITUDE: Cooperative with interview SPEECH: Regular rate, steady rhythm, normal volume, and soft tone MOOD: Anxious AFFECT: mood congruent THOUGHT PROCESS: Linear, logical, goal oriented THOUGHT CONTENT: Patient does express thoughts of or indicate behaviors contingent with suicidal ideation, denied homicidal ideation, auditory or visualhallucinations, or delusion content. Patient isnot responding to internal stimuli. ORIENTATION: Patient is oriented to person, place, time, and situation MEMORY: Patient's memory is grossly intact JUDGMENT: Fair INSIGHT INTO PROBLEM: Fair Exam Physical Exam Vital Signs: Temp Pulse Resp BP Pulse Ox O2 Del Method 98 F 84 16 129/74 98 Room Air 10/16/24 19:54 10/16/24 19:54 10/16/24 19:54 10/16/24 19:54 10/16/24 19:54 10/16/24 19:54 Assessment/Plan Assessment/Plan (1) Suicidal ideation: (2) Anxiety: (3) MDD (major depressive disorder): Qualifiers: Major depression recurrence: unspecified whether recurrent Active/Remission status: currently active Major depression episode severity: severe Psychotic features: without psychotic features QualifiedCode(s): F32.2- Major depressive disorder, single episode, severe without psychotic features (4) Bipolar II disorder: (5) Alcoholism: Plan Patient reported still dealing with a lot of anxiety Continue BuSpar 15 mg 3 times a day, gabapentin 200mg PO TID (Risks, benefits, and indications are discussed) Continue Effexor 150 mg daily Increase nighttime dose to 75 mg continue Seroquel 25 mg twice a day Continue to monitor mental status Encourage group participation and medication compliance Risk benefits alternatives explained Documented By: Trevin Renteria MD 5 0655 Signed By: 10/17/24 0657 [facility]06-01-2025 Progress note Author Farhat Kirby [facility] CenterNote Date/TimeJune 2024 11:09[place] [id number] Psychiatry Progress Note Signed with Rick Patient: Bridgette Wang MR#: [id number] : 1965 Acct:[id number] Age/Sex: 59 / F Adm Date: 5 Loc: Room: [address] [place] [address] Type : ADM IN Attending Dr: Farhat Kirby MD Copies to: ~ ADDENDUM1 Plan Patient reported still dealing with a lot of anxiety Continue BuSpar 15 mg 3 times a day, gabapentin 200mg PO TID (Risks, benefits, and indications are discussed) Continue Effexor 150 mg daily Increase nighttime dose to 50 mg continue Seroquel 25 mg twice a day Continue to monitor mental status Encourage group participation and medication compliance Risk benefits alternatives explained Addendum Documented By: Farhat Kirby MD 10/16/241108 Addendum Signed By: <Electronically signed by Farhat Kirby MD> 10/16/241108 Date of Service: 10/15/2024 Subjective Subjective Narrative: Bridgette reported that she is feels very anxious. Said that she feels like her heart is racing. She only attended occasional groups and stated that she attended the once with snacks. She denied any other side effects with the medication. Mental status exam ATTITUDE: Cooperative with interview SPEECH: Regular rate, steady rhythm, normal volume, and soft tone MOOD: Anxious AFFECT: mood congruent THOUGHT PROCESS: Linear, logical, goal oriented THOUGHT CONTENT: Patient denies and does not express thoughts of or indicate behaviors contingent with suicidal ideation, homicidal ideation, auditory or visual hallucinations, or delusion content. Patient is not responding to internal stimuli. ORIENTATION: Patient is oriented to person, place, time, and situation MEMORY: Patient's memory is grossly intact JUDGMENT: Fair INSIGHT INTO PROBLEM: Fair Exam Physical Exam Vital Signs: Temp Pulse Resp BP Pulse Ox O2 Del Method 97.8 F 78 18 143/69 H 97 Room Air 10/15/24 07:30 10/15/24 07:30 10/15/24 07:30 10/15/24 07:30 10/15/24 07:30 10/15/24 07:30 Assessment/Plan Assessment/Plan (1) Suicidal ideation: (2) Anxiety: (3) MDD (major depressive disorder): Qualifiers: Major depression recurrence: unspecified whether recurrent Active/Remission status: currently active Major depression episode severity: severe Psychotic features: without psychotic features QualifiedCode(s): F32.2- Major depressive disorder, single episode, severe without psychotic features (4) Bipolar II disorder: (5) Alcoholism: Plan Patient reported still dealing with a lot of anxiety Continue BuSpar 15 mg 3 times a day, gabapentin 200mg PO TID (Risks, benefits, and indications are discussed) Continue Effexor 150 mg daily Increase nighttime dose to 50 mg continue Seroquel 200 mg twice a day Continue to monitor mental status Encourage group participation and medication compliance Risk benefits alternatives explained Documented By: Farhat Kirby MD 10/15/24 1214 Signed By: <Electronically signed by Farhat Kirby MD> 10/15/24 1215 [facility] Work Phone: 1(567) 257-213506-01-2025 Progress note Author Farhat Kirby [facility] CenterNote Date/TimeJune 2024 11:09[place] [address] Psychiatry Progress Note Signed with Addenda Patient: Bridgette Wang MR#: [id number] : 1965 Acct:[id number] Age/Sex: 59 / F Adm Date: 5 Loc: Room: [address] [place] [address] Type : ADM IN Attending Dr: Farhat Kriby MD Copies to: ~ ADDENDUM1 Addendum Documented By: Farhat Kirby MD 10/16/24 1109 Addendum Signed By: <Electronically signed by Farhat Kirby MD> 10/16/24 1109 Date of Service: 10/16/2024 Subjective Subjective Narrative: Bridgette reported that she still feels very anxious. She reported that her sleep was somewhat interrupted. She feels like she is having hot flashes and sweating. She denies any side effect with the medications. Mental status exam ATTITUDE: Cooperative with interview SPEECH: Regular rate, steady rhythm, normal volume, and soft tone MOOD: Anxious AFFECT: mood congruent THOUGHT PROCESS: Linear, logical, goal oriented THOUGHT CONTENT: Patient denies and does not express thoughts of or indicate behaviors contingent with suicidal ideation, homicidal ideation, auditory or visual hallucinations, or delusion content. Patient is not responding to internal stimuli. ORIENTATION: Patient is oriented to person, place, time, and situation MEMORY: Patient's memory is grossly intact JUDGMENT: Fair INSIGHT INTO PROBLEM: Fair Exam Physical Exam Vital Signs: Temp Pulse Resp BP Pulse Ox O2 Del Method 98.0 F 89 18 133/87 98 Room Air 10/16/24 07:24 10/16/24 07:24 10/16/24 07:24 10/16/24 07:24 10/16/24 07:24 10/16/24 07:24 Assessment/Plan Assessment/Plan (1) Suicidal ideation: (2) Anxiety: (3) MDD (major depressive disorder): Qualifiers: Major depression recurrence: unspecified whether recurrent Active/Remission status: currently active Major depression episode severity: severe Psychotic features: without psychotic features QualifiedCode(s): F32.2- Major depressive disorder, single episode, severe without psychotic features (4) Bipolar II disorder: (5) Alcoholism: Plan Patient reported still dealing with a lot of anxiety Continue BuSpar 15 mg 3 times a day, gabapentin 200mg PO TID (Risks, benefits, and indications are discussed) Continue Effexor 150 mg daily Continue Seroquel 25 mg twice a day and 50 mg at bedtime Continue to monitor mental status Encourage group participation and medication compliance Risk benefits alternatives explained Documented By: Farhat Kirby MD 10/16/24 1057 Signed By: <Electronically signed by Farhat Kirby MD> 10/16/24 1056 [facility] Work Phone: 1(198) 487-119306-01-2025 [place] [address] Psychiatry Progress Note Signed with Rick Patient: Bridgette Wang MR#: [id number] : 1965 Acct:[id number] Age/Sex: 59 / F Adm Date: 5 Loc: Room: [id number] Type : ADM IN Attending Dr: Farhat Kirby MD Copies to: ~ ADDENDUM1 Plan Patient reported still dealing with a lot of anxiety Continue BuSpar 15 mg 3 times a day, gabapentin 200mg PO TID (Risks, benefits, and indications are discussed) Continue Effexor 150 mg daily Increase nighttime dose to 50 mg continue Seroquel 25 mg twice a day Continue to monitor mental status Encourage group participation and medication compliance Risk benefits alternatives explained Addendum Documented By: Farhat Kirby MD 10/16/24 1109 Addendum Signed By: 10/16/24 1109 Date of Service: 10/15/2024 Subjective Subjective Narrative: Bridgette reported that she is feels very anxious. Said that she feels like her heart is racing. She only attended occasional groups and stated that she attended the once with snacks. She denied any other side effects with the medication. Mental status exam ATTITUDE: Cooperative with interview SPEECH: Regular rate, steady rhythm, normal volume, and soft tone MOOD: Anxious AFFECT: mood congruent THOUGHT PROCESS: Linear, logical, goal oriented THOUGHT CONTENT: Patient denies and does not express thoughts of or indicate behaviors contingent with suicidal ideation, homicidal ideation, auditory or visual hallucinations, or delusion content. Patient is not responding to internal stimuli. ORIENTATION: Patient is oriented to person, place, time, and situation MEMORY: Patient's memory is grossly intact JUDGMENT: Fair INSIGHT INTO PROBLEM: Fair Exam Physical Exam Vital Signs: Temp Pulse Resp BP Pulse Ox O2 Del Method 97.8 F 78 18 143/69 H 97 Room Air 10/15/24 07:30 10/15/24 07:30 10/15/24 07:30 10/15/24 07:30 10/15/24 07:30 10/15/24 07:30 Assessment/Plan Assessment/Plan (1) Suicidal ideation: (2) Anxiety: (3) MDD (major depressive disorder): Qualifiers: Major depression recurrence: unspecified whether recurrent Active/Remission status: currently active Major depression episode severity: severe Psychotic features: without psychotic features QualifiedCode(s): F32.2- Major depressive disorder, single episode, severe without psychotic features (4) Bipolar II disorder: (5) Alcoholism: Plan Patient reported still dealing with a lot of anxiety Continue BuSpar 15 mg 3 times a day, gabapentin 200mg PO TID (Risks, benefits, and indications are discussed) Continue Effexor 150 mg daily Increase nighttime dose to 50 mg continue Seroquel 200 mg twice a day Continue to monitor mental status Encourage group participation and medication compliance Risk benefits alternatives explained Documented By: Farhat Kirby MD 10/15/241213 Signed By: 10/15/24 1215 [facility]06-01-[address] [address] Psychiatry Progress Note Signed with Addenda Patient: Bridgette Wang MR#: [id number] : 1965 Acct:[id number] Age/Sex: 59 / F Adm Date: 5 Loc: 1S Room: [id number] Type : ADM IN Attending Dr: Farhat Kirby MD Copies to: ~ ADDENDUM1 Addendum Documented By: Farhat Kirby MD 10/16/241108 Addendum Signed By: 10/16/24 1109 Date of Service: 10/16/2024 Subjective Subjective Narrative: Bridgette reported that she still feels very anxious. She reported that her sleep was somewhat interrupted. She feels like she is having hot flashes and sweating. She denies any side effect with the medications. Mental status exam ATTITUDE: Cooperative with interview SPEECH: Regular rate, steady rhythm, normal volume, and soft tone MOOD: Anxious AFFECT: mood congruent THOUGHT PROCESS: Linear, logical, goal oriented THOUGHT CONTENT: Patient denies and does not express thoughts of or indicate behaviors contingent with suicidal ideation, homicidal ideation, auditory or visual hallucinations, or delusion content. Patient is not responding to internal stimuli. ORIENTATION: Patient is oriented to person, place, time, and situation MEMORY: Patient's memory is grossly intact JUDGMENT: Fair INSIGHT INTO PROBLEM: Fair Exam Physical Exam Vital Signs: Temp Pulse Resp BP Pulse Ox O2 Del Method 98.0 F 89 18 133/87 98 Room Air 10/16/24 07:24 10/16/24 07:24 10/16/24 07:24 10/16/24 07:24 10/16/24 07:24 10/16/24 07:24 Assessment/Plan Assessment/Plan (1) Suicidal ideation: (2) Anxiety: (3) MDD (major depressive disorder): Qualifiers: Major depression recurrence: unspecified whether recurrent Active/Remission status: currently active Major depression episode severity: severe Psychotic features: without psychotic features QualifiedCode(s): F32.2- Major depressive disorder, single episode, severe without psychotic features (4) Bipolar II disorder: (5) Alcoholism: Plan Patient reported still dealing with a lot of anxiety Continue BuSpar 15 mg 3 times a day, gabapentin 200mg PO TID (Risks, benefits, and indications are discussed) Continue Effexor 150 mg daily Continue Seroquel 25 mg twice a day and 50 mg at bedtime Continue to monitor mental status Encourage group participation and medication compliance Risk benefits alternatives explained Documented By: Farhat Kirby MD 10/16/24 1054 Signed By: 10/16/24 1056 [facility]05-30-2025 Progress note Author Farhat Kirby [facility] CenterNote Date/TimeMay 2024 11:30[place] [id number] Psychiatry Progress Note Signed Patient: Bridgette Wang MR#: [id number] : 1965 Acct:[id number] Age/Sex: 59 / F Adm Date: 5 Loc: 1S Room: [address] [place] [address] Type : ADM IN Attending Dr: Farhat Kirby MD Copies to: ~ Date of Service: 10/14/2024 Subjective Subjective Narrative: Bridgette reported that she is feels very anxious. She stated that she did get her morning medications and feels like she needs to take it as needed. She reportedthat she did not sleep well last night. She has not been attending many groups. She stated that she would try to attend some today. Mental status exam ATTITUDE: Cooperative with interview SPEECH: Regular rate, steady rhythm, normal volume, and soft tone MOOD: Anxious AFFECT: mood congruent THOUGHT PROCESS: Linear, logical, goal oriented THOUGHT CONTENT: Patient denies and does not express thoughts of or indicate behaviors contingent with suicidal ideation, homicidal ideation, auditory or visual hallucinations, or delusion content. Patient is not responding to internal stimuli. ORIENTATION: Patient is oriented to person, place, time, and situation MEMORY: Patient's memory is grossly intact JUDGMENT: Fair INSIGHT INTO PROBLEM: Fair Exam Physical Exam Vital Signs: Temp Pulse Resp BP Pulse Ox O2 Del Method 98 F 77 16 114/72 95 Room Air 10/14/24 07:30 10/14/24 07:30 10/14/24 07:30 10/14/24 07:30 10/14/24 07:30 10/14/24 08:29 Assessment/Plan Assessment/Plan (1) Suicidal ideation: (2) Anxiety: (3) MDD (major depressive disorder): Qualifiers: Major depression recurrence: unspecified whether recurrent Active/Remission status: currently active Major depression episode severity: severe Psychotic features: without psychotic features QualifiedCode(s): F32.2- Major depressive disorder, single episode, severe without psychotic features (4) Bipolar II disorder: (5) Alcoholism: Plan Patient reported still dealing with a lot of anxiety Continue BuSpar 15 mg 3 times a day, quetiapine 25mg PO TID, gabapentin 200mg POTID (Risks, benefits, and indications are discussed) Increase Effexor 150 mg daily Continue to monitor mental status Encourage group participation and medication compliance Risk benefits alternatives explained Documented By: Farhat Kirby MD 10/14/24 1127 Signed By: <Electronically signed by Farhat Kirby MD> 10/14/24 1130 [facility] Work Phone: 1([phone]) 431-140905-30-2025 [place] [address] Psychiatry Progress Note Signed Patient: Bridgette Wang MR#: [id number] : 1965 Acct:[id number] Age/Sex: 59 / F Adm Date: 5 Loc: Room: [address] [place] [address] Type : ADM IN Attending Dr: Farhat Kirby MD Copies to: ~ Date of Service: 10/14/2024 Subjective Subjective Narrative: Bridgette reported that she is feels very anxious. She stated that she did get her morning medications and feels like she needs to take it as needed. She reportedthat she did not sleep well last night. She has not been attending many groups. She stated that she would try to attend some today. Mental status exam ATTITUDE: Cooperative with interview SPEECH: Regular rate, steady rhythm, normal volume, and soft tone MOOD: Anxious AFFECT: mood congruent THOUGHT PROCESS: Linear, logical, goal oriented THOUGHT CONTENT: Patient denies and does not express thoughts of or indicate behaviors contingent with suicidal ideation, homicidal ideation, auditory or visual hallucinations, or delusion content. Patient is not responding to internal stimuli. ORIENTATION: Patient is oriented to person, place, time, and situation MEMORY: Patient's memory is grossly intact JUDGMENT: Fair INSIGHT INTO PROBLEM: Fair Exam Physical Exam Vital Signs: Temp Pulse Resp BP Pulse Ox O2 Del Method 98 F 77 16 114/72 95 Room Air 10/14/24 07:30 10/14/24 07:30 10/14/24 07:30 10/14/24 07:30 10/14/24 07:30 10/14/24 08:29 Assessment/Plan Assessment/Plan (1) Suicidal ideation: (2) Anxiety: (3) MDD (major depressive disorder): Qualifiers: Major depression recurrence: unspecified whether recurrent Active/Remission status: currently active Major depression episode severity: severe Psychotic features: without psychotic features QualifiedCode(s): F32.2- Major depressive disorder, single episode, severe without psychotic features (4) Bipolar II disorder: (5) Alcoholism: Plan Patient reported still dealing with a lot of anxiety Continue BuSpar 15 mg 3 times a day, quetiapine 25mg PO TID, gabapentin 200mg POTID (Risks, benefits, and indications are discussed) Increase Effexor 150 mg daily Continue to monitor mental status Encourage group participation and medication compliance Risk benefits alternatives explained Documented By: Farhat Kirby MD 10/14/24 1127 Signed By: 10/14/24 1130 [facility]05-29-2025 Progress note Author Farhat Kirby [facility] CenterNote Date/TimeMay 2024 1:22[place] [address] Psychiatry Progress Note Signed Patient: Bridgette Wang MR#: [id number] : 1965 Acct:[id number] Age/Sex: 59 / F Adm Date: 5 Loc: Room: [address] [place] [address] Type : ADM IN Attending Dr: Farhat Kirby MD Copies to: ~ Date of Service: 10/13/2024 Subjective Subjective Narrative: [facility] hospital day 3. No overnight events. Patient says she was able to sleep well and is eating normally. However, anxiety kept her from participatingin the group activities. Patient says her anxiety is 910 this morning. Denies SI, HI, depressed mood, AVH. Feeling a little woozy when she stands upping get out of bed, but she says it goes away pretty quickly. No complaints with medication. Mental status exam ATTITUDE: Cooperative with interview SPEECH: Regular rate, steady rhythm, normal volume, and soft tone MOOD: Anxious AFFECT: mood congruent THOUGHT PROCESS: Linear, logical, goal oriented THOUGHT CONTENT: Patient denies and does not express thoughts of or indicate behaviors contingent with suicidal ideation, homicidal ideation, auditory or visual hallucinations, or delusion content. Patient is not responding to internal stimuli. ORIENTATION: Patient is oriented to person, place, time, and situation MEMORY: Patient's memory is grossly intact JUDGMENT: Fair INSIGHT INTO PROBLEM: Fair Patient was personally seen by me on the day of the encounter. I reviewed the history and performedthe logan elements of the physical examination. I formulated the plan of care and confirmed this withthe medical student as noted below. Exam Physical Exam Vital Signs: Temp Pulse Resp BP Pulse Ox O2 Del Method 97.8 F 66 16 124/62 97 Room Air 10/13/24 07:30 10/13/24 07:30 10/13/24 07:30 10/13/24 07:30 10/13/24 07:30 10/13/24 07:30 Assessment/Plan Assessment/Plan (1) Suicidal ideation: (2) Anxiety: (3) MDD (major depressive disorder): Qualifiers: Active/Remission status: currently active Major depression episode severity: severe Major depression recurrence: unspecified whether recurrent Psychotic features: without psychotic features QualifiedCode(s): F32.2 - Majordepressive disorder, single episode, severe without psychotic features (4) Bipolar II disorder: (5) Alcoholism: Plan Patient is still expressing significant anxiety that is preventing her from leaving her room. Increase BuSpar 15 mg 3 times a day Continue quetiapine 25mg PO TID, venlafaxine 75mg PO daily, gabapentin 200mg PO TID (Risks, benefits, and indications are discussed) Continue to monitor mental status Encourage group participation and medication compliance Risk benefits alternatives explained Documented By: Farhat Kirby MD 10/13/24 0953 Signed By: <Electronically signed by Farhat Kirby MD> 10/13/24 1322 [facility] Work Phone: 1(801) 196-671005-29-2025 Progress note Author Farhat Kirby [facility] CenterNote Date/TimeMay 2024 1:20pm[place] [address] Psychiatry Progress Note Signed Patient: Bridgette Wang MR#: [id number] : 1965 Acct:[id number] Age/Sex: 59 / F Adm Date: 5 Loc: Room: [address] [place] [address] Type : ADM IN Attending Dr: Farhat Kirby MD Copies to: ~ Date of Service: 10/12/2024 Subjective Subjective Narrative: Please hospitalized to no overnight events. Patient explains that she is very anxious yesterday andtoday, her heart is beating very hard and fast. Was not able to participate in the group yesterday because of her anxiety. She feels weak this morning. She is taking her meds and denies complaints. Slept okay. Ate a little bit of breakfast. Denies depression, SI, HI, AVH, delusions. Mental status exam ATTITUDE: Cooperative with interview SPEECH: Regular rate, steady rhythm, normal volume, and soft tone MOOD: Anxious AFFECT: mood congruent THOUGHT PROCESS: Linear, logical, goal oriented THOUGHT CONTENT: Patient denies and does not express thoughts of or indicate behaviors contingent with suicidal ideation, homicidal ideation, auditory or visual hallucinations, or delusion content. Patient is not responding to internal stimuli. ORIENTATION: Patient is oriented to person, place, time, and situation MEMORY: Patient's memory is grossly intact JUDGMENT: Fair INSIGHT INTO PROBLEM: Fair Patient was personally seen by me on the day of the encounter. I reviewed the history and performedthe logan elements of the physical examination. I formulated the plan of care and confirmed this withthe medical student as notedbelow. Exam Physical Exam Vital Signs: Temp Pulse Resp BP Pulse Ox O2 Del Method 98.4 F 82 16 128/69 98 Room Air 10/12/24 07:30 10/12/24 07:30 10/12/24 07:30 10/12/24 07:30 10/12/24 07:30 10/12/24 09:00 Assessment/Plan Assessment/Plan (1) Suicidal ideation: (2) Anxiety: (3) MDD (major depressive disorder): Qualifiers: Active/Remission status: currently active Major depression episode severity: severe Major depression recurrence: unspecified whether recurrent Psychotic features: without psychotic features QualifiedCode(s): F32.2 - Majordepressive disorder, single episode, severe without psychotic features (4) Bipolar II disorder: Plan 1. Given that pt was successfully treated with these during inpatient stay 09/09but was noncompliant post-discharge, Restart: buspirone 10 daily, quetiapine 25mg PO TID, venlafaxine 75mg PO daily, gabapentin 200mg PO TID (Risks, benefits, and indications are discussed) 2. Monitor mental status 3. Encourage psychotherapy and group participation Documented By: Farhat Kirby MD 10/12/24 1043 Signed By: <Electronically signed by Farhat Kirby MD> 10/13/24 1320 [facility] Work Phone: 1(414) 880-456005-29-2025 [place] [address] Psychiatry Progress Note Signed Patient: Bridgette Wang MR#: [id number] : 1965 Acct:[id number] Age/Sex: 59 / F Adm Date: 5 Loc: Room: [address] [place] [address] Type : ADM IN Attending Dr: Farhat Kirby MD Copies to: ~ Date of Service: 10/13/2024 Subjective Subjective Narrative: Today's hospital day 3. No overnight events. Patient says she was able to sleep well and is eating normally. However, anxiety kept her from participatingin the group activities. Patient says her anxiety is 910 this morning. Denies SI, HI, depressed mood, AVH. Feeling a little woozy when she stands upping get out of bed, but she says it goes away pretty quickly. No complaints with medication. Mental status exam ATTITUDE: Cooperative with interview SPEECH: Regular rate, steady rhythm, normal volume, and soft tone MOOD: Anxious AFFECT: mood congruent THOUGHT PROCESS: Linear, logical, goal oriented THOUGHT CONTENT: Patient denies and does not express thoughts of or indicate behaviors contingent with suicidal ideation, homicidal ideation, auditory or visual hallucinations, or delusion content. Patient is not responding to internal stimuli. ORIENTATION: Patient is oriented to person, place, time, and situation MEMORY: Patient's memory is grossly intact JUDGMENT: Fair INSIGHT INTO PROBLEM: Fair Patient was personally seen by me on the day of the encounter. I reviewed the history and performedthe logan elements of the physical examination. I formulated the plan of care and confirmed this withthe medical student as noted below. Exam Physical Exam Vital Signs: Temp Pulse Resp BP Pulse Ox O2 Del Method 97.8 F 66 16 124/62 97 Room Air 10/13/24 07:30 10/13/24 07:30 10/13/24 07:30 10/13/24 07:30 10/13/24 07:30 10/13/24 07:30 Assessment/Plan Assessment/Plan (1) Suicidal ideation: (2) Anxiety: (3) MDD (major depressive disorder): Qualifiers: Active/Remission status: currently active Major depression episode severity: severe Major depression recurrence: unspecified whether recurrent Psychotic features: without psychotic features QualifiedCode(s): F32.2 - Majordepressive disorder, single episode, severe without psychotic features (4) Bipolar II disorder: (5) Alcoholism: Plan Patient is still expressing significant anxiety that is preventing her from leaving her room. Increase BuSpar 15 mg 3 times a day Continue quetiapine 25mg PO TID, venlafaxine 75mg PO daily, gabapentin 200mg PO TID (Risks, benefits, and indications are discussed) Continue to monitor mental status Encourage group participation and medication compliance Risk benefits alternatives explained Documented By: Farhat Kirby MD 10/13/24 0953 Signed By: 10/13/24 1322 [facility]05-29-2025 [place] [address] Psychiatry Progress Note Signed Patient: Bridgette Wang MR#: [id number] : 1965 Acct:[id number] Age/Sex: 59 / F Adm Date: 5 Loc: Room: [address] [place] [address] Type : ADM IN Attending Dr: Farhat Kirby MD Copies to: ~ Date of Service: 10/12/2024 Subjective Subjective Narrative: Please hospitalized to no overnight events. Patient explains that she is very anxious yesterday andtoday, her heart is beating very hard and fast. Was not able to participate in the group yesterday because of her anxiety. She feels weak this morning. She is taking her meds and denies complaints. Slept okay. Ate a little bit of breakfast. Denies depression, SI, HI, AVH, delusions. Mental status exam ATTITUDE: Cooperative with interview SPEECH: Regular rate, steady rhythm, normal volume, and soft tone MOOD: Anxious AFFECT: mood congruent THOUGHT PROCESS: Linear, logical, goal oriented THOUGHT CONTENT: Patient denies and does not express thoughts of or indicate behaviors contingent with suicidal ideation, homicidal ideation, auditory or visual hallucinations, or delusion content. Patient is not responding to internal stimuli. ORIENTATION: Patient is oriented to person, place, time, and situation MEMORY: Patient's memory is grossly intact JUDGMENT: Fair INSIGHT INTO PROBLEM: Fair Patient was personally seen by me on the day of the encounter. I reviewed the history and performedthe logan elements of the physical examination. I formulated the plan of care and confirmed this withthe medical student as notedbelow. Exam Physical Exam Vital Signs: Temp Pulse Resp BP Pulse Ox O2 Del Method 98.4 F 82 16 128/69 98 Room Air 10/12/24 07:30 10/12/24 07:30 10/12/24 07:30 10/12/24 07:30 10/12/24 07:30 10/12/24 09:00 Assessment/Plan Assessment/Plan (1) Suicidal ideation: (2) Anxiety: (3) MDD (major depressive disorder): Qualifiers: Active/Remission status: currently active Major depression episode severity: severe Major depression recurrence: unspecified whether recurrent Psychotic features: without psychotic features QualifiedCode(s): F32.2 - Majordepressive disorder, single episode, severe without psychotic features (4) Bipolar II disorder: Plan 1. Given that pt was successfully treated with these during inpatient stay 09/09but was noncompliant post-discharge, Restart: buspirone 10 daily, quetiapine 25mg PO TID, venlafaxine 75mg PO daily, gabapentin 200mg PO TID (Risks, benefits, and indications are discussed) 2. Monitor mental status 3. Encourage psychotherapy and group participation Documented By: Farhat Kirby MD 10/12/24 1043 Signed By: 10/13/24 1320 [facility]05-27-2025 History and physical note Author Farhat Kiryb [facility] CenterNote Date/TimeMay 2024 12:45pm[place] [address] Psychiatry H&P Signed Patient: Bridgette Wang MR#: [id number] : 1965 Acct:[id number] Age/Sex: 59 / F Adm Date: 5 Loc: Room: [address] [place] [address] Type: ADM IN Attending Dr: Farhat Kirby MD Copies to: Farhat Kirby MD NO FAMILY PHYSICIAN~ Date of Service: 10/11/2024 HPI History of Present Illness History of present illness: Ms. Wang is a 59 year old female with a reported history of?bipolar disorder and depression who presents for inpatient treatment due to anxiety, depression and SI after being noncompliant with medications after previous hospital stay inApril 2024. Reportedly, the patient presented [place] [facility] and was voluntarily transferred to due to suicidal thoughts without a plan, but states I just want it to end. per night nurse, patient reported high anxiety and depression, poor ADLs and appetite. ptstates she is tired of the pain. reports auditory hallucinations of sirens. rates depression and anxiety 10/10. pt reports non compliance with medications and follow up appointments since being discharged from in August. reports no transportation to fill meds/ attend follow up appointments. Pt was given PRN zyprexa to help sleep. At the time of the interview, he presented as anxious and restless. Was tossing and turning in her bed during interview. Pt reports that her anxiety is frequently 10/10, as is her depression. She says she has been suicidal w/o a plan recently. Asked her boyfriend to call 911 yesterday because she knew [she] needed help. Has not been sleeping, eating, or preforming personal hygiene. Talks about how her heart races during her anxiety attacks and she really doesn't like this feeling. Admits to being hospitalized in a month ago but was unable to pickup and start her medications. Does not have an outpatient psychiatrist, therapist, or PCP. Pt denies hobbies, as her anxiety prevents her fromenjoying anything. Pt has denies social support system, though she does live with her boyfriend.?when asked about previous psychiatric diagnoses and medications, patient responds that she doesn't know what her diagnoses are or what she takes. This morning, she denies SI, HI, AVH, delusions. Past psych history: Depression, bipolar disorder Past hospitalizations: 09/09, 01/08, 01/07 Past suicide attempts: None Previous medications: venlafaxine, buspirone, quetiapine, hydroxyzine, escitalopram, mirtazapine, trazodone, sertraline, risperidone Alcohol and drug use: Denies alcohol and recreational drug use. Has been hospitalized for alcohol abuse previously. Admits to smoking 1 pack cigarrettes/day. Living: [place], [place] with boyfriend Employment: Unemployed- disability Review of symptoms: Constitutional: Denies chills and denies fever(s) Eyes: Denies change in vision ENT: Denies abnormal hearing Cardiovascular: Denies chest pain Respiratory: Denies chest congestion and Denies cough Gastrointestinal: Denies change in bowel habits Genitourinary: Denies dysuria Musculoskeletal: Headache Integumentary/Breasts: Denies dry skin Neurologic: Denies abnormal gait and Denies abnormal movements Psychiatric: Reports depression and suicidal ideation Mental status exam ATTITUDE: Cooperative with interview SPEECH: Regular rate, steady rhythm, normal volume, and soft tone MOOD: Anxious AFFECT: mood congruent THOUGHT PROCESS: Linear, logical, goal oriented THOUGHT CONTENT: Patient denies and does not express thoughts of or indicate behaviors contingent with suicidal ideation, homicidal ideation, auditory or visual hallucinations, or delusion content. Patient is not responding to internal stimuli. ORIENTATION: Patient is oriented to person, place, time, and situation MEMORY: Patient's memory is grossly intact JUDGMENT: Fair INSIGHT INTO PROBLEM: Fair Patient's Strengths and Protective Factors: - Willing to comply - Good physical health Patient's Weaknesses and Risk Factors: - poor social support - hx of multiple hospitalizations - medication non-compliance - lack of transportation Attitude for Change: Fair AIMS: no abnormal movements noted. Score is zero.? Physical exam: Const: cooperative Nutritional Appearance: Average body habitus Orientation: alert, awake and oriented [...] rashes or lesions noted Neuro: CNI: Normal olfaction. Visual craft intact. CNIII,IV,: EOM intact, no nystagmus. Pupils equal, round, reactive to light and accommodation, CNV: Sensation intact to light touch, CNVII: Raises eyebrows, smile/frown, puff out cheeks symmetrically, CNVIII: Hearing intact bilaterally, CNIX,X: Voice normal, soft palate elevation normal, symmetrical, CNXI: Shoulder shrug strong, equal bilaterally, CNXII: Tongue protrusion midline, movement symmetrical. Extrem: normal to inspection and full ROM Patient was personally seen by me on the day of the encounter. I reviewed the history and performedthe logan elements of the physical examination. I formulated the plan of care and confirmed this withthe medical student as noted below. 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 Bipolar 1 disorder Family History (Updated 01/29/24 @ 16:38 by Sandra Topete RN) Father Mental health disorder Other No significant family history Social History Smoking Status: Current every day smoker Tobacco Type: cigarettes Substance Use Type: Marijuana Substance Abuse Comment: h/o alcohol abuse, currently sober, for a long time, per patient Social History Comments: mobile home Meds Medications and Allergies Allergies calcium Allergy (Verified 12/17/22 03:55) Unknown Reaction doxycycline Allergy (Verified 12/17/22 03:55) Unknown Reaction Home Medications buspirone 10 mg tablet 10 mg PO TID 30 days #90 tabs 08/30/24 [Rx] gabapentin 100 mg capsule 200 mg (2 x 100 mg) PO TID 30 days #180 caps 08/30/24 [Rx] quetiapine 25 mg tablet 25 mg PO TID 30 days #90 tabs 08/30/24 [Rx] venlafaxine 75 mg capsule,extended release 24 hr 75 mg PO DAILY #30 caps 08/30/24 [Rx] Exam Physical Exam Vital Signs: Temp Pulse Resp BP Pulse Ox O2 Del Method 98.7 F 102 H 18 104/65 100 Room Air 10/11/24 07:30 10/11/24 07:30 10/11/24 07:30 10/11/24 07:30 10/11/24 07:30 10/11/24 07:30 Assessment/Plan (1) Anxiety: (2) MDD (major depressive disorder): Qualifiers: Active/Remission status: currently active Major depression episode severity: severe Major depression recurrence: unspecified whether recurrent Psychotic features: without psychotic features QualifiedCode(s): F32.2 - Major depressive disorder, single episode, severe without psychotic features (3) Suicidal ideation: Plan Assessment and plan: Ms. Wang is a 59 year old female with a reported history of?bipolar disorder and depression who presents for inpatient treatment due to anxiety, depression and SI after being noncompliant with medications after previous hospital stay in August 2024. 1. Given that pt was successfully treated with these during inpatient stay 09/09 but was noncompliant post-discharge, Restart: buspirone 10 daily, quetiapine 25mg PO TID, venlafaxine 75mg PO daily, gabapentin 200mg PO TID (Risks, benefits, and indications are discussed) 2. Monitor mental status 3. Encourage psychotherapy and group participation 4. Case management will work on a safe discharge plan.? Documented By: Farhat Kirby MD 10/11/24 0902 Signed By: <Electronically signed by Farhat Kirby MD> 10/11/24 1245 [facility] Work Phone: 1(192) 345-397005-27-2025 [place] [address] Psychiatry H&P Signed Patient: Bridgette Wang MR#: [id number] : 1965 Acct:[id number] Age/Sex: 59 / F Adm Date: 5 Loc: Room: [address] [place] [address] Type: ADM IN Attending Dr: Farhat Kirby MD Copies to: Farhat Kirby MD NO FAMILY PHYSICIAN~ Date of Service: 10/11/2024 HPI History of Present Illness History of present illness: Ms. Wang is a 59 year old female with a reported history of?bipolar disorder and depression who presents for inpatient treatment due to anxiety, depression and SI after being noncompliant with medications after previous hospital stay inApril 2024. Reportedly, the patient presented [place] [facility] and was voluntarily transferred to due to suicidal thoughts without a plan, but states I just want it to end. per night nurse, patient reported high anxiety and depression, poor ADLs and appetite. ptstates she is tired of the pain. reports auditory hallucinations of sirens. rates depression and anxiety 02/24. pt reports non compliance with medications and follow up appointments since being discharged from in August. reports no transportation to fill meds/ attend follow up appointments. Pt was given PRN zyprexa to help sleep. At the time of the interview, he presented as anxious and restless. Was tossing and turning in her bed during interview. Pt reports that her anxiety is frequently 10/10, as is her depression. She says she has been suicidal w/o a plan recently. Asked her boyfriend to call 911 yesterday because she knew [she] needed help. Has not been sleeping, eating, or preforming personal hygiene. Talks about how her heart races during her anxiety attacks and she really doesn't like this feeling. Admits to being hospitalized in a month ago but was unable to pickup and start her medications. Does not have an outpatient psychiatrist, therapist, or PCP. Pt denies hobbies, as her anxiety prevents her fromenjoying anything. Pt has denies social support system, though she does live with her boyfriend.?when asked about previous psychiatric diagnoses and medications, patient responds that she doesn't know what her diagnoses are or what she takes. This morning, she denies SI, HI, AVH, delusions. Past psych history: Depression, bipolar disorder Past hospitalizations: 09/09, 01/08, 01/07 Past suicide attempts: None Previous medications: venlafaxine, buspirone, quetiapine, hydroxyzine, escitalopram, mirtazapine, trazodone, sertraline, risperidone Alcohol and drug use: Denies alcohol and recreational drug use. Has been hospitalized for alcohol abuse previously. Admits to smoking 1 pack cigarrettes/day. Living: [facility] in [place], [place] with boyfriend Employment: Unemployed- disability Review of symptoms: Constitutional: Denies chills and denies fever(s) Eyes: Denies change in vision ENT: Denies abnormal hearing Cardiovascular: Denies chest pain Respiratory: Denies chest congestion and Denies cough Gastrointestinal: Denies change in bowel habits Genitourinary: Denies dysuria Musculoskeletal: Headache Integumentary/Breasts: Denies dry skin Neurologic: Denies abnormal gait and Denies abnormal movements Psychiatric: Reports depression and suicidal ideation Mental status exam ATTITUDE: Cooperative with interview SPEECH: Regular rate, steady rhythm, normal volume, and soft tone MOOD: Anxious AFFECT: mood congruent THOUGHT PROCESS: Linear, logical, goal oriented THOUGHT CONTENT: Patient denies and does not express thoughts of or indicate behaviors contingent with suicidal ideation, homicidal ideation, auditory or visual hallucinations, or delusion content. Patient is not responding to internal stimuli. ORIENTATION: Patient is oriented to person, place, time, and situation MEMORY: Patient's memory is grossly intact JUDGMENT: Fair INSIGHT INTO PROBLEM: Fair Patient's Strengths and Protective Factors: - Willing to comply - Good physical health Patient's Weaknesses and Risk Factors: - poor social support - hx of multiple hospitalizations - medication non-compliance - lack of transportation Attitude for Change: Fair AIMS: no abnormal movements noted. Score is zero.? Physical exam: Const: cooperative Nutritional Appearance: Average body habitus Orientation: alert, awake and oriented [...] rashes or lesions noted Neuro: CNI: Normal olfaction. Visual craft intact. CNIII,IV,: EOM intact, no nystagmus. Pupils equal, round, reactive to light and accommodation, CNV: Sensation intact to light touch, CNVII: Raises eyebrows, smile/frown, puff out cheeks symmetrically, CNVIII: Hearing intact bilaterally, CNIX,X: Voice normal, soft palate elevation normal, symmetrical, CNXI: Shoulder shrug strong, equal bilaterally, CNXII: Tongue protrusion midline, movement symmetrical. Extrem: normal to inspection and full ROM Patient was personally seen by me on the day of the encounter. I reviewed the history and performedthe logan elements of the physical examination. I formulated the plan of care and confirmed this withthe medical student as noted below. 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 Bipolar 1 disorder Family History (Updated 01/29/24 @ 16:38 by Sandra Topete RN) Father Mental health disorder Other No significant family history Social History Smoking Status: Current every day smoker Tobacco Type: cigarettes Substance Use Type: Marijuana Substance Abuse Comment: h/o alcohol abuse, currently sober, for a long time, per patient Social History Comments: mobile home Meds Medications and Allergies Allergies calcium Allergy (Verified 12/17/22 03:55) Unknown Reaction doxycycline Allergy (Verified 12/17/22 03:55) Unknown Reaction Home Medications buspirone 10 mg tablet 10 mg PO TID 30 days #90 tabs 08/30/24 [Rx] gabapentin 100 mg capsule 200 mg (2 x 100 mg) PO TID 30 days #180 caps 08/30/24 [Rx] quetiapine 25 mg tablet 25 mg PO TID 30 days #90 tabs 08/30/24 [Rx] venlafaxine 75 mg capsule,extended release 24 hr 75 mg PO DAILY #30 caps 08/30/24 [Rx] Exam Physical Exam Vital Signs: Temp Pulse Resp BP Pulse Ox O2 Del Method 98.7 F 102 H 18 104/65 100 Room Air 10/11/24 07:30 10/11/24 07:30 10/11/24 07:30 10/11/24 07:30 10/11/24 07:30 10/11/24 07:30 Assessment/Plan (1) Anxiety: (2) MDD (major depressive disorder): Qualifiers: Active/Remission status: currently active Major depression episode severity: severe Major depression recurrence: unspecified whether recurrent Psychotic features: without psychotic features QualifiedCode(s): F32.2 - Major depressive disorder, single episode, severe without psychotic features (3) Suicidal ideation: Plan Assessment and plan: Ms. Wang is a 59 year old female with a reported history of?bipolar disorder and depression who presents for inpatient treatment due to anxiety, depression and SI after being noncompliant with medications after previous hospital stay in August 2024. 1. Given that pt was successfully treated with these during inpatient stay 09/09 but was noncompliant post-discharge, Restart: buspirone 10 daily, quetiapine 25mg PO TID, venlafaxine 75mg PO daily, gabapentin 200mg PO TID (Risks, benefits, and indications are discussed) 2. Monitor mental status 3. Encourage psychotherapy and group participation 4. Case management will work on a safe discharge plan.? Documented By: Farhat Kirby MD 10/11/24 0902 Signed By: 10/11/24 1245 [facility]04-15-2025 Discharge summary Author Farhat Kirby [facility] CenterNote Date/TimeApril 2024 12:28pmKeith Ville [id number] Discharge Summary Signed Patient: Bridgetet Wang MR#: [id number] : 1965 Acct:[id number] Age/Sex: 59 / F Adm Date: 5 Loc: 1S Room: [address] [place] [address]: Trevin Renteria MD Copies to: MD Farhat Whitten MD NO FAMILY PHYSICIAN~ Providers Date of Discharge: 08/30/24 Discharging Provider: Farhat Kirby Primary Care Provider: PHYSICIAN NO FAMILY Discharge Diagnosis (1) MDD (major depressive disorder): (2) Anxiety: Final Diagnosis Final Discharge Diagnosis: Major depressive disorder Generalized anxiety disorder Summary Hospital Course Hospital course: Ms. Wang is a 59 year old female with medical history of bipolar disorder, MDD,LACHELLE. According to the admission note patient arrived from [place] [facility] after being admitted involuntarily. Patient was inpatient in January 2020 for, she did not continue her meds or outpatient mental health follow-up/treatment after her discharge. Patient's partner reported that patient was having poor ADLs, not eating, not showering. Patient was also not sleeping. Per spouse patient stated she had SI, but she had no plan. Patient has a history of suicide attempt, by overdose, years ago. 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 Patient says her anxiety and depression are both a 10/10. Patient was personally seen by me on the day of the encounter. I reviewed the history and performedthe logan elements of the assessment. I formulated the planof care and confirmed this with the medical student as noted below At the time of the interview patient presented as anxious. Patient has been feeling overwhelmed andhas not been compliant with meds since her discharge. We discussed what led to the patient's hospitalization, she said she told her partner she needed to be brought into [place]. Patient rated her anxiety and depression as both 10/10. Patient said she has not been compliant with her medications, that she stopped taking them after her last hospitalization. Patient has not followed up with any of the mental health services she was meantto. Patient said she does not think the meds help, but that she will take them while she is here and will continue taking them afterwards. Patient said she has been struggling to take care of herself, she has had poor concentration and issues sleeping. Past psych history: History of bipolar Past psych hospitalizations: Patient reports multiple hospitalizations, most recent in January 2024 Past suicide attempts: Patient reports 1 attempt on her life when she was a teen, but has not done that since Previous medications: Patient reports she has previously been on clonidine and trazodone Alcohol and drug use: Patient denies any current drug use and alcohol use. Patient confirms she smokes cigarettes every day. Living: Patient has been living with her partner for the last year in [place] Employment: Patient is on disability and does not work Relationships: close, supportive relationship with Patient was restarted on previously tolerated medications. She had had gradual improvement of her symptoms during her hospitalization. She did not exhibit anybehavior concerning for suicidality during her hospital course. She attended occasional groups during her hospitalization and seem to learn coping skills. Her sleep and appetite seem normal during her hospitalization. Patient had gradual movement of her depression and suicidal thoughts. Her anxiety still persisted which seem to be a chronic issue and seem to be something that would be better managed on the outpatient basis as patient hadchronic anxiety. On the day of discharge, patient reported she was doing better but stated that shestill felt very anxious. We discussed about following up with outpatient services to ensure that anxiety could be maintained better with therapy. She stated that she would continue her medications and follow-up with outpatient services. We did discuss history of noncompliance which patient reportedthat she did not have a ride. We discussed about getting patient in with case management to help with compliance issues and assisting with appointments. Condition Condition at Discharge: Stable Status at Discharge Cognitive/behavioral status at discharge: Mental Status Exam: Appearance: grossly normal Mental Status: mental status grossly normal Mood: Anxious mood Affect: Anxious Speech and Movement: speech normal, movement normal Attitude: cooperative Thought Process: normal Thought Content: Denied hallucinations, no homicidality and no suicidality Insight: Good Judgment: Good Functional status at discharge: independent ambulation Overall status at discharge: patient is back to baseline Time Spent with Patient Time spent providing/coordinating discharge services (# min): 30 Discharge Plan Discharge Plan Patient Disposition: Home Activity: No Activity Restriction Diet: Regular Additional Instructions: Important Contact Information You can call [facility] at [phone] any timeday or night if you have emergent questions or question regarding discharge instructions. If at anytime you are feeling an increase inyour psychiatric symptoms, call your physician or behavioral healthcare provider. If any time you have thoughts of harming yourself or others contact one of the following: Call (available 08/12) Crisis Text Line (available 08/12) text 4HOPE to [phone] [facility] Hope Line (available 8 a.m. Midnight) call [phone] ([phone]) Regular Diet No Activity Restrictions Instructions: Bipolar disorder - Discharge instructions, [facility] Instructions, Know your Meds Prescriptions: New buspirone 10 mg Tablet 10 mg PO TID 30 Days Qty: 90 0RF nicotine 21 mg/24 hr Patch 24 Hour 21 mg transdermal DAILY Qty: 20 0RF gabapentin 100 mg Capsule 200 mg PO TID 30 Days Qty: 180 0RF quetiapine 25 mg Tablet 25 mg PO TID 30 Days Qty: 90 0RF venlafaxine 75 mg Capsule,Extended Release 24hr 75 mg PO DAILY Qty: 30 0RF Follow Up: [facility] [Outside] - 09/05/24 9:00 am (A business office manager will call you tomorrow. If you miss this call, please call back as soon as possible. Please call the office if you need to reschedule you appointment 09/05/24 @ 9am with Lizette Roach CNP at the [facility] outpatient office.) [facility] [Outside] (Call for any medical needs.) Exam Physical Exam Vital Signs: Temp Pulse Resp BP Pulse Ox O2 Del Method 98 F 79 16 122/79 99 Room Air 08/30/24 07:30 08/30/24 07:30 08/30/24 07:30 08/30/24 07:30 08/30/24 07:30 08/30/24 07:30 Diagnostic Studies Completed and Pending Studies Pending studies at discharge: 08/24/24 05:00 Lipid Panel [CHEM] IN AM Thyroid Stim Hormone w/Rflx [CHEM] IN AM Vitamin D 25 Hydroxy Total [CHEM] IN AM Documented By: Farhat Kirby MD 08/30/24 1219 Signed By: <Electronically signed by Farhat Kirby MD> 08/30/24 1228 [facility] Work Phone: 1(509) 942-554004-15-2025 Discharge summaryKe[place]ille [id number] Discharge Summary Signed Patient: Bridgette Wang MR#: [id number] : 1965 Acct:[id number] Age/Sex: 59 / F Adm Date: 5 Loc: Room: [address] [place] [address]: Trevin Renteria MD Copies to: MD Farhat Whitten MD NO FAMILY PHYSICIAN~ Providers Date of Discharge: 08/30/24 Discharging Provider: Farhat Kirby Primary Care Provider: PHYSICIAN NO FAMILY Discharge Diagnosis (1) MDD (major depressive disorder): (2) Anxiety: Final Diagnosis Final Discharge Diagnosis: Major depressive disorder Generalized anxiety disorder Summary Hospital Course Hospital course: Ms. Wang is a 59 year old female with medical history of bipolar disorder, MDD,LACHELLE. According to the admission note patient arrived from [place] ER after being admitted involuntarily. Patient was inpatient in January 2020 for, she did not continue her meds or outpatient mental health follow-up/treatment after her discharge. Patient's partner reported that patient was having poor ADLs, not eating, not showering. Patient was also not sleeping. Per spouse patient stated she had SI, but she had no plan. Patient has a history of suicide attempt, by overdose, years ago. 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 Patient says her anxiety and depression are both a 10/10. Patient was personally seen by me on the day of the encounter. I reviewed the history and performedthe logan elements of the assessment. I formulated the planof care and confirmed this with the medical student as noted below At the time of the interview patient presented as anxious. Patient has been feeling overwhelmed andhas not been compliant with meds since her discharge. We discussed what led to the patient's hospitalization, she said she told her partner she needed to be brought into [place]. Patient rated her anxiety and depression as both 10/10. Patient said she has not been compliant with her medications, that she stopped taking them after her last hospitalization. Patient has not followed up with any of the mental health services she was meantto. Patient said she does not think the meds help, but that she will take them while she is here and will continue taking them afterwards. Patient said she has been struggling to take care of herself, she has had poor concentration and issues sleeping. Past psych history: History of bipolar Past psych hospitalizations: Patient reports multiple hospitalizations, most recent in January 2024 Past suicide attempts: Patient reports 1 attempt on her life when she was a teen, but has not done that since Previous medications: Patient reports she has previously been on clonidine and trazodone Alcohol and drug use: Patient denies any current drug use and alcohol use. Patient confirms she smokes cigarettes every day. Living: Patient has been living with her partner for the last year in [place] Employment: Patient is on disability and does not work Relationships: close, supportive relationship with Patient was restarted on previously tolerated medications. She had had gradual improvement of her symptoms during her hospitalization. She did not exhibit anybehavior concerning for suicidality during her hospital course. She attended occasional groups during her hospitalization and seem to learn coping skills. Her sleep and appetite seem normal during her hospitalization. Patient had gradual movement of her depression and suicidal thoughts. Her anxiety still persisted which seem to be a chronic issue and seem to be something that would be better managed on the outpatient basis as patient hadchronic anxiety. On the day of discharge, patient reported she was doing better but stated that shestill felt very anxious. We discussed about following up with outpatient services to ensure that anxiety could be maintained better with therapy. She stated that she would continue her medications and follow-up with outpatient services. We did discuss history of noncompliance which patient reportedthat she did not have a ride. We discussed about getting patient in with case management to help with compliance issues and assisting with appointments. Condition Condition at Discharge: Stable Status at Discharge Cognitive/behavioral status at discharge: Mental Status Exam: Appearance: grossly normal Mental Status: mental status grossly normal Mood: Anxious mood Affect: Anxious Speech and Movement: speech normal, movement normal Attitude: cooperative Thought Process: normal Thought Content: Denied hallucinations, no homicidality and no suicidality Insight: Good Judgment: Good Functional status at discharge: independent ambulation Overall status at discharge: patient is back to baseline Time Spent with Patient Time spent providing/coordinating discharge services (# min): 30 Discharge Plan Discharge Plan Patient Disposition: Home Activity: No Activity Restriction Diet: Regular Additional Instructions: Important Contact Information You can call [facility] In[facility] at [phone] any timeday or night if you have emergent questions or question regarding discharge instructions. If at anytime you are feeling an increase inyour psychiatric symptoms, call your physician or behavioral healthcare provider. If any time you have thoughts of harming yourself or others contact one of the following: Call (available 08/12) Crisis Text Line (available 08/12) text 4HOPE to [phone] [facility] Hope Line (available 8 a.m. Midnight) call [phone] ([phone] Regular Diet No Activity Restrictions Instructions: Bipolar disorder - Discharge instructions, [facility] Instructions, Know your Meds Prescriptions: New buspirone 10 mg Tablet 10 mg PO TID 30 Days Qty: 90 0RF nicotine 21 mg/24 hr Patch 24 Hour 21 mg transdermal DAILY Qty: 20 0RF gabapentin 100 mg Capsule 200 mg PO TID 30 Days Qty: 180 0RF quetiapine 25 mg Tablet 25 mg PO TID 30 Days Qty: 90 0RF venlafaxine 75 mg Capsule,Extended Release 24hr 75 mg PO DAILY Qty: 30 0RF Follow Up: [facility] [Outside] - 09/05/24 9:00 am (A business office manager will call you tomorrow. If you miss this call, please call back as soon as possible. Please call the office if you need to reschedule you appointment 09/05/24 @ 9am with Lizette Roach CNP at the [facility] outpatient office.) [facility] [Outside] (Call for any medical needs.) Exam Physical Exam Vital Signs: Temp Pulse Resp BP Pulse Ox O2 Del Method 98 F 79 16 122/79 99 Room Air 08/30/24 07:30 08/30/24 07:30 08/30/24 07:30 08/30/24 07:30 08/30/24 07:30 08/30/24 07:30 Diagnostic Studies Completed and Pending Studies Pending studies at discharge: 08/24/24 05:00 Lipid Panel [CHEM] IN AM Thyroid Stim Hormone w/Rflx [CHEM] IN AM Vitamin D 25 Hydroxy Total [CHEM] IN AM Documented By: Farhat Kirby MD 08/30/24 1219 Signed By: 08/30/24 1228 [facility]04-14-2025 Progress note Author Farhat Kirby [facility] CenterNote Date/TimeApril 2024 12:04pm[place] [address] Psychiatry Progress Note Signed Patient: Bridgette Wang MR#: [id number] : 1965 Acct:[id number] Age/Sex: 59 / F Adm Date: 5 Loc: Room: [address] [place] [address] Type : ADM IN Attending Dr: Trevin Renteria MD Copies to: ~ Date of Service: 08/29/2024 Subjective Subjective Narrative: Ms. Wang reported that she is not good today. She stated that her anxiety has been high and feels like she cannot control her symptoms. She reported that sheneeds something for anxiety right now andfeeling that her chest is pounding. She reported that the Seroquel and the gabapentin have been helping a little bit. She did report that she did not follow-up with outpatient services after her lasthospitalization Mental Status Exam (MSE) Appearance: grossly normal. Mental Status: mental status grossly normal Mood: anxious Affect: Anxious Speech and Movement: speech and movement normal Attitude: cooperative Thought Process: normal Thought Content: Denies paranoid or delusional thoughts. Denied hallucinations,no homicidality and reports suicidality. Does not appear to be responding to internal stimuli. Insight: Poor Judgment: poor Goals: Improve mood, decrease in behavior that led to admission Patient strengths and protective factors: Able to communicate, willing to participate in treatment. Patient's weaknesses and risk factors: Noncompliant, poor insight, poor judgment. AIMS: No abnormal movements noted. Score is 0. Exam Physical Exam Vital Signs: Temp Pulse Resp BP Pulse Ox O2 Del Method 97.8 F 78 16 117/77 98 Room Air 08/29/24 07:30 08/29/24 07:30 08/29/24 07:30 08/29/24 07:30 08/29/24 07:30 08/29/24 07:30 Assessment/Plan Assessment/Plan (1) MDD (major depressive disorder): Qualifiers: Active/Remission status: currently active Major depression episode severity: severe Major depression recurrence: unspecified whether recurrent Psychotic features: without psychotic features QualifiedCode(s): F32.2 - Majordepressive disorder, single episode, severe without psychotic features (2) Anxiety: Plan Patient still reporting some anxiety that worsened overnight. Plan for DC tomorrow Increase Seroquel 25 mg PO TID, BuSpar 10 mg 3 times a day -Continue venlafaxine ER 75 mg daily and gabapentin 200 mg PO TID Continue to monitor mental status Encourage group participation and medication compliance Risk benefits alternatives explained Documented By: Farhat Kirby MD 08/29/24 1200 Signed By: <Electronically signed by Farhat Kirby MD> 08/29/24 1204 [facility] Work Phone: [phone]) 714-335704-14-2025 [place] [address] Psychiatry Progress Note Signed Patient: Bridgette Wang MR#: [id number] : 1965 Acct:[id number] Age/Sex: 59 / F Adm Date: 5 Loc: Room: [address] [place] [address] Type : ADM IN Attending Dr: Trevin Renteria MD Copies to: ~ Date of Service: 08/29/2024 Subjective Subjective Narrative: Ms. Wang reported that she is not good today. She stated that her anxiety has been high and feels like she cannot control her symptoms. She reported that sheneeds something for anxiety right now andfeeling that her chest is pounding. She reported that the Seroquel and the gabapentin have been helping a little bit. She did report that she did not follow-up with outpatient services after her lasthospitalization Mental Status Exam (MSE) Appearance: grossly normal. Mental Status: mental status grossly normal Mood: anxious Affect: Anxious Speech and Movement: speech and movement normal Attitude: cooperative Thought Process: normal Thought Content: Denies paranoid or delusional thoughts. Denied hallucinations,no homicidality and reports suicidality. Does not appear to be responding to internal stimuli. Insight: Poor Judgment: poor Goals: Improve mood, decrease in behavior that led to admission Patient strengths and protective factors: Able to communicate, willing to participate in treatment. Patient's weaknesses and risk factors: Noncompliant, poor insight, poor judgment. AIMS: No abnormal movements noted. Score is 0. Exam Physical Exam Vital Signs: Temp Pulse Resp BP Pulse Ox O2 Del Method 97.8 F 78 16 117/77 98 Room Air 08/29/24 07:30 08/29/24 07:30 08/29/24 07:30 08/29/24 07:30 08/29/24 07:30 08/29/24 07:30 Assessment/Plan Assessment/Plan (1) MDD (major depressive disorder): Qualifiers: Active/Remission status: currently active Major depression episode severity: severe Major depression recurrence: unspecified whether recurrent Psychotic features: without psychotic features QualifiedCode(s): F32.2 - Majordepressive disorder, single episode, severe without psychotic features (2) Anxiety: Plan Patient still reporting some anxiety that worsened overnight. Plan for DC tomorrow Increase Seroquel 25 mg PO TID, BuSpar 10 mg 3 times a day -Continue venlafaxine ER 75 mg daily and gabapentin 200 mg PO TID Continue to monitor mental status Encourage group participation and medication compliance Risk benefits alternatives explained Documented By: Farhat Kirby MD 08/29/24 1200 Signed By: 08/29/24 1204 [facility]04-13-2025 Progress note Author Trevin rodriguez [facility] CenterNote Date/TimeApril 2024 6:47[place] [address] Psychiatry Progress Note Signed Patient: Bridgette Wang MR#: [id number] : 1965 Acct:[id number] Age/Sex: 59 / F Adm Date: 5 Loc: Room: [address] [place] [address] Type : ADM IN Attending Dr: Trevin Renteria MD Copies to: ~ Date of Service: 08/28/2024 Subjective Subjective Narrative: Ms. Wang reports her anxiety is better today and is having less SI. She tolerated increasing SEROQUEL to 12.5 mg PO TID. Appetite is improving. Objectively, appearing less anxious compared to the time of admission. Mental Status Exam (MSE) Appearance: grossly normal. Mental Status: mental status grossly normal Mood: anxious Affect: Dysphoric Speech and Movement: speech and movement normal Attitude: cooperative Thought Process: normal Thought Content: Denies paranoid or delusional thoughts. Denied hallucinations,no homicidality and reports suicidality. Does not appear to be responding to internal stimuli. Insight: Poor Judgment: poor Goals: Improve mood, decrease in behavior that led to admission Patient strengths and protective factors: Able to communicate, willing to participate in treatment. Patient's weaknesses and risk factors: Noncompliant, poor insight, poor judgment. AIMS: No abnormal movements noted. Score is 0. Exam Physical Exam Vital Signs: Temp Pulse Resp BP Pulse Ox O2 Del Method 98.2 F 90 18 114/62 98 Room Air 08/27/24 20:17 08/27/24 20:17 08/27/24 20:17 08/27/24 20:17 08/27/24 20:17 08/27/24 20:17 Assessment/Plan Assessment/Plan (1) MDD (major depressive disorder): Qualifiers: Major depression recurrence: unspecified whether recurrent Active/Remission status: currently active Major depression episode severity: severe Psychotic features: without psychotic features QualifiedCode(s): F32.2- Major depressive disorder, single episode, severe without psychotic features (2) Anxiety: Plan Patient reported that her anxiety is better and SI are decreasing -Continue Seroquel 12.5 mg PO TID -Continue venlafaxine ER 75 mg daily and gabapentin 200 mg PO TID -Will continue Buspar 7.5 mg po tid. -Continue to monitor mental status -Monitor suicidal behaviors for safety of self (15-minute face check). -Encourage medication adherence. Risks, benefits, and alternatives of treatment explained -Recommend? attending groups and psychoeducation for building coping skills. -Risks, benefits and indications of medications were discussed with the patient.? -No abnormal movements noted on exam. AIMS is Zero. -Involve friends/family members to coordinate care and ensure appropriate outpatient appointments are scheduled prior to discharge. Documented By: Trevin Renteria MD 5 0645 Signed By: <Electronically signed by Trevin Renteria MD> 08/28/24 0647 [facility] Work Phone: [phone]) 741-496004-13-[address] [place] [address] Psychiatry Progress Note Signed Patient: Bridgette Wang MR#: [id number] : 1965 Acct:[id number] Age/Sex: 59 / F Adm Date: 5 Loc: 1S Room: 2M9228-3 Type : ADM IN Attending Dr: Trevin Renteria MD Copies to: ~ Date of Service: 08/28/2024 Subjective Subjective Narrative: Ms. Wang reports her anxiety is better today and is having less SI. She tolerated increasing SEROQUEL to 12.5 mg PO TID. Appetite is improving. Objectively, appearing less anxious compared to the time of admission. Mental Status Exam (MSE) Appearance: grossly normal. Mental Status: mental status grossly normal Mood: anxious Affect: Dysphoric Speech and Movement: speech and movement normal Attitude: cooperative Thought Process: normal Thought Content: Denies paranoid or delusional thoughts. Denied hallucinations,no homicidality and reports suicidality. Does not appear to be responding to internal stimuli. Insight: Poor Judgment: poor Goals: Improve mood, decrease in behavior that led to admission Patient strengths and protective factors: Able to communicate, willing to participate in treatment. Patient's weaknesses and risk factors: Noncompliant, poor insight, poor judgment. AIMS: No abnormal movements noted. Score is 0. Exam Physical Exam Vital Signs: Temp Pulse Resp BP Pulse Ox O2 Del Method 98.2 F 90 18 114/62 98 Room Air 08/27/24 20:17 08/27/24 20:17 08/27/24 20:17 08/27/24 20:17 08/27/24 20:17 08/27/24 20:17 Assessment/Plan Assessment/Plan (1) MDD (major depressive disorder): Qualifiers: Major depression recurrence: unspecified whether recurrent Active/Remission status: currently active Major depression episode severity: severe Psychotic features: without psychotic features QualifiedCode(s): F32.2- Major depressive disorder, single episode, severe without psychotic features (2) Anxiety: Plan Patient reported that her anxiety is better and SI are decreasing -Continue Seroquel 12.5 mg PO TID -Continue venlafaxine ER 75 mg daily and gabapentin 200 mg PO TID -Will continue Buspar 7.5 mg po tid. -Continue to monitor mental status -Monitor suicidal behaviors for safety of self (15-minute face check). -Encourage medication adherence. Risks, benefits, and alternatives of treatment explained -Recommend? attending groups and psychoeducation for building coping skills. -Risks, benefits and indications of medications were discussed with the patient.? -No abnormal movements noted on exam. AIMS is Zero. -Involve friends/family members to coordinate care and ensure appropriate outpatient appointments are scheduled prior to discharge. Documented By: Trevin Renteria MD [id number] Signed By: 08/28/24 0647 [facility]04-12-2025 Progress note Author Trevin rodriguez [facility] CenterNote Date/TimeApril 2024 6:46[place] [address] Psychiatry Progress Note Signed Patient: Bridgette Wang MR#: [id number] : 1965 Acct:[id number] Age/Sex: 59 / F Adm Date: 5 Loc: Room: [address] [place] [address] Type : ADM IN Attending Dr: Trevin Renteria MD Copies to: ~ Date of Service: 08/27/2024 Subjective Subjective Narrative: Ms. Wang reports ongoing anxiety and suicidal thoughts. She described her anxiety as severe and said Seroquel used to be helpful. She also reports intenseracing thoughts and can not maintain her safety. She is open to increasing SEROQUEL to 12.5 mg PO TID. Mental Status Exam (MSE) Appearance: grossly normal. Mental Status: mental status grossly normal Mood: anxious Affect: Dysphoric Speech and Movement: speech and movement normal Attitude: cooperative Thought Process: normal Thought Content: Denies paranoid or delusional thoughts. Denied hallucinations,no homicidality and reports suicidality. Does not appear to be responding to internal stimuli. Insight: Poor Judgment: poor Goals: Improve mood, decrease in behavior that led to admission Patient strengths and protective factors: Able to communicate, willing to participate in treatment. Patient's weaknesses and risk factors: Noncompliant, poor insight, poor judgment. AIMS: No abnormal movements noted. Score is 0. Exam Physical Exam Vital Signs: Temp Pulse Resp BP Pulse Ox O2 Del Method 97.8 F 84 16 118/70 98 Room Air 04/11/25 19:23 08/26/24 19:23 08/26/24 19:23 08/26/24 19:23 08/26/24 19:23 08/26/24 19:23 Assessment/Plan Assessment/Plan (1) MDD (major depressive disorder): Qualifiers: Major depression recurrence: unspecified whether recurrent Active/Remission status: currently active Major depression episode severity: severe Psychotic features: without psychotic features QualifiedCode(s): F32.2- Major depressive disorder, single episode, severe without psychotic features (2) Anxiety: Plan Patient presenting due to increase in anxiety and depression. Also reports SI. -Increase Seroquel 12.5 mg PO TID -Continue venlafaxine ER 75 mg daily and gabapentin 200 mg PO TID -Will continue Buspar 7.5 mg po tid. -Continue to monitor mental status -Monitor suicidal behaviors for safety of self (15-minute face check). -Encourage medication adherence. Risks, benefits, and alternatives of treatment explained -Recommend? attending groups and psychoeducation for building coping skills. -Risks, benefits and indications of medications were discussed with the patient.? -No abnormal movements noted on exam. AIMS is Zero. -Involve friends/family members to coordinate care and ensure appropriate outpatient appointments are scheduled prior to discharge. Documented By: Trevin Renteria MD [id number] Signed By: <Electronically signed by Trevin Renteria MD> 08/27/24 0646 [facility] Work Phone: 1([phone]) 974-566104-12-2025 [place] [address] Psychiatry Progress Note Signed Patient: Bridgette Wang MR#: [id number] : 1965 Acct:[id number] Age/Sex: 59 / F Adm Date: 5 Loc: 1S Room: 9D8704-7 Type : ADM IN Attending Dr: Trevin Renteria MD Copies to: ~ Date of Service: 08/27/2024 Subjective Subjective Narrative: Ms. Wang reports ongoing anxiety and suicidal thoughts. She described her anxiety as severe and said Seroquel used to be helpful. She also reports intenseracing thoughts and can not maintain her safety. She is open to increasing SEROQUEL to 12.5 mg PO TID. Mental Status Exam (MSE) Appearance: grossly normal. Mental Status: mental status grossly normal Mood: anxious Affect: Dysphoric Speech and Movement: speech and movement normal Attitude: cooperative Thought Process: normal Thought Content: Denies paranoid or delusional thoughts. Denied hallucinations,no homicidality and reports suicidality. Does not appear to be responding to internal stimuli. Insight: Poor Judgment: poor Goals: Improve mood, decrease in behavior that led to admission Patient strengths and protective factors: Able to communicate, willing to participate in treatment. Patient's weaknesses and risk factors: Noncompliant, poor insight, poor judgment. AIMS: No abnormal movements noted. Score is 0. Exam Physical Exam Vital Signs: Temp Pulse Resp BP Pulse Ox O2 Del Method 97.8 F 84 16 118/70 98 Room Air 08/26/24 19:23 08/26/24 19:23 08/26/24 19:23 08/26/24 19:23 08/26/24 19:23 08/26/24 19:23 Assessment/Plan Assessment/Plan (1) MDD (major depressive disorder): Qualifiers: Major depression recurrence: unspecified whether recurrent Active/Remission status: currently active Major depression episode severity: severe Psychotic features: without psychotic features QualifiedCode(s): F32.2- Major depressive disorder, single episode, severe without psychotic features (2) Anxiety: Plan Patient presenting due to increase in anxiety and depression. Also reports SI. -Increase Seroquel 12.5 mg PO TID -Continue venlafaxine ER 75 mg daily and gabapentin 200 mg PO TID -Will continue Buspar 7.5 mg po tid. -Continue to monitor mental status -Monitor suicidal behaviors for safety of self (15-minute face check). -Encourage medication adherence. Risks, benefits, and alternatives of treatment explained -Recommend? attending groups and psychoeducation for building coping skills. -Risks, benefits and indications of medications were discussed with the patient.? -No abnormal movements noted on exam. AIMS is Zero. -Involve friends/family members to coordinate care and ensure appropriate outpatient appointments are scheduled prior to discharge. Documented By: Trevin Renteria MD [id number] [id number] Signed By: 08/27/24 0646 [facility]04-11-2025 Progress note Author Trevin rodriguez [facility] CenterNote Date/TimeApril 2024 6:48[place] [id number] Psychiatry Progress Note Signed Patient: Bridgette Wang MR#: [id number] : 1965 Acct:[id number] Age/Sex: 59 / F Adm Date: 5 Loc: Room: [address] [place] [address] Type : ADM IN Attending Dr: Trevin Renteria MD Copies to: ~ Date of Service: 08/26/2024 Subjective Subjective Narrative: Ms. Wang reports ongoing anxiety and suicidal thoughts. She described her anxiety as severe and said Seroquel used to be helpful. She also reports intenseracing thoughts and can not maintain her safety. She is open to increasing BuSpar and adding low dose SEROQUEL. Mental Status Exam (MSE) Appearance: grossly normal. Mental Status: mental status grossly normal Mood: anxious Affect: Dysphoric Speech and Movement: speech and movement normal Attitude: cooperative Thought Process: normal Thought Content: Denies paranoid or delusional thoughts. Denied hallucinations,no homicidality and reports suicidality. Does not appear to be responding to internal stimuli. Insight: Poor Judgment: poor Goals: Improve mood, decrease in behavior that led to admission Patient strengths and protective factors: Able to communicate, willing to participate in treatment. Patient's weaknesses and risk factors: Noncompliant, poor insight, poor judgment. AIMS: No abnormal movements noted. Score is 0. Exam Physical Exam Vital Signs: Temp Pulse Resp BP Pulse Ox O2 Del Method 98.3 F 85 16 106/70 96 Room Air 08/25/24 22:04 08/25/24 22:04 08/25/24 22:04 08/25/24 22:04 08/25/24 22:04 08/25/24 22:04 Assessment/Plan Assessment/Plan (1) MDD (major depressive disorder): Qualifiers: Major depression recurrence: unspecified whether recurrent Active/Remission status: currently active Major depression episode severity: severe Psychotic features: without psychotic features QualifiedCode(s): F32.2- Major depressive disorder, single episode, severe without psychotic features (2) Anxiety: Plan Patient presenting due to increase in anxiety and depression. Also reports SI. -Add Seroquel 12.5 mg PO BID -Continue venlafaxine ER 75 mg daily and gabapentin 200 mg PO TID -Will increase Buspar to 7.5 mg po tid. -Continue to monitor mental status -Monitor suicidal behaviors for safety of self (15-minute face check). -Encourage medication adherence. Risks, benefits, and alternatives of treatment explained -Recommend? attending groups and psychoeducation for building coping skills. -Risks, benefits and indications of medications were discussed with the patient.? -No abnormal movements noted on exam. AIMS is Zero. -Involve friends/family members to coordinate care and ensure appropriate outpatient appointments are scheduled prior to discharge. Documented By: Trevin Renteria MD [id number] [id number] Signed By: <Electronically signed by Trevin Renteria MD> 08/26/24 0639 [facility] Work Phone: 1(262) 643-997104-11-2025 [place] [address] Psychiatry Progress Note Signed Patient: Bridgette Wang MR#: [id number] : 1965 Acct:[id number] Age/Sex: 59 / F Adm Date: 5 Loc: Room: [address] [place] [address] Type : ADM IN Attending Dr: Trevin Renteria MD Copies to: ~ Date of Service: 08/26/2024 Subjective Subjective Narrative: Ms. Wang reports ongoing anxiety and suicidal thoughts. She described her anxiety as severe and said Seroquel used to be helpful. She also reports intenseracing thoughts and can not maintain her safety. She is open to increasing BuSpar and adding low dose SEROQUEL. Mental Status Exam (MSE) Appearance: grossly normal. Mental Status: mental status grossly normal Mood: anxious Affect: Dysphoric Speech and Movement: speech and movement normal Attitude: cooperative Thought Process: normal Thought Content: Denies paranoid or delusional thoughts. Denied hallucinations,no homicidality and reports suicidality. Does not appear to be responding to internal stimuli. Insight: Poor Judgment: poor Goals: Improve mood, decrease in behavior that led to admission Patient strengths and protective factors: Able to communicate, willing to participate in treatment. Patient's weaknesses and risk factors: Noncompliant, poor insight, poor judgment. AIMS: No abnormal movements noted. Score is 0. Exam Physical Exam Vital Signs: Temp Pulse Resp BP Pulse Ox O2 Del Method 98.3 F 85 16 106/70 96 Room Air 08/25/24 22:04 08/25/24 22:04 08/25/24 22:04 08/25/24 22:04 08/25/24 22:04 08/25/24 22:04 Assessment/Plan Assessment/Plan (1) MDD (major depressive disorder): Qualifiers: Major depression recurrence: unspecified whether recurrent Active/Remission status: currently active Major depression episode severity: severe Psychotic features: without psychotic features QualifiedCode(s): F32.2- Major depressive disorder, single episode, severe without psychotic features (2) Anxiety: Plan Patient presenting due to increase in anxiety and depression. Also reports SI. -Add Seroquel 12.5 mg PO BID -Continue venlafaxine ER 75 mg daily and gabapentin 200 mg PO TID -Will increase Buspar to 7.5 mg po tid. -Continue to monitor mental status -Monitor suicidal behaviors for safety of self (15-minute face check). -Encourage medication adherence. Risks, benefits, and alternatives of treatment explained -Recommend? attending groups and psychoeducation for building coping skills. -Risks, benefits and indications of medications were discussed with the patient.? -No abnormal movements noted on exam. AIMS is Zero. -Involve friends/family members to coordinate care and ensure appropriate outpatient appointments are scheduled prior to discharge. Documented By: Trevin Renteria MD [id number] [id number] Signed By: 08/26/24 0648 [facility]04-10-2025 Progress note Author Trevin rodriguez [facility] CenterNote Date/TimeApril 2024 7:01[place] [id number] Psychiatry Progress Note Signed Patient: Bridgette Wang MR#: [id number] : 1965 Acct:[id number] Age/Sex: 59 / F Adm Date: 5 Loc: 1S Room: [address] [place] [address] Type : ADM IN Attending Dr: Trevin Renteria MD Copies to: ~ Date of Service: 08/25/2024 Subjective Subjective Narrative: Ms. Wang reports ongoing anxiety and suicidal thoughts. She said Gabapentin helped with some of her anxiety. Patient has been feeling overwhelmed and said she wants to start her Buspar today. Patient rated her anxiety and depression as both 10/10. Patient said she has not been compliant with her medications, that she stopped taking them after her last hospitalization. Patient has not followed upwith any of the mental health services she was meant to. Patient said she does not think the meds help, but that she will take them while she is here and will continue taking them afterwards. Patientsaid she has been struggling to take care of herself, she has had poor concentration and issues sleeping. Mental Status Exam (MSE) Appearance: grossly normal. Mental Status: mental status grossly normal Mood: anxious Affect: Dysphoric Speech and Movement: speech and movement normal Attitude: cooperative Thought Process: normal Thought Content: Denies paranoid or delusional thoughts. Denied hallucinations,no homicidality and reports suicidality. Does not appear to be responding to internal stimuli. Insight: Poor Judgment: poor Goals: Improve mood, decrease in behavior that led to admission Patient strengths and protective factors: Able to communicate, willing to participate in treatment. Patient's weaknesses and risk factors: Noncompliant, poor insight, poor judgment. AIMS: No abnormal movements noted. Score is 0. Exam Physical Exam Vital Signs: Temp Pulse Resp BP Pulse Ox O2 Del Method 97.7 F 82 16 109/66 96 Room Air 08/24/24 20:00 08/24/24 20:00 08/24/24 20:00 08/24/24 20:00 08/24/24 20:00 08/24/24 21:00 Assessment/Plan Assessment/Plan (1) MDD (major depressive disorder): Qualifiers: Major depression recurrence: unspecified whether recurrent Active/Remission status: currently active Major depression episode severity: severe Psychotic features: without psychotic features QualifiedCode(s): F32.2- Major depressive disorder, single episode, severe without psychotic features (2) Anxiety: Plan Patient presenting due to increase in anxiety and depression. Also reports SI. -Restart home medications, venlafaxine ER 75 mg daily and gabapentin 200 mg PO TID -Will restart Buspar 5 mg po tid. -Continue to monitor mental status -Monitor suicidal behaviors for safety of self (15-minute face check). -Encourage medication adherence. Risks, benefits, and alternatives of treatment explained -Recommend? attending groups and psychoeducation for building coping skills. -Risks, benefits and indications of medications were discussed with the patient.? -No abnormal movements noted on exam. AIMS is Zero. -Involve friends/family members to coordinate care and ensure appropriate outpatient appointments are scheduled prior to discharge. Documented By: Trevin Renteria MD [id number] [id number] Signed By: <Electronically signed by Trevin Renteria MD> 08/25/24 0701 [facility] Work Phone: 1(519) 629-894304-10-2025 [place] [id number] Psychiatry Progress Note Signed Patient: Bridgette Wang MR#: [id number] : 1965 Acct:[id number] Age/Sex: 59 / F Adm Date: 5 Loc: Room: [address] [place] [address] Type : ADM IN Attending Dr: Trevin Renteria MD Copies to: ~ Date of Service: 08/25/2024 Subjective Subjective Narrative: Ms. Wang reports ongoing anxiety and suicidal thoughts. She said Gabapentin helped with some of her anxiety. Patient has been feeling overwhelmed and said she wants to start her Buspar today. Patient rated her anxiety and depression as both 10/10. Patient said she has not been compliant with her medications, that she stopped taking them after her last hospitalization. Patient has not followed upwith any of the mental health services she was meant to. Patient said she does not think the meds help, but that she will take them while she is here and will continue taking them afterwards. Patientsaid she has been struggling to take care of herself, she has had poor concentration and issues sleeping. Mental Status Exam (MSE) Appearance: grossly normal. Mental Status: mental status grossly normal Mood: anxious Affect: Dysphoric Speech and Movement: speech and movement normal Attitude: cooperative Thought Process: normal Thought Content: Denies paranoid or delusional thoughts. Denied hallucinations,no homicidality and reports suicidality. Does not appear to be responding to internal stimuli. Insight: Poor Judgment: poor Goals: Improve mood, decrease in behavior that led to admission Patient strengths and protective factors: Able to communicate, willing to participate in treatment. Patient's weaknesses and risk factors: Noncompliant, poor insight, poor judgment. AIMS: No abnormal movements noted. Score is 0. Exam Physical Exam Vital Signs: Temp Pulse Resp BP Pulse Ox O2 Del Method 97.7 F 82 16 109/66 96 Room Air 08/24/24 20:00 08/24/24 20:00 08/24/24 20:00 08/24/24 20:00 08/24/24 20:00 08/24/24 21:00 Assessment/Plan Assessment/Plan (1) MDD (major depressive disorder): Qualifiers: Major depression recurrence: unspecified whether recurrent Active/Remission status: currently active Major depression episode severity: severe Psychotic features: without psychotic features QualifiedCode(s): F32.2- Major depressive disorder, single episode, severe without psychotic features (2) Anxiety: Plan Patient presenting due to increase in anxiety and depression. Also reports SI. -Restart home medications, venlafaxine ER 75 mg daily and gabapentin 200 mg PO TID -Will restart Buspar 5 mg po tid. -Continue to monitor mental status -Monitor suicidal behaviors for safety of self (15-minute face check). -Encourage medication adherence. Risks, benefits, and alternatives of treatment explained -Recommend? attending groups and psychoeducation for building coping skills. -Risks, benefits and indications of medications were discussed with the patient.? -No abnormal movements noted on exam. AIMS is Zero. -Involve friends/family members to coordinate care and ensure appropriate outpatient appointments are scheduled prior to discharge. Documented By: Trevin Renteria MD [id number] [id number] Signed By: 08/25/24 0701 [facility]04-09-2025 History and physical note Author Trevin rodriguez [facility] CenterNote Date/TimeApril 2024 1:48pmKeith [place] [id number] Psychiatry H&P Signed Patient: Bridgette Wang MR#: [id number] : 1965 Acct:[id number] Age/Sex: 59 / F Adm Date: 5 Loc: 1S Room: 9W1151-4 Type: ADM IN Attending Dr: Trevin Renteria MD Copies to: Trevin Renteria MD NO FAMILY PHYSICIAN~ Date of Service: 08/24/2024 HPI History of Present Illness History of present illness: Ms. Wang is a 59 year old female with medical history of bipolar disorder, MDD,LACHELLE. According to the admission note patient arrived from [place] [facility] after being admitted involuntarily. Patient was inpatient in January 2020 for, she did not continue her meds or outpatient mental health follow-up/treatment after her discharge. Patient's partner reported that patient was having poor ADLs, not eating, not showering. Patient was also not sleeping. Per spouse patient stated she had SI, but she had no plan. Patient has a history of suicide attempt, by overdose, years ago. 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 Patient says her anxiety and depression are both a 10/10. Patient was personally seen by me on the day of the encounter. I reviewed the history and performedthe logan elements of the assessment. I formulated the planof care and confirmed this with the medical student as noted below At the time of the interview patient presented as anxious. Patient has been feeling overhwlemd and has not been compliant with meds since her discharge. Wediscussed what led to the patient's hospitalization, she said she told her partner she needed to be brought into [place]. Patient rated her anxiety and depression as both 10/10. Patient said she has not been compliant with her medications, that she stopped taking them after her last hospitalization. Patient has not followed up with any of the mental health services she was meantto. Patient said she does not think the meds help, but that she will take them while she is here and will continue taking them afterwards. Patient said she has been struggling to take care of herself, she has had poor concentration and issues sleeping. Past psych history: History of bipolar Past psych hospitalizations: Patient reports multiple hospitalizations, most recent in January 2024 Past suicide attempts: Patient reports 1 attempt on her life when she was a teen, but has not done that since Previous medications: Patient reports she has previously been on clonidine and trazodone Alcohol and drug use: Patient denies any current drug use and alcohol use. Patient confirms she smokes cigarettes every day. Living: Patient has been living with her partner for the last year in [place] Employment: Patient is on disability and does not work Relationships: close, supportive relationship with [] Mental Status Exam (MSE) Appearance: grossly normal. Mental Status: mental status grossly normal Mood: anxious Affect: Dysphoric Speech and Movement: speech and movement normal Attitude: cooperative Thought Process: normal Thought Content: Denies paranoid or delusional thoughts. Denied hallucinations, no homicidality andno suicidality. Does not appear to be responding to internal stimuli. Insight: Poor Judgment: poor Goals: Improve mood, decrease in behavior that led to admission Patient strengths and protective factors: Able to communicate, willing to participate in treatment. Patient's weaknesses and risk factors: Noncompliant, poor insight, poor judgment. AIMS: No abnormal movements noted. Score is 0. Review of Systems: Unable to finish due to patient wanting to be done with encounter. Constitutional: Pt denies fatigue, malaise. HEENT: Denies vision/hearing changes. Physical exam: Unable to finish due to patient wanting to be done with encounter General: not in any acute distress Skin: intact Nuero: CNI: intact olfaction CNII: Visual craft intact CNIII,IV,: EOM intact, no nystagmus. CNV: Sensation intact to light touch. CNVII: Raises eyebrows, smile/frown, puff out cheeks symmetrically. CNVIII: Hearing intact bilaterally. CNIX,X: Voice normal, soft palate elevation normal, symmetrical. CNXI: Shoulder shrug strong, equal bilaterally. 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 Bipolar 1 disorder Family History (Updated 01/29/24 @ 16:38 by Sandra Topete RN) Father Mental health disorder Other No significant family history Social History Smoking Status: Current every day smoker Tobacco Type: cigarettes Substance Use Type: Marijuana Substance Abuse Comment: h/o alcohol abuse, currently sober, for a long time, per patient Social History Comments: mobile home Meds Medications and Allergies Allergies calcium Allergy (Verified 12/17/22 03:55) Unknown Reaction doxycycline Allergy (Verified 12/17/22 03:55) Unknown Reaction Exam Physical Exam Vital Signs: Temp Pulse Resp BP Pulse Ox O2 Del Method 97.7 F 75 16 103/73 96 Room Air 08/24/24 07:30 08/24/24 07:30 08/24/24 07:30 08/24/24 07:30 08/24/24 07:30 08/24/24 07:30 Assessment/Plan (1) MDD (major depressive disorder): Qualifiers: Major depression recurrence: unspecified whether recurrent Active/Remission status: currently active Major depression episode severity: severe Psychotic features: without psychotic features QualifiedCode(s): F32.2 - Major depressive disorder, single episode, severe without psychotic features (2) Anxiety: Plan Patient is a 59 female past medical history of bipolar disorder, LACHELLE and MDD. Patient is presentingwith increased anxiety and depression, and unable to complete ADLs. Patient has been noncompliant with medications since last hospitalization in January 2024. Plan: Patient presenting due to increase in anxiety and depression. -Restart home medications, venlafaxine ER 75 mg daily and gabapentin 200 mg PO BID -Will restart meds every day accordingly. -Continue to monitor mental status -Monitor suicidal behaviors for safety of self (15-minute face check). -Encourage medication adherence. Risks, benefits, and alternatives of treatment explained -Recommend? attending groups and psychoeducation for building coping skills. -Risks, benefits and indications of medications were discussed with the patient.? -No abnormal movements noted on exam. AIMS is Zero. -Involve friends/family members to coordinate care and ensure appropriate outpatient appointments are scheduled prior to discharge. Current medications Gabapentin 200 mg 3 times daily Nicotine patch transdermal daily Venlafaxine extended release 75 mg daily Documented By: Trevin Renteria MD 5 [id number] Signed By: <Electronically signed by Trevin Renteria MD> 08/24/24 6886 [facility] Work Phone: 1(965) 806-767504-09-2025 History and physical [place] [id number] Psychiatry H&P Signed Patient: Bridgette Wang MR#: [id number] : 1965 Acct:[id number] Age/Sex: 59 / F Adm Date: 5 Loc: 1S Room: 7F9168-7 Type: ADM IN Attending Dr: Trevin Renteria MD Copies to: Trevin Renteria MD NO FAMILY PHYSICIAN~ Date of Service: 08/24/2024 HPI History of Present Illness History of present illness: Ms. Wang is a 59 year old female with medical history of bipolar disorder, MDD,LACHELLE. According to the admission note patient arrived from [place] [facility] after being admitted involuntarily. Patient was inpatient in January 2020 for, she did not continue her meds or outpatient mental health follow-up/treatment after her discharge. Patient's partner reported that patient was having poor ADLs, not eating, not showering. Patient was also not sleeping. Per spouse patient stated she had SI, but she had no plan. Patient has a history of suicide attempt, by overdose, years ago. 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 Patient says her anxiety and depression are both a 10/10. Patient was personally seen by me on the day of the encounter. I reviewed the history and performedthe logan elements of the assessment. I formulated the planof care and confirmed this with the medical student as noted below At the time of the interview patient presented as anxious. Patient has been feeling overhwlemd and has not been compliant with meds since her discharge. Wediscussed what led to the patient's hospitalization, she said she told her partner she needed to be brought into [place]. Patient rated her anxiety and depression as both 10/10. Patient said she has not been compliant with her medications, that she stopped taking them after her last hospitalization. Patient has not followed up with any of the mental health services she was meantto. Patient said she does not think the meds help, but that she will take them while she is here and will continue taking them afterwards. Patient said she has been struggling to take care of herself, she has had poor concentration and issues sleeping. Past psych history: History of bipolar Past psych hospitalizations: Patient reports multiple hospitalizations, most recent in January 2024 Past suicide attempts: Patient reports 1 attempt on her life when she was a teen, but has not done that since Previous medications: Patient reports she has previously been on clonidine and trazodone Alcohol and drug use: Patient denies any current drug use and alcohol use. Patient confirms she smokes cigarettes every day. Living: Patient has been living with her partner for the last year in [place] Employment: Patient is on disability and does not work Relationships: close, supportive relationship with [] Mental Status Exam (MSE) Appearance: grossly normal. Mental Status: mental status grossly normal Mood: anxious Affect: Dysphoric Speech and Movement: speech and movement normal Attitude: cooperative Thought Process: normal Thought Content: Denies paranoid or delusional thoughts. Denied hallucinations, no homicidality andno suicidality. Does not appear to be responding to internal stimuli. Insight: Poor Judgment: poor Goals: Improve mood, decrease in behavior that led to admission Patient strengths and protective factors: Able to communicate, willing to participate in treatment. Patient's weaknesses and risk factors: Noncompliant, poor insight, poor judgment. AIMS: No abnormal movements noted. Score is 0. Review of Systems: Unable to finish due to patient wanting to be done with encounter. Constitutional: Pt denies fatigue, malaise. HEENT: Denies vision/hearing changes. Physical exam: Unable to finish due to patient wanting to be done with encounter General: not in any acute distress Skin: intact Nuero: CNI: intact olfaction CNII: Visual craft intact CNIII,IV,: EOM intact, no nystagmus. CNV: Sensation intact to light touch. CNVII: Raises eyebrows, smile/frown, puff out cheeks symmetrically. CNVIII: Hearing intact bilaterally. CNIX,X: Voice normal, soft palate elevation normal, symmetrical. CNXI: Shoulder shrug strong, equal bilaterally. 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 Bipolar 1 disorder Family History (Updated 01/29/24 @ 16:38 by Sandra Topete RN) Father Mental health disorder Other No significant family history Social History Smoking Status: Current every day smoker Tobacco Type: cigarettes Substance Use Type: Marijuana Substance Abuse Comment: h/o alcohol abuse, currently sober, for a long time, per patient Social History Comments: mobile home Meds Medications and Allergies Allergies calcium Allergy (Verified 12/17/22 03:55) Unknown Reaction doxycycline Allergy (Verified 12/17/22 03:55) Unknown Reaction Exam Physical Exam Vital Signs: Temp Pulse Resp BP Pulse Ox O2 Del Method 97.7 F 75 16 103/73 96 Room Air 08/24/24 07:30 08/24/24 07:30 08/24/24 07:30 08/24/24 07:30 08/24/24 07:30 08/24/24 07:30 Assessment/Plan (1) MDD (major depressive disorder): Qualifiers: Major depression recurrence: unspecified whether recurrent Active/Remission status: currently active Major depression episode severity: severe Psychotic features: without psychotic features QualifiedCode(s): F32.2 - Major depressive disorder, single episode, severe without psychotic features (2) Anxiety: Plan Patient is a 59 female past medical history of bipolar disorder, LACHELLE and MDD. Patient is presentingwith increased anxiety and depression, and unable to complete ADLs. Patient has been noncompliant with medications since last hospitalization in January 2024. Plan: Patient presenting due to increase in anxiety and depression. -Restart home medications, venlafaxine ER 75 mg daily and gabapentin 200 mg PO BID -Will restart meds every day accordingly. -Continue to monitor mental status -Monitor suicidal behaviors for safety of self (15-minute face check). -Encourage medication adherence. Risks, benefits, and alternatives of treatment explained -Recommend? attending groups and psychoeducation for building coping skills. -Risks, benefits and indications of medications were discussed with the patient.? -No abnormal movements noted on exam. AIMS is Zero. -Involve friends/family members to coordinate care and ensure appropriate outpatient appointments are scheduled prior to discharge. Current medications Gabapentin 200 mg 3 times daily Nicotine patch transdermal daily Venlafaxine extended release 75 mg daily Documented By: Trevin Renteria MD 5 [id number] Signed By: 08/24/24 1348 [facility]04-08-2025 Evaluation note* Diagnosis Onset Date Resolution Status Admit Date Anxiety acuteApril 2024 2:29pmMDD (major depressive disorder)acuteApril 2024 2:29pm [facility] Work Phone: 1(273) 819-773504-08-2025 Evaluation note* Diagnosis Onset Date Resolution Status Admit Date Anxiety acuteApril 2024 2:29pmMDD (major depressive disorder)acuteApril 2024 2:29pmAlcoholismacuteMay 2024 12:58pmAnxietyacuteMay 2024 12:58pm Bipolar II disorderacuteMay 2024 12:58pmMDD (major depressive disorder) acuteMay 2024 12:58pmSuicidal ideationacuteMay 2024 12:58pm [facility] Work Phone: 1(735) 307-271209-23-2024 Progress note Author Trevin rodriguez [facility] February 08, 2024 6:39amNote Date/TimeSeptember 2023 6:39[place] [address] Psychiatry Progress Note Signed Patient: Bridgette Wang MR#: [id number] : 1965 Acct:[id number] Age/Sex: 58 / F Adm Date: 4 Loc: Room: [address] [place] [address] Type : ADM IN Attending Dr: Trevin Renteria MD Copies to: ~ Date of Service: 02/08/2024 Subjective Subjective Narrative: Ms. Wang reported that she is feeling anxious and inquired about increasing Buspar to help furtherShe feels like the BuSpar has been helping [...] signed by Trevin Renteria MD> 02/08/24 0639 [facility] Work Phone: 1(125) 635-660709-22-2024 Progress note Author Farhat Kirby [facility] February 07, 2024 10:26amNote Date/TimeSept2023 10:26[place] [address] Psychiatry Progress Note Signed Patient: Bridgette Wang MR#: [id number] : 1965 Acct:[id number] Age/Sex: 58 / F Adm Date: 4 Loc: Room: [address] [place] [address] Type : ADM IN Attending Dr: Trevin [...] the patient Documented By: Farhat Kirby MD 02/07/241024 Signed By: <Electronically signed by Farhat Kirby MD> 02/07/24 1026 [facility] Work Phone: 1(770) 748-194209-21-2024 Progress note Author Farhat Kirby [facility] February 06, 2024 11:00amNote Date/TimeSept2023 11:00[place] [address] Psychiatry Progress Note Signed Patient: Bridgette Wang MR#: [id number] : 1965 Acct:[id number] Age/Sex: 58 / F Adm Date: 4 Loc: Room: [address] [place] [address] Type : ADM IN Attending Dr: Trevin Renteria MD Copies to: ~ Date of Service: 02/06/2024 Subjective Subjective Narrative: Ms. Wang reported that she is feeling very anxious. She stated that she is having hot flashes all over her body. She stated that she does not feel well and stated that she wants to go to bed and notwake up. Mental Status Exam: Appearance: grossly normal [...] signed by Farhat Kirby MD> 02/06/24 1100 [facility] Work Phone: 1(837) 971-685609-20-2024 Progress note Author Farhat Kirby [facility] February 05, 2024 12:16pmNote Date/TimeSept2023 12:15[place] [address] Psychiatry Progress Note Signed Patient: Bridgette Wang MR#: [id number] : 1965 Acct:[id number] Age/Sex: 58 / F Adm Date: 4 Loc: Room: 7W0522-5 Type : ADM IN Attending Dr: Trevin [...] By: <Electronically signed by Farhat Kirby MD> 02/05/246 [facility] Work Phone: 1(999) 293-311109-19-2024 Progress note Author Farhat Kirby [facility] February 04, 2024 2:51pmNote Date/TimeSeptember 2023 2:19[place] [address] Psychiatry Progress Note Signed with Rick Patient: Bridgette Wang MR#: [id number] : 1965 Acct:[id number] Age/Sex: 58 / F Adm Date: 4 Loc: Room: [address] [place] [address] Type : ADM IN Attending Dr: Trevin Renteria MD Copies to: ~ ADDENDUM1 note in error Addendum Documented By: Farhat Kirby MD 02/04/24 1451 Addendum Signed By: <Electronically signed by Farhat Kirby MD> 02/04/24 1451 Date of Service: 02/02/2024 Subjective Subjective Narrative: [...] <Electronically signed by DO BEATRIZ Manning> 02/02/24 1410 [facility] Work Phone: 1(190) 783-584309-19-2024 Progress note Author Farhat Kirby [facility] February 04, 2024 2:10pmNote Date/TimeSeptember 2023 11:02[place], [place] [address] Psychiatry Progress Note Signed Patient: Bridgette Wang MR#: [id number] : 1965 Acct:[id number] Age/Sex: 58 / F Adm Date: 4 Loc: 1S Room: [address] [place] [address] Type : ADM IN Attending Dr: Trevin [...] She has been afraid to share this i nformation until now due to a fear of [...] the encounter. I reviewed the history and performedthe logan elements of the physical examination. I formulated the plan of care and confirmed this withthe resident as noted below. Exam Physical Exam [...] <Electronically signed by DO BEATRIZ Manning> 02/04/24 1106 [facility] Work Phone: 1(216) 771-411009-18-2024 Progress note Author Farhat Kirby [facility] February 03, 2024 1:05pmNote Date/TimeSept2023 1:05[place] [address] Psychiatry Progress Note Signed Patient: Bridgette Wang MR#: [id number] : 1965 Acct:[id number] Age/Sex: 58 / F Adm Date: 4 Loc: Room: [address] [place] [address] Type : ADM IN Attending Dr: Trevin [...] signed by Farhat Kirby MD> 02/03/24 1305 [facility] Work Phone: 1(149) 745-622709-17-2024 Progress note Author Farhat Kirby [facility] February 02, 2024 1:54pmNote Date/TimeSeptember 2023 1:53[place] [address] Psychiatry Progress Note Signed Patient: Bridgette Wang MR#: [id number] : 1965 Acct:[id number] Age/Sex: 58 / F Adm Date: 4 Loc: Room: [address] [place] [address] Type : ADM IN Attending Dr: Trevin [...] explained Documented By: Farhat Kirby MD 02/02/24 135 Signed By: <Electronically signed by Farhat Kirby MD> 02/02/24 [facility] Work Phone: 1(561) 674-715009-16-2024 Progress note Author Farhat Kirby [facility] February 01, 2024 3:07pmNote Date/TimeSept2023 2:37[place] [address] Psychiatry Progress Note Signed Patient: Bridgette Wang MR#: [id number] : 1965 Acct:[id number] Age/Sex: 58 / F Adm Date: 4 Loc: Room: 5D8768-2 Type : ADM IN Attending Dr: Trevin [...] she expresses that the anxiety has remained assevere as before. Mental Status Exam: Appearance: grossly [...] the encounter. I reviewed the history and performedthe logan elements of the physical examination. I formulated the plan of care and confirmed this withthe resident as noted below. Patient reported that [...] signed by DO BEATRIZ Manning> 02/01/24 1437 [facility] Work Phone: 1(808) 550-639509-14-2024 History and physical note Author Trevin rodriguez [facility] January 30, 2024 11:03amNote Date/TimeSeptember 2023 10:20[place] [address] Psychiatry H&P Signed Patient: Bridgette Wang MR#: [id number] : 1965 Acct:[id number] Age/Sex: 58 / F Adm Date: 4 Loc: 1S Room: 8E9082-1 Type: ADM IN Attending Dr: Trevin Renteria MD Copies to: Trevin Renteria MD FAMILY PHYSICIAN Arturo Manning DO, RES~ Date [...] control since she was a child despite attemptedtreatment with many meds. Upon initiating the examination she jumps in her seat and is unsure if she is willing to speak with me because of her anxiety. She is out onthe unit playing cards with 3 other patients other table in the main area. She states that she just wants it to end, and when askedto clarify she specifies that she means the mental torment. She describes severe persistent racing t houghts. She endorses having lots of paranoia but would not expand on this andattributes it to the anxiety. She denies hallucinations. This patient denies SI or HI today. She admits to 1 past suicideattempt where she overdosed on antidepressants. Her most recent stay in an inpatient psychiatric unit was hereat 1 S. about 3 weeks ago for the same reason to address her anxiety. When asked if it had gotten better since her last stay she denied. Patient was personally seen by me on the day of the encounter. I reviewed the history and performedthe logan elements of the assessment. I formulated the planof care and confirmed this with the resident as noted below Past psych history: Bipolar disorder, MDD, LACHELLE Past hospitalizations: History of past hospitalization in 2022 Past suicide attempts: Patient describes 1 suicide attempt that took place in her 20s surrounding [facility] from her who said that he would [...] of her anxiety. 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 January 15, 2024 7:39amNote Date/TimeAugust 2023 7:39[place] [address] Discharge Summary Signed Patient: Bridgette Wang MR#: [id number] : 1965 Acct:[id number] Age/Sex: 58 / F Adm Date: 4 Loc: Room: [address] [place] [address]: Farhat Kirby MD Copies to: [...] that took place in her 20s [place] from her who said that he would leave her Family psych history: Reported as mental health issues in her dad Previous medications: Remeron, Lexapro, Seroquel, lamotrigine The course of treatment: The patient was familiar with the mental health therapy services available whileon the unit and wasencouraged to participate. Patient has been feeling anxious and said her meds needed to be adjusted. Psychotropic medications targeting mood and anxiety were started, and she was provided supportive and reality-oriented therapy. She has been feeling less anxious on current med regimen. Cymbalta wasincreased and Doxepin was titrated up. Remeron was added to help with sleep. She felt that her symptoms have improved on the current medication regimen, and she has been compliant with treatment and reported no side effects. Anxiety has been moderate and therefore Gabapentin was added. She wanted to add Benzos and we discussed long-term for Benzos. Her sleep and appetite were [...] self harm or thoughts of harm to others,the patient was not to harm them self or stop treatment, but to call [facility], 911 or come to the nearest emergency room. The patient also received information regarding advanced mental and medic al health directives during this hospitalization to discuss [...] to get in treatment, response to treatment, adherenceto treatment recommendations, and using skills. The patient's [...] follow-up, preferably within seven days of release, involvingsupportive family/friends in her care, and her desire [...] future-oriented and understands the importance of outpatient follow-up.Psychiatric experts agree that predicting suicide is impossible, but considering positive factors like family and get, lack of access to firearms, and desire to continue treatment makes her currentsuicide risk minimal. Given the chronicity of suicidality, we discussed measures to help her with long-term safety. The patient is not suicidal or psychotic now. To help decreaseher suicide risk, as best I can, I am referring her for outpatient treatment andCBT for long-term follow-up to have somewhere to go and someoneto manage her assymptoms and stressors develop. This is the best way to keep her alive. So, we discussed a crisis plan for future suicidality: at the first sign of distress, she will call the hotline; if this is not sufficient, she will 911, then call family members or friends; ultimately, she willcome to the ER. Violence Risk Assessment: Chronic: Gender: lower than males Modifiable: good response to treatment, good therapeutic alliance, availability of local mental health services and willingness to follow up, lack of homicidal ideation (intent or plan) on the day ofdischarge and during hospitalization, lack of substance abuse, [...] medications. Patient indicates an understanding that benefits o utweigh the risks. Continue supportive therapy with some CBT techniques. Psycho-education and compliance counseling were provided. She denies current and is aware to notify her psychiatrist if she becomes due tothe risk of harm to the fetus. Avoid [...] [facility] at [phone] any timeday or night if you have emergent questions or question regarding discharge instructions. If at anytime you are feeling an increase inyour psychiatric symptoms, call your physician or behavioral healthcare provider. If any time you have thoughts of harming yourself or others contact one of the following: Call (available 08/12) Crisis Text Line (available 08/12) text 4HOPE to [phone] [facility] Hope Line (available 8 a.m. Midnight) call [phone] ([phone]) Regular Diet No Activity Restrictions Instructions: Alcohol Use Disorder (DC), Bipolar Disorder (DC), [facility] DC Instructions, Know your Meds Prescriptions: [...] PO Q8HR PRN (Reason: anxiety) Follow Up: [facility] [Outside] (Make IOP referral. ) Korina Walker APRN, BYPRODUCT ENGINEER-C [Referring] - (Contact your PCP with medical needs. ) Exam Physical Exam Vital Signs: Temp Pulse Resp BP Pulse Ox O2 Del Method 97.6 F 94 16 117/79 98 Room Air 01/14/24 20:00 01/14/24 20:00 01/14/24 20:00 01/14/24 20:00 01/14/24 20:00 01/14/24 21:00 Documented By: Trevin Renteria MD 4 [id number] Signed By: <Electronically signed by Trevin Renteria MD> 01/15/24 0739 [facility] Work Phone: 1(646) 166-797808-29-2024 Progress note Author Trevin rodriguez [facility] January 14, 2024 7:51amNote Date/TimeAugust 2023 7:51amFIRJohn Ville [id number] Psychiatry Progress Note Signed Patient: Bridgette Wang MR#: [id number] : 1965 Acct:[id number] Age/Sex: 58 / F Adm Date: 4 Loc: 1S Room: 8K8662-7 Type : ADM IN Attending Dr: Farhat [...] thoughts. She denied any suicidal or self-injurious behaviors.I did talk with her about the importance [...] severity: severe Psychotic features: without psychotic features QualifiedCode(s): F32.2- Major depressive disorder, single episode, severe [...] <Electronically signed by Trevin Renteria MD> 01/14/24 0759 [facility] Work Phone: 1([phone]) 543-651008-28-2024 Progress note Author Trevin rodriguez [facility] January 13, 2024 8:21amNote Date/TimeAugust 2023 8:14[place] [address] Psychiatry Progress Note Signed Patient: Bridgette Wang MR#: [id number] : 1965 Acct:[id number] Age/Sex: 58 / F Adm Date: 4 Loc: Room: 7J3945-3 Type : ADM IN Attending Dr: Farhat [...] whether recurrent Psychotic features: without psychotic features QualifiedCode(s): F32.2 - Majordepressive disorder, single episode, severe [...] staff). Documented By: Trevin Renteria MD 4 0814 Signed By: <Electronically signed by Trevin Renteria MD> 01/13/24 0821 [facility] Work Phone: 1(840) 719-636608-27-2024 Progress note Author Trevin rodriguez [facility] January 12, 2024 9:25amNote Date/TimeAugust 2023 9:24[place] [address] Psychiatry Progress Note Signed Patient: Bridgette Wang MR#: [id number] : 1965 Acct:[id number] Age/Sex: 58 / F Adm Date: 4 Loc: Room: [address] [place] [address] Type : ADM IN Attending Dr: Farhat Kirby MD Copies to: ~ Date of Service: 01/12/2024 Subjective Subjective Narrative: Bridgette Wang reports her anxiety remains moderate. She doesn't want to adjust themedications today because Remeron was just adjusted. I provided her information about increasing Cymbalta if we need todo. She denies any suicidal thoughts ontoday's examination. [...] severity: severe Psychotic features: without psychotic features QualifiedCode(s): F32.2- Major depressive disorder, single episode, severe [...] and staff). Documented By: Trevin Renteria MD 922 Signed By: <Electronically signed by Trevin Renteria MD> 01/12/24924 [facility] Work Phone: 1(808) 719-255908-26-2024 Progress note Author Trevin rodriguez [facility] January 11, 2024 12:45pmNote Date/TimeAugust 2023 11:29[place] [address] Psychiatry Progress Note Signed Patient: Bridgette Wang MR#: [id number] : 1965 Acct:[id number] Age/Sex: 58 / F Adm Date: 4 Loc: 1S Room: [address] [place] [address] Type : ADM IN Attending Dr: Farhat [...] the encounter. I reviewed the history and performedthe logan elements of the assessment. I formulated [...] whether recurrent Psychotic features: without psychotic features QualifiedCode(s): F32.2 - Majordepressive disorder, single episode, severe [...] <Electronically signed by DO BEATRIZ Manning> 01/11/24 1124 [facility] Work Phone: 1(635) 125-815408-25-2024 Progress note Author Farhat Kirby [facility] January 10, 2024 12:41pmNote Date/TimeAugust 2023 12:41pmKeith Ville [id number] Psychiatry Progress Note Signed Patient: Bridgette Wang MR#: [id number] : 1965 Acct:[id number] Age/Sex: 58 / F Adm Date: 4 Loc: Room: [address] [place] [address] Type : ADM IN Attending Dr: Farhat [...] explained Documented By: Farhat Kirby MD 01/10/24 1236 Signed By: <Electronically signed by Farhat Kirby MD> 01/10/24 1241 [facility] Work Phone: 1(304) 117-252308-24-2024 Progress note Author Farhat Kirby [facility] January 09, 2024 1:23pmNote Date/TimeAugust 2023 12:34pmKeith Ville [id number] Psychiatry Progress Note Signed Patient: Bridgette Wang MR#: [id number] : 1965 Acct:[id number] Age/Sex: 58 / F Adm Date: 4 Loc: Room: [address] [place] [address] Type : ADM IN Attending Dr: Farhat [...] and appetite has been okay. She tolerated thedose adjustments of her current medications. Mental Status [...] and waking up with extreme anxiety. Some improvementwith her depression. He denied suicidal thoughts today so far continued Cymbalta 30 mg twice a day, Remeron 7.5mg Continue doxepin 10 mg bid and 25mg qhs Continue to monitor mental status Encourage group participation and medication compliance Risk benefits alternatives explained Documented By: Farhat Kirby MD 01/09/24 1230 Signed By: <Electronically signed by Farhat Kirby MD> 01/09/24 1322 [facility] Work Phone: 1(852) 763-227208-23-2024 Progress note Author Farhat Kirby [facility] January 08, 2024 11:02amNote Date/TimeAugust 2023 11:01[place] [id number] Psychiatry Progress Note Signed Patient: Bridgette Wang MR#: [id number] : 1965 Acct:[id number] Age/Sex: 58 / F Adm Date: 4 Loc: Room: [address] [place] [address] Type : ADM IN Attending Dr: Farhat [...] <Electronically signed by Farhat Kirby MD> 01/08/24 9675 [facility] Work Phone: 1(480) 311-655308-22-2024 Progress note Author Farhat Kirby [facility] January 07, 2024 12:55pmNote Date/TimeAugust 2023 12:54[place] [address] Psychiatry Progress Note Signed Patient: Bridgette Wang MR#: [id number] : 1965 Acct:[id number] Age/Sex: 58 / F Adm Date: 4 Loc: Room: [address] [place] [address] Type : ADM IN Attending Dr: Farhat [...] signed by Farhat Kirby MD> 01/07/24 1255 [facility] Work Phone: 1(251) 439-506608-21-2024 History and physical note Author Farhat Kirby [facility] January 06, 2024 12:31pmNote Date/TimeAugust 2023 12:31[place] [address] Psychiatry H&P Signed Patient: Bridgette Wang MR#: [id number] : 1965 Acct:[id number] Age/Sex: 58 / F Adm Date: 4 Loc: Room: [address] [place] [address] Type: ADM IN Attending Dr: Farhat Kirby [...] that took place in her 20s surrounding [facility] from her who said that he would [...] denies current suicidality Insight: fair Judgment: fair [facility] Medical History (Updated 01/06/24 @ 12:31 by [...] signed by Farhat Kirby MD> 01/06/24 1231 [facility] Work Phone: 1(340) 675-729408-13-2023 Discharge summary Author Farhat Kirby [facility] December 28, 2022 10:24amNote Date/TimeAugust 2022 10:17aBrittany Ville [id number] Discharge Summary Signed Patient: Bridgette Wang MR#: [id number] : 1965 Acct:[id number] Age/Sex: 57 / F Adm Date: 3 Loc: Room: [address] [place] [address]: Fermin Renteria MD Copies to: MD Farhat Whitten MD Laura Anglim, SOLE CUTTER, DRYWALL SPRAYER~ Providers Date of Discharge: 12/28/22 Discharging Provider: Farhat Kirby Primary Care Provider: Korina Walker Discharge Diagnosis (1) Alcoholism: (2) Bipolar II disorder: Final Diagnosis Final Discharge Diagnosis: Bipolar 2 disorder Unspecified anxiety disorder Summary Hospital Course Hospital course: According to admission note: This is a 57-year-old female with reported history of bipolar disorderwho presents for inpatient admission due to worsening [...] She has been following up with a BYPRODUCT ENGINEER and is unsure if the meds are effective. She has been distracted and reported poor focusing. She has been in the ER multiple times over the past couple of days due to anxiety. Ex stated via prescreen report that pt has always had trouble with drinking and not caring for self. She reported previous DUIs and problems due todrinking. She does not endorse any current withdrawal symptoms. Last alcohol drink is about 10 daysago. Despite reporting a history of bipolar II, she only endorses some highs and lows associated with irritability. She denied multiple sexual partners or high libido but noted impulsive spending at times. Past psych history: Bipolar disorder diagnosed at an unknown time.? Reports previously following with a BYPRODUCT ENGINEER but was noncompliant with care and therefore she was discontinued from practice Past hospitalizations: Patient denies Past suicide attempts: Patient describes 1 suicide attempt that took place in her 20s surrounding [facility] from her who said that he would [...] notice some improvement with. She still complained ofsome anxiety but objectively seems calmer. She was [...] Activity Restrictions Instructions: Bipolar Disorder (DC), [facility] [place] Instructions Prescriptions: New mirtazapine [...] TABLET BY MOUTH AT BEDTIME Follow Up: [facility] [Outside] [facility] [Outside] Korina Walker APRN, BYPRODUCT ENGINEER-C [Primary Care Provider] - Documented By: Farhat Kirby MD 12/28/22 1014 Signed By: <Electronically signed by Farhat Kirby MD> 12/28/22 1024 [facility] Work Phone: 1(606) 656-893808-12-2023 Progress note Author Farhat Kirby [facility] December 27, 2022 11:09amNote Date/TimeAugust 2022 11:09[place] [address] Psychiatry Progress Note Signed Patient: Bridgette Wang MR#: [id number] : 1965 Acct:[id number] Age/Sex: 57 / F Adm Date: 3 Loc: Room: [address] [place] [address] Type : ADM IN Attending Dr: Fermin Renteria MD Copies to: ~ Date of Service: 12/27/2022 Subjective Subjective Narrative: Ms. Wang reported that she is having Superman anxiety. She reported that her heart is pounding. She stated that the Seroquel has been helping a little bit more than the BuSpar. She reported that sheslept better and appetite has been stable. Appearance: [...] <Electronically signed by Farhat Kirby MD> 12/27/221108 [facility] Work Phone: 1(479) 859-565208-11-2023 Progress note Author Farhat Kirby [facility] December 26, 2022 9:33amNote Date/TimeAugust 2022 9:33[place] [address] Psychiatry Progress Note Signed Patient: Bridgette Wang MR#: [id number] : 1965 Acct:[id number] Age/Sex: 57 / F Adm Date: 3 Loc: Room: [address] [place] [address] Type : ADM IN Attending Dr: Fermin [...] <Electronically signed by Farhat Kirby MD> 12/26/22932 [facility] Work Phone: 1(461) 942-606108-10-2023 Progress note Author Farhat Kirby [facility] December 25, 2022 1:22pmNote Date/TimeAugust 2022 1:21[place] [address] Psychiatry Progress Note Signed Patient: Bridgette Wang MR#: [id number] : 1965 Acct:[id number] Age/Sex: 57 / F Adm Date: 3 Loc: Room: [address] [place] [address] Type : ADM IN Attending Dr: Fermin [...] <Electronically signed by Farhat Kirby MD> 12/25/222 [facility] Work Phone: 1([phone]) 880-412308-09-2023 Progress note Author Farhat Kirby [facility] December 24, 2022 12:35pmNote Date/TimeAugust 2022 12:35[place] [address] Psychiatry Progress Note Signed Patient: Bridgette Wang MR#: [id number] : 1965 Acct:[id number] Age/Sex: 57 / F Adm Date: 3 Loc: Room: [address] [place] [address] Type : ADM IN Attending Dr: Fermin [...] are not strong enough. We discussed about increasingthe medications at this time. Appearance: dressed casually [...] signed by Farhat Kirby MD> 12/24/22 1235 [facility] Work Phone: 1(639) 232-972008-08-2023 Progress note Author Farhat Kriby [facility] December 23, 2022 1:51pmNote Date/TimeAugust 2022 1:51[place] [address] Psychiatry Progress Note Signed Patient: Bridgette Wang MR#: [id number] : 1965 Acct:[id number] Age/Sex: 57 / F Adm Date: 3 Loc: Room: 3H0938-4 Type : ADM IN Attending Dr: Fermin Renteria MD Copies to: ~ Date of Service: 12/23/2022 Subjective Subjective Narrative: Ms. Wang reported that she is not so good. She reported that her anxiety has been very problematicfor her. She reported that she only got a few hours of sleep overnight and is concerned about it. She reported that her depression hasalso been worrisome for her. She did complain of some concern forsome sweatingand shaking which she thinks may be [...] explained Documented By: Farhat Kirby MD 12/23/22 6142 Signed By: <Electronically signed by Farhat Kirby MD> 12/23/22 1354 [facility] Work Phone: 1(667) 302-712308-07-2023 Progress note Author Farhat Kirby [facility] December 22, 2022 1:06pmNote Date/TimeAugust 2022 1:05pmKeith Ville [id number] Psychiatry Progress Note Signed Patient: Bridgette Wang MR#: [id number] : 1965 Acct:[id number] Age/Sex: 57 / F Adm Date: 3 Loc: Room: [address] [place] [address] Type : ADM IN Attending Dr: Fermin [...] signed by Farhat Kirby MD> 12/22/22 1306 [facility] Work Phone: 1(759) 704-650908-06-2023 Progress note Author Farhat Kirby [facility] December 21, 2022 10:32amNote Date/TimeAugust 2022 10:32[place] [address] Psychiatry Progress Note Signed Patient: Bridgette aWng MR#: [id number] : 1965 Acct:[id number] Age/Sex: 57 / F Adm Date: 3 Loc: Room: [address] [place] [address] Type : ADM IN Attending Dr: Fermin [...] alternatives explained Documented By: Farhat Kirby MD 12/21/22 1031 Signed By: <Electronically signed by Farhat Kirby MD> 12/21/22 1032 [facility] Work Phone: 1([phone]) 997-322408-05-2023 Progress note Author Farhat Kirby [facility] December 20, 2022 11:34amNote Date/TimeAugust 2022 11:34[place] [address] Psychiatry Progress Note Signed Patient: Bridgette Wang MR#: [id number] : 1965 Acct:[id number] Age/Sex: 57 / F Adm Date: 3 Loc: Room: [address] [place] [address] Type : ADM IN Attending Dr: Fermin Renteria MD Copies to: ~ Date of Service: 12/20/2022 Subjective Subjective Narrative: Ms. Wang reported that she does not feel good physically. She reported some abdominal pain but didtake some nausea medication which helped a little [...] alternatives explained Documented By: Farhat Kirby MD 12/20/22 113 Signed By: <Electronically signed by Farhat Kirby MD> 12/20/22 1134 [facility] Work Phone: 1(684) 938-572008-04-2023 Progress note Author Trevin rodriguez [facility] December 19, 2022 7:10amNote Date/TimeAugust 2022 7:10[place] [address] Psychiatry Progress Note Signed Patient: Bridgette Wang MR#: [id number] : 1965 Acct:[id number] Age/Sex: 57 / F Adm Date: 3 Loc: Room: [address] [place] [address] Type : ADM IN Attending Dr: Fermin Renteria MD Copies to: ~ Date of Service: 12/19/2022 Subjective Subjective Narrative: Ms. Wang reports she is feeling anxious and depression has been high. Sleep has been interrupted. She feels that her medications might need to be adjusted. She denies SI/HI and verbalized the intentto notify staff if she has such thoughts. She continues to be compliant with prescribed medicationsand is visible within the unit milieu. She [...] signed by Trevin Renteria MD> 12/19/22 0710 [facility] Work Phone: 1(155) 202-114308-03-2023 Progress note Author Trevin rodriguez [facility] December 18, 2022 8:50amNote Date/TimeAugust 2022 8:50amKeith Ville [id number] Psychiatry Progress Note Signed Patient: Bridgette Wang MR#: [id number] : 1965 Acct:[id number] Age/Sex: 57 / F Adm Date: 3 Loc: 1S Room: 9E3534-9 Type : ADM IN Attending Dr: Fermin [...] said she is less distracted compared to y . She denies SI/HI and verbalized the intent to notify staff if she hassuch thoughts. She continues to be compliant with prescribed medications and is visible within the unit milieu. She is working on placement options with case operator. We have agreed to continue the current medications regimen. Risks, benefits, and indications of medications were discussed. She denies recent hx of recent suicide attempts, and while admitted they were future oriented, participated in group activities, articulated needs appropriately, and displayed no self-harm behaviors.Imminent risk is low given factors noted above. [...] signed by Trevin Renteria MD> 12/18/22 0850 [facility] Work Phone: 1(552) [phone] History and physical note Author Trevin rodriguez [facility] December 17, 2022 11:36amNote Date/TimeAugust 2022 11:36[place] [address] Psychiatry H&P Signed Patient: Bridgette Wang MR#: [id number] : 1965 Acct:[id number] Age/Sex: 57 / F Adm Date: 3 Loc: Room: [address] [place] [address] Type: ADM IN Attending Dr: Fermin Renteria MD Copies to: MD Korian Whitten, SOLE CUTTER, DRYWALL SPRAYER~ Date of Service: 12/17/2022 HPI History of Present Illness History of present illness: This is a 57-year-old female with reported history of bipolar disorder who presents for inpatient admission due to worsening of anxiety, confusion, disorientation, and confusion. Patient was personally seen by me on the day of the encounter. I reviewed the history and performedthe logan elements of the assessment. I formulated [...] history of Bipolar II disorder and not hadmedication for a month or so. She has been following up with a BYPRODUCT ENGINEER and is unsure if the meds are effective. She has been distracted and reported poor focusing. She has been in the ER multiple times over the past couple of days due to anxiety. Ex stated via prescreen report that pt has alwayshad trouble with drinking and not caring for self. She reported previous DUIs and problems due to drinking. She does not endorse any current withdrawal symptoms. Last alcohol drink is about 10 days ago. Despite reporting a history of bipolar II, she only endorses some highs and lows associated withirritability. She denid multiple sexual partners or high libido but noted impulsive spending at times. Past psych history: Bipolar disorder diagnosed at an unknown time. Reports previously following with a BYPRODUCT ENGINEER but was noncompliant with care and therefore she was discontinued from practice Past hospitalizations: Patient denies Past suicide attempts: Patient describes 1 suicide attempt that took place in her 20s surrounding [facility] from her who said that he would [...] signed by Trevin Renteria MD> 12/17/22 1136 [facility] Work Phone: Evaluation note* Diagnosis Onset Date Resolution Status Alcoholism acuteBipolar II disorderacute [facility] Work Phone: Evaluation note* Diagnosis Onset Date Resolution Status MDD (major depressive disorder) acute [facility] Work Phone: Evaluation note* Diagnosis Onset Date Resolution Status MDD (major depressive disorder) acuteAnxietyacuteBipolar 1 disorderacute [facility] Work Phone: Hospital Discharge instructions Additional Instructions Regular Diet No [facility] Work Phone: Chief Complaint and Reason for Visit Chief Complaint Bipolar Reason for Visit Alcoholism Bipolar II disorder Chief Complaint Bipolar Disorder Bipolar Disorder Bipolar DisorderReason for VisitMDD (major depressive disorder) Chief Complaint Bipolar Disorder Bipolar Disorder Bipolar Disorder BH Depression Depression DepressionReason for VisitMDD (major depressive disorder) Anxiety Bipolar 1 disorder Chief Complaint Admit Date BH August 23, 2024 10:4 8am Bipolar August 23, 2024 2:29 pm Bipolar August 24, 2024 11:1 8am Reason for Visit Admit Date Anxiety August 23, 2024 2:29 pm MDD (major depressive disorder) August 2:29pm Chief Complaint Admit Date Bipolar August 23, 2024 2:29 pm Bipolar August 24, 2024 11:1 8am BH October 10, 2024 8:43a m Bipolar Disorder October 10, 2024 12:58 pm Bipolar Disorder October 11, 2024 9:02a m Bipolar Disorder October 18, 2024 7:02a m Bipolar Disorder October 25, 2024 1:58 pm Reason for Visit Admit Date Anxiety August 23, 2024 2:29 pm MDD (major depressive disorder) August 2:29pm Alcoholism October 10, 2024 12:58 pm Anxiety October 10, 2024 12:58 pm Bipolar II disorder October 10, 2024 12:58 pm MDD (major depressive disorder) September 12:58pm Suicidal ideation October 10, 2024 12:58 pm Chief Complaint Admit Date BH January 26, 2025 10:36am Bipolar Disorder January 26, 2025 5:54pm Bipolar Disorder February 02, 2025 12:00am Reason for Visit Admit Date Anxiety January 26, 2025 5:54pm Bipolar 1 disorder January 26, 2025 5:54pm MDD (major depressive disorder) [facility] 2024 5:54pm Advance Directives No Advanced Directives Records Found Advance Directive Response Recorded Date/ Time Advance Directives No December 16 7:46pm Family History No Family History Records Found Relationship Condition Age at Onset Recorded Date/T clarence Not Specified No pertinent family history Unknown fatherMental disorderUnknown Summary Purpose Additional Source Comments Care Teams (unrecognized sec tion and content) Team Status: Active Member Role Status Dates PHYSICIAN NO FAMILY Primary Care Provider Active Team Status: Active Member Role Status Dates Korina Walker APRN [employer]PR[employer] ENGINEER-C Primary Care Provider Active Start: January 26, 2025 Rene Whitten ProviderActiveStart: January 26, 2025 Team Status: Active Member Role Status Dates PHYSICIAN NO FAMILY Primary Care Provider Active Start: January 26, 2025 Javier Whitten ProviderActiveStart: January 26, 2025 Rene Whitten ProviderActiveStart: January 26, 2025 Lexus Whitten ProviderActiveStart: January 26, 2025 Team Status: Active Member Role Status Dates PHYSICIAN NO FAMILY Primary Care Provider Active Start: February 02, 2025 Javier Whitten ProviderActiveStart: February 02, 2025 Lexus Whitten ProviderActiveStart: February 02, 2025 Rene Solares ProviderActiveStart: February 02, 2025 Team Status: Inactive Member Role Status Dates PHYSICIAN NO FAMILY Primary Care Provider Active Start: August 23, 2024 End: August 30Javier Cat ProviderActiveStart: August 23, 2024 End: August 30Rene Cuevas ProviderActiveStart: August 23, 2024 End: August 30, 2024 Team Status: Active Member Role Status Dates PHYSICIAN NO FAMILY Primary Care Provider Active Start: August 24, 2024 Javier Whitten Provider, Attending Provider, Other Provider ActiveStart: August 24, 2024 Team Status: Active Member Role Status Dates Korina Walker APRN [employer]PRODUCT ENGINEER-C Primary Care Provider Active Start: October 10, 2024 Rene Whitten ProviderActiveStart: October 10, 2024 Team Status: Inactive Member Role Status Dates PHYSICIAN NO FAMILY Primary Care Provider Active Start: October 10, 2024 End: October 26Celina Cuevasit Provider, Attending ProviderActive Start: October 10, 2024 End: October 26, 2024 Team Status: Active Member Role Status Dates PHYSICIAN NO FAMILY Primary Care Provider Active Start: October 11, 2024 Farhat Kirby MDAdmit Provider, Attending Provider, Other ProviderActive Start: October 11, 2024 Team Status: Active Member Role Status Dates PHYSICIAN NO FAMILY Primary Care Provider Active Start: October 18, 2024 Celina Solaresit Provider, Other ProviderActiveStart: October 18, 2024 Trevin Renteria MDAttending ProviderActiveStart: October 18, 2024 Team Status: Active Member Role Status Dates PHYSICIAN NO FAMILY Primary Care Provider Active Start: October 25, 2024 Farhat Kirby MDAdmit Provider, Attending Provider, Other ProviderActive Start: October 25, 2024 Team Status: Active Member Role Status Dates Korina Walker APRN [employer]PRODUCT ENGINEER-C Primary Care Provider Active Start: August 23, 2024 Trevin Renteria , GORDOttending ProviderActiveStart: August 23, 2024 Team Status: Inactive Member Role Status Dates PHYSICIAN NO FAMILY Primary Care Provider Active Start: August 23, 2024 End: August 30bdchristofer Renteria MDAdmnancy Provider, Attending ProviderActiveStart: August 23, 2024 End: August 30, 2024 Team Status: Inactive Member Role Status Dates Farhat Kirby MD Admit Provider Active Start: January 05, 2024 End: January 14HYSICIRAY NO FAMILYPrimary Care ProviderActiveStart: January 05, 2024 End: January 14bdchristofer Renteria MDAttending ProviderActiveStart: January 05, 2024 End: January 15, 2024 Team Status: Active Member Role Status Dates PHYSICIAN NO FAMILY Primary Care Provider Active Start: January 05, 2024 Haile Mendoza ProviderActiveStart: January 05, 2024 Team Status: Active Member Role Status Dates Farhat Kirby MD Admit Provider, Atte nding Provider, Other Provider Active Start: January 06, 2024 PHYSICIAN NO FAMILYPrimary Care ProviderActiveStart: January 06, 2024 Team Status: Active Member Role Status Dates Farhat Kirby MD Admit Provider, Other Provider Act jessie Start: January 13, 2024 PHYSICIAN NO FAMILYPrimary Care ProviderActiveStart: January 13, 2024 Trevin Renteria , MDAttending ProviderActiveStart: January 13, 2024 Team Status: Active Member Role Status Dates Korina Walker APRN BYPRODUCT ENGINEER-C Primary Care Provider Active Start: January 29, 2024 Trevin Renteria , MDAttending ProviderActiveStart: January 29, 2024 Team Status: Inactive Member Role Status Dates PHYSICIAN NO FAMILY Primary Care Provider Active Start: January 29, 2024 End: February 07sushila Renteria MDAdmit Provider, Attending ProviderActiveStart: January 29, 2024 End: February 08, 2024 Team Status: Active Member Role Status Dates PHYSICIAN NO FAMILY Primary Care Provider Active Start: January 30, 2024 Trevin Renteria MDAdmit Provider, Attending Provider, Other Provider ActiveStart: January 30, 2024 Team Status: Active Member Role Status Dates PHYSICIAN NO FAMILY Primary Care Provider Active Start: February 06, 2024 Trevin Renteria MDAdmit Provider, Other ProviderActiveStart: February 06, 2024 Farhat Kirby , MDAttending ProviderActiveStart: February 06, 2024 Team Status: Active Member Role Status Dates Korina Walker APRN BYPRODUCT ENGINEER-C Primary Care Provider Active Team Status: Inactive Member Role Status Dates Korina Walker APRN BYPRODUCT ENGINEER-C Primary Care Provider Active Fermin Renteria MDAdmit Provider, Attending ProviderActive Team Status: Active Member Role Status Dates Korina Walker APRN BYPRODUCT ENGINEER-C Primary Care Provider Active Start: January 05, 2024 Trevin Renteria , MDAttending ProviderActiveStart: January 05, 2024 Team Status: Inactive Member Role Status Dates Farhat Kirby MD Admit Provider, Atte nding Provider Active Start: January 05, 2024 End: January 14HYSICIAN NO FAMILYPrimary Care ProviderActiveStart: January 05, 2024 End: January 15, 2024 INFORMATION SOURCE (unrecogn ized section and content) DATE CREATED AUTHOR 02/21/2024 [facility] DATE CREATED AUTHOR AUTHORSima MANJARREZ 03/26/2025 [facility] Goals (unrecognized section and content) Goals may be documented in a n alternate section FOR RECORDS PERTAINING TO PATIENTS WHO ARE [...] BE BASED ON THE PRIMARY CLINICAL RECORDS. [facility]. provides no warranty or guarantee of the accuracy or completeness of information in this document.
[2025-04-16 10:46] LABS: Hematocrit 45.2 % (36.0-48.0); Hemoglobin 15.0 g/dL (12.0-16.0); Immature Granulocytes Abs Auto 0.06 10^3/uL (0.00-0.03); Immature Granulocytes Pct Auto 0.6 % (0.0-0.5); Lymphocytes Absolute Auto 2.2 10^3/uL (1.2-3.8); Mean Corpuscular HGB Conc 33.2 g/dL (29.9-35.2); Mean Corpuscular Hemoglobin 31.2 pg (26.7-34.0); Mean Corpuscular Volume 94.0 fL (81.0-99.0); Platelet Count 493 10^3/uL (150-450); Red Blood Count 4.81 10^6/uL (4.20-5.40); White Blood Count 10.8 10^3/uL (4.0-11.0)
[2025-04-16] MEDS: ONDANSETRON 4 MG RAPDIS TABLET SL (10:57)
[2025-04-16 11:05] LABS: Glucose Urine UA NEGATIVE (NEGATIVE)
[2025-04-16 11:08] LABS: Anion Gap 14.7; Blood Urea Nitrogen 24.0 mg/dL (7.0-18.0); Calcium 10.1 mg/dL (8.5-10.1); Carbon Dioxide 28.2 mmol/L (21.0-32.0); Chloride 101 mmol/L (98-107); Estimated GFR (African America >60 (>=60 mL/min/1.73m^2); Estimated GFR (Non-African Ame >60 (>=60 mL/min/1.73m^2); Glucose 69 mg/dL (74-106); Potassium 3.9 mmol/L (3.5-5.1); Salicylate 5.0 mg/dL (<=19.9); Sodium 140 mmol/L (136-145)
[2025-04-16 11:14] LABS: Cast Seen? NONE SEEN #/LPF (NONE SEEN); Crystals Seen? None Seen #/HPF (None Seen)
[2025-04-16 11:15] LABS: Cannabinoid Screen Urine POSITIVE (NEGATIVE); Methamphetamines Screen Urine NEGATIVE (NEGATIVE); Tricyclic Antidepressant Urine NEGATIVE (NEGATIVE)
[2025-04-16 11:20] LABS: Acetaminophen <2.0 ug/mL (10.0-30.0)
[2025-04-16 14:42] VITALS: BP 139/83; PULSE 66; O2SAT 98
== END 2025-04-16 16:29 ==
PROVIDERS: Emergency Provider Emergency Medicine
DX: F31.9 Bipolar disorder, unspecified (principal); Z79.899 Other long term (current) drug therapy
CPT/HCPCS: 36415; 80048; 80179; 80307; 80320; 80329; 81001; 85025; 93005; 96372; 99285; J3360; Q0162